=== PATIENT | female | born 1935 | race Caucasian/White ===

== ENCOUNTER 2016-11-13 10:00 | Emergency (ER) | payer MEDICARE ==
[~2016-11-13] VITALS: Ht 162.6 cm; Wt 57.7 kg
[~2016-11-13 10:00] MED LIST: ACET-2222 PO; AGM875T PO; ALPR.5T PO; ALPR1T PO; ALPR1TAB7 PO; AMOX-355 PO; ASP81CT PO; ASPI-586 PO; ATOR40TA70 PO; ATR20T PO; AUGMENTIN; BENZ200C25 PO; CEPH-507 PO; CETI10TA20 PO; CHLR10C PO; CHOL500044 PO; CLC200NA2; CLC200NA2 NS; CLOP75TA PO; CODE-54; CODE-54 PO; CYCL10TA9 PO; CYCL5TAB PO; DLT180CCR; DLT240CCR; DOCU-143 PO; DOCU-163 PO; DULO60CA58 PO; DULO60CA6 PO; ENAL5TAB PO; ENLP10T; ESCI20TA2 PO; ESCI20TA38 PO; ESCT10T; ESCT10T PO; FOLI0.8T PO; FRSM40T PO; FURO40TA4 PO; GENT15DR4 OS; GUAI-509 PO; HYDR-34 PO; HYDR-3714 PO; HYDR1TAB PO; HYDR1TAB8 OP; IBUP1TAB15 PO; IRBE75TA31 PO; KCL10CCR PO; LAMOTIL PO; LNS30CCR; LOPE1TAB13 PO; LOPE2CAP PO; LVF500T PO; MAG355OR55 PO; MAGN-47 PO; MAGN400T6 PO; METO-270 PO; METO-272 PO; METO25TA PO; METO50TA7 PO; MGX400T PO; MIRA50TA PO; MTC10T; MTP100TCR; NAPR220C PO; NF-ESOM40C; NITR-65 PO; ONDA4TAB8 PO; ONDA8TAB9 PO; OXYC-197 PO; OXYM30SP NS; PANT20TA2 PO; PANT40TA PO; PANT40TA3 PO; PNT40TEC PO; PRD20T PO; PRED5DRO OS; PREG50CA2 PO; QNPR10T; QNPR20T; QUET50TA49 PO; RIVA10TA PO; SENN1TAB76 PO; STOMACH MED; THM100T PO; TRAM50TA2 PO; TRM50T PO; WELCHOL PO; Z-Pak; albuterol mdi; immodium PO
--- OUTSIDE RECORDS SUMMARY | 2016-11-13 10:06 | XMS REPORT | Continuity of Care Document ---
Author Author [facility] Organization [facility] Address Unknown Phone Unavailable Care Team Providers Care Fishery Division Chief Name Role Phone No Pcp, Na PCP Unavailable Source Comments Some departments are not documenting in the electronic medical record. If you do not see the information that you expected, contact Release of Information in the Health Information Management department at [phone] for further assistance in locating additional records.[facility] Active Allergies and Adverse Reactions No Known Allergies Current Medications Prescription Sig. Disp. Refills Start End Date Status Date CETIRIZINE HCL (ZYRTEC Take by mouth. Active PO) ALPRAZOLAM (XANAX PO) Take by mouth. Active METOPROLOL SUCCINATE Take by mouth. Active (TOPROL XL PO) PANTOPRAZOLE SODIUM Take by mouth. Active (PROTONIX PO) BABY ASPIRIN PO Take by mouth. Active ERGOCALCIFEROL (VITAMIN Take by mouth. Active D2) (VITAMIN D PO) GUAIFENESIN (MUCINEX PO) Take by mouth. Active SERTRALINE HCL (ZOLOFT Take by mouth. Active PO) Active Problems No known active problems Resolved Problems Problem Noted Date Resolved Date Hypercalcemia 02/21/2016 09/04/2016 Most Recent Encounters Date Type Specialty Providers Description 09/04/2016 Documentation Oncology Seymour Lopez MD 09/04/2016 Telephone Oncology Seymour Lopez MD Results 09/03/2016 Office Visit Oncology Seymour Lopez MD Hypercalcemia ( Primary Dx) 09/03/2016 Hospital Oncology Seymour Lopez MD Encounter Social History Tobacco Use Types Packs/Day Years Used Date Current Every Day Smoker Smokeless Tobacco: Never Used Alcohol Use Drinks/Week oz/Week Comments Yes Last Filed Vital Signs Vital Sign Reading Time Taken Blood Pressure 140/98 09/03/2016 11:42 AM FOREST ECONOMICS PROFESSOR Pulse 100 09/03/2016 11:42 AM FOREST ECONOMICS PROFESSOR Temperature 36.3 C (97.3 F) 09/03/2016 11:42 AM FOREST ECONOMICS PROFESSOR Respiratory Rate 14 09/03/2016 11:42 AM FOREST ECONOMICS PROFESSOR Height 1.613 m (5' 3.5") 09/03/2016 11:42 AM FOREST ECONOMICS PROFESSOR Weight 54.976 kg (121 lb 3.2 oz) 09/03/2016 11:42 AM FOREST ECONOMICS PROFESSOR Body Mass Index 21.13 09/03/2016 11:42 AM FOREST ECONOMICS PROFESSOR Oxygen Saturation 100% 09/03/2016 11:42 AM FOREST ECONOMICS PROFESSOR Plan of Care Health Maintenance Due Date Last Done Comments Physical (Comprehensive) 1941 Exam Pertussis Vaccine 1945 Tetanus Vaccine 1951 Shingles Vaccine 1994 Osteoporosis Screening 1999 Prevnar/Pneumovax (#1) 1999 Influenza Vaccine 06/13/2016 Results from Last 3 Months PARATHYROID HORMONE (09/03/2016 11:17 AM) Component Value Range PTH Hormone 44.8 10-65 PG/ML Specimen Blood CALCIUM (09/03/2016 11:17 AM) Component Value Range Calcium 10.1 8.5-10.6 MG/DL Specimen Blood 25-OH VITAMIN D (D2 + D3) (09/03/2016 11:17 AM) Component Value Range Vitamin D(25-OH)Total 30.9 30-80 NG/ML Specimen Blood
--- NOTE | 2016-11-13 10:39 | ED Back Pain ---
General Chief Complaint: Back Problems Stated Complaint: FALL/BACK PAIN Nursing Triage Note: PT TO [facility] BY [facility] WITH CC OF LOWER BACK PAIN FROM A FALL 4 DAYS AGO. Nursing Sepsis Screen: No Definite Risk Source of Information: Patient Exam Limitations: No Limitations History of Present Illness Time Seen by Provider: 10:03 Initial Comments Here by EMS with significant lower back pain. She states it doesn't hurt when she does not move them but she is having difficulty with getting up. Called EMS this morning because it was more severe. She did take a pain pelvis morning that seems to be helping. She states that she fell for 5 days ago, she is not sure. She states it was in the middle the night and she was walking in the dark. She thinks she caught her foot on something of health for landing on her face. She does have abrasion to the right forehead. Denies loss of consciousness. States is been doing okay except for back pain since. Denies nausea or vomiting. Location: Lumbar Spine Timing/Duration: 4-5 Days, Changing Over Time, Getting Worse Severity: Moderate Pain/Injury Location: Back, Face Modifying Factors: Worse With Movement, Improves With Pain Medication Associated Symptoms: muscle spasmsNo weakness, No numbness in legs/feet, No tingling in legs/feet, No sensory/motor loss, lower back painNo loss of bladder control, No loss of bowel control Allergies and Home Medications Allergies Coded Allergies: procaine (Verified Allergy, Unknown, 07/21/16) Uncoded Allergies: ENVIRONMENTAL (Allergy, Mild, 12/31/10) Home Medications Alprazolam 1 Mg Tablet 1 MG PO BID PRN PRN ANXIETY (Reported) Aspirin 81 Mg Tablet. 81 MG PO DAILY (Reported) Cholecalciferol (Vitamin D3) 5,000 Unit Tablet 5,000 UNIT PO DAILY (Reported) Docusate Sodium 100 Mg Capsule 100 MG PO DAILY (Reported) Duloxetine HCl 60 Mg Capsule. #30 60 MG PO DAILY Prescribed by: LUKE SALAZAR on 07/26/16 0953 Metoprolol Succinate 25 Mg Tab.er.24h 25 MG PO DAILY (Reported) Pantoprazole Sodium 40 Mg Tablet. 40 MG PO DAILY (Reported) Constitutional: see HPINo chills, No fever Respiratory: no symptoms reported Cardiovascular: no symptoms reported Gastrointestinal: no symptoms reported Genitourinary: no symptoms reported Musculoskeletal: see HPI back pain muscle pain Skin: see HPI lesions Psychiatric/Neurological: No Symptoms ReportedDenies Anxiety, Denies Headache , Denies Numbness, Denies Weakness Past Mgjmxiu-Diujxo-Hiqnmj Hx Patient Social History Alcohol Use: Regular Use Recreational Drug Use: Yes (ALCOHOL,DRINKS) Smoking Status: Current Everyday Smoker Type Used: Cigarettes Recent Foreign Travel: No Contact w/Someone Who Travel: No Recent Infectious Disease Expo: No Recent Hopitalizations: No Immunizations Up To Date Tetanus Booster (TDap): Unknown PED Vaccines UTD: Yes Seasonal Allergies Seasonal Allergies: No Surgeries HX Surgeries: Yes Surgeries: Adenoidectomy, Cardiac, Coronary Stent, Eye Surgery, Gallbladder, Joint Replacement, Orthopedic, Tonsillectomy Respiratory Hx Respiratory Disorders: Yes (ACUTE RESPIRATORY FAILURE ON VENT 10/2012) Respiratory Disorders: Chronic Bronchitis, COPD Cardiovascular Hx Cardiac Disorders: Yes (SVT--S/P CARDIAC ABLATION, CHF/PLUMONARY EDEMA 2012; CARDIAC STENTS X 4) Cardiac Disorders: Coronary Artery Disease, Heart Attack, High Cholesterol, Hypertension, Irregular Heartbeat, Syncope Neurological Hx Neurological Disorders: Yes Reproductive System Hx Reproductive Disorders: No Sexually Transmitted Disease: No HIV/AIDS: No Female 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 Genitourinary Hx Genitourinary Disorders: No Gastrointestinal Hx Gastrointestinal Disorders: Yes Gastrointestinal Disorders: Hepatitis, Cirrhosis Musculoskeletal Hx Musculoskeletal Disorders: Yes (FREQUENT FALLS, ) Musculoskeletal Disorders: Degenerate Disk Disease, Osteoporosis, Arthritis, Back Injury, Chronic Back Pain, Fractures Endocrine Hx Endocrine Disorders: Yes (lump on thyroid ) HEENT HX ENT Disorders: Yes (CATARACTS SURGERY 01/20/15, BROKEN NOSE) HEENT Disorders: Cataract Hearing Impairment: Denies Cancer Hx Cancer: No Psychosocial Hx Psychiatric Problems: Yes (ALCOHOLISM) Behavioral Health Disorders: Anxiety, Depression Integumentary HX Skin/Integumentary Disorder: No Blood Transfusions Hx Blood Disorders: Yes (hepatitis) Adverse Reaction to a Blood Tr: No Reviewed Nursing Assessment Reviewed/Agree w Nursing PMH: Yes Family Medical History Significant Family History: No Pertinent Family Hx Family Medial History: Alcoholism G8 SISTER Arthritis 03 FATHER 03 MOTHER G8 SISTER Cataracts Colon cancer G8 BROTHER Congestive heart failure 03 FATHER Deafness or hearing loss 03 FATHER Dementia G8 BROTHER Diabetes mellitus G8 BROTHER Drug abuse 03 FATHER 03 MOTHER G8 SISTER G8 BROTHER Family history: Arthritis 03 FATHER (GOUT) Family history: Cardiovascular disease 03 FATHER Family history: Gastrointestinal disease 03 MOTHER Hearing loss 03 FATHER Heart disease 03 FATHER Myocardial infarction 03 FATHER Psychosocial problem G8 BROTHER Visual disorder Visual impairment 03 FATHER (WORE GLASSES) 03 MOTHER (WORE GLASSES) Physical Exam Vital Signs Vital Sign - Last 12Hours 11/13/16 10:08 Temp 98.0 Pulse 105 Resp 20 B/P 175/114 Pulse Ox 97 O2 Delivery Room Air Capillary Refill : Less Than 3 Seconds General Appearance: No Apparent Distress WD/WN HEENT: PERRL/EOMI TMs Normal Normal ENT Inspection Pharynx Normal Neck: Full Range of Motion Normal Inspection Non Tender Supple Cardiovascular: Regular Rate, Rhythm No Murmur Respiratory: Lungs Clear Normal Breath Sounds Gastrointestinal: Non Tender Soft Back: Normal Inspection No CVA Tenderness No Vertebral Tenderness Muscle Spasm Other (mild bilateral low back tenderness) Extremity: Non Tender No Calf Tenderness Neurologic/Psychiatric: Alert Oriented x3 Skin: Normal Color Warm/Dry ( only on a) Other (mild abrasion to the right forehead) Progress/Results/Core Measures Results/Orders My Orders Orders-ALEM HOLLY MD Ct Head/Cervical Spine Wo (11/13/16 10:10) Ct Lumbar Spine Wo (11/13/16 10:10) Metoprolol Succinate (Xl) Tab (Toprol Xl (11/13/16 11:30) Medications Given in ED Current Medications Medications Dose Ordered Sig/Jorge Route Start Time Stop Time Status Last Admin Dose Admin Metoprolol Succinate 50 mg ONCE ONCE PO 11/13/16 11:30 11/13/16 11:31 11/13/16 11:26 50 MG Vital Signs/I&O Vital Sign - Last 12Hours 11/13/16 10:08 Temp 98.0 Pulse 105 Resp 20 B/P 175/114 Pulse Ox 97 O2 Delivery Room Air Blood Pressure Mean: 134 Progress Note : Progress Note Seen and evaluated. CT head and neck ordered. CT lumbar spine ordered. Monitor patient. Tetanus is up-to-date. Metoprolol XL 50 mg by mouth given. She will skip her home metoprolol dose today. No acute findings on CT scan. Discharge home with return precautions. Patient verbalize understanding instructions and agreement with plan. She has pain medicines for home use. Diagnostic Imaging Diagonstic Imaging: CT Plain Films/CT/US/NM/MRI: c-spine, head Comments [facility] [place], [place] NAME: GHISLAINE PORTER [facility] REC#: [id number] PT STATUS: REG ER : 1935 PHYSICIAN: ALEM HOLLY MD ADMIT DATE: 11/13/16/ER Draft Date of Exam:11/13/16 CT HEAD/CERVICAL SPINE WO PROCEDURE: CT head and CT cervical spine without contrast. TECHNIQUE: Multiple contiguous axial images were obtained through the brain and cervical spine without the use of intravenous contrast. Sagittal and coronal reformations through the cervical spine were then performed. INDICATION: Fall. FINDINGS: CT head: There is no intracranial hemorrhage, edema, or mass effect. The brain parenchyma demonstrates periventricular and deep white matter hypodensities compatible with chronic microvascular ischemic changes. No hydrocephalus. No extra-axial fluid collection or hemorrhage seen. The globes demonstrate postsurgical changes anteriorly. Correlate with surgical history. CT cervical spine: There is satisfactory alignment of the posterior spinal line. The vertebral body heights are preserved. There is no widening of the predental space. There is satisfactory alignment of the lateral masses of C1 and C2 and at the atlanto-occipital joints. Degenerative changes at the facet joints are seen. Mild posterior osteophytes at the C3-C4, C5-C6 and C6-C7 levels seen. No fracture is identified. There is a sclerotic focus in the C3 vertebral body measuring 4 mm likely a bony island. There is multilevel neuroforaminal narrowing most prominent at C5-C6 bilaterally. IMPRESSION: CT head: No intracranial hemorrhage. Chronic white matter ischemic changes. CT cervical spine: No fracture seen. Prominent degenerative changes. Dictated on workstation # [id number] Dict: 11/13/16 1034 Trans: 11/13/[address] [place] [address] [id number] Interpreted by: FANNY SUNSHINE MD Electronically signed by: Diagonstic Imaging: CT Plain Films/CT/US/NM/MRI: other (lumbar spine) [facility] [place], [place] NAME: GHISLAINE PORTER [facility] REC#: [id number] PT STATUS: REG ER : 1935 PHYSICIAN: ALEM HOLLY MD ADMIT DATE: 11/13/16/ER Draft Date of Exam:11/13/16 CT LUMBAR SPINE WO PROCEDURE: CT lumbar spine without contrast. TECHNIQUE: Multiple contiguous axial images were obtained through the lumbar spine without the use of intravenous contrast. Sagittal and coronal reformations were then performed. INDICATION: Fall. FINDINGS: There are chronic compression fractures involving the L1 and T12 vertebral bodies with 50% height loss at T12 and 70% height loss at the L1 vertebral body levels. There is mild posterior bulge off the superior aspect of the posterior margin of these two vertebral bodies. Findings are similar to 01/27/2014 exam. The other vertebral bodies in the lumbar spine demonstrate no compression fractures. There is mild disc height loss at the L4-L5 level. There is mild ossification of the posterior longitudinal ligament at the L4 vertebral level. There is suggestion of disc herniations at L3-L4, L3-L5, and L5-S1. There is no spondylolisthesis. No pars defect or fracture seen. There is facet arthropathy in the lower lumbar spine. The neural foramina demonstrate severe stenosis on the right at the L5-S1 level and zulghbwg-lm-obulon stenosis on the left at the same level. There is bilateral moderate foraminal stenosis at L4-L5 worse on the left side. IMPRESSION: Old compression fractures of T12 and L1 vertebral bodies and degenerative changes seen. No acute fracture. Dictated on workstation # [id number] Dict: 11/13/16 1043 Trans: 11/13/16 1105 [id number] Interpreted by: FANNY SUNSHINE MD Electronically signed by: Departure Impression Impression: Primary Impression: Strain, lumbosacral Qualified Code: S39.012A - Strain of muscle, fascia and tendon of lower back, initial encounter Additional Impressions: Forehead contusion Qualified Code: S00.83XA - Contusion of other part of head, initial encounter Forehead abrasion Qualified Code: S00.81XA - Abrasion of other part of head, initial encounter Minor head injury Qualified Code: S00.90XA - Unspecified superficial injury of unspecified part of head, initial encounter Disposition: 01 HOME, SELF-CARE Condition: Stable Departure-Patient Inst. Decision time for Depature: 11:33 Referrals: LUKE SALZAAR DO (PCP/Family) Primary Care Physician Patient Instructions: Lumbar Muscle Strain (DC), Minor Head Injury (DC), Skin Abrasions (DC) Add. Discharge Instructions: All discharge instructions reviewed with patient and/or family. Voiced understanding. Continue home medications as directed. You may skip your blood pressure medicine today as urine given that here in the ER. Drink plenty of fluids. Follow-up with your Dr. in a few days for recheck. Return for worse pain, fever , vomiting, weakness, breathing problems or other concerns as needed. ALEM HOLLY MD Nov 13, 2016 10:39
--- NOTE | 2016-11-13 11:01 | Diagnostic Imaging Report ---
PROCEDURE: CT head and CT cervical spine without contrast. TECHNIQUE: Multiple contiguous axial images were obtained through the brain and cervical spine without the use of intravenous contrast. Sagittal and coronal reformations through the cervical spine were then performed. INDICATION: Fall. FINDINGS: CT head: There is no intracranial hemorrhage, edema, or mass effect. The brain parenchyma demonstrates periventricular and deep white matter hypodensities compatible with chronic microvascular ischemic changes. No hydrocephalus. No extra-axial fluid collection or hemorrhage seen. The globes demonstrate postsurgical changes anteriorly. Correlate with surgical history. CT cervical spine: There is satisfactory alignment of the posterior spinal line. The vertebral body heights are preserved. There is no widening of the predental space. There is satisfactory alignment of the lateral masses of C1 and C2 and at the atlanto-occipital joints. Degenerative changes at the facet joints are seen. Mild posterior osteophytes at the C3-C4, C5-C6 and C6-C7 levels seen. No fracture is identified. There is a sclerotic focus in the C3 vertebral body measuring 4 mm likely a bony island. There is multilevel neuroforaminal narrowing most prominent at C5-C6 bilaterally. IMPRESSION: CT head: No intracranial hemorrhage. Chronic white matter ischemic changes. CT cervical spine: No fracture seen. Prominent degenerative changes. Dictated by: Dictated on workstation # [id number]
--- NOTE | 2016-11-13 11:06 | Diagnostic Imaging Report ---
PROCEDURE: CT lumbar spine without contrast. TECHNIQUE: Multiple contiguous axial images were obtained through the lumbar spine without the use of intravenous contrast. Sagittal and coronal reformations were then performed. INDICATION: Fall. FINDINGS: There are chronic compression fractures involving the L1 and T12 vertebral bodies with 50% height loss at T12 and 70% height loss at the L1 vertebral body levels. There is mild posterior bulge off the superior aspect of the posterior margin of these two vertebral bodies. Findings are similar to 01/27/2014 exam. The other vertebral bodies in the lumbar spine demonstrate no compression fractures. There is mild disc height loss at the L4-L5 level. There is mild ossification of the posterior longitudinal ligament at the L4 vertebral level. There is suggestion of disc herniations at L3-L4, L3-L5, and L5-S1. There is no spondylolisthesis. No pars defect or fracture seen. There is facet arthropathy in the lower lumbar spine. The neural foramina demonstrate severe stenosis on the right at the L5-S1 level and rrzgaiyc-fy-oxzlvz stenosis on the left at the same level. There is bilateral moderate foraminal stenosis at L4-L5 worse on the left side. IMPRESSION: Old compression fractures of T12 and L1 vertebral bodies and degenerative changes seen. No acute fracture. Dictated by: Dictated on workstation # [id number]
[2016-11-13 11:57] VITALS: BP 170/120
== END 2016-11-13 11:53 | disposition home or self-care (01) ==
LOC: EDUNIT# 10:00 → ER 10:02
DX: S39.012A Strain of muscle, fascia and tendon of lower back, initial encounter (principal); S00.81XA Abrasion of other part of head, initial encounter; M47.812 Spondylosis without myelopathy or radiculopathy, cervical region; I10 Essential (primary) hypertension; I25.10 Atherosclerotic heart disease of native coronary artery without angina pectoris; J44.9 Chronic obstructive pulmonary disease, unspecified; F17.210 Nicotine dependence, cigarettes, uncomplicated; Z79.82 Long term (current) use of aspirin; Z79.899 Other long term (current) drug therapy; Z95.5 Presence of coronary angioplasty implant and graft; W01.0XXA Fall on same level from slipping, tripping and stumbling without subsequent striking against object, initial encounter; Y92.009 Unspecified place in unspecified non-institutional (private) residence as the place of occurrence of the external cause; Y99.8 Other external cause status
CPT/HCPCS: 70450; 72125; 72131; 99285

== ENCOUNTER → 2016-12-03 | Day surgery (SDC) | payer MEDICARE ==
[~2016-12-03] MED LIST changes: +GUAI177L6 PO; +LIDOCAINE 1% INJ 20 ML (XYLOCAINE) VIAL ONE
--- NOTE | 2016-12-03 10:51 | Cardiac Procedure Note-CS/ASA ---
Pre-Procedure Note Pre-Op Procedure Note H&P Reviewed The H&P was reviewed, patient examined and no changes noted. Date H&P Reviewed: Dec 03, 2016 Time H&P Reviewed: 10:51 Conscious Sedation Pre-Proced Time Reviewed: 10:51 ASA Class: 3 Airway Mallampati Classification: ([place] appropriate class) I. II. III, IV Lungs Heart ASA score ASA 1: a normal healthy patient ASA 2: a patient with a mild systemic disease (mid diabetes, controlled hypertension, obesity ASA 3: a patient with a severe systemic disease that limits activity (angina , COPD, prior Myocardial infarction) ASA 4: a patient with an incapacitating disease that is a constant threat to life (CHF, renal failure) ASA 5: a moribund patient not expected to survive 24 hrs. (ruptured aneurysm) ASA 6: a declared brain patient whose organs are being harvested. For emergent operations, add the letter E after the classification Grade 2 Sedation Plan: Analgesia, Amnesia, Plan communicated to team members, Discussed options with patient/fam, Discussed risks with patient/fam Note The patient is an appropriate candidate to undergo the planned procedure, sedation, and anesthesia. The patient immediately re-assessed prior to indication. WENDY TRAORE MD FACP FACC CCDS Dec 03, 2016 10:51
[2016-12-03 11:24] VITALS: BP 174/89
--- OUTSIDE RECORDS SUMMARY | 2016-12-03 13:18 | XMS REPORT | Continuity of Care Document ---
Author Author [facility] Organization [facility] Address Unknown Phone Unavailable Care Team Providers Care Laborer Poultry Hatchery Name Role Phone No Pcp, Na PCP Unavailable Source Comments Some departments are not documenting in the electronic medical record. If you do not see the information that you expected, contact Release of Information in the Health Information Management department at [phone] for further assistance in locating additional records.[facility] Active Allergies and Adverse Reactions No [...] Taken Blood Pressure 140/98 09/03/2016 11:42 AM COMPUTER OPERATIONS MANAGER Pulse 100 09/03/2016 11:42 AM COMPUTER OPERATIONS MANAGER Temperature 36.3 C (97.3 F) 09/03/2016 11:42 AM COMPUTER OPERATIONS MANAGER Respiratory Rate 14 09/03/2016 11:42 AM COMPUTER OPERATIONS MANAGER Height 1.613 m (5' 3.5") 09/03/2016 11:42 AM COMPUTER OPERATIONS MANAGER Weight 54.976 kg (121 lb 3.2 oz) 09/03/2016 11:42 AM COMPUTER OPERATIONS MANAGER Body Mass Index 21.13 09/03/2016 11:42 AM COMPUTER OPERATIONS MANAGER Oxygen Saturation 100% 09/03/2016 11:42 AM COMPUTER OPERATIONS MANAGER Plan of Care Health Maintenance Due Date [...]
--- OUTSIDE RECORDS SUMMARY | 2016-12-03 13:18 | XMS REPORT | Continuity of Care Document ---
Author Author [facility] Organization [facility] Address Unknown Phone Unavailable Care Team Providers Care Fruit Sprayer Name Role Phone No Pcp, Na PCP Unavailable Source Comments Some departments are not documenting in the electronic medical record. If you do not see the information that you expected, contact Release of Information in the Health Information Management department at [phone] for further assistance in locating additional records.[facility] Active Allergies and Adverse Reactions No [...] Taken Blood Pressure 140/98 09/03/2016 11:42 AM MACHINE SAND MIXER Pulse 100 09/03/2016 11:42 AM MACHINE SAND MIXER Temperature 36.3 C (97.3 F) 09/03/2016 11:42 AM MACHINE SAND MIXER Respiratory Rate 14 09/03/2016 11:42 AM MACHINE SAND MIXER Height 1.613 m (5' 3.5") 09/03/2016 11:42 AM MACHINE SAND MIXER Weight 54.976 kg (121 lb 3.2 oz) 09/03/2016 11:42 AM MACHINE SAND MIXER Body Mass Index 21.13 09/03/2016 11:42 AM MACHINE SAND MIXER Oxygen Saturation 100% 09/03/2016 11:42 AM MACHINE SAND MIXER Plan of Care Health Maintenance Due Date [...]
--- NOTE | 2016-12-03 14:59 | PROCEDURE REPORT ---
PROCEDURE PHYSICIAN: WENDY TRAORE DATE OF PROCEDURE: 12/03/2016 PREOPERATIVE DIAGNOSIS: 1. Palpitations. 2. Syncope. POSTOPERATIVE DIAGNOSIS: 1. Palpitations. 2. Syncope. PROCEDURE: Implantable loop recorder implantation. Marlena Taylor is an 82-year-old lady who has had palpitations and syncope which a diagnosis has not been found on Holter monitor and ambulatory cardiac monitoring. Implantable loop recorder implantation was carried out today after having obtained an informed consent. She was brought to the heart center. The left prepectoral area was prepared and draped in usual sterile fashion. 2% Lidocaine was used for local anesthetic. We used a Mister Spex implantable loop recorder (Bio Monitor 2-AF). A small incision was made just to the left of the sternum in the anterior chest. This was made in the 5th intercostal space and we used the tunneling tool provided with the device to make a tunnel from this incision cephalad up to and anterior to the 3rd intercostal space. In the tunnel we were then able to place the device and the incision was closed using a 3.0 Vicryl continuous suture. The patient tolerated the procedure well. Job ID: [id number] Dictated Date: 12/03/2016 11:29:19 Summer Nanny Date: 12/03/2016 14:51:48 / aleyda SALOMON
== END ==
LOC: CATH 08:48
PROVIDERS: ATTEND Internal Medicine Cardiovascular Disease
DX: R00.2 Palpitations (principal); R55 Syncope and collapse; I25.10 Atherosclerotic heart disease of native coronary artery without angina pectoris; I25.5 Ischemic cardiomyopathy; J44.9 Chronic obstructive pulmonary disease, unspecified; I10 Essential (primary) hypertension; E78.5 Hyperlipidemia, unspecified; Z95.5 Presence of coronary angioplasty implant and graft; Z72.0 Tobacco use; Z79.899 Other long term (current) drug therapy
CPT/HCPCS: 33282

== ENCOUNTER 2016-12-13 10:20 | Outpatient (CLI) | payer MEDICARE ==
[~2016-12-13] VITALS: Ht 162.6 cm; Wt 57.7 kg
[~2016-12-13 10:20] MED LIST changes: -GUAI177L6 PO; -LIDOCAINE 1% INJ 20 ML (XYLOCAINE) VIAL ONE
--- OUTSIDE RECORDS SUMMARY | 2016-12-13 10:24 | XMS REPORT | Continuity of Care Document ---
Author Author [facility] Organization [facility] Address Unknown Phone Unavailable Care Team Providers Care Microbiological Laboratory Technician Name Role Phone No Pcp, Na PCP Unavailable Source Comments Some departments are not documenting in the electronic medical record. 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 MANAGER Pulse 100 09/03/2016 11:42 AM MINE SAFETY MANAGER Temperature 36.3 C (97.3 F) 09/03/2016 11:42 AM MINE SAFETY MANAGER Respiratory Rate 14 09/03/2016 11:42 AM MINE SAFETY MANAGER Height 1.613 m (5' 3.5") 09/03/2016 11:42 AM MINE SAFETY MANAGER Weight 54.976 kg (121 lb 3.2 oz) 09/03/2016 11:42 AM MINE SAFETY MANAGER Body Mass Index 21.13 09/03/2016 11:42 AM MINE SAFETY MANAGER Oxygen Saturation 100% 09/03/2016 11:42 AM MINE SAFETY MANAGER Plan of Care Health Maintenance Due Date Last Done Comments Physical (Comprehensive) 1941 Exam Pertussis Vaccine 1945 Tetanus Vaccine 1951 Shingles Vaccine 1994 Osteoporosis Screening 1999 Prevnar/Pneumovax (#1) 1999 Influenza Vaccine 06/13/2016 Results from Last 3 Months Not on file
[2016-12-13] MEDS ORDERED: TRIAMCINOLONE ACET (KENALOG-40) 40 MG/ML 1 ML VIAL ONE (10:40)
[2016-12-13] MEDS ORDERED: BUPIVACAINE 0.25% 30 ML (SENSORCAINE) VIAL ONE (10:40)
[2016-12-13 11:09] VITALS: BP 119/80
[2016-12-13 11:36] VITALS: BP 107/79
--- NOTE | 2016-12-13 14:52 | Pain Medicine-Procedure ---
Procedure Pre-Op/Post-Op Diagnosis Diagnosis: disc disorder with radiculopathy, lumbar Indications for Operation low back pain Attending Surgeon Hernan Procedure Date of Service: Dec 13, 2016 Procedure: Lumbar Epidural Steroid Injection at the L4-L5 level under Fluoroscopic Guidance Procedure: Patient was identified in the holding area. After risks, benefits, and alternatives were discussed with the patient, informed consent was obtained. Patient was brought to the fluoroscopy suite and placed prone on the procedure room table. A time out was performed. Vital signs were monitored throughout the procedure. The patients low back was prepped and draped in the usual sterile fashion. The patients skin was anesthetized using 2% Lidocaine. A Tuohy needle was inserted and advanced to the L4-L5 epidural space under fluoroscopic guidance using the loss of resistance technique and intermittent projection of fluoroscopy. There was no paresthesia with needle placement. The needle position was confirmed in both the AP and lateral view. After negative aspiration 2ml of contrast was injected under live fluoroscopy which showed good spread of the contrast in the epidural space at the appropriate level, there was no intravascular or subarachnoid spread. Again, after negative aspiration for heme or CSF, 2 ml of 0.25% Bupivicaine, 2ml of preservative free normal saline, and 80mg of Kenalog was injected. The needle was removed and a sterile bandage was placed and the patient was transferred to the recovery area in stable condition. After a brief period of observation, patient was discharged to home with no new neurological deficits and no apparent complications. Complications none MANUELA RIVERA MD Dec 13, 2016 2:52 pm
== END 2016-12-13 11:37 | disposition home or self-care (01) ==
LOC: CARD 10:20
PROVIDERS: ATTEND Pain Medicine Pain Medicine
DX: M51.16 Intervertebral disc disorders with radiculopathy, lumbar region (principal); Z79.899 Other long term (current) drug therapy
CPT/HCPCS: 62323

== ENCOUNTER 2017-01-16 00:14 | Inpatient (IN) | payer MEDICARE ==
[~2017-01-16] VITALS: Ht 165.1 cm; Wt 57.6 kg
[2017-01-16] VITALS (27 sets, daily range): BP systolic 105–179; BP diastolic 71–134
[2017-01-16 01:18] LABS: BASOPHILS % (AUTO) 0 % (0-10); EOSINOPHILS % (AUTO) 1 % (0-10); LYMPHOCYTES % (AUTO) 19 % (12-44); MEAN CORPUSCULAR HGB CONC 35 G/DL (32-36); MEAN CORPUSCULAR VOLUME 99 FL (80-99); MEAN PLATELET VOLUME 8.9 FL (7.4-10.4); MONOCYTES # (AUTO) 0.4 X 10^3 (0.0-1.0); MONOCYTES % (AUTO) 8 % (0-12); NEUTROPHILS % (AUTO) 72 % (42-75); RED CELL DISTRIBUTION WIDTH 13.2 % (10.0-14.5)
[2017-01-16 01:19] LABS: MEAN CORPUSCULAR HEMOGLOBIN 34 PG (25-34); PLATELET COUNT 92 10^3/uL (130-400); RED BLOOD COUNT 4.11 10^6/uL (4.35-5.85)
[2017-01-16 01:20] LABS: LYMPHOCYTES # (AUTO) 1.1 X 10^3 (1.0-4.0); NEUTROPHILS # (AUTO) 4.3 X 10^3 (1.8-7.8)
[2017-01-16 01:33] LABS: ALANINE AMINOTRANSFERASE 11 U/L (0-55); ALBUMIN 3.3 G/DL (3.2-4.5); ALCOHOL 164 MG/DL (<10); ANION GAP 15 MMOL/L (5-14); ASPARTATE AMINO TRANSFERASE 21 U/L (5-34); BILIRUBIN,TOTAL 0.6 MG/DL (0.1-1.0); BLOOD UREA NITROGEN 8 MG/DL (7-18); BUN/CREATININE RATIO 13; CALCIUM 8.8 MG/DL (8.5-10.1); CARBON DIOXIDE 22 MMOL/L (21-32); CHLORIDE 105 MMOL/L (98-107); CREATININE SERUM 0.64 MG/DL (0.60-1.30); GFR ESTIMATED > 60; GLUCOSE 96 MG/DL (70-105); INR 0.9 (0.8-1.4); MAGNESIUM 1.4 MG/DL (1.8-2.4); POTASSIUM 3.3 MMOL/L (3.6-5.0); PROTHROMBIN TIME PATIENT 12.1 SEC (12.2-14.7); SODIUM 142 MMOL/L (135-145); TOTAL PROTEIN 6.3 G/DL (6.4-8.2)
[2017-01-16 01:55] LABS: TROPONIN I < 0.30 NG/ML (<0.30)
[2017-01-16 02:12] LABS: BILIRUBIN,URINE NEGATIVE (NEGATIVE); KETONES,URINE NEGATIVE (NEGATIVE); LEUKOCYTE ESTERASE ,URINE 3+ (NEGATIVE); NITRITE,URINE POSITIVE (NEGATIVE); PH,URINE 6 (5-9); PROTEIN,URINE NEGATIVE (NEGATIVE); UROBILINOGEN,URINE NORMAL (NORMAL)
[2017-01-16] MEDS ORDERED: ENALAPRILAT 2.5 MG/2 ML (VASOTEC) VIAL IV ONE (02:45)
[2017-01-16] MEDS ORDERED: meTOprolol 5 MG/5 ML (LOPRESSOR) VIAL IV ONE (02:45)
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
[2017-01-16] MEDS ORDERED: ENOXAPARIN 60 MG/0.6 ML (LOVENOX) SYR SC ONE (04:00)
[2017-01-16] MEDS ORDERED: D5 1/2 NS W/KCL 20 MEQ/L 1,000 ML IV ONE (05:20)
[2017-01-16] MEDS ORDERED: cefTRIAXone 1 GM (ROCEPHIN) VIAL ONE (05:20)
[2017-01-16] MEDS ORDERED: NS (IVPB) 50 ML ONE (05:21)
--- NOTE | 2017-01-16 06:10 | Diagnostic Imaging Report ---
Clinical indication: Patient with altered mental status and recent fall. Exam: Axial CT scan of the brain performed without IV contrast. Comparison: Head CT without IV contrast dated 11/13/2016. Findings: There is no evidence of acute cerebral infarct, intracranial hemorrhage, or gross mass effect. There is no significant change to the patchy and confluent areas of low-attenuation white matter changes in both cerebral hemispheres suspected to represent chronic small vessel ischemic disease. There is stable brain parenchymal volume loss. There is normal garcia-white matter distinction. There is no significant midline shift or herniation. There is no evidence of hydrocephalus. The basal cisterns are unremarkable. The skull, extracranial soft tissue, and orbits are unremarkable. The paranasal sinuses are unremarkable. Impression: Stable age-related brain parenchymal changes with no evidence of acute intracranial process. I agree with [facility] report. Dictated by: Dictated on workstation # [id number]
[2017-01-16] MEDS ORDERED: D5 1/2 NS W/KCL 20 MEQ/L 1,000 ML IV SCH (06:15)
[2017-01-16] MEDS ORDERED: LORazepam 1 MG (ATIVAN) TAB PO PRN ×2 (06:30)
[2017-01-16] MEDS ORDERED: ONDANSETRON 4 MG/2 ML (SDV) Z0FRAN IV PRN (06:30)
[2017-01-16] MEDS ORDERED: LORazepam INJ 2 MG/ML (ATIVAN) VIAL IV PRN ×4 (06:30)
[2017-01-16] MEDS ORDERED: SENNA W/DOCUSATE (SENOKOT S) TABLET PO PRN (06:30)
[2017-01-16] MEDS ORDERED: ANTACID SUSP 30 ML UDC (MYLANTA) PO PRN (06:30)
[2017-01-16 06:46] LABS: BASOPHILS % (AUTO) 0 % (0-10); EOSINOPHILS # (AUTO) 0.1 10^3/uL (0.0-0.3); EOSINOPHILS % (AUTO) 1 % (0-10); LYMPHOCYTES # (AUTO) 1.5 X 10^3 (1.0-4.0); LYMPHOCYTES % (AUTO) 20 % (12-44); MEAN CORPUSCULAR HEMOGLOBIN 34 PG (25-34); MEAN CORPUSCULAR HGB CONC 35 G/DL (32-36); MEAN CORPUSCULAR VOLUME 98 FL (80-99); MEAN PLATELET VOLUME 9.5 FL (7.4-10.4); MONOCYTES # (AUTO) 0.7 X 10^3 (0.0-1.0); MONOCYTES % (AUTO) 10 % (0-12); NEUTROPHILS # (AUTO) 5.1 X 10^3 (1.8-7.8); NEUTROPHILS % (AUTO) 69 % (42-75); PLATELET COUNT 194 10^3/uL (130-400); RED BLOOD COUNT 3.82 10^6/uL (4.35-5.85); RED CELL DISTRIBUTION WIDTH 13.3 % (10.0-14.5); WHITE BLOOD COUNT 7.4 10^3/uL (4.3-11.0)
[2017-01-16 07:04] LABS: ALANINE AMINOTRANSFERASE 8 U/L (0-55); ALBUMIN 2.8 G/DL (3.2-4.5); ANION GAP 13 MMOL/L (5-14); ASPARTATE AMINO TRANSFERASE 19 U/L (5-34); BILIRUBIN,TOTAL 0.5 MG/DL (0.1-1.0); BLOOD UREA NITROGEN 8 MG/DL (7-18); BUN/CREATININE RATIO 15; CALCIUM 8.3 MG/DL (8.5-10.1); CARBON DIOXIDE 19 MMOL/L (21-32); CHLORIDE 108 MMOL/L (98-107); CREATININE SERUM 0.55 MG/DL (0.60-1.30); GFR ESTIMATED > 60; GLUCOSE 92 MG/DL (70-105); POTASSIUM 3.5 MMOL/L (3.6-5.0); SODIUM 140 MMOL/L (135-145); TOTAL PROTEIN 5.5 G/DL (6.4-8.2)
--- NOTE | 2017-01-16 07:07 | Diagnostic Imaging Report ---
INDICATION: Altered mental status. Single supine view of the chest is obtained. Comparison is made study of 07/21/2016. FINDINGS: Overall heart size and pulmonary vascularity are within normal limits. There is bilateral air trapping with prominence of interstitial markings in the lungs. There is mild increased density in right perihilar and lateral basilar regions. There is also mild blunting of the left costophrenic sulcus. No pneumothorax is seen. There are coronary artery stents in place. IMPRESSION: Blunting of the costophrenic sulci which may be due to basilar atelectasis and/or pneumonitis versus mild pleural fluid. There is no focal consolidation or pneumothorax identified. Dictated by: Dictated on workstation # [id number]
--- NOTE | 2017-01-16 07:09 | Diagnostic Imaging Report ---
INDICATION: Recent fall with pelvic pain. Single AP view of the pelvis is obtained. Comparison is made to study of 11/28/2015. There is no apparent change in left total hip arthroplasty. Degenerative changes are noted at the L4-L5 level. No abnormal lytic or sclerotic focus is identified. There is moderate aortoiliac atherosclerosis. IMPRESSION: Lower lumbar degenerative change similar to previous examination without acute abnormality or adverse change detected. Dictated by: Dictated on workstation # [id number]
[2017-01-16] MEDS: ENALAPRILAT 2.5 MG/2 ML (VASOTEC) VIAL IV SCH ×3 (08:57→20:29)
--- NOTE | 2017-01-16 08:58 | Diagnostic Imaging Report ---
PROCEDURE: US Carotid Duplex Bilateral. TECHNIQUE: Multiple real-time grayscale images were obtained over the carotid arteries in various projections bilaterally. Additional duplex Doppler and color Doppler images were also obtained. INDICATION: Altered mental status. FINDINGS: Grayscale images demonstrate calcified plaque at the carotid bifurcation bilaterally. This is causing shadowing partially obscuring the proximal internal carotid artery on both sides. Color-flow demonstrates patency of the common, internal, and external carotid arteries on both sides. The vertebral artery demonstrates antegrade flow on both sides. Peak systolic velocities in the right ICA are 37, 46, and 65 cm/s, and on the left 30, 34, and 67 cm/s. ICA/CCA ratios are up to 1.1 on the right IMPRESSION: There is significant calcified plaque along the carotid bifurcation bilaterally with obtained velocities around the areas obscured by the plaque within normal range. Correlation with MRA or CTA of the neck is suggested however for better assessment. Dictated by: Dictated on workstation # [id number]
[2017-01-16] MEDS ORDERED: THIAMINE INJECTION 100 MG, FOLIC ACID INJECTION 1 MG, VITAMIN MULTI INJECTION 10 ML, MA... IV SCH ×10 (09:00→09:47)
[2017-01-16] MEDS ORDERED: DULO60CA58 PO (09:07)
[2017-01-16] MEDS ORDERED: PANT40TA3 PO (09:11)
[2017-01-16] MEDS ORDERED: GUAI177L6 PO (09:22)
[2017-01-16] MEDS ORDERED: CATHETER FLUSH 10 ML SYR IV PRN (09:45)
[2017-01-16] MEDS: LORazepam 1 MG (ATIVAN) TAB PO PRN ×2 (12:18→20:29)
[2017-01-16] MEDS: ASPIRIN E.C. 81 MG (ECOTRIN) TAB PO SCH (15:10)
[2017-01-16] MEDS ORDERED: DILTIAZEM 25 MG/5 ML INJ (CARDIZEM) VIAL IV NR (15:30)
--- NOTE | 2017-01-16 15:33 | Consultation-Cardiology ---
HPI-Cardiology Cardiology Consultation Date of Consultation 01/16/17 Date of Admission Indication: afib with RVR HPI Patient is 81 y/o female with history of ETOHism with multiple ER visits secondary to AMS d/t alcohol intoxication, presented to the ER via EMS after life alert button went off. Patient currently with AMS and HPI is obtained through reviewing chart. Patient was found on floor at home with AMS and hallucinations. Found to have AF with RVR, new onset. Patient denying any CP at this time. 81 years old lady with history of alcoholism, confused, unable to provide full history, history was obtained by interviewing the patient and reviewing her record. Apparently she was admitted for alcohol intoxication and change in mental status. She has been pulling her IV out. Noted to be tachycardic with atrial fibrillation and rapid ventricular response. Upon my evaluation patient is confused, disoriented to place and time. Unable to provide history. I will transfer her to the intensive care unit and start her on Cardizem drip and monitor her tolerance and response. Home Medications & Allergies Allergies: Coded Allergies: procaine (Verified Allergy, Unknown, 07/21/16) Uncoded Allergies: ENVIRONMENTAL (Allergy, Mild, 12/31/10) Home Medication List Reviewed: Yes FAK-Lxjiig-Fbmuia Hx Patient Social History Alcohol Use: Regular Use Recreational Drug Use: No Smoking Status: Current Everyday Smoker Type Used: Cigarettes Recent Foreign Travel: No Recent Infectious Disease Expo: No Recent Hopitalizations: No Physical Abuse Screen: No Sexual Abuse: No Immunizations Up To Date Tetanus Booster (TDap): Unknown Past Medical History ETOHism, Tobaccoism, Benzodiazepine use, syncope, CAD Family Medical History Significant Family History: No Pertinent Family Hx Family History: Alcoholism G8 SISTER Arthritis 03 FATHER 03 MOTHER G8 SISTER Cataracts Colon cancer G8 BROTHER Congestive heart failure 03 FATHER Deafness or hearing loss 03 FATHER Dementia G8 BROTHER Diabetes mellitus G8 BROTHER Drug abuse 03 FATHER 03 MOTHER G8 SISTER G8 BROTHER Family history: Arthritis 03 FATHER (GOUT) Family history: Cardiovascular disease 03 FATHER Family history: Gastrointestinal disease 03 MOTHER Hearing loss 03 FATHER Heart disease 03 FATHER Myocardial infarction 03 FATHER Psychosocial problem G8 BROTHER Visual disorder Visual impairment 03 FATHER (WORE GLASSES) 03 MOTHER (WORE GLASSES) No Family History of: AIDS Abdominal aortic aneurysm Tarun's disease Aphasia Asthma Cancer of mouth Cardiovascular disease Completed stroke Congenital disease Congenital heart disease Coronary thrombosis Cystic fibrosis Dysphasia Fibrocystic disease of breast Gastroenteritis Glaucoma Headache disorder Hypercholesterolemia Hypertension Infertility Kidney disease Myocardial infarction Neoplasm Not obtainable due to adoption Osteoporosis Parkinson's disease Prostate cancer Respiratory disorder Seizure disorder Severe allergy Thyroid disease Tuberculosis ROS-Unable to Obtain: unable to obtain ROS d/t AMS Reviewed Test Results Reviewed Test Results Lab Laboratory Tests 01/16/17 01:00: White Blood Count 6.0, Red Blood Count 4.11L, Hemoglobin 14.1, Hematocrit 40, Mean Corpuscular Volume 99, Mean Corpuscular Hemoglobin 34, Mean Corpuscular Hemoglobin Concent 35, Red Cell Distribution Width 13.2, Platelet Count 92L, Mean Platelet Volume 8.9, Neutrophils (%) (Auto) 72, Lymphocytes (%) (Auto) 19, Monocytes (%) (Auto) 8, Eosinophils (%) (Auto) 1, Basophils (%) (Auto) 0, Neutrophils # (Auto) 4.3, Lymphocytes # (Auto) 1.1, Monocytes # (Auto) 0.4, Eosinophils # (Auto) 0.0, Basophils # (Auto) 0.0, Prothrombin Time 12.1L, INR Comment 0.9, Activated Partial Thromboplast Time 20L, Sodium Level 142, Potassium Level 3.3L, Chloride Level 105, Carbon Dioxide Level 22, Anion Gap 15H , Blood Urea Nitrogen 8, Creatinine 0.64, Estimat Glomerular Filtration Rate > 60, BUN/Creatinine Ratio 13, Glucose Level 96, Calcium Level 8.8, Magnesium Level 1.4L, Total Bilirubin 0.6, Aspartate Amino Transf (AST/SGOT) 21, Alanine Aminotransferase (ALT/SGPT) 11, Alkaline Phosphatase 162H, Troponin I < 0.30, Total Protein 6.3L, Albumin 3.3, TSH [place] Testing 0.54, Serum Alcohol 164H 01/16/17 01:55: Urine Color YELLOW, Urine Clarity CLEAR, Urine pH 6, Urine Specific [place] 1.010L, Urine Protein NEGATIVE, Urine Glucose (UA) NEGATIVE, Urine Ketones NEGATIVE, Urine Nitrite POSITIVEH, Urine Bilirubin NEGATIVE, Urine Urobilinogen NORMAL, Urine Leukocyte Esterase 3+H, Urine RBC (Auto) 1+H, Urine RBC 0-2, Urine WBC 5-10H, Urine Crystals NONE, Urine Bacteria LARGEH, Urine Casts NONE, Urine Mucus NEGATIVE, Urine Culture Indicated YES, Urine Opiates Screen NEGATIVE , Urine Oxycodone Screen NEGATIVE, Urine Methadone Screen NEGATIVE, Urine Propoxyphene Screen NEGATIVE, Urine Barbiturates Screen NEGATIVE, Ur Tricyclic Antidepressants Screen NEGATIVE, Urine Phencyclidine Screen NEGATIVE, Urine Amphetamines Screen NEGATIVE, Urine Methamphetamines Screen NEGATIVE, Urine Benzodiazepines Screen POSITIVEH, Urine Cocaine Screen NEGATIVE, Urine Cannabinoids Screen NEGATIVE 01/16/17 04:28: Ammonia 17 01/16/17 06:10: White Blood Count 7.4, Red Blood Count 3.82L, Hemoglobin 13.1, Hematocrit 37, Mean Corpuscular Volume 98, Mean Corpuscular Hemoglobin 34, Mean Corpuscular Hemoglobin Concent 35, Red Cell Distribution Width 13.3, Platelet Count 194, Mean Platelet Volume 9.5, Neutrophils (%) (Auto) 69, Lymphocytes (%) (Auto) 20, Monocytes (%) (Auto) 10, Eosinophils (%) (Auto) 1, Basophils (%) (Auto) 0, Neutrophils # (Auto) 5.1, Lymphocytes # (Auto) 1.5, Monocytes # (Auto) 0.7, Eosinophils # (Auto) 0.1, Basophils # (Auto) 0.0, Sodium Level 140, Potassium Level 3.5L, Chloride Level 108H, Carbon Dioxide Level 19L, Anion Gap 13, Blood Urea Nitrogen 8, Creatinine 0.55L, Estimat Glomerular Filtration Rate > 60, BUN/ Creatinine Ratio 15, Glucose Level 92, Calcium Level 8.3L, Total Bilirubin 0.5, Aspartate Amino Transf (AST/SGOT) 19, Alanine Aminotransferase (ALT/SGPT) 8, Alkaline Phosphatase 140H, Total Protein 5.5L, Albumin 2.8L Microbiology 01/16/17 Urine Culture - Preliminary, Resulted Gram Negative Balaji ECG Impression ECG Initial ECG Rhythm: A Fib/Flutter Initial ECG Impression: Atrial Fibrillation w/RVR Physical Exam Vital Signs Vital Sign - Last 12Hours 01/16/17 00:19 Temp 97.3 Pulse 122 Resp 20 B/P (MAP) 151/115 Pulse Ox 98 O2 Delivery Room Air Capillary Refill : Less Than 3 Seconds General Appearance: WD/WN, Moderate Distress HEENT: Normal ENT Inspection Neck: Non Tender, Supple Respiratory: Chest Non Tender, Lungs Clear, Normal Breath Sounds, No Accessory Muscle Use, No Respiratory Distress Cardiovascular: No Edema, No Gallop, No JVD, Normal Peripheral Pulses, Irregularly Irregular, Tachycardia Gastrointestinal: Non Tender, Soft Rectal: Deferred Back: No CVA Tenderness Extremity: No Calf Tenderness Neurologic/Psychiatric: Alert, Disoriented x3 A/P-Cardiology Admission Diagnosis Afib with RVR AMS ETOH intoxication CAD Assessment/Plan Afib with RVR, new onset- Transfer pt to ICU and place on IV Cardizem, start lovenox. Continue to monitor. Most recent 2D Echo done 01-30-16 showed Normal LV systolic function with an ejection fraction of approx 60%. Aortic valve sclerosis without significant valvular stenosis. Mitral annular calcification without significant mitral stenosis. Mod MR and TR. Diastolic dysfunction of the LV. PASP estimated to be approx 40mmHg. [id number] score is 5, yearly risk of stroke without oral anticoagulation is 6.7 percent. Patient restarted on Lovenox. May require oral anticoagulation, I will evaluate 2-D echocardiogram. AMS- history of AMS with alcohol intoxication. CT head negative for acute abnormalities. Will continue to monitor. ETOH intoxication- alcohol detox per protocol. Syncope without any obvious rhythmic cause on 2 week ambulatory heart monitoring of 10-31-16 to 11-12-16. s/p Character Booster loop recorder November 2016. Continue to monitor. History of SVT noted on ambulatory heart monitor. Continue to monitor telemetry. CAD- Last cardiac catheterization was on 04/16/2013. She had 80% instent restenosis of the left anterior descending, known to be Mini Vision 2 x 18 mm and Mini Vision 2 x 23 mm overlapping stents. For these, she underwent balloon angioplasty. The first diagonal artery had 90% instent restenosis within a Mini Vision 2 x 12 mm stent. This was treated with balloon angioplasty and stenting with 2 overlapping Promus Element 2.25 x 8 mm stents with subsequent 0 % residual stenosis. The left circumflex artery had 70 to 80% proximal and 70 to 80% mid vessel stenosis and the right coronary artery had multiple up to 50% stenoses. The proximal left anterior descending artery had 50 to 60% stenoses. Most recent stress test done January 2016 revealed no ischemia or infarct. Continue to monitor. CHF- h/o ischemic cardiomyopathy with most recent EF 60% 01/26. Tobaccoism HTN- restart home BP medication and continue to monitor BP/HR. HLP- maintained on statin therapy Recently diagnosed neoplasm of parathyroid COPD d/t chronic tobacco use Urinary incontinence non-compliance with medications. Thank you for allowing us to participate in the management of Ms. Taylor. This is Loyda Young PA-C as a scribe for Dr. Joseph. This is Dr. Joseph, I have seen and evaluated the patient with Loyda, perform physical examination interview with the patient myself. Discussed management plan and agree with the current described. On examination patient is confused, unable to provide history, history was obtained by reviewing her record, her lungs were clear to auscultation, heart is tachycardic and irregular. She is in atrial fibrillation with rapid ventricular response with increased risk of stroke, patient will be started on Lovenox transferred to intensive care unit and starting on Cardizem drip, I will evaluate echocardiogram, has history of coronary artery disease which will be monitored. Ejection fraction has improved , planning to reevaluate 2-D echocardiogram. Monitor blood pressure. I reviewed the current scribe and agree with the note, made few minor modifications and used Italic Font Clinical Quality Measures DVT/VTE Risk/Contraindication: Risk Factor Score Per Nursin RFS Level Per Nursing on Admit: 4+=Very High LOYDA BERNARD Jan 16, 2017 15:33 KORI JOSEPH MD Jan 16, 2017 15:57
[2017-01-16] MEDS: DILTIAZEM DRIP 100 MG in SODIUM CHLORIDE (ADD-VANTAGE) 100 ML IV SCH (17:29)
[2017-01-16] MEDS: ENOXAPARIN 60 MG/0.6 ML (LOVENOX) SYR SC SCH (17:39)
[2017-01-16] MEDS: D5 1/2 NS W/KCL 20 MEQ/L 1,000 ML IV SCH (18:08)
[2017-01-16] MEDS: FOLIC ACID 1 MG TAB PO SCH (18:30)
[2017-01-16] MEDS: MULTIVIT W/MINERALS TAB (THERAGRAN M) PO SCH (18:30)
[2017-01-16] MEDS: MAGNESIUM OXIDE (MAG-OX)400 MG TAB PO SCH (18:30)
[2017-01-16] MEDS: THIAMINE 100 MG (VITAMIN B-1) TAB PO SCH (18:31)
[2017-01-16] MEDS: PANTOPRAZOLE 40 MG (PROTONIX) TAB PO SCH (20:29)
--- NOTE | 2017-01-16 22:28 | History & Physicial ---
History of Present Illness History of Present Illness Reason for visit/HPI This is an 81 year old female with a history of alcohol abuse. She summoned EMS to her home after a fall. She was very confused when EMS arrived. She was taken to the emergency room where she was found to have altered mental status with acute alcohol intoxication and a urinary tract infection. She was to be admitted to the medical floor but then was found to have new onset of atrial fibrillation so she was admitted to cardiac stepdown. She then developed atrial fibrillation with RVR and had to be transferred to the ICU and started on a cardizem drip. Date of Admission Jan 16, 2017 at 12:41 I consulted on this patient on 01/16/17 22:23 Attending Physician Brigid Short DO Admitting Physician Brigid Short DO Consult Allergies and Home Medications Allergies Coded Allergies: procaine (Verified Allergy, Unknown, 07/21/16) Uncoded Allergies: ENVIRONMENTAL (Allergy, Mild, 12/31/10) Home Medications Alprazolam 1 Mg Tablet, 1 MG PO BID PRN for ANXIETY, (Reported) Aspirin 81 Mg Tablet.dr, 81 MG PO Q48H, (Reported) Cholecalciferol (Vitamin D3) 5,000 Unit Tablet, 5,000 UNIT PO DAILY, (Reported) Duloxetine HCl 60 Mg Capsule.dr, 60 MG PO DAILY, (Reported) Guaifenesin/Dextromethorphan 180 Ml Liquid, 20 ML PO Q4H PRN for COUGH, ( Reported) Metoprolol Succinate 25 Mg Tab.er.24h, 25 MG PO DAILY, (Reported) Pantoprazole Sodium 40 Mg Tablet.dr, 40 MG PO BID, (Reported) LAST FILLED #60 10-18-16 Past Khtlari-Gvqjjq-Negadn Hx Patient Social History Employed/Student: retired Alcohol Use: Regular Use Recreational Drug Use: No Smoking Status: Current Everyday Smoker Type Used: Cigarettes Physical Abuse Screen: No Sexual Abuse: No Recent Foreign Travel: No Contact w/other who traveled: No Recent Hopitalizations: No Recent Infectious Disease Expo: No Immunizations Up To Date Tetanus Booster (TDap): Unknown Seasonal Allergies Seasonal Allergies: No Surgeries HX Surgeries: Yes (LOOP RECORDER; TUMMY TUCK; PLASTIC SURGERY ON FACE; CARDIAC CATHS-STENTS X 4; CARDIAC ABLATION ; CATARACT SURGERY 01/20/15; LEFT HIP REPLACEMENT) Surgeries: Adenoidectomy, Cardiac, Coronary Stent, Eye Surgery, Gallbladder, Joint Replacement, Orthopedic, Tonsillectomy Respiratory Hx Respiratory Disorders: Yes (ACUTE RESPIRATORY FAILURE ON VENT 10/2012) Cardiovascular Hx Cardiovascular Disorders: Yes (SVT--S/P CARDIAC ABLATION FOR TACHYCARDIA, CHF/PLUMONARY EDEMA 10/2012; CARDIAC STENTS X 4; LOOP RECORDER 12/03/16) Cardiac Disorders: Coronary Artery Disease, Heart Attack, High Cholesterol, Hypertension, Irregular Heartbeat, Palpitations, Peripheral Vascular, Syncope Neurological Hx Neurological Disorders: Yes (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) Reproductive System Hx Reproductive Disorders: No Sexually Transmitted Disease: No HIV/AIDS: No Female Reproductive Disorders: Denies Genitourinary Hx Genitourinary Disorders: Yes Genitourinary Disorders: Bladder Infection Gastrointestinal Hx Gastrointestinal Disorders: Yes Gastrointestinal Disorders: Hepatitis, Cirrhosis Musculoskeletal Hx Musculoskeletal Disorders: Yes (FREQUENT FALLS, FREQUENT CONTUSIONS/ ABRASIONS/LACERATIONS; COMPRESSION FRACTURES; RIB FRACTURES) Musculoskeletal Disorders: Degenerate Disk Disease, Osteoporosis, Arthritis, Back Injury, Chronic Back Pain, Fractures Endocrine Hx Endocrine Disorders: Yes (lump on thyroid ) HEENT HX ENT Disorders: Yes (CATARACTS SURGERY 01/20/15, BROKEN NOSE) HEENT Disorders: Cataract Hearing Impairment: Denies Cancer Hx Cancer: No Psychosocial Hx Psychiatric Problems: Yes (ALCOHOLISM) Behavioral Health Disorders: Anxiety, Depression Integumentary HX Skin/Integumentary Disorder: No Blood Transfusions Hx Blood Disorders: Yes (HEPATITIS) Adverse Reaction to a Blood Tr: No Family Medical History Significant Family History: No Pertinent Family Hx Family Hx: Alcoholism G8 SISTER Arthritis 03 FATHER 03 MOTHER G8 SISTER Cataracts Colon cancer G8 BROTHER Congestive heart failure 03 FATHER Deafness or hearing loss 03 FATHER Dementia G8 BROTHER Diabetes mellitus G8 BROTHER Drug abuse 03 FATHER 03 MOTHER G8 SISTER G8 BROTHER Family history: Arthritis 03 FATHER (GOUT) Family history: Cardiovascular disease 03 FATHER Family history: Gastrointestinal disease 03 MOTHER Hearing loss 03 FATHER Heart disease 03 FATHER Myocardial infarction 03 FATHER Psychosocial problem G8 BROTHER Visual disorder Visual impairment 03 FATHER (WORE GLASSES) 03 MOTHER (WORE GLASSES) No Family History of: AIDS Abdominal aortic aneurysm Tarun's disease Aphasia Asthma Cancer of mouth Cardiovascular disease Completed stroke Congenital disease Congenital heart disease Coronary thrombosis Cystic fibrosis Dysphasia Fibrocystic disease of breast Gastroenteritis Glaucoma Headache disorder Hypercholesterolemia Hypertension Infertility Kidney disease Myocardial infarction Neoplasm Not obtainable due to adoption Osteoporosis Parkinson's disease Prostate cancer Respiratory disorder Seizure disorder Severe allergy Thyroid disease Tuberculosis Constitutional: weakness EENTM: No blurred vision, No dental problems, No double vision, No ear discharge, No ear pain, No epistaxis, No eye pain, No hearing loss, No hoarseness, No mouth pain, No mouth swelling, No no symptoms reported, No nose congestion, No nose pain, No other, No see HPI, No tearing, No throat pain, No throat swelling, No vision loss Respiratory: No no symptoms reported, No see HPI, No cough, No dyspnea on exertion, No hemoptysis, No orthopnea, No phlegm, No short of breath, No stridor , No wheezing, No other Cardiovascular: chest pain Gastrointestinal: No RUQ, No LUQ, No RLQ, No LLQ, No no symptoms reported, No see HPI, No abdominal pain, No constipation, No diarrhea, No dysphagia, No hematemesis, No heartburn, No jaundice, No loss of appetite, No melena, No nausea, No vomiting, No other Genitourinary: No no symptoms reported, No see HPI, No decreased output, No discharge, No dysuria, No frequency, No hematuria, No hesitancy, No incontinence , No nocturia, No pain, No other Musculoskeletal: back pain, muscle weakness Skin: lesions (skin tears to arms from recent falls) Psychiatric/Neurological: Anxiety, Depressed, Weakness Physical Exam Vital Signs Vital Sign - Last 12Hours 01/16/17 00:19 Temp 97.3 Pulse 122 Resp 20 B/P (MAP) 151/115 Pulse Ox 98 O2 Delivery Room Air Capillary Refill : Less Than 3 Seconds General Appearance: Mild Distress HEENT: Pharynx Normal Neck: Supple Respiratory: Lungs Clear Cardiovascular: Systolic Murmur, Irregularly Irregular Gastrointestinal: Normal Bowel Sounds, Non Tender, Soft Rectal: Deferred Back: No CVA Tenderness Extremity: Non Tender, No Calf Tenderness, No Pedal Edema Neurologic/Psychiatric: Alert, Oriented x3 Skin: Normal Color, Other (skin tears to arms) Comments Laboratory Tests 01/16/17 01:00: White Blood Count 6.0, Red Blood Count 4.11L, Hemoglobin 14.1, Hematocrit 40, Mean Corpuscular Volume 99, Mean Corpuscular Hemoglobin 34, Mean Corpuscular Hemoglobin Concent 35, Red Cell Distribution Width 13.2, Platelet Count 92L, Mean Platelet Volume 8.9, Neutrophils (%) (Auto) 72, Lymphocytes (%) (Auto) 19, Monocytes (%) (Auto) 8, Eosinophils (%) (Auto) 1, Basophils (%) (Auto) 0, Neutrophils # (Auto) 4.3, Lymphocytes # (Auto) 1.1, Monocytes # (Auto) 0.4, Eosinophils # (Auto) 0.0, Basophils # (Auto) 0.0, Prothrombin Time 12.1L, INR Comment 0.9, Activated Partial Thromboplast Time 20L, Sodium Level 142, Potassium Level 3.3L, Chloride Level 105, Carbon Dioxide Level 22, Anion Gap 15H , Blood Urea Nitrogen 8, Creatinine 0.64, Estimat Glomerular Filtration Rate > 60, BUN/Creatinine Ratio 13, Glucose Level 96, Calcium Level 8.8, Magnesium Level 1.4L, Total Bilirubin 0.6, Aspartate Amino Transf (AST/SGOT) 21, Alanine Aminotransferase (ALT/SGPT) 11, Alkaline Phosphatase 162H, Troponin I < 0.30, Total Protein 6.3L, Albumin 3.3, TSH [place] Testing 0.54, Serum Alcohol 164H 01/16/17 01:55: Urine Color YELLOW, Urine Clarity CLEAR, Urine pH 6, Urine Specific [place] 1.010L, Urine Protein NEGATIVE, Urine Glucose (UA) NEGATIVE, Urine Ketones NEGATIVE, Urine Nitrite POSITIVEH, Urine Bilirubin NEGATIVE, Urine Urobilinogen NORMAL, Urine Leukocyte Esterase 3+H, Urine RBC (Auto) 1+H, Urine RBC 0-2, Urine WBC 5-10H, Urine Crystals NONE, Urine Bacteria LARGEH, Urine Casts NONE, Urine Mucus NEGATIVE, Urine Culture Indicated YES, Urine Opiates Screen NEGATIVE , Urine Oxycodone Screen NEGATIVE, Urine Methadone Screen NEGATIVE, Urine Propoxyphene Screen NEGATIVE, Urine Barbiturates Screen NEGATIVE, Ur Tricyclic Antidepressants Screen NEGATIVE, Urine Phencyclidine Screen NEGATIVE, Urine Amphetamines Screen NEGATIVE, Urine Methamphetamines Screen NEGATIVE, Urine Benzodiazepines Screen POSITIVEH, Urine Cocaine Screen NEGATIVE, Urine Cannabinoids Screen NEGATIVE 01/16/17 04:28: Ammonia 17 01/16/17 06:10: White Blood Count 7.4, Red Blood Count 3.82L, Hemoglobin 13.1, Hematocrit 37, Mean Corpuscular Volume 98, Mean Corpuscular Hemoglobin 34, Mean Corpuscular Hemoglobin Concent 35, Red Cell Distribution Width 13.3, Platelet Count 194, Mean Platelet Volume 9.5, Neutrophils (%) (Auto) 69, Lymphocytes (%) (Auto) 20, Monocytes (%) (Auto) 10, Eosinophils (%) (Auto) 1, Basophils (%) (Auto) 0, Neutrophils # (Auto) 5.1, Lymphocytes # (Auto) 1.5, Monocytes # (Auto) 0.7, Eosinophils # (Auto) 0.1, Basophils # (Auto) 0.0, Sodium Level 140, Potassium Level 3.5L, Chloride Level 108H, Carbon Dioxide Level 19L, Anion Gap 13, Blood Urea Nitrogen 8, Creatinine 0.55L, Estimat Glomerular Filtration Rate > 60, BUN/ Creatinine Ratio 15, Glucose Level 92, Calcium Level 8.3L, Total Bilirubin 0.5, Aspartate Amino Transf (AST/SGOT) 19, Alanine Aminotransferase (ALT/SGPT) 8, Alkaline Phosphatase 140H, Total Protein 5.5L, Albumin 2.8L Microbiology 01/16/17 Urine Culture - Preliminary, Resulted Gram Negative Balaji Assessment/Plan Assessment and Plan 1. Altered Mental Status--multifactorial including alcohol abuse, UTI and new onset atrial fibrillation 2. UTI--started on rocephin 3. Acute Alcohol Abuse--on alcohol withdrawal protocol 4. New onset Atrial Fibrillation with RVR--cardiology assessing and transferred to ICU on cardizem drip 5. COPD--stable 6. Weakness with recurrent falls--will start PT once more medically stable, patient needs care home placement in either [place] or [place] due to declining health Problems: Clinical Quality Measures DVT/VTE Risk/Contraindication: Risk Factor Score Per Nursin RFS Level Per Nursing on Admit: 4+=Very High BRIGID SHORT DO Jan 16, 2017 22:28
[2017-01-17] VITALS (45 sets, daily range): BP systolic 107–151; BP diastolic 63–136
[2017-01-17] MEDS: DILTIAZEM DRIP 100 MG in SODIUM CHLORIDE (ADD-VANTAGE) 100 ML IV SCH (02:24)
[2017-01-17] MEDS: ENALAPRILAT 2.5 MG/2 ML (VASOTEC) VIAL IV SCH ×2 (02:27→08:11)
[2017-01-17] MEDS: D5 1/2 NS W/KCL 20 MEQ/L 1,000 ML IV SCH ×4 (02:28→23:13)
[2017-01-17] MEDS: cefTRIAXone INJECTION 1,000 MG in NS (IVPB) 50 ML IV SCH (05:14)
[2017-01-17] MEDS: ENOXAPARIN 60 MG/0.6 ML (LOVENOX) SYR SC SCH ×2 (06:21→18:06)
--- NOTE | 2017-01-17 07:41 | ECHOCARDIOGRAPHY REPORT ---
PROCEDURE PHYSICIAN: KORI CONTRERAS DATE OF PROCEDURE: 01/16/2017 TWO DIMENSIONAL ECHOCARDIOGRAM REPORT PRIMARY PHYSICIAN: OTHER PHYSICIAN: REFERRING PHYSICIAN: Dr. Short ORDERING PHYSICIAN: INDICATION FOR THE PROCEDURE: Tachycardia, change in mental status. MEASUREMENTS DERIVED VALUES LV DIAMETER (LAX) NORMALS NORMALS Diastolic 3.4 (3.6-5.2) Eject. Fract. 35 to 40% (60%+/-6%) Systolic (2.3-3.9) Diastolic Vol. % Shortening (0.22-0.42) Systolic Vol. Aortic Root IVS THICKNESS Diastolic 0.9 (0.6-1.1) LVPW THICKNESS Diastolic 0.9 (0.6-1.1) LA DIAMETER Systolic 3.2 (2.1-3.7) FINDINGS: 1. Technically suboptimal study. 2. The left ventricle is normal in size, endocardium was not well visualized in all segments. Overall, the patient is tachycardic affecting the quality of the images. Estimated ejection fraction 35 to 40%. 3. The left atrium appeared to be prominent. No clot or thrombus were seen within the left atrium. 4. The right atrium and right ventricle are normal in size. No clot or thrombus were seen within the right side. 5. Mitral valve evaluation showed mitral annular calcification with myxomatous degeneration of the mitral leaflet. Mild mitral regurgitation. No mitral valve prolapse. 6. Aortic valve is heavily calcified. There is no significant aortic valve stenosis noted. 7. Tricuspid valve is normal in morphology with moderate tricuspid regurgitation noted by color Doppler flow. Doppler across tricuspid valve estimated pulmonary artery pressure of 64+ right atrial pressure. 8. Pulmonic valve is functioning normally. 9. No pericardial effusion. CONCLUSION: 1. Technically challenging study. 2. Normal left ventricular size. Mild left ventricular hypertrophy. Endocardium was not well visualized in all segments. Estimated ejection fraction 35 to 40% with diffuse left ventricular hypokinesia. 3. Mildly prominent left atrium. 4. Heavy mitral annular calcification and myxomatous degeneration of the mitral leaflet. No mitral valve prolapse. 5. Aortic valve sclerosis. No aortic stenosis. 6. Severe pulmonary hypertension with estimated pulmonary artery pressure of 70 mmHg. Job ID: [id number] Dictated Date: 01/16/2017 16:28:02 [employer] Scoreboard Operator Date: 01/17/2017 07:36:31 / [email or web address]
[2017-01-17] MEDS ORDERED: LORazepam INJ 2 MG/ML (ATIVAN) VIAL IM/IV PRN (07:45)
[2017-01-17] MEDS: THIAMINE 100 MG (VITAMIN B-1) TAB PO SCH (08:10)
[2017-01-17] MEDS: MAGNESIUM OXIDE (MAG-OX)400 MG TAB PO SCH ×2 (08:10→18:06)
[2017-01-17] MEDS: PANTOPRAZOLE 40 MG (PROTONIX) TAB PO SCH ×2 (08:10→21:28)
[2017-01-17] MEDS: DULoxetine 30 MG (CYMBALTA) CAP PO SCH (08:10)
[2017-01-17] MEDS: MULTIVIT W/MINERALS TAB (THERAGRAN M) PO SCH (08:11)
[2017-01-17] MEDS: FOLIC ACID 1 MG TAB PO SCH (08:11)
[2017-01-17] MEDS: LORazepam 1 MG (ATIVAN) TAB PO PRN ×6 (08:19→21:28)
--- NOTE | 2017-01-17 10:26 | Cardiology Progress Note ---
Subjective Subjective/Events-last exam patient is sitting in bed, still confused at this time. Denied any chest pain. Review of Systems General: No Chills, No Night Sweats, No Fatigue, No Malaise, No Appetite, No Other HEENT: No Head Aches, No Visual Changes, No Eye Pain, No Ear Pain, No Dysphasia , No Sinus Congestion, No Post Nasal Drip, No Sore Throat, No Other Pulmonary: Dyspnea, No Cough, No Pleuritic Chest Pain, No Other Cardiovascular: No: Chest Pain, Edema, Lt Headedness, Orthopnea, Other, Palpitations, Paroxysmal Noc. Dyspnea Objective-Cardiology Exam Last Set of Vital Signs Vital Signs 01/17/17 01/17/17 08:00 09:59 Temp 99.1 Pulse 79 Resp 24 B/P (MAP) 142/84 O2 Delivery Room Air Capillary Refill : Less Than 3 Seconds I&O Bad tableGeneral: Alert, Cooperative HEENT: Atraumatic, PERRLA Neck: Supple, No JVD, No Thyromegaly Lungs: Clear to Auscultation, Normal Air Movement Heart: Normal S1, Normal S2, No Murmurs, Other (atrial fibrillation with controlled rate) Abdomen: Normal Bowel Sounds, Soft, No Tenderness, No Hepatosplenomegaly, No Masses Extremities: No Clubbing, No Cyanosis, Normal Pulses, No Tenderness/Swelling, Other (mild edema) Skin: No Rashes, No Breakdown, No Significant Lesion Neuro: Normal Speech, Normal Tone Psych/Mental Status: Mood NL A/P-Cardiology Admission Diagnosis Afib with RVR AMS ETOH intoxication CAD Assessment/Plan New-onset atrial fibrillation, transferred to the intensive care unit and started on Cardizem drip, I will change her to oral Cardizem today and adjust the dose as needed and tolerated. Most recent 2D Echo done yesterday which showed severe cardiomyopathy with ejection fraction 35-40 percent, patient was started on enalapril IV, I will change it to low-dose oral, add low-dose beta blockers if tolerated. Monitor renal function and electrolyte closely. Chronic compensated left ventricular systolic dysfunction, combined ischemic and nonischemic cardiomyopathy [id number] score is 5, yearly risk of stroke without oral anticoagulation is 6.7 percent. Patient restarted on Lovenox. May require oral anticoagulation Acute mental status changes, history of AMS with alcohol intoxication. CT head negative for acute abnormalities. Will continue to monitor. ETOH intoxication- alcohol detox per protocol, managed by primary care physician Syncope without any obvious rhythmic cause on 2 week ambulatory heart monitoring of 10-31-16 to 11-12-16. s/p [employer] loop recorder November 2016. Continue to monitor. History of SVT noted on ambulatory heart monitor. Continue to monitor telemetry. CAD- Last cardiac catheterization was on 04/16/2013. She had 80% instent restenosis of the left anterior descending, known to be Mini Vision 2 x 18 mm and Mini Vision 2 x 23 mm overlapping stents. For these, she underwent balloon angioplasty. The first diagonal artery had 90% instent restenosis within a Mini Vision 2 x 12 mm stent. This was treated with balloon angioplasty and stenting with 2 overlapping Promus Element 2.25 x 8 mm stents with subsequent 0 % residual stenosis. The left circumflex artery had 70 to 80% proximal and 70 to 80% mid vessel stenosis and the right coronary artery had multiple up to 50% stenoses. The proximal left anterior descending artery had 50 to 60% stenoses. Most recent stress test done January 2016 revealed no ischemia or infarct. Continue to monitor. Tobaccoism Hypertension, starting on low-dose SPENCER inhibitor, planning to add low-dose beta blockers if tolerated. Hyperlipidemia, maintained on statin. 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 Clinical Quality Measures DVT/VTE Risk/Contraindication: Risk Factor Score Per Nursin RFS Level Per Nursing on Admit: 4+=Very High KORI CONTRERAS MD Jan 17, 2017 10:26
[2017-01-17] MEDS: DILTIAZEM 30 MG (CARDIZEM) TAB PO SCH ×2 (11:31→18:06)
--- NOTE | 2017-01-17 11:58 | Progress Note (SOAP) ---
Subjective Subjective/Events-last exam Fwup A fib with RVR, confusion, UTI, alcohol abuse, HTN. In ICU and still on cardizem drip but started oral cardizem this AM and plan is to DC cardizem drip today. Still very confused and asking for bourbon. Objective Exam Vital Signs Date Time Temp Pulse Resp B/P (MAP) Pulse Ox O2 Delivery O2 Flow Rate FiO2 01/17/17 11:00 97.8 87 28 119/96 98 Room Air 01/17/17 09:59 79 24 142/84 Room Air 01/17/17 08:59 70 33 113/77 Room Air 01/17/17 08:10 96 01/17/17 08:00 99.1 84 12 117/93 Room Air 01/17/17 07:33 86 17 128/80 Room Air 01/17/17 07:00 74 01/17/17 06:45 80 14 128/83 Room Air 01/17/17 06:30 84 25 142/116 Room Air 01/17/17 06:15 92 17 136/104 Room Air 01/17/17 06:00 86 18 141/85 Room Air 01/17/17 05:45 86 15 133/96 Room Air 01/17/17 05:30 73 34 130/93 Room Air 01/17/17 05:15 64 20 126/91 Room Air 01/17/17 05:00 79 20 137/100 Room Air 01/17/17 04:45 102 35 140/103 Room Air 01/17/17 04:30 88 17 121/101 Room Air 01/17/17 04:15 92 21 135/104 Room Air 01/17/17 04:00 98 01/17/17 04:00 96 01/17/17 04:00 88 17 124/98 Room Air 01/17/17 03:45 89 19 111/98 Room Air 01/17/17 03:30 88 31 142/101 Room Air 01/17/17 03:15 86 21 138/91 Room Air 01/17/17 03:00 85 21 116/95 Room Air 01/17/17 02:45 91 32 133/88 Room Air 01/17/17 02:30 98 20 126/63 Room Air 01/17/17 02:24 94 01/17/17 02:15 102 26 135/84 Room Air 01/17/17 02:00 115 20 151/101 Room Air 01/17/17 01:45 97 19 136/106 Room Air 01/17/17 01:30 84 42 146/136 Room Air 01/17/17 01:15 99 25 135/89 Room Air 01/17/17 01:00 97 01/17/17 01:00 97 30 137/88 Room Air 01/17/17 00:45 99 27 135/110 Room Air 01/17/17 00:30 96 26 129/99 Room Air 01/17/17 00:15 96 25 145/98 Room Air 01/17/17 00:00 110 13 148/97 Room Air 01/17/17 00:00 98 01/17/17 00:00 96 01/16/17 23:45 86 39 143/93 Room Air 01/16/17 23:30 98 26 143/102 Room Air 01/16/17 23:15 105 22 134/103 Room Air 01/16/17 23:00 94 25 146/99 Room Air 01/16/17 22:45 98 31 149/100 Room Air 01/16/17 22:30 94 14 131/97 Room Air 01/16/17 22:15 96 32 139/100 Room Air 01/16/17 22:00 94 36 130/118 Room Air 01/16/17 21:45 103 19 142/93 Room Air 01/16/17 21:30 93 20 131/91 Room Air 01/16/17 21:15 94 32 137/81 Room Air 01/16/17 21:00 96 01/16/17 21:00 92 33 115/83 98 Room Air 01/16/17 20:45 92 34 111/91 98 Room Air 01/16/17 20:30 98 18 122/98 97 Room Air 01/16/17 20:15 102 21 105/86 94 Room Air 01/16/17 20:00 98.9 105 12 122/71 97 Room Air 01/16/17 20:00 98 01/16/17 19:45 107 24 113/92 95 Room Air 01/16/17 19:30 105 24 125/77 95 Room Air 01/16/17 19:15 103 20 122/74 97 Room Air 01/16/17 19:00 109 16 111/107 97 Room Air 01/16/17 19:00 109 01/16/17 17:29 134 148/111 01/16/17 17:00 99.2 01/16/17 16:00 98 01/16/17 13:00 140 01/16/17 12:00 98 I & O 01/17/17 07:00 Intake Total 750 ml Balance 750 ml Capillary Refill : Less Than 3 Seconds General Appearance: Mild Distress Neck: Supple Respiratory: Lungs Clear, Decreased Breath Sounds Cardiovascular: Systolic Murmur, Irregularly Irregular Gastrointestinal: normal bowel sounds, non tender, soft Extremity: Non Tender, No Calf Tenderness, No Pedal Edema Neurologic/Psychiatric: Alert, Disoriented x3 Results Lab Microbiology 01/16/17 Urine Culture - Preliminary, Resulted Klebsiella Oxytoca Assessment/Plan Assessment/Plan Assess & Plan/Chief Complaint 1. A Fib with RVR--weaning cardizem drip and switching to oral cardizem 2. UTI with Klebsiella--sensitive to rocephin 3. Confusion/AMS--likely due to longstanding alcohol abuse/alcoholic dementia with exacerbation due to recent UTI and new onset a fib, patient will need placement in NH on discharge 4. Hypertension--stable 5. COPD--stable 6. Acute Alcohol Intoxication--on alcohol withdrawal protocol Clinical Quality Measures DVT/VTE Risk/Contraindication: Risk Factor Score Per Nursin RFS Level Per Nursing on Admit: 4+=Very High LUKE SALAZAR DO Jan 17, 2017 11:58
[2017-01-17] MEDS: meTOprolol 5 MG/5 ML (LOPRESSOR) VIAL IV PRN (21:38)
[2017-01-17] MEDS: LORazepam INJ 2 MG/ML (ATIVAN) VIAL IV PRN (23:13)
[2017-01-17 23:28] LABS: BASOPHILS % (AUTO) 0 % (0-10); EOSINOPHILS # (AUTO) 0.1 10^3/uL (0.0-0.3); EOSINOPHILS % (AUTO) 1 % (0-10); LYMPHOCYTES # (AUTO) 1.4 X 10^3 (1.0-4.0); LYMPHOCYTES % (AUTO) 19 % (12-44); MEAN CORPUSCULAR HEMOGLOBIN 34 PG (25-34); MEAN CORPUSCULAR HGB CONC 33 G/DL (32-36); MEAN CORPUSCULAR VOLUME 101 FL (80-99); MEAN PLATELET VOLUME 9.7 FL (7.4-10.4); MONOCYTES # (AUTO) 0.9 X 10^3 (0.0-1.0); MONOCYTES % (AUTO) 12 % (0-12); NEUTROPHILS # (AUTO) 5.2 X 10^3 (1.8-7.8); NEUTROPHILS % (AUTO) 68 % (42-75); PLATELET COUNT 200 10^3/uL (130-400); RED BLOOD COUNT 3.39 10^6/uL (4.35-5.85); RED CELL DISTRIBUTION WIDTH 13.4 % (10.0-14.5); WHITE BLOOD COUNT 7.6 10^3/uL (4.3-11.0)
[2017-01-17 23:43] LABS: ALBUMIN 2.8 G/DL (3.2-4.5); ANION GAP 7 MMOL/L (5-14); BLOOD UREA NITROGEN 8 MG/DL (7-18); BUN/CREATININE RATIO 14; CALCIUM 8.4 MG/DL (8.5-10.1); CARBON DIOXIDE 19 MMOL/L (21-32); CHLORIDE 106 MMOL/L (98-107); CREATININE SERUM 0.57 MG/DL (0.60-1.30); GFR ESTIMATED > 60; GLUCOSE 137 MG/DL (70-105); MAGNESIUM 1.5 MG/DL (1.8-2.4); POTASSIUM 4.6 MMOL/L (3.6-5.0); SODIUM 132 MMOL/L (135-145)
[2017-01-17 23:50] LABS: TROPONIN I < 0.30 NG/ML (<0.30)
[2017-01-18] VITALS (24 sets, daily range): BP systolic 85–167; BP diastolic 60–115
[2017-01-18] MEDS ORDERED: MAGNESIUM 1 GM/100 ML IVPB 200 ML IV ONE (00:31)
[2017-01-18] MEDS: MAGNESIUM 1 GM/D5W 100 ML IVPB IV SCH ×2 (00:53→02:41)
[2017-01-18 04:36] LABS: MEAN PLATELET VOLUME 9.7 FL (7.4-10.4); RED BLOOD COUNT 3.53 10^6/uL (4.35-5.85); RED CELL DISTRIBUTION WIDTH 13.3 % (10.0-14.5); WHITE BLOOD COUNT 7.3 10^3/uL (4.3-11.0)
[2017-01-18] MEDS: meTOprolol 5 MG/5 ML (LOPRESSOR) VIAL IV PRN (04:48)
[2017-01-18] MEDS: cefTRIAXone INJECTION 1,000 MG in NS (IVPB) 50 ML IV SCH (04:53)
[2017-01-18 05:00] LABS: ALANINE AMINOTRANSFERASE 12 U/L (0-55); ANION GAP 10 MMOL/L (5-14); ASPARTATE AMINO TRANSFERASE 21 U/L (5-34); BILIRUBIN,TOTAL 0.7 MG/DL (0.1-1.0); BLOOD UREA NITROGEN 6 MG/DL (7-18); BUN/CREATININE RATIO 10; CALCIUM 8.3 MG/DL (8.5-10.1); CARBON DIOXIDE 18 MMOL/L (21-32); CHLORIDE 105 MMOL/L (98-107); CREATININE SERUM 0.58 MG/DL (0.60-1.30); GFR ESTIMATED > 60; GLUCOSE 148 MG/DL (70-105); POTASSIUM 4.3 MMOL/L (3.6-5.0); SODIUM 133 MMOL/L (135-145); TOTAL PROTEIN 5.5 G/DL (6.4-8.2)
[2017-01-18] MEDS: ENOXAPARIN 60 MG/0.6 ML (LOVENOX) SYR SC SCH ×2 (05:01→18:09)
[2017-01-18] MEDS: DILTIAZEM 30 MG (CARDIZEM) TAB PO SCH ×5 (05:01→23:03)
[2017-01-18] MEDS ORDERED: FUROSEMIDE 40 MG/4 ML INJ (LASIX) ONE (05:35)
[2017-01-18] MEDS ORDERED: NS (IVPB) 50 ML ONE (05:39)
[2017-01-18] MEDS ORDERED: RT-ALBUTEROL SULF 2.5 MG/3 ML PRE-MIX VIAL ONE (05:50)
[2017-01-18] MEDS: RT-ALBUTEROL SULF 2.5 MG/3 ML PRE-MIX VIAL IH SCH ×5 (06:05→21:49)
[2017-01-18] MEDS: D5 1/2 NS W/KCL 20 MEQ/L 1,000 ML IV SCH ×4 (06:05→23:05)
[2017-01-18] MEDS ORDERED: FUROSEMIDE 40 MG/4 ML INJ (LASIX) IV ONE (06:30)
[2017-01-18] MEDS: DEXMEDETOMIDINE INJECTION 200 MCG in NS (IVPB) 50 ML IV SCH ×2 (06:43→22:44)
--- NOTE | 2017-01-18 06:44 | Diagnostic Imaging Report ---
INDICATION: Respiratory distress. COMPARISON: 01/16/2017. FINDINGS: There is increased vascular distention. There are substantial bilateral mixed interstitial and airspace opacities as a new finding greatest in a perihilar distribution with new small pleural effusions. The heart size is mildly increased. Findings suspicious for failure pattern or sequelae of hypervolemia with resultant venous congestion, pleural effusion, and bilateral pulmonary edema. Superimposition of pneumonia in the appropriate scenario could not be excluded. IMPRESSION: Increased failure type pattern as described. Dictated by: Dictated on workstation # [id number]
--- NOTE | 2017-01-18 07:54 | Progress Note (SOAP) ---
Subjective Subjective 81yo F in ICU- confusion and combativeness- received precedex which dropped her blood pressure- prior to this she was having elevated BPs. Pt this AM was asleep but easily awoken. Her language did not make sense and she has told the nurses she wants bourbon. Review of Systems ROS Unable to Obtain: unable to rely on responses due to confusion/ams HEENT: No Head Aches Pulmonary: No Dyspnea Cardiovascular: No: Chest Pain Gastrointestinal: No: Abdominal Pain Objective Exam Vital Signs Vital Signs Date Time Temp Pulse Resp B/P (MAP) Pulse Ox O2 Delivery O2 Flow Rate FiO2 01/18/17 12:08 98.4 87 28 131/91 96 Nasal Cannula 2.00 01/18/17 09:29 98 2.00 01/18/17 08:47 Nasal Cannula 2.00 01/18/17 08:02 98.9 66 30 89/61 98 Nasal Cannula 2.00 01/18/17 07:00 82 01/18/17 06:11 98 2.00 01/18/17 06:00 99 35 154/107 97 Room Air 01/18/17 05:00 93 33 151/112 Room Air 01/18/17 04:00 114 30 143/115 95 Room Air 01/18/17 04:00 92 1.00 94 01/18/17 03:00 99 40 156/104 Room Air 01/18/17 02:00 40 150/100 Room Air 01/18/17 01:00 102 33 167/90 Room Air 01/18/17 01:00 84 01/18/17 00:00 91 36 139/97 Room Air 01/18/17 00:00 96 01/18/17 00:00 97.6 01/17/17 23:00 92 40 141/100 Room Air 01/17/17 22:00 86 38 107/99 Room Air 01/17/17 21:00 86 22 128/100 Room Air 01/17/17 20:00 87 32 146/104 Room Air 01/17/17 20:00 96 01/17/17 19:00 92 24 145/87 100 Room Air 01/17/17 19:00 82 01/17/17 18:00 88 26 138/83 97 Room Air 01/17/17 17:00 85 24 134/97 98 Room Air 01/17/17 16:00 98.6 90 24 127/98 99 Room Air 01/17/17 14:56 80 27 127/76 100 Room Air 01/17/17 13:59 81 23 125/83 94 Room Air 01/17/17 13:00 71 01/17/17 13:00 77 28 120/79 99 Room Air I & O 01/18/17 07:00 Intake Total 4030 ml Balance 4030 ml General Appearance: No Apparent Distress Neck: Supple Respiratory: Lungs Clear, Decreased Breath Sounds (bases) Cardiovascular: Irregularly Irregular Gastrointestinal: Normal Bowel Sounds, Non Tender, Soft Rectal: Deferred Back: No CVA Tenderness Extremity: Non Tender, No Calf Tenderness, No Pedal Edema Neurologic/Psychiatric: Disoriented x3 (asleep) Skin: Normal Color, Other (skin tears to arms) Results Lab Laboratory Tests 01/17/17 23:10: White Blood Count 7.6, Red Blood Count 3.39L, Hemoglobin 11.4L, Hematocrit 34L, Mean Corpuscular Volume 101H, Mean Corpuscular Hemoglobin 34, Mean Corpuscular Hemoglobin Concent 33, Red Cell Distribution Width 13.4, Platelet Count 200, Mean Platelet Volume 9.7, Neutrophils (%) (Auto) 68, Lymphocytes (%) (Auto) 19, Monocytes (%) (Auto) 12, Eosinophils (%) (Auto) 1, Basophils (%) (Auto) 0, Neutrophils # (Auto) 5.2, Lymphocytes # (Auto) 1.4, Monocytes # (Auto) 0.9, Eosinophils # (Auto) 0.1, Basophils # (Auto) 0.0, Sodium Level 132L, Potassium Level 4.6, Chloride Level 106, Carbon Dioxide Level 19L, Anion Gap 7, Blood Urea Nitrogen 8, Creatinine 0.57L, Estimat Glomerular Filtration Rate > 60, BUN/ Creatinine Ratio 14, Glucose Level 137H, Lactic Acid Level 1.13, Calcium Level 8.4L, Magnesium Level 1.5L, Troponin I < 0.30, B-Type Natriuretic Peptide 238.2H , Albumin 2.8L 01/18/17 04:30: White Blood Count 7.3, Red Blood Count 3.53L, Hemoglobin 12.0, Hematocrit 36, Mean Corpuscular Volume 101H, Mean Corpuscular Hemoglobin 34, Mean Corpuscular Hemoglobin Concent 34, Red Cell Distribution Width 13.3, Platelet Count 184, Mean Platelet Volume 9.7, Sodium Level 133L, Potassium Level 4.3, Chloride Level 105, Carbon Dioxide Level 18L, Anion Gap 10, Blood Urea Nitrogen 6L, Creatinine 0.58L, Estimat Glomerular Filtration Rate > 60, BUN/Creatinine Ratio 10, Glucose Level 148H, Calcium Level 8.3L, B-Type Natriuretic Peptide 427.5H, Albumin 3.0L, Total Bilirubin 0.7, Aspartate Amino Transf (AST/SGOT) 21, Alanine Aminotransferase (ALT/SGPT) 12, Alkaline Phosphatase 129, Total Protein 5.5L Microbiology 01/16/17 Urine Culture - Preliminary, Resulted Klebsiella Oxytoca Assessment/Plan Assessment/Plan Assessment/Plan 81 yo F Encephalopathy due to eoth abuse,etoh dementia, UTI, new Afib- monitor for improvement- on etoh withdrawal protocol urinary tract infection-- klebsiella, continue rocephin Afib with RVR- on cardizem po, Dr. Joseph consulted [facility] 5 systolic CHF with severe cardiomyopathy- likely due to etohism- LVEF 35-40% - started on SPENCER I, cards may be adding beta kylee COPD- with tobaccoism, RT HTN- monitor- SPENCER I started HLD- cont statin Dispo: will need intermediate placement at discharge. Problems: Clinical Quality Measures DVT/VTE Risk/Contraindication: Risk Factor Score Per Nursin RFS Level Per Nursing on Admit: 4+=Very High ESTHELA PADILLA MD Jan 18, 2017 07:54
[2017-01-18] MEDS: lisINopril 5 MG (PRINIVIL) TABLET PO SCH (09:00)
[2017-01-18] MEDS ORDERED: FUROSEMIDE 40 MG/4 ML INJ (LASIX) IV NR (09:00)
--- NOTE | 2017-01-18 09:17 | Cardiology Progress Note ---
Subjective Subjective/Events-last exam patient is laying down in bed, still confused, received Precedex earlier which dropped her blood pressure. No new complaint. Review of Systems General: No Chills, No Night Sweats, Fatigue, Malaise, No Appetite, Other ( confused, unable to provide full review of systems) Pulmonary: No Dyspnea, No Cough, No Pleuritic Chest Pain, No Other Cardiovascular: No: Chest Pain, Edema, Lt Headedness, Orthopnea, Other, Palpitations, Paroxysmal Noc. Dyspnea Objective-Cardiology Exam Last Set of Vital Signs Vital Signs 01/18/17 01/18/17 04:00 08:02 Temp 98.9 Pulse 66 Resp 30 B/P (MAP) 89/61 Pulse Ox 98 O2 Delivery Nasal Cannula O2 Flow Rate 2.00 FiO2 94 Capillary Refill : Less Than 3 Seconds I&O Intake and Output 01/18/17 00:00 Intake Total 3930 ml Balance 3930 ml Intake Oral 850 ml IV Total 3080 ml # Voids 6 General: Alert, Cooperative, Mild Distress HEENT: Atraumatic, PERRLA Neck: Supple, No JVD, No Thyromegaly Lungs: Clear to Auscultation, Normal Air Movement Heart: Normal S1, Normal S2, No Murmurs, Other (atrial fibrillation with controlled rate) Abdomen: Normal Bowel Sounds, Soft, No Tenderness, No Hepatosplenomegaly, No Masses Extremities: No Clubbing, No Cyanosis, Normal Pulses, No Tenderness/Swelling, Other (mild edema) Skin: No Rashes, No Breakdown, No Significant Lesion Neuro: Normal Speech, Normal Tone Psych/Mental Status: Mood NL Results Lab Laboratory Tests 01/17/17 23:10 01/18/17 04:30 A/P-Cardiology Admission Diagnosis Afib with RVR AMS ETOH intoxication CAD Assessment/Plan New-onset atrial fibrillation, transferred to the intensive care unit and started on Cardizem Andrew golden. On Cardizem and Toprol by mouth, tolerating them well, blood pressure has dropped after receiving Precedex. I continued with the parameters on her medication, monitor closely. 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 I will give additional dose of Lasix. [id number] score is 5, yearly risk of stroke without oral anticoagulation is 6.7 percent. Patient restarted on Lovenox. May require oral anticoagulation, high risk of fall, might not be a suitable candidate for oral anticoagulation Acute mental status changes, history of AMS with alcohol intoxication. CT head negative for acute abnormalities. Will continue to monitor. ETOH intoxication- alcohol detox per protocol, managed by primary care physician Syncope without any obvious rhythmic cause on 2 week ambulatory heart monitoring of 10-31-16 to 11-12-16. s/p [employer] loop recorder November 2016. Continue to monitor. History of SVT noted on ambulatory heart monitor. Continue to monitor telemetry. CAD- Last cardiac catheterization was on 04/16/2013. She had 80% instent restenosis of the left anterior descending, known to be Mini Vision 2 x 18 mm and Mini Vision 2 x 23 mm overlapping stents. For these, she underwent balloon angioplasty. The first diagonal artery had 90% instent restenosis within a Mini Vision 2 x 12 mm stent. This was treated with balloon angioplasty and stenting with 2 overlapping Promus Element 2.25 x 8 mm stents with subsequent 0 % residual stenosis. The left circumflex artery had 70 to 80% proximal and 70 to 80% mid vessel stenosis and the right coronary artery had multiple up to 50% stenoses. The proximal left anterior descending artery had 50 to 60% stenoses. Most recent stress test done January 2016 revealed no ischemia or infarct. Continue to monitor. Tobaccoism Hypertension, borderline hypotensive today, received Precedex earlier, continue to use blood pressure medication cautiously. Hyperlipidemia, maintained on statin. 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 Clinical Quality Measures DVT/VTE Risk/Contraindication: Risk Factor Score Per Nursin RFS Level Per Nursing on Admit: 4+=Very High KORI CONTRERAS MD Jan 18, 2017 09:17
[2017-01-18] MEDS ORDERED: FUROSEMIDE 40 MG/4 ML INJ (LASIX) IVP NR (09:30)
[2017-01-18] MEDS: FOLIC ACID 1 MG TAB PO SCH (09:34)
[2017-01-18] MEDS: DULoxetine 30 MG (CYMBALTA) CAP PO SCH (09:34)
[2017-01-18] MEDS: THIAMINE 100 MG (VITAMIN B-1) TAB PO SCH (09:34)
[2017-01-18] MEDS: MAGNESIUM OXIDE (MAG-OX)400 MG TAB PO SCH ×2 (09:34→18:09)
[2017-01-18] MEDS: MULTIVIT W/MINERALS TAB (THERAGRAN M) PO SCH (09:34)
[2017-01-18] MEDS: PANTOPRAZOLE 40 MG (PROTONIX) TAB PO SCH ×2 (09:34→19:40)
[2017-01-18] MEDS: ASPIRIN E.C. 81 MG (ECOTRIN) TAB PO SCH (12:42)
[2017-01-18] MEDS: LORazepam 1 MG (ATIVAN) TAB PO PRN ×4 (15:24→20:39)
[2017-01-19] VITALS (18 sets, daily range): BP systolic 106–157; BP diastolic 69–108
[2017-01-19] MEDS: RT-ALBUTEROL SULF 2.5 MG/3 ML PRE-MIX VIAL IH SCH ×6 (01:55→21:40)
[2017-01-19] MEDS: LORazepam 1 MG (ATIVAN) TAB PO PRN (02:57)
[2017-01-19 03:35] LABS: BASOPHILS % (AUTO) 0 % (0-10); EOSINOPHILS # (AUTO) 0.1 10^3/uL (0.0-0.3); EOSINOPHILS % (AUTO) 1 % (0-10); LYMPHOCYTES # (AUTO) 1.4 X 10^3 (1.0-4.0); LYMPHOCYTES % (AUTO) 19 % (12-44); MEAN CORPUSCULAR HEMOGLOBIN 34 PG (25-34); MEAN CORPUSCULAR HGB CONC 34 G/DL (32-36); MEAN CORPUSCULAR VOLUME 101 FL (80-99); MEAN PLATELET VOLUME 9.5 FL (7.4-10.4); MONOCYTES # (AUTO) 0.9 X 10^3 (0.0-1.0); MONOCYTES % (AUTO) 13 % (0-12); NEUTROPHILS # (AUTO) 4.7 X 10^3 (1.8-7.8); NEUTROPHILS % (AUTO) 67 % (42-75); PLATELET COUNT 182 10^3/uL (130-400); RED CELL DISTRIBUTION WIDTH 13.2 % (10.0-14.5); WHITE BLOOD COUNT 7.1 10^3/uL (4.3-11.0)
[2017-01-19 03:56] LABS: ALANINE AMINOTRANSFERASE 13 U/L (0-55); ALBUMIN 2.8 G/DL (3.2-4.5); ANION GAP 8 MMOL/L (5-14); ASPARTATE AMINO TRANSFERASE 20 U/L (5-34); BILIRUBIN,TOTAL 0.6 MG/DL (0.1-1.0); BLOOD UREA NITROGEN 5 MG/DL (7-18); BUN/CREATININE RATIO 9; CALCIUM 8.3 MG/DL (8.5-10.1); CARBON DIOXIDE 20 MMOL/L (21-32); CHLORIDE 104 MMOL/L (98-107); CREATININE SERUM 0.58 MG/DL (0.60-1.30); GFR ESTIMATED > 60; GLUCOSE 123 MG/DL (70-105); MAGNESIUM 1.7 MG/DL (1.8-2.4); POTASSIUM 4.4 MMOL/L (3.6-5.0); SODIUM 132 MMOL/L (135-145); TOTAL PROTEIN 5.4 G/DL (6.4-8.2)
[2017-01-19] MEDS: cefTRIAXone INJECTION 1,000 MG in NS (IVPB) 50 ML IV SCH (04:09)
[2017-01-19] MEDS: MAGNESIUM 1 GM/100 ML IVPB 100 ML IV SCH ×2 (04:51→05:49)
[2017-01-19] MEDS: DILTIAZEM 30 MG (CARDIZEM) TAB PO SCH ×4 (05:49→23:21)
[2017-01-19] MEDS: ENOXAPARIN 60 MG/0.6 ML (LOVENOX) SYR SC SCH ×2 (05:49→17:58)
[2017-01-19] MEDS ORDERED: POTASSIUM CL 10MEQ/50ML IVPB 50 ML IV SCH (06:00)
[2017-01-19] MEDS ORDERED: MAGNESIUM 1 GM/100 ML IVPB 100 ML IV SCH (06:00)
[2017-01-19] MEDS ORDERED: KCL 20 MEQ TAB (K-DUR) PO SCH (06:00)
[2017-01-19] MEDS: meTOprolol 5 MG/5 ML (LOPRESSOR) VIAL IV PRN (06:11)
[2017-01-19] MEDS: PANTOPRAZOLE 40 MG (PROTONIX) TAB PO SCH ×2 (08:29→20:25)
[2017-01-19] MEDS: MAGNESIUM OXIDE (MAG-OX)400 MG TAB PO SCH ×2 (08:29→17:58)
[2017-01-19] MEDS: FOLIC ACID 1 MG TAB PO SCH (08:29)
[2017-01-19] MEDS: lisINopril 5 MG (PRINIVIL) TABLET PO SCH (08:29)
[2017-01-19] MEDS: DULoxetine 30 MG (CYMBALTA) CAP PO SCH (08:29)
[2017-01-19] MEDS: MULTIVIT W/MINERALS TAB (THERAGRAN M) PO SCH (08:29)
--- NOTE | 2017-01-19 08:55 | Cardiology Progress Note ---
Subjective Subjective/Events-last exam patient is in bed, still confused, having mild pain, shortness of breath. No palpitation. Heart rate is better controlled. Review of Systems General: No Chills, No Night Sweats, Fatigue, Malaise, No Appetite, No Other HEENT: No Head Aches, No Visual Changes, No Eye Pain, No Ear Pain, No Dysphasia , No Sinus Congestion, No Post Nasal Drip, No Sore Throat, No Other Pulmonary: Dyspnea, No Cough, No Pleuritic Chest Pain, No Other Cardiovascular: Chest Pain, No: Edema, Lt Headedness, Orthopnea, Other, Palpitations, Paroxysmal Noc. Dyspnea Objective-Cardiology Exam Last Set of Vital Signs Vital Signs 01/18/17 01/18/17 01/19/17 04:00 18:00 08:10 Temp 99.5 Pulse 93 Resp 26 B/P (MAP) 151/95 Pulse Ox 95 O2 Delivery Room Air O2 Flow Rate 2.00 FiO2 94 Capillary Refill : Less Than 3 Seconds I&O Intake and Output 01/19/17 00:00 Intake Total 2647 ml Output Total 1700 ml Balance 947 ml Intake Oral 540 ml IV Total 2107 ml Output Urine Total 1700 ml # Voids 4 General: Alert, Cooperative, Mild Distress HEENT: Atraumatic, PERRLA Neck: Supple, No JVD, No Thyromegaly Lungs: Clear to Auscultation, Normal Air Movement Heart: Normal S1, Normal S2, No Murmurs, Other (atrial fibrillation with controlled rate) Abdomen: Normal Bowel Sounds, Soft, No Tenderness, No Hepatosplenomegaly, No Masses Extremities: No Clubbing, No Cyanosis, Normal Pulses, No Tenderness/Swelling, Other (mild edema) Skin: No Rashes, No Breakdown, No Significant Lesion Neuro: Normal Speech, Normal Tone Psych/Mental Status: Mood NL Results Lab Laboratory Tests 01/19/17 03:30 A/P-Cardiology Admission Diagnosis Afib with RVR AMS ETOH intoxication CAD Assessment/Plan New-onset atrial fibrillation. On Cardizem and Toprol by mouth, tolerating them well, okay for transfer to telemetry today. 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 responded to a single dose of Lasix, I will give additional dose today and evaluate her tolerance and response. [id number] score is 5, yearly risk of stroke without oral anticoagulation is 6.7 percent. Patient restarted on Lovenox. May require oral anticoagulation, high risk of fall, might not be a suitable candidate for oral anticoagulation Acute mental status changes, history of AMS with alcohol intoxication. CT head negative for acute abnormalities. Will continue to monitor. ETOH intoxication- alcohol detox per protocol, managed by primary care physician Syncope without any obvious rhythmic cause on 2 week ambulatory heart monitoring of 10-31-16 to 11-12-16. s/p [employer] loop recorder November 2016. Continue to monitor. History of SVT noted on ambulatory heart monitor. Continue to monitor telemetry. CAD- Last cardiac catheterization was on 04/16/2013. She had 80% instent restenosis of the left anterior descending, known to be Mini Vision 2 x 18 mm and Mini Vision 2 x 23 mm overlapping stents. For these, she underwent balloon angioplasty. The first diagonal artery had 90% instent restenosis within a Mini Vision 2 x 12 mm stent. This was treated with balloon angioplasty and stenting with 2 overlapping Promus Element 2.25 x 8 mm stents with subsequent 0 % residual stenosis. The left circumflex artery had 70 to 80% proximal and 70 to 80% mid vessel stenosis and the right coronary artery had multiple up to 50% stenoses. The proximal left anterior descending artery had 50 to 60% stenoses. Most recent stress test done January 2016 revealed no ischemia or infarct. Continue to monitor. Tobaccoism Hypertension, tolerating current medications well. Continue to monitor Hyperlipidemia, maintained on statin. 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 Clinical Quality Measures DVT/VTE Risk/Contraindication: Risk Factor Score Per Nursin RFS Level Per Nursing on Admit: 4+=Very High KORI CONTRERAS MD Jan 19, 2017 08:55
--- NOTE | 2017-01-19 09:12 | Progress Note (SOAP) ---
Subjective Subjective 81yo F in ICU- no overnight events- cardizem brings her blood pressure down some- did receive a dose of beta kylee for high BP. Pt this AM more alert and conversant- report she did not sleep- she says the only thing that helps is her red wine and she would like some so she could get some "good rest". ROS- Yes to everything. Review of Systems ROS Unable to Obtain: unable to rely on responses as pt reported yes to near every question General: Fatigue, Malaise HEENT: Head Aches Pulmonary: Dyspnea, Cough Cardiovascular: Chest Pain, Edema (she has no edema on exam.) Gastrointestinal: Abdominal Pain, Nausea, Vomiting Genitourinary: Dysuria Musculoskeletal: arm pain, back pain, foot pain, hand pain, leg pain, neck pain , shoulder pain Neurological: Weakness Objective Exam Vital Signs Vital Signs Date Time Temp Pulse Resp B/P (MAP) Pulse Ox O2 Delivery O2 Flow Rate FiO2 01/19/17 08:10 99.5 93 26 151/95 95 Room Air 01/19/17 08:00 97 Room Air 01/19/17 07:00 96 01/19/17 06:23 123/103 01/19/17 06:00 111 36 142/108 95 Room Air 01/19/17 05:00 112 35 157/102 93 Room Air 01/19/17 04:03 98.0 98 28 136/96 96 Room Air 01/19/17 04:00 96 Room Air 01/19/17 04:00 97 27 136/96 96 Room Air 01/19/17 03:00 96 25 137/93 96 Room Air 01/19/17 02:00 106 25 129/85 97 Room Air 01/19/17 01:00 85 01/19/17 01:00 85 31 126/82 94 Room Air 01/19/17 00:00 98.6 103 26 127/100 95 Room Air 01/19/17 00:00 96 Room Air 01/18/17 23:00 98 36 118/89 94 Room Air 01/18/17 22:00 89 28 124/93 95 Room Air 01/18/17 21:00 101 17 125/79 93 Room Air 01/18/17 20:00 96 Room Air 01/18/17 20:00 99.3 101 28 120/98 96 Room Air 01/18/17 19:00 101 01/18/17 19:00 101 30 113/83 97 Room Air 01/18/17 18:30 97 01/18/17 18:15 98.6 Room Air 01/18/17 18:00 93 22 117/76 92 Nasal Cannula 2.00 01/18/17 17:00 98 25 127/82 96 Nasal Cannula 2.00 01/18/17 16:29 Nasal Cannula 2.00 01/18/17 16:00 94 23 126/85 96 Nasal Cannula 2.00 01/18/17 16:00 Room Air 01/18/17 15:00 105 36 131/97 96 Nasal Cannula 2.00 01/18/17 14:13 97 01/18/17 14:00 98 29 131/90 96 Nasal Cannula 2.00 01/18/17 13:00 110 01/18/17 13:00 100 25 122/85 98 Nasal Cannula 2.00 01/18/17 12:08 98.4 87 28 131/91 96 Nasal Cannula 2.00 01/18/17 12:05 Nasal Cannula 2.00 01/18/17 11:00 96 17 122/79 97 Nasal Cannula 2.00 01/18/17 10:00 90 18 111/86 97 Nasal Cannula 2.00 01/18/17 09:29 98 2.00 I & O 01/19/17 07:00 Intake Total 3247 ml Output Total 2875 ml Balance 372 ml General Appearance: No Apparent Distress HEENT: PERRL/EOMI Neck: Supple Respiratory: Lungs Clear, Decreased Breath Sounds (bases) Cardiovascular: Other (irregular rhythm, regular rate- Afib) Gastrointestinal: Normal Bowel Sounds, Non Tender, Soft Rectal: Deferred Back: No CVA Tenderness Extremity: Non Tender, No Calf Tenderness, No Pedal Edema Neurologic/Psychiatric: Alert Skin: Normal Color, Other (skin tears to arms) Results Lab Laboratory Tests 01/19/17 03:30: White Blood Count 7.1, Red Blood Count 3.30L, Hemoglobin 11.3L, Hematocrit 33L, Mean Corpuscular Volume 101H, Mean Corpuscular Hemoglobin 34, Mean Corpuscular Hemoglobin Concent 34, Red Cell Distribution Width 13.2, Platelet Count 182, Mean Platelet Volume 9.5, Neutrophils (%) (Auto) 67, Lymphocytes (%) (Auto) 19, Monocytes (%) (Auto) 13H, Eosinophils (%) (Auto) 1, Basophils (%) (Auto) 0, Neutrophils # (Auto) 4.7, Lymphocytes # (Auto) 1.4, Monocytes # (Auto) 0.9, Eosinophils # (Auto) 0.1, Basophils # (Auto) 0.0, Sodium Level 132L, Potassium Level 4.4, Chloride Level 104, Carbon Dioxide Level 20L, Anion Gap 8, Blood Urea Nitrogen 5L, Creatinine 0.58L, Estimat Glomerular Filtration Rate > 60, BUN /Creatinine Ratio 9, Glucose Level 123H, Calcium Level 8.3L, Phosphorus Level 3.0, Magnesium Level 1.7L, Total Bilirubin 0.6, Aspartate Amino Transf (AST/SGOT ) 20, Alanine Aminotransferase (ALT/SGPT) 13, Alkaline Phosphatase 112, Total Protein 5.4L, Albumin 2.8L Microbiology 01/16/17 Urine Culture - Final, Complete Klebsiella Oxytoca Assessment/Plan Assessment/Plan Assessment/Plan 81 yo F Encephalopathy due to eoth abuse,etoh dementia, UTI, new Afib- monitor for improvement- on etoh withdrawal protocol urinary tract infection-- klebsiella, continue rocephin Afib with RVR- on cardizem po, Dr. Joseph consulted [facility] - probably not a good candidate for anticoagulant as she is high risk for fall => etoh => brain bleed systolic CHF with severe cardiomyopathy- likely due to etohism- LVEF 35-40% - started on SPENCER I, cards may be adding beta kylee COPD- with tobaccoism, RT - stable on room air. HTN- monitor- on cardizem po q6hr, lisinopril 5mg held HLD- cont statin Dispo: will need fpc placement at discharge. Nursing spoke with pt's son Néstor yesterday and likely will go to [facility]. - Transfer to floor with tele. Problems: Clinical Quality Measures DVT/VTE Risk/Contraindication: Risk Factor Score Per Nursin RFS Level Per Nursing on Admit: 4+=Very High ESTHELA PADILLA MD Jan 19, 2017 09:12
[2017-01-19] MEDS ORDERED: FUROSEMIDE 40 MG/4 ML INJ (LASIX) IVP NR (09:15)
--- NOTE | 2017-01-19 10:18 | Diagnostic Imaging Report ---
INDICATION: Dyspnea. COMPARISON: Comparison made with prior examination 01/18/2017. FINDINGS: There is cardiomegaly. There is moderate central pulmonary venous congestion. Some bibasilar atelectasis and/or pneumonitis. There is no pneumothorax. Mediastinum is unremarkable. IMPRESSION: 1. Bibasilar atelectasis and/or pneumonitis. 2. Cardiomegaly and mild central pulmonary venous congestion. Dictated by: Dictated on workstation # [id number]
[2017-01-19] MEDS: D5 1/2 NS W/KCL 20 MEQ/L 1,000 ML IV SCH ×2 (11:40→21:52)
[2017-01-19] MEDS: LORazepam INJ 2 MG/ML (ATIVAN) VIAL IV PRN ×2 (11:45→18:51)
[2017-01-20] VITALS (7 sets, daily range): BP systolic 121–164; BP diastolic 68–106
[2017-01-20] MEDS: RT-ALBUTEROL SULF 2.5 MG/3 ML PRE-MIX VIAL IH SCH ×6 (02:11→22:25)
[2017-01-20] MEDS: cefTRIAXone INJECTION 1,000 MG in NS (IVPB) 50 ML IV SCH (04:17)
[2017-01-20] MEDS: DILTIAZEM 30 MG (CARDIZEM) TAB PO SCH (05:09)
[2017-01-20] MEDS: ENOXAPARIN 60 MG/0.6 ML (LOVENOX) SYR SC SCH ×2 (05:10→17:39)
[2017-01-20 05:27] LABS: BASOPHILS % (AUTO) 0 % (0-10); EOSINOPHILS # (AUTO) 0.1 10^3/uL (0.0-0.3); EOSINOPHILS % (AUTO) 1 % (0-10); LYMPHOCYTES # (AUTO) 1.2 X 10^3 (1.0-4.0); LYMPHOCYTES % (AUTO) 16 % (12-44); MEAN CORPUSCULAR HEMOGLOBIN 34 PG (25-34); MEAN CORPUSCULAR HGB CONC 34 G/DL (32-36); MEAN CORPUSCULAR VOLUME 101 FL (80-99); MEAN PLATELET VOLUME 10.2 FL (7.4-10.4); MONOCYTES % (AUTO) 14 % (0-12); NEUTROPHILS % (AUTO) 69 % (42-75); PLATELET COUNT 180 10^3/uL (130-400); RED BLOOD COUNT 3.56 10^6/uL (4.35-5.85); RED CELL DISTRIBUTION WIDTH 13.4 % (10.0-14.5); WHITE BLOOD COUNT 7.3 10^3/uL (4.3-11.0)
[2017-01-20 05:49] LABS: ALANINE AMINOTRANSFERASE 15 U/L (0-55); ANION GAP 11 MMOL/L (5-14); ASPARTATE AMINO TRANSFERASE 23 U/L (5-34); BILIRUBIN,TOTAL 0.5 MG/DL (0.1-1.0); BLOOD UREA NITROGEN 4 MG/DL (7-18); BUN/CREATININE RATIO 7; CALCIUM 8.5 MG/DL (8.5-10.1); CARBON DIOXIDE 18 MMOL/L (21-32); CHLORIDE 103 MMOL/L (98-107); CHOLESTEROL 160 MG/DL (< 200); CREATININE SERUM 0.61 MG/DL (0.60-1.30); DIRECT LDL 99 MG/DL (1-129); GFR ESTIMATED > 60; GLUCOSE 121 MG/DL (70-105); MAGNESIUM 1.9 MG/DL (1.8-2.4); POTASSIUM 4.1 MMOL/L (3.6-5.0); SODIUM 132 MMOL/L (135-145); TOTAL PROTEIN 5.7 G/DL (6.4-8.2); TRIGLYCERIDES 80 MG/DL (<150); VLDL CHOLESTEROL 16 MG/DL (5-40)
[2017-01-20] MEDS: D5 1/2 NS W/KCL 20 MEQ/L 1,000 ML IV SCH ×2 (07:58→10:40)
[2017-01-20] MEDS: lisINopril 5 MG (PRINIVIL) TABLET PO SCH (07:59)
[2017-01-20] MEDS: MAGNESIUM OXIDE (MAG-OX)400 MG TAB PO SCH ×2 (07:59→17:39)
[2017-01-20] MEDS: DULoxetine 30 MG (CYMBALTA) CAP PO SCH (07:59)
[2017-01-20] MEDS: PANTOPRAZOLE 40 MG (PROTONIX) TAB PO SCH ×2 (07:59→20:14)
[2017-01-20] MEDS: MULTIVIT W/MINERALS TAB (THERAGRAN M) PO SCH (07:59)
[2017-01-20] MEDS: FOLIC ACID 1 MG TAB PO SCH (07:59)
--- NOTE | 2017-01-20 08:38 | Progress Note (SOAP) ---
Subjective Subjective/Events-last exam Fwup A fib with RVR, confusion, UTI, alcohol abuse, HTN. Still confused. Objective Exam Vital Signs Date Time Temp Pulse Resp B/P (MAP) Pulse Ox O2 Delivery O2 Flow Rate FiO2 01/20/17 08:07 Room Air 01/20/17 07:53 98.0 94 20 148/86 98 Room Air 01/20/17 06:41 95 01/20/17 05:10 97.0 01/20/17 04:00 97.2 97 16 139/68 97 Room Air 01/20/17 02:11 95 01/20/17 01:00 104 01/20/17 00:00 97.2 101 129/71 Room Air 96.00 01/19/17 21:40 96 01/19/17 21:00 Room Air 01/19/17 20:42 97.4 97 16 121/71 96 Room Air 01/19/17 19:00 103 01/19/17 18:47 95 01/19/17 15:30 96.4 99 24 121/79 97 Room Air 01/19/17 15:15 Room Air 01/19/17 14:00 95 38 117/91 Room Air 01/19/17 13:00 92 01/19/17 13:00 98 19 106/69 Room Air 01/19/17 12:00 97 Room Air 01/19/17 11:51 99.1 108 27 145/93 93 Room Air 01/19/17 11:00 100 28 145/93 Room Air 01/19/17 10:00 93 23 144/106 Room Air 01/19/17 09:00 92 30 147/99 Room Air I & O 01/20/17 07:00 Intake Total 3100 ml Output Total 3050 ml Balance 50 ml Capillary Refill : Less Than 3 SecondsLess Than 3 Seconds General Appearance: No Apparent Distress Respiratory: Lungs Clear Cardiovascular: Systolic Murmur, Irregularly Irregular Gastrointestinal: normal bowel sounds, non tender, soft Extremity: Non Tender, No Calf Tenderness, No Pedal Edema Neurologic/Psychiatric: Alert, Disoriented x3 Results Lab Laboratory Tests 01/20/17 04:36: White Blood Count 7.3, Red Blood Count 3.56L, Hemoglobin 12.0, Hematocrit 36, Mean Corpuscular Volume 101H, Mean Corpuscular Hemoglobin 34, Mean Corpuscular Hemoglobin Concent 34, Red Cell Distribution Width 13.4, Platelet Count 180, Mean Platelet Volume 10.2, Neutrophils (%) (Auto) 69, Lymphocytes (%) (Auto) 16 , Monocytes (%) (Auto) 14H, Eosinophils (%) (Auto) 1, Basophils (%) (Auto) 0, Neutrophils # (Auto) 5.0, Lymphocytes # (Auto) 1.2, Monocytes # (Auto) 1.0, Eosinophils # (Auto) 0.1, Basophils # (Auto) 0.0, Sodium Level 132L, Potassium Level 4.1, Chloride Level 103, Carbon Dioxide Level 18L, Anion Gap 11, Blood Urea Nitrogen 4L, Creatinine 0.61, Estimat Glomerular Filtration Rate > 60, BUN/ Creatinine Ratio 7, Glucose Level 121H, Calcium Level 8.5, Magnesium Level 1.9, Total Bilirubin 0.5, Aspartate Amino Transf (AST/SGOT) 23, Alanine Aminotransferase (ALT/SGPT) 15, Alkaline Phosphatase 114, Total Protein 5.7L, Albumin 3.0L, Triglycerides Level 80, Cholesterol Level 160, LDL Cholesterol Direct 99, VLDL Cholesterol 16, HDL Cholesterol 50 Microbiology 01/16/17 Urine Culture - Final, Complete Klebsiella Oxytoca Assessment/Plan Assessment/Plan Assess & Plan/Chief Complaint 1. A Fib with RVR--on oral cardizem 2. UTI with Klebsiella--sensitive to rocephin 3. Confusion/AMS--likely due to longstanding alcohol abuse/alcoholic dementia with exacerbation due to recent UTI and new onset a fib, patient will need placement in NH on discharge--will try to contact one of children today 4. Hypertension--stable 5. COPD--stable 6. Acute Alcohol Intoxication--on alcohol withdrawal protocol 7. Weakness--start PT Clinical Quality Measures DVT/VTE Risk/Contraindication: Risk Factor Score Per Nursin RFS Level Per Nursing on Admit: 4+=Very High LUKE SALAZAR DO Jan 20, 2017 8:38 am
--- NOTE | 2017-01-20 08:48 | Cardiology Progress Note ---
Subjective Subjective/Events-last exam Patient in bed, confused this morning. Complaining of back pain, asking to sit up in chair. Review of Systems General: No Night Sweats, No Fatigue, No Malaise HEENT: No Visual Changes, No Dysphasia, No Sore Throat Pulmonary: Dyspnea, No Cough Cardiovascular: Palpitations, No: Chest Pain, Edema, Paroxysmal Noc. Dyspnea Gastrointestinal: No: Abdominal Pain, Nausea, Vomiting Genitourinary: No Dysuria, No Frequency Musculoskeletal: No: back pain, neck pain Neurological: Confusion, Weakness, No: Change in speech, Numbness Objective-Cardiology Exam Last Set of Vital Signs Vital Signs 01/18/17 01/20/17 01/20/17 01/20/17 04:00 00:00 07:53 08:07 Temp 98.0 Pulse 94 Resp 20 B/P (MAP) 148/86 Pulse Ox 98 O2 Delivery Room Air O2 Flow Rate 96.00 FiO2 94 Capillary Refill : Less Than 3 SecondsLess Than 3 Seconds I&O Bad tableGeneral: Alert, Cooperative, Mild Distress HEENT: Atraumatic, PERRLA Neck: Supple, No JVD, No Thyromegaly Lungs: Clear to Auscultation, Normal Air Movement Heart: Normal S1, Normal S2, No Murmurs, Other (atrial fibrillation with controlled rate) Abdomen: Normal Bowel Sounds, Soft, No Tenderness, No Hepatosplenomegaly, No Masses Extremities: No Clubbing, No Cyanosis, Normal Pulses, No Tenderness/Swelling, Other (mild edema) Skin: No Rashes, No Breakdown, No Significant Lesion Neuro: Normal Speech, Normal Tone Psych/Mental Status: Mood NL Results Lab Laboratory Tests 01/20/17 04:36 A/P-Cardiology Admission Diagnosis Afib with RVR AMS ETOH intoxication CAD Assessment/Plan New-onset atrial fibrillation. On Cardizem and Toprol by mouth, tolerating them well, telemetry reveals afib, rate is slightly tachycardic. Continue to monitor. 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 Continue to monitor. [id number] score is 5, yearly risk of stroke without oral anticoagulation is 6.7 percent. Patient restarted on Lovenox. May require oral anticoagulation, high risk of fall, might not be a suitable candidate for oral anticoagulation Acute mental status changes, history of AMS with alcohol intoxication. CT head negative for acute abnormalities. Will continue to monitor. ETOH intoxication- alcohol detox per protocol, managed by primary care physician UTI- continue antibiotics. Management per PCP. Syncope without any obvious rhythmic cause on 2 week ambulatory heart monitoring of 10-31-16 to 11-12-16. s/p Biotronik loop recorder November 2016. Continue to monitor. History of SVT noted on ambulatory heart monitor. Continue to monitor telemetry. CAD- Last cardiac catheterization was on 04/16/2013. She had 80% instent restenosis of the left anterior descending, known to be Mini Vision 2 x 18 mm and Mini Vision 2 x 23 mm overlapping stents. For these, she underwent balloon angioplasty. The first diagonal artery had 90% instent restenosis within a Mini Vision 2 x 12 mm stent. This was treated with balloon angioplasty and stenting with 2 overlapping Promus Element 2.25 x 8 mm stents with subsequent 0 % residual stenosis. The left circumflex artery had 70 to 80% proximal and 70 to 80% mid vessel stenosis and the right coronary artery had multiple up to 50% stenoses. The proximal left anterior descending artery had 50 to 60% stenoses. Most recent stress test done January 2016 revealed no ischemia or infarct. Continue to monitor. Tobaccoism Hypertension, tolerating current medications well. Continue to monitor Hyperlipidemia, maintained on statin. 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 Clinical Quality Measures DVT/VTE Risk/Contraindication: Risk Factor Score Per Nursin RFS Level Per Nursing on Admit: 4+=Very High SYLVESTER BERNARD Jan 20, 2017 08:48
--- NOTE | 2017-01-20 10:16 | Physical Therapy Evaluation ---
PT Evaluation-General Medical Diagnosis Admission Date Jan 16, 2017 at 12:41 Medical Diagnosis: AMS; alcohol intox Onset Date: Jan 16, 2017 Therapy Diagnosis Therapy Diagnosis: generalized weakness and debility Height/Weight Height (Feet): 5 Height (Inches): 5.00 Weight (Pounds): 125 Weight (Ounces): 7.0 Precautions Precautions/Isolations: Fall Prevention, Standard Precautions Referral Physician: Deja Reason for Referral: Evaluation/Treatment Medical History Pertinent Medical History: Atrial Fib, Alcoholism, Arthritis, CAD, COPD, PVD, Smoking Additional Medical History hepatitis Current History EMS secondary to fall at home; found to have UTI; new onset A-fib Reviewed History: Yes Social History Home: Single Level Current Living Status: Alone (family not present to confirm) Prior/Core FIM Prior Level of Function Functional [place] Measure 0=Not Assessed/NA 4=Minimal Assistance 1=Total Assistance 5=Supervision or Setup 2=Maximal Assistance 6=Modified [place] 3=Moderate Assistance 7=Complete [place] Bed Mobility: 6 Transfers (B,C,W/C) (FIM): 6 Gait: 6 uses FWW at home? PT Evaluation-Current Subjective Patient is in recliner with sitter present. Noted confusion. Pain Numeric Pain Scale: 0-No Pain Location: No Pain Reported Objective Patient Orientation: Confused Problem Solving: Poor Attachments: IV ROM/Strength ROM Lower Extremities bilateral LE WFL Strenght Lower Extremities bilateral LE WFL Integumentary/Posture Integumentary refer to nursing notes Posture trunk flexed posture;kyphosis Neuromuscular (Tone, Coordination, Reflexes) diminished coordination due to alcoholism Sensory Vision: Functional Hearing: Impaired Sensation Right Lower Extremit: Intact Sensation Left Lower Extremity: Intact Transfers Functional [place] Measure 0=Not Assessed/NA 4=Minimal Assistance 1=Total Assistance 5=Supervision or Setup 2=Maximal Assistance 6=Modified [place] 3=Moderate Assistance 7=Complete [place] Transfers (B, C, W/C) (FIM): 4 Scootin Sit to/from Stand: [address] for safety Gait Mode of Locomotion: Walk Anticipated Mode of Locomotion: Walk Gait (FIM): 4 Distance (FIM): 3=150 ft Distance: 225' Gait Level of Assist: 4 Gait Persons Needed: 1 Gait Assistive Device: FWW Comments/Gait Description extended UE's requiring skilled verbal instruction for body placement with FWW to improve safety Balance Sitting Static: Normal Sitting Dynamic: Normal Standing Static: Fair Standing Dynamic: Fair Assessment/Needs 81 y.o. female, very confused, will benefit from skilled PT to address functional strength and mobility to improve current LOF. Patient is unable to follow simple direction and requires cues to remain on task. Rehab Potential: Fair Post Rehab Potential-Barriers: alcoholism PT Allergist/Pediatric Pulmonologist Goals Senior Care Goals PT Senior Care Goals Time Frame: Feb 03, 2017 Transfers (B,C,W/C) (FIM): 6 Gait (FIM): 6 Gait distance (FIM): 3=150 ft Gait Level of Assist: 6 Gait Assistive Device: FWW PT Plan Problem List Problem List: Activity Tolerance, Functional Strength, Safety, Balance, Gait, Transfer Treatment/Plan Treatment Plan: Continue Plan of Care Treatment Plan: Bed Mobility, Education, Functional Activity Erin, Functional Strength, Gait, Safety, Therapeutic Exercise, Transfers Treatment Duration: Feb 03, 2017 # of days/week 6 Visits Per Week: 6 Safety Risks/Education Patient Education: Safety Issues Teaching Recipient: Patient Teaching Methods: Discussion Response to Teaching: Reinforcement Needed Discharge Recommendations Therapy D/C Recommendations: Intermediate Placement (per report) Time/GCodes Time In: 941 Time Out: 1001 Total Billed Treatment Time: 20 Total Billed Treatment 1 visit EVModC 20 min PAZ FARFAN PT Jan 20, 2017 10:16
--- NOTE | 2017-01-20 11:17 | Cardiology Progress Note ---
Subjective Subjective/Events-last exam patient is laying down in bed, still confused, no new complaint. Review of Systems General: No Chills, No Night Sweats, No Fatigue, No Malaise, No Appetite, No Other HEENT: No Head Aches, No Visual Changes, No Eye Pain, No Ear Pain, No Dysphasia , No Sinus Congestion, No Post Nasal Drip, No Sore Throat, No Other Pulmonary: Dyspnea, No Cough, No Pleuritic Chest Pain, No Other Cardiovascular: No: Chest Pain, Edema, Lt Headedness, Orthopnea, Other, Palpitations, Paroxysmal Noc. Dyspnea Objective-Cardiology Exam Last Set of Vital Signs Vital Signs 01/18/17 01/20/17 01/20/17 01/20/17 01/20/17 04:00 00:00 07:53 08:07 10:47 Temp 98.0 Pulse 94 Resp 20 B/P (MAP) 148/86 Pulse Ox 96 O2 Delivery Room Air O2 Flow Rate 96.00 FiO2 94 Capillary Refill : Less Than 3 SecondsLess Than 3 Seconds I&O Bad tableGeneral: Alert, Cooperative, No Acute Distress HEENT: Atraumatic, PERRLA Neck: Supple, No JVD, No Thyromegaly Lungs: Clear to Auscultation, Normal Air Movement Heart: Normal S1, Normal S2, No Murmurs, Other (atrial fibrillation with controlled rate) Abdomen: Normal Bowel Sounds, Soft, No Tenderness, No Hepatosplenomegaly, No Masses Extremities: No Clubbing, No Cyanosis, Normal Pulses, No Tenderness/Swelling, Other (mild edema) Skin: No Rashes, No Breakdown, No Significant Lesion Neuro: Normal Speech, Normal Tone Psych/Mental Status: Mood NL Results Lab Laboratory Tests 01/20/17 04:36 A/P-Cardiology Admission Diagnosis Afib with RVR AMS ETOH intoxication CAD Assessment/Plan New-onset atrial fibrillation. On Cardizem and Toprol by mouth, tolerating them well, telemetry reveals afib, I will change her to long-acting Cardizem and monitor her tolerance and response. 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 Continue to monitor. [id number] score is 5, yearly risk of stroke without oral anticoagulation is 6.7 percent. Patient restarted on Lovenox. May require oral anticoagulation, high risk of fall, might not be a suitable candidate for oral anticoagulation Acute mental status changes, history of AMS with alcohol intoxication. CT head negative for acute abnormalities. Will continue to monitor. ETOH intoxication- alcohol detox per protocol, managed by primary care physician UTI- continue antibiotics. Management per PCP. Syncope without any obvious rhythmic cause on 2 week ambulatory heart monitoring of 10-31-16 to 11-12-16. s/p Biotronik loop recorder November 2016. Continue to monitor. History of SVT noted on ambulatory heart monitor. Continue to monitor telemetry. CAD- Last cardiac catheterization was on 04/16/2013. She had 80% instent restenosis of the left anterior descending, known to be Mini Vision 2 x 18 mm and Mini Vision 2 x 23 mm overlapping stents. For these, she underwent balloon angioplasty. The first diagonal artery had 90% instent restenosis within a Mini Vision 2 x 12 mm stent. This was treated with balloon angioplasty and stenting with 2 overlapping Promus Element 2.25 x 8 mm stents with subsequent 0 % residual stenosis. The left circumflex artery had 70 to 80% proximal and 70 to 80% mid vessel stenosis and the right coronary artery had multiple up to 50% stenoses. The proximal left anterior descending artery had 50 to 60% stenoses. Most recent stress test done January 2016 revealed no ischemia or infarct. Continue to monitor. Tobaccoism Hypertension, tolerating current medications well. Continue to monitor Hyperlipidemia, maintained on statin. 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 Clinical Quality Measures DVT/VTE Risk/Contraindication: Risk Factor Score Per Nursin RFS Level Per Nursing on Admit: 4+=Very High KORI CONTRERAS MD Jan 20, 2017 11:17
[2017-01-20] MEDS ORDERED: DILTIAZEM 180 MG (CARDIZEM CD) CAP PO NR (11:30)
[2017-01-20] MEDS: ASPIRIN E.C. 81 MG (ECOTRIN) TAB PO SCH (11:55)
[2017-01-20] MEDS: LORazepam INJ 2 MG/ML (ATIVAN) VIAL IV PRN ×3 (12:44→23:39)
[2017-01-21] MEDS: D5 1/2 NS W/KCL 20 MEQ/L 1,000 ML IV SCH (01:14)
[2017-01-21] MEDS: meTOprolol 5 MG/5 ML (LOPRESSOR) VIAL IV PRN ×2 (01:37→08:05)
[2017-01-21] MEDS: RT-ALBUTEROL SULF 2.5 MG/3 ML PRE-MIX VIAL IH SCH ×3 (02:28→10:40)
[2017-01-21] MEDS: cefTRIAXone INJECTION 1,000 MG in NS (IVPB) 50 ML IV SCH (05:29)
[2017-01-21] MEDS: ENOXAPARIN 60 MG/0.6 ML (LOVENOX) SYR SC SCH (05:29)
[2017-01-21 05:54] LABS: BASOPHILS % (AUTO) 0 % (0-10); EOSINOPHILS # (AUTO) 0.1 10^3/uL (0.0-0.3); EOSINOPHILS % (AUTO) 1 % (0-10); LYMPHOCYTES # (AUTO) 1.2 X 10^3 (1.0-4.0); LYMPHOCYTES % (AUTO) 13 % (12-44); MEAN CORPUSCULAR HEMOGLOBIN 34 PG (25-34); MEAN CORPUSCULAR HGB CONC 34 G/DL (32-36); MEAN CORPUSCULAR VOLUME 100 FL (80-99); MEAN PLATELET VOLUME 9.5 FL (7.4-10.4); MONOCYTES # (AUTO) 1.1 X 10^3 (0.0-1.0); MONOCYTES % (AUTO) 13 % (0-12); NEUTROPHILS # (AUTO) 6.5 X 10^3 (1.8-7.8); NEUTROPHILS % (AUTO) 73 % (42-75); PLATELET COUNT 232 10^3/uL (130-400); RED BLOOD COUNT 3.47 10^6/uL (4.35-5.85); RED CELL DISTRIBUTION WIDTH 13.4 % (10.0-14.5); WHITE BLOOD COUNT 8.9 10^3/uL (4.3-11.0)
[2017-01-21 08:00] VITALS: BP 171/106
[2017-01-21] MEDS: MULTIVIT W/MINERALS TAB (THERAGRAN M) PO SCH (08:04)
[2017-01-21] MEDS: FOLIC ACID 1 MG TAB PO SCH (08:05)
[2017-01-21] MEDS: DULoxetine 30 MG (CYMBALTA) CAP PO SCH (08:05)
[2017-01-21] MEDS: PANTOPRAZOLE 40 MG (PROTONIX) TAB PO SCH (08:05)
[2017-01-21] MEDS: lisINopril 5 MG (PRINIVIL) TABLET PO SCH (08:05)
[2017-01-21] MEDS: MAGNESIUM OXIDE (MAG-OX)400 MG TAB PO SCH (08:05)
--- NOTE | 2017-01-21 08:22 | Cardiology Progress Note ---
Subjective Subjective/Events-last exam Patient is in bed eating breakfast. Appears less confused today. Denies any CP. Review of Systems General: No Night Sweats, No Fatigue, No Malaise HEENT: No Visual Changes, No Dysphasia, No Sore Throat Pulmonary: No Dyspnea, No Cough Cardiovascular: No: Chest Pain, Orthopnea, Palpitations Gastrointestinal: No: Constipation, Diarrhea, Nausea, Vomiting Genitourinary: No Dysuria, No Frequency Musculoskeletal: No: back pain, neck pain Neurological: Confusion, No: Change in speech, Numbness, Weakness Objective-Cardiology Exam Last Set of Vital Signs Vital Signs 01/18/17 01/20/17 01/20/17 01/21/17 01/21/17 04:00 00:00 23:55 01:00 07:23 Temp 97.6 Pulse 150 Resp 22 B/P (MAP) 164/106 Pulse Ox 93 O2 Delivery Room Air O2 Flow Rate 96.00 FiO2 94 Capillary Refill : Less Than 3 SecondsLess Than 3 Seconds I&O Intake and Output 01/21/17 00:00 Intake Total 2280 ml Output Total 1000 ml Balance 1280 ml Intake Oral 1180 ml IV Total 1100 ml Output Urine Total 1000 ml # Voids 4 # Urine Diapers 2 General: Alert, Cooperative, No Acute Distress HEENT: Atraumatic, PERRLA Neck: Supple, No JVD, No Thyromegaly Lungs: Clear to Auscultation, Normal Air Movement Heart: Normal S1, Normal S2, No Murmurs, Other (irregularly irregular) Abdomen: Normal Bowel Sounds, Soft, No Tenderness, No Hepatosplenomegaly, No Masses Extremities: No Clubbing, No Cyanosis, Normal Pulses, No Tenderness/Swelling, Other (mild edema) Skin: No Rashes, No Breakdown, No Significant Lesion Neuro: Normal Speech, Normal Tone Psych/Mental Status: Mood NL Results Lab Laboratory Tests 01/21/17 05:50 A/P-Cardiology Admission Diagnosis Afib with RVR AMS ETOH intoxication CAD Assessment/Plan New-onset atrial fibrillation. On Cardizem and Toprol by mouth, tolerating them well, telemetry reveals afib, changed to long-acting Cardizem and monitor her tolerance and response. Still tachycardic I will increase Toprol XL and continue to monitor. 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 Continue to monitor. [id number] score is 5, yearly risk of stroke without oral anticoagulation is 6.7 percent. Patient restarted on Lovenox. May require oral anticoagulation, high risk of fall, might not be a suitable candidate for oral anticoagulation Acute mental status changes, history of AMS with alcohol intoxication. CT head negative for acute abnormalities. Will continue to monitor. ETOH intoxication- alcohol detox per protocol, managed by primary care physician UTI- continue antibiotics. Management per PCP. Syncope without any obvious rhythmic cause on 2 week ambulatory heart monitoring of 10-31-16 to 11-12-16. s/p DipJar loop recorder November 2016. Continue to monitor. History of SVT noted on ambulatory heart monitor. Continue to monitor telemetry. CAD- Last cardiac catheterization was on 04/16/2013. She had 80% instent restenosis of the left anterior descending, known to be Mini Vision 2 x 18 mm and Mini Vision 2 x 23 mm overlapping stents. For these, she underwent balloon angioplasty. The first diagonal artery had 90% instent restenosis within a Mini Vision 2 x 12 mm stent. This was treated with balloon angioplasty and stenting with 2 overlapping Promus Element 2.25 x 8 mm stents with subsequent 0 % residual stenosis. The left circumflex artery had 70 to 80% proximal and 70 to 80% mid vessel stenosis and the right coronary artery had multiple up to 50% stenoses. The proximal left anterior descending artery had 50 to 60% stenoses. Most recent stress test done January 2016 revealed no ischemia or infarct. Continue to monitor. Tobaccoism Hypertension, blood pressure elevated this morning. I will increase lisinopril and Toprol XL. Continue to monitor BP/HR. Hyperlipidemia, maintained on statin. 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 OK for discharge from cardiology standpoint. Follow up with Dr. Castaneda in 1-2 weeks Clinical Quality Measures DVT/VTE Risk/Contraindication: Risk Factor Score Per Nursin RFS Level Per Nursing on Admit: 4+=Very High SYLVESTER BERNARD Jan 21, 2017 08:22
--- NOTE | 2017-01-21 08:35 | Discharge Inst-Skilled Nursing ---
Discharge Inst-Skilled NF Patient Instructions Patient Problems: Alcoholic Dementia Atrial Fibrillation Hypertension Consult/Follow Up/Orders Follow Up Appt.: 2 weeks Skilled NF Admit to: [facility] Certification (SNF) I certify that SNF services are required to be given on an inpatient basis because of the above named patient's need for longterm care on a continuing basis for the conditions(s) for which he/she was receiving inpatient hospital services prior to his/her transfer to the SNF. [facility] Facility Order: Nursing Services, Natural Science Manager-Evaluate & Treat, Physical Therapy-Evaluate & Treat, Speech Language-Evaluate & Treat Discharge Diet: No Restrictions Daily Activity as Tolerated: Yes New & Resume Previous Orders Brigid Short Jan 21, 2017 08:33 Pneu Vac Indicated: Yes BRIGID SHORT DO Jan 21, 2017 8:35 am
--- NOTE | 2017-01-21 08:51 | Cardiology Progress Note ---
Subjective Subjective/Events-last exam Patient is feeling better today, some improvement Review of Systems General: No Chills, No Night Sweats, No Fatigue, No Malaise, No Appetite, No Other HEENT: No Head Aches, No Visual Changes, No Eye Pain, No Ear Pain, No Dysphasia , No Sinus Congestion, No Post Nasal Drip, No Sore Throat, No Other Pulmonary: Dyspnea, No Cough, No Pleuritic Chest Pain, No Other Cardiovascular: No: Chest Pain, Edema, Lt Headedness, Orthopnea, Other, Palpitations, Paroxysmal Noc. Dyspnea Objective-Cardiology Exam Last Set of Vital Signs Vital Signs 01/18/17 01/20/17 01/21/17 04:00 00:00 08:00 Temp 97.2 Pulse 109 Resp 24 B/P (MAP) 171/106 Pulse Ox 93 O2 Delivery Room Air O2 Flow Rate 96.00 FiO2 94 Capillary Refill : Less Than 3 SecondsLess Than 3 Seconds I&O Intake and Output 01/21/17 00:00 Intake Total 2280 ml Output Total 1000 ml Balance 1280 ml Intake Oral 1180 ml IV Total 1100 ml Output Urine Total 1000 ml # Voids 4 # Urine Diapers 2 General: Alert, Cooperative, No Acute Distress HEENT: Atraumatic, PERRLA Neck: Supple, No JVD, No Thyromegaly Lungs: Clear to Auscultation, Normal Air Movement Heart: Normal S1, Normal S2, No Murmurs, Other (irregularly irregular) Abdomen: Normal Bowel Sounds, Soft, No Tenderness, No Hepatosplenomegaly, No Masses Extremities: No Clubbing, No Cyanosis, Normal Pulses, No Tenderness/Swelling, Other (mild edema) Skin: No Rashes, No Breakdown, No Significant Lesion Neuro: Normal Speech, Normal Tone Psych/Mental Status: Mood NL Results Lab Laboratory Tests 01/21/17 05:50 A/P-Cardiology Admission Diagnosis Afib with RVR AMS ETOH intoxication CAD Assessment/Plan New-onset atrial fibrillation. 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 Continue to monitor. [id number] score is 5, yearly risk of stroke without oral anticoagulation is 6.7 percent. Patient restarted on Lovenox. May require oral anticoagulation, high risk of fall, not a suitable candidate for oral anticoagulation Acute mental status changes, history of AMS with alcohol intoxication. CT head negative for acute abnormalities. Will continue to monitor. ETOH intoxication- alcohol detox per protocol, managed by primary care physician UTI- continue antibiotics. Management per PCP. Syncope without any obvious rhythmic cause on 2 week ambulatory heart monitoring of 10-31-16 to 11-12-16. s/p Evi loop recorder November 2016. Continue to monitor. History of SVT noted on ambulatory heart monitor. Continue to monitor telemetry. CAD- Last cardiac catheterization was on 04/16/2013. She had 80% instent restenosis of the left anterior descending, known to be Mini Vision 2 x 18 mm and Mini Vision 2 x 23 mm overlapping stents. For these, she underwent balloon angioplasty. The first diagonal artery had 90% instent restenosis within a Mini Vision 2 x 12 mm stent. This was treated with balloon angioplasty and stenting with 2 overlapping Promus Element 2.25 x 8 mm stents with subsequent 0 % residual stenosis. The left circumflex artery had 70 to 80% proximal and 70 to 80% mid vessel stenosis and the right coronary artery had multiple up to 50% stenoses. The proximal left anterior descending artery had 50 to 60% stenoses. Most recent stress test done January 2016 revealed no ischemia or infarct. Continue to monitor. Tobaccoism Hypertension, blood pressure elevated this morning. I will increase lisinopril and Toprol XL. Continue to monitor BP/HR. Hyperlipidemia, maintained on statin. 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 OK for discharge from cardiology standpoint. Follow up with Dr. Castaneda in 1-2 weeks Clinical Quality Measures DVT/VTE Risk/Contraindication: Risk Factor Score Per Nursin RFS Level Per Nursing on Admit: 4+=Very High KORI CONTRERAS MD Jan 21, 2017 8:51 am
[2017-01-21] MEDS ORDERED: DILTIAZEM 180 MG (CARDIZEM CD) CAP PO SCH (09:00)
[2017-01-21] MEDS: LORazepam INJ 2 MG/ML (ATIVAN) VIAL IV PRN (11:25)
[2017-01-21 13:01] VITALS: BP 171/106
--- NOTE | 2017-01-31 13:39 | Physician Query ---
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 Please document a response below. PHYSICIAN RESPONSE Diagnosis clinically valid: Other, explanation/clinical finding Explanation of clincal finding Yes, alcoholic encephalopathy Please remember a lack of response to the above will prompt a phone page by [facility]/ coding staff. In responding to this query, please exercise your independent professional judgment. The purpose of this communication is to more accurately reflect the complexity of your patients condition. The fact that a question is asked does not imply that any particular answer is desired or expected. Thank you for your timely response to this clarification. Requestors name: [ ] Phone # [ ] THIS PHYSICIAN QUERY FORM IS A PERMANENT PART OF THE MEDICAL RECORD DARWIN DOLAN Jan 31, 2017 13:39 LUKE SALAZAR DO Feb 02, 2017 11:23
--- NOTE | 2017-02-14 13:57 | Discharge Summary ---
Diagnosis/Chief Complaint Date of Admission Jan 16, 2017 at 12:41 Date of Discharge Jan 21, 2017 at 12:30 Discharge Date: Jan 21, 2017 Admission Diagnosis Admission Diagnosis 1. Altered Mental Status--multifactorial including alcohol abuse, UTI and new onset atrial fibrillation 2. UTI--started on rocephin 3. Acute Alcohol Abuse--on alcohol withdrawal protocol 4. New onset Atrial Fibrillation with RVR--cardiology assessing and transferred to ICU on cardizem drip 5. COPD--stable 6. Weakness with recurrent falls--will start PT once more medically stable, patient needs detention placement in either [place] or [place] due to declining health Discharge Diagnosis 1. Altered Mental Status--multifactorial including alcoholic encephalopathy, UTI 2. UTI--culture growing out Klebsiella oxytoca 3. Chronic Alcohol Abuse 4. New onset Atrial Fibrillation with RVR--rate currently controlled 5. COPD--stable 6. Weakness with recurrent falls 7. Hypertension Reason Hospital Visit This is an 81 year old female with a history of alcohol abuse. She summoned EMS to her home after a fall. She was very confused when EMS arrived. She was taken to the emergency room where she was found to have altered mental status with acute alcohol intoxication and a urinary tract infection. She was to be admitted to the medical floor but then was found to have new onset of atrial fibrillation so she was admitted to cardiac stepdown. She then developed atrial fibrillation with RVR and had to be transferred to the ICU and started on a cardizem drip. Discharge Summary Hospital Course Hospital Course This is an 81 year old female with a history of alcohol abuse. She summoned EMS to her home after a fall. She was very confused when EMS arrived. She was taken to the emergency room where she was found to have altered mental status with acute alcohol intoxication and a urinary tract infection. She was to be admitted to the medical floor but then was found to have new onset of atrial fibrillation so she was admitted to cardiac stepdown. She then developed atrial fibrillation with RVR and had to be transferred to the ICU and started on a cardizem drip. After 24hours on the cardizem drip she was switched to oral cardizem and started on eliquis. Her echocardiogram showed an EF of 35-40 % with systolic dysfunction. She was managed medically from a cardiac standpoint. She was transferred to the medical floor on telemetry for further adjustment of her cardiac medications as well as treatment of her UTI. She was continued on the alcohol withdrawal protocol. She continued to have confusion requiring a sitter in her room. It was felt that she would need NH placement as the patient was unable to care for herself at home. She did agree to NH placement for half-way. Procedures None. Consultations Dr. Joseph Discharge Physical Examination Allergies: Coded Allergies: procaine (Verified Allergy, Unknown, 07/21/16) Uncoded Allergies: ENVIRONMENTAL (Allergy, Mild, 12/31/10) General Appearance: Alert Respiratory: Clear to Auscultation Cardiovascular: Other (irregular) Abdominal: Normal Bowel Sounds, Soft, No Tenderness Extremities: No Clubbing, No Cyanosis, No Edema Neuro: Other (generalized weakness) Psych/Mental Status: Other (confused) Discharge Home Medications Reviewed and agree with Discharge Medication list on patient's Discharge Instruction sheet Instructions to Patient/Family Please see electonic discharge instructions given to patient. Clinical Quality Measures DVT/VTE Risk/Contraindication: Risk Factor Score Per Nursin RFS Level Per Nursing on Admit: 4+=Very High LUKE SALAZAR DO February 14, 2017 13:57
--- OUTSIDE RECORDS SUMMARY | 2017-02-16 18:28 | XMS REPORT | Continuity of Care Document ---
Author Author [facility] Organization [facility] Address Unknown Phone Unavailable Care Team Providers Care Shook Machine Operator Name Role Phone No Pcp, Na PCP Unavailable Source Comments Some departments are not documenting in the electronic medical record. If you do not see the information that you expected, contact Release of Information in the Health Information Management department at [phone] for further assistance in locating additional records.[facility] Active Allergies and Adverse Reactions No Known [...] Taken Blood Pressure 140/98 09/03/2016 11:42 AM INTERNATIONAL RECRUITER Pulse 100 09/03/2016 11:42 AM INTERNATIONAL RECRUITER Temperature 36.3 C (97.3 F) 09/03/2016 11:42 AM INTERNATIONAL RECRUITER Respiratory Rate 14 09/03/2016 11:42 AM INTERNATIONAL RECRUITER Height 1.613 m (5' 3.5") 09/03/2016 11:42 AM INTERNATIONAL RECRUITER Weight 54.976 kg (121 lb 3.2 oz) 09/03/2016 11:42 AM INTERNATIONAL RECRUITER Body Mass Index 21.13 09/03/2016 11:42 AM INTERNATIONAL RECRUITER Oxygen Saturation 100% 09/03/2016 11:42 AM INTERNATIONAL RECRUITER Plan of Care Health Maintenance Due Date Last Done Comments Physical (Comprehensive) 1941 Exam Pertussis Vaccine 1945 Tetanus Vaccine 1951 Shingles Vaccine 1994 Osteoporosis Screening 1999 Prevnar/Pneumovax (#1) 1999 Influenza Vaccine 06/13/2017 Results from Last 3 Months Not on file
--- OUTSIDE RECORDS SUMMARY | 2017-02-16 18:37 | XMS REPORT | Continuity of Care Document ---
Author Author [facility] Organization [facility] Address Unknown Phone Unavailable Allergies Active Description Code Type Severity Reaction Onset Reported/Identified Relationship to Patient Clinical Status Yes ENVIRONMENTAL ENVIRONMENTAL Mild N/A 12/31/2010 Yes procaine [id number] Drug Allergy Unknown N/A 07/21/2016 Medications Problems Date Dx Coded Attending Type Code Diagnosis Diagnosed By 12/31/2010 Ot 305.00 ALCOHOL ABUSE-UNSPEC 12/31/2010 Ot 401.9 HYPERTENSION NOS 12/31/2010 Ot 791.9 ABN URINE FINDINGS NEC 12/31/2010 Ot 802.0 NASAL BONE FX-CLOSED 12/31/2010 Ot 920 CONTUSION FACE/SCALP/NCK 12/31/2010 Ot 959.01 HEAD INJURY, NOS 12/31/2010 Ot E000.8 OTHER EXTERNAL CAUSE STATUS 12/31/2010 Ot E849.0 ACCIDENT IN HOME 12/31/2010 Ot E888.1 FALL STRIKING OBJECT NEC 12/31/2010 Ot V58.69 OTH MED,LT,CURRENT USE 03/26/2011 Ot 881.00 OPEN WOUND OF FOREARM 03/26/2011 Ot E000.8 OTHER EXTERNAL CAUSE STATUS 03/26/2011 Ot E019.9 OTHER ACTIVITY INVOLVING ANIMAL CARE 03/26/2011 Ot E849.0 ACCIDENT IN HOME 03/26/2011 Ot E906.3 ANIMAL BITE NEC 02/18/2012 Ot 291.3 ALCOHOL-INDUCED PSYCHOTIC DISORDER WITH 02/18/2012 Ot 303.01 AC ALCOHOL INTOX-CONTIN 02/18/2012 Ot 311 DEPRESSIVE DISORDER NEC 02/18/2012 Ot 401.9 HYPERTENSION NOS 02/18/2012 Ot 722.4 CERVICAL DISC DEGEN 02/18/2012 Ot 847.0 SPRAIN OF NECK 02/18/2012 Ot 850.9 CONCUSSION NOS 02/18/2012 Ot 873.42 OPEN WOUND OF FOREHEAD 02/18/2012 Ot E000.8 OTHER EXTERNAL CAUSE STATUS 02/18/2012 Ot E849.6 ACCIDENT IN PUBLIC BLDG 02/18/2012 Ot E888.9 FALL NOS 06/22/2012 Ot 807.02 FRACTURE TWO RIBS-CLOSED 06/22/2012 Ot 922.1 CONTUSION OF CHEST WALL 06/22/2012 Ot 959.11 OTH INJURY OF CHEST WALL 06/22/2012 Ot E000.8 OTHER EXTERNAL CAUSE STATUS 06/22/2012 Ot E849.0 ACCIDENT IN HOME 06/22/2012 Ot E917.9 STRUCK BY OBJ/PERSON NEC 09/26/2012 Ot 300.00 ANXIETY STATE NOS 09/26/2012 Ot 305.00 ALCOHOL ABUSE-UNSPEC 09/26/2012 Ot 305.1 TOBACCO USE DISORDER 09/26/2012 Ot 807.01 FRACTURE ONE RIB-CLOSED 09/26/2012 Ot 959.11 OTH INJURY OF CHEST WALL 09/26/2012 Ot E000.8 OTHER EXTERNAL CAUSE STATUS 09/26/2012 Ot E849.0 ACCIDENT IN HOME 09/26/2012 Ot E917.8 STAT OBJ W SUB FALL NEC 09/27/2012 Ot 599.0 URIN TRACT INFECTION NOS 09/27/2012 Ot 922.31 BACK CONTUSION 09/27/2012 Ot 959.19 OTH INJURY OF OTHER SITES OF TRUNK 09/27/2012 Ot E000.8 OTHER EXTERNAL CAUSE STATUS 09/27/2012 Ot E849.0 ACCIDENT IN HOME 09/27/2012 Ot E917.8 STAT OBJ W SUB FALL NEC 10/07/2012 Ot 291.0 DELIRIUM TREMENS 10/07/2012 Ot 305.00 ALCOHOL ABUSE-UNSPEC 10/07/2012 Ot 338.11 ACUTE PAIN DUE TO TRAUMA 10/07/2012 Ot 401.9 HYPERTENSION NOS 10/07/2012 Ot 564.00 UNSPEC CONSTIPATION 10/07/2012 Ot 805.4 FX LUMBAR VERTEBRA-CLOSE 10/07/2012 Ot 922.31 BACK CONTUSION 10/07/2012 Ot E000.8 OTHER EXTERNAL CAUSE STATUS 10/07/2012 Ot E849.0 ACCIDENT IN HOME 10/07/2012 Ot E888.9 FALL NOS 10/21/2012 Ot 244.9 HYPOTHYROIDISM NOS 10/21/2012 Ot 272.4 HYPERLIPIDEMIA NEC/NOS 10/21/2012 Ot 276.8 HYPOPOTASSEMIA 10/21/2012 Ot 300.01 PANIC DISORDER WITHOUT AGORAPHOBIA 10/21/2012 Ot 303.90 ALCOH DEP NEC/NOS-UNSPEC 10/21/2012 Ot 305.1 TOBACCO USE DISORDER 10/21/2012 Ot 311 DEPRESSIVE DISORDER NEC 10/21/2012 Ot 401.9 HYPERTENSION NOS 10/21/2012 Ot 410.71 AC MYOCARDIAL INFARCT,SUBENDO INFARCT,IN 10/21/2012 Ot 414.01 CORONARY ATHEROSCLEROSIS OF [place]BE CORON 10/21/2012 Ot 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 NEC 10/21/2012 Ot 428.0 CONGESTIVE HEART FAILURE NOS 10/21/2012 Ot 428.21 ACUTE SYSTOLIC HEART FAILURE 10/21/2012 Ot 496 CHR AIRWAY OBSTRUCT NEC 10/21/2012 Ot 518.81 ACUTE RESPIRATORY FAILURE 10/21/2012 Ot 530.81 ESOPHAGEAL REFLUX 10/21/2012 Ot 780.52 INSOMNIA, UNSPECIFIED 02/10/2013 RENITA MEADE, TOSHIA Burks Ot 721.3 LUMBOSACRAL SPONDYLOSIS 02/10/2013 TOSHIA MARAVILLA MD A Ot 724.2 LUMBAGO 02/10/2013 RENITA MEADE, TOSHIA A Ot 733.90 BONE CARTILAGE DIS NOS 02/10/2013 TOSHIA MARAVILLA MD Ot 847.2 SPRAIN LUMBAR REGION 02/10/2013 RENITA MEADE, TOSHIA A Ot 923.00 CONTUSION SHOULDER REG 02/10/2013 RENITA MEADE, TOSHIA A Ot E000.8 OTHER EXTERNAL CAUSE STATUS 02/10/2013 TOSHIA MARAVILLA MD Ot E849.0 ACCIDENT IN HOME 02/10/2013 TOSHIA MARAVILLA MD A Ot E884.4 FALL FROM BED 04/17/2013 EUGENIE MEADE FACC, WENDY FACP CCDS Ot 272.4 HYPERLIPIDEMIA NEC/NOS 04/17/2013 EUGENIE MEADE FACC, WENDY FACP CCDS Ot 305.1 TOBACCO USE DISORDER 04/17/2013 EUGENIE MEADE FACC, ALI FACP CCDS Ot 401.9 HYPERTENSION NOS 04/17/2013 EUGENIE MEADE FACC, WENDY FACP CCDS Ot 412 OLD MYOCARDIAL INFARCT 04/17/2013 EUGENIE MEADE FACC, WENDY FACP CCDS Ot 414.01 CORONARY ATHEROSCLEROSIS OF [place] TRI[place] CORON 04/17/2013 EUGENIE MEADE FACC, WENDY FACP CCDS Ot 414.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 04/17/2013 EUGENIE MEADE FACC, WENDY FACP CCDS Ot 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 NEC 04/17/2013 EUGENIE MEADE FACC, ALI FACP CCDS Ot 786.05 SHORTNESS OF BREATH 04/17/2013 EUGENIE MEADE [facility], ALI [place] CCDS Ot 787.91 DIARRHEA 04/17/2013 EUGENIE MEADE [facility], ALI [facility] CCDS Ot V45.82 PERCUTANEOUS TRANSLUM CORON ANGIOPLASTY 04/17/2013 EUGENIE MEADE [facility], WENDY [place] CCDS Ot V58.63 LONG-TERM(CURRENT)USE OF ANTIPLATELET/AN 04/17/2013 EUGENIE MEADE [facility], [facility] CCDS Ot V58.69 OTH MED,LT,CURRENT USE 05/14/2013 ALEM HOLLY MD Ot 305.00 ALCOHOL ABUSE-UNSPEC 05/14/2013 ALEM HOLLY MD Ot 873.0 OPEN WOUND OF SCALP 05/14/2013 ALEM HOLLY MD Ot 959.01 HEAD INJURY, NOS 05/14/2013 ALEM HOLLY MD Ot E000.8 OTHER EXTERNAL CAUSE STATUS 05/14/2013 ALEM HOLLY MD Ot E849.0 ACCIDENT IN HOME 05/14/2013 ALEM HOLLY MD Ot E888.1 FALL STRIKING OBJECT NEC 05/14/2013 ALEM HOLLY MD Ot V58.63 LONG-TERM(CURRENT)USE OF ANTIPLATELET/ AN 05/14/2013 ALEM HOLLY MD Ot V58.69 OTH MED,LT,CURRENT USE 05/22/2013 STEPHENIE CORRAL DO Ot V58.32 ENCOUNTER FOR REMOVAL OF SUTURES 07/02/2013 MILTON HERNDON MD Ot 490 BRONCHITIS NOS 07/02/2013 MILTON HERNDON MD Ot 786.2 COUGH 07/06/2013 LOS MEADE CORRESPONDENCE RENEW CLERK Ot 490 BRONCHITIS NOS 07/06/2013 LOS MEADE CORRESPONDENCE RENEW CLERK Ot 786.2 COUGH 09/06/2013 DELANO RIVERS MD Ot 272.4 HYPERLIPIDEMIA NEC/NOS 09/06/2013 DELANO RIVERS MD Ot 291.0 DELIRIUM TREMENS 09/06/2013 DELANO RIVERS MD Ot 300.4 DYSTHYMIC DISORDER 09/06/2013 DELANO RIVERS MD Ot 303.91 ALCOH DEP NEC/NOS-CONTIN 09/06/2013 DELANO RIVERS MD Ot 305.1 TOBACCO USE DISORDER 09/06/2013 SEGLIE MD, DELANO R Ot 401.9 HYPERTENSION NOS 09/06/2013 TITA MEADE, DELANO R Ot 414.01 CORONARY ATHEROSCLEROSIS OF [place] TRI[place] CORON 09/06/2013 DELANO RIVERS MD R Ot 425.5 ALCOHOLIC CARDIOMYOPATHY 09/06/2013 DELANO RIVERS MD R Ot 428.0 CONGESTIVE HEART FAILURE NOS 09/06/2013 DELANO RIVERS MD R Ot 530.81 ESOPHAGEAL REFLUX 09/06/2013 DELANO RIVERS MD R Ot 733.00 OSTEOPOROSIS NOS 09/06/2013 DELANO RIVERS MD R Ot 805.4 FX LUMBAR VERTEBRA-CLOSE 09/06/2013 DELANO RIVERS MD R Ot E000.8 OTHER EXTERNAL CAUSE STATUS 09/06/2013 DELANO RIVERS MD Ot E849.0 ACCIDENT IN HOME 09/06/2013 DELANO RIVERS MD Ot E888.9 FALL NOS 09/06/2013 DELANO RIVERS MD Ot V45.82 PERCUTANEOUS TRANSLUM CORON ANGIOPLASTY 10/08/2013 MILTON HERNDON MD Ot 834.02 DISL INTERPHALN HAND-CL 10/08/2013 MILTON HERNDON MD Ot 882.0 OPEN WOUND OF HAND 10/08/2013 MILTON HERNDON MD Ot 959.4 HAND INJURY NOS 10/08/2013 MILTON HERNDON MD Ot E000.8 OTHER EXTERNAL CAUSE STATUS 10/08/2013 MILTON HERNDON MD Ot E849.0 ACCIDENT IN HOME 10/08/2013 MILTON HERNDON MD Ot E885.9 FALL FROM SLIPPING, TRIPPING, OR STUMBLI 10/15/2013 MITLON HERNDON MD Ot V58.32 ENCOUNTER FOR REMOVAL OF SUTURES 12/20/2013 STEPHENIE CORRAL DO Ot 305.00 ALCOHOL ABUSE-UNSPEC 12/20/2013 STEPHENIE CORRAL DO Ot 924.01 CONTUSION OF HIP 12/20/2013 STEPHENIE CORRAL DO Ot 959.6 HIP THIGH INJURY NOS 12/20/2013 STEPHENIE CORRAL DO Ot E000.8 OTHER EXTERNAL CAUSE STATUS 12/20/2013 STEPHENIE CORRAL DO Ot E849.0 ACCIDENT IN HOME 12/20/2013 STEPHENIE CORRAL DO Ot E888.9 FALL NOS 12/20/2013 STEPHENIE CORRAL DO Ot V15.88 HISTORY OF FALL 02/21/2014 DELANO RIVERS MD R Ot 250.00 DIAB CAMILA WO COMPL, TYPE II OR UNSPEC TY 02/21/2014 DELANO RIVERS MD R Ot 272.0 PURE HYPERCHOLESTEROLEM 02/21/2014 DELANO RIVERS MD R Ot 275.2 DIS MAGNESIUM METABOLISM 02/21/2014 DELANO RIVERS MD R Ot 291.81 ALCOHOL WITHDRAWAL 02/21/2014 DELANO RIVERS MD R Ot 300.00 ANXIETY STATE NOS 02/21/2014 DELANO RIVERS MD R Ot 303.90 ALCOH DEP NEC/NOS-UNSPEC 02/21/2014 DELANO RIVERS MD R Ot 305.1 TOBACCO USE DISORDER 02/21/2014 DELANO RIVERS MD R Ot 311 DEPRESSIVE DISORDER NEC 02/21/2014 DELANO RIVERS MD R Ot 401.9 HYPERTENSION NOS 02/21/2014 DELANO RIVERS MD R Ot 412 OLD MYOCARDIAL INFARCT 02/21/2014 DELANO RIVERS MD R Ot 414.00 CORON ATHEROSCLER NOS TYPE VESSEL, NATIV 02/21/2014 DELANO RIVERS MD R Ot 428.0 CONGESTIVE HEART FAILURE NOS 02/21/2014 DELANO RIVERS MD R Ot 496 CHR AIRWAY OBSTRUCT NEC 02/21/2014 DELANO RIVERS MD R Ot 530.81 ESOPHAGEAL REFLUX 02/21/2014 DELANO RIVERS MD R Ot 716.90 ARTHROPATHY NOS-UNSPEC 02/21/2014 DELANO RIVERS MD R Ot 724.5 BACKACHE NOS 02/21/2014 DELANO RIVERS MD R Ot 733.00 OSTEOPOROSIS NOS 02/21/2014 DELANO RIVERS MD R Ot 995.0 OTHER ANAPHYLACTIC REACTION 02/21/2014 DELANO RIVERS MD R Ot E849.6 ACCIDENT IN PUBLIC BLDG 02/21/2014 DELANO RIVERS MD R Ot E938.9 ADV EFF LOC ANES NEC/NOS 02/21/2014 DELANO RIVERS MD R Ot V12.09 PERSONAL HISTORY OTH SPEC INFECT ZULEYKA 02/21/2014 DELANO RIVERS MD Ot V15.88 HISTORY OF FALL 02/22/2014 DELANO RIVERS MD R Ot 250.00 DIAB CAMILA WO COMPL, TYPE II OR UNSPEC TY 02/22/2014 DELANO RIVERS MD R Ot 272.0 PURE HYPERCHOLESTEROLEM 02/22/2014 DELANO RIVERS MD R Ot 275.2 DIS MAGNESIUM METABOLISM 02/22/2014 DELANO RIVERS MD R Ot 291.81 ALCOHOL WITHDRAWAL 02/22/2014 DELANO RIVERS MD R Ot 300.00 ANXIETY STATE NOS 02/22/2014 DELANO RIVERS MD R Ot 303.90 ALCOH DEP NEC/NOS-UNSPEC 02/22/2014 DELANO RIVERS MD R Ot 305.1 TOBACCO USE DISORDER 02/22/2014 DELANO RIVERS MD R Ot 311 DEPRESSIVE DISORDER NEC 02/22/2014 DELANO RIVERS MD R Ot 401.9 HYPERTENSION NOS 02/22/2014 DELANO RIVERS MD R Ot 412 OLD MYOCARDIAL INFARCT 02/22/2014 DELANO RIVERS MD R Ot 414.00 CORON ATHEROSCLER NOS TYPE VESSEL, NATIV 02/22/2014 DELANO RIVERS MD R Ot 428.0 CONGESTIVE HEART FAILURE NOS 02/22/2014 DELANO RIVERS MD R Ot 496 CHR AIRWAY OBSTRUCT NEC 02/22/2014 DELANO RIVERS MD R Ot 530.81 ESOPHAGEAL REFLUX 02/22/2014 DELANO RIVERS MD R Ot 716.90 ARTHROPATHY NOS-UNSPEC 02/22/2014 DELANO RIVERS MD R Ot 724.5 BACKACHE NOS 02/22/2014 DELANO RIVERS MD R Ot 733.00 OSTEOPOROSIS NOS 02/22/2014 DELANO RIVERS MD R Ot 995.0 OTHER ANAPHYLACTIC REACTION 02/22/2014 DELANO RIVERS MD R Ot E849.6 ACCIDENT IN PUBLIC BLDG 02/22/2014 DELANO RIVERS MD R Ot E938.9 ADV EFF LOC ANES NEC/NOS 02/22/2014 DELANO RIVERS MD R Ot V12.09 PERSONAL HISTORY OTH SPEC INFECT ZULEYKA 02/22/2014 DELANO RIVERS MD R Ot V15.88 HISTORY OF FALL 05/06/2014 SATHYA MEADE, DOMINICK E Ot 273.8 DIS PLAS PROTEIN MET NEC 05/06/2014 SATHYA MEADE, DOMINICK E Ot 285.9 ANEMIA NOS 05/06/2014 SATHYA MEADE, DOMINICK E Ot 300.00 ANXIETY STATE NOS 05/06/2014 SATHYA MEADE, DOMINICK E Ot 305.00 ALCOHOL ABUSE-UNSPEC 05/06/2014 SATHYA MEADE, DOMINICK E Ot 311 DEPRESSIVE DISORDER NEC 05/06/2014 SATHYA MEADE, DOMINICK E Ot 401.9 HYPERTENSION NOS 05/06/2014 SATHYA MEADE, DOMINICK E Ot 414.01 CORONARY ATHEROSCLEROSIS OF [place] TRI[place] CORON 05/06/2014 SATHYA MEADE, DOMINICK E Ot 427.31 ATRIAL FIBRILLATION 05/06/2014 SATHYA MEADE, DOMINICK E Ot 496 CHR AIRWAY OBSTRUCT NEC 05/06/2014 SATHYA MEADE, DOMINICK E Ot 530.81 ESOPHAGEAL REFLUX 05/06/2014 SATHYA MEADE, DOMINICK E Ot 553.3 DIAPHRAGMATIC HERNIA 05/06/2014 SATHYA MEADE DOMINICK E Ot 571.5 CIRRHOSIS OF LIVER NOS 05/06/2014 SATHYA MEADE, DOMINICK E Ot 698.9 PRURITIC DISORDER NOS 05/06/2014 SATHYA MEADE, DOMINICK E Ot 998.89 OTHER SPEC COMPLICATIONS OF PROCEDURES N 05/06/2014 SATHYA MEADE, DOMINICK E Ot V43.64 HIP JOINT REPLACEMENT STATUS 05/06/2014 SATHYA MEADE, DOMINICK E Ot V54.81 AFTERCARE FOLLOWING JOINT REPLACEMENT 05/06/2014 SATHYA MEADE, DOMINICK E Ot V57.89 REHABILITATION PROC NEC 08/25/2014 TITA MEADE, DELANO R Ot 111.9 DERMATOMYCOSIS NOS 08/25/2014 DELANO IRVERS MD R Ot 112.0 THRUSH 08/25/2014 DELANO RIVERS MD R Ot 291.81 ALCOHOL WITHDRAWAL 08/25/2014 DELANO RIVERS MD R Ot 300.00 ANXIETY STATE NOS 08/25/2014 TITA MEADE DELANO R Ot 303.90 ALCOH DEP NEC/NOS-UNSPEC 08/25/2014 TITA MEADE DELANO R Ot 305.1 TOBACCO USE DISORDER 08/25/2014 DELANO RIVERS MD R Ot 311 DEPRESSIVE DISORDER NEC 08/25/2014 DELANO RIVERS MD R Ot 462 ACUTE PHARYNGITIS 08/25/2014 DELANO RIVERS MD R Ot 530.81 ESOPHAGEAL REFLUX 08/25/2014 DELANO RIVERS MD R Ot 553.3 DIAPHRAGMATIC HERNIA 08/25/2014 DELANO RIVERS MD R Ot 571.2 ALCOHOL CIRRHOSIS LIVER 08/25/2014 DELANO RIVERS MD R Ot 573.3 HEPATITIS NOS 08/25/2014 DELANO RIVERS MD R Ot 787.03 08/25/2014 DELANO RIVERS MD R Ot 787.91 DIARRHEA 08/31/2014 DELANO RIVERS MD R Ot 110.5 DERMATOPHYTOSIS OF BODY 08/31/2014 DELANO RIVERS MD R Ot 111.9 08/31/2014 DELANO RIVERS MD R Ot 112.0 THRUSH 08/31/2014 DELANO RIVERS MD R Ot 112.89 CANDIDIASIS SITE NEC 08/31/2014 DELANO RIVERS MD R Ot 291.81 ALCOHOL WITHDRAWAL 08/31/2014 DELANO RIVERS MD R Ot 294.20 DEMENTIA, UNSPECIFIED, 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 08/31/2014 DELANO RIVERS MD R Ot 300.00 ANXIETY STATE NOS 08/31/2014 DELANO RIVERS MD R Ot 303.90 ALCOH DEP NEC/NOS-UNSPEC 08/31/2014 DELANO RIVERS MD R Ot 305.1 TOBACCO USE DISORDER 08/31/2014 DELANO RIVERS MD R Ot 311 DEPRESSIVE DISORDER NEC 08/31/2014 DELANO RIVERS MD R Ot 462 ACUTE PHARYNGITIS 08/31/2014 DELANO RIVERS MD R Ot 530.81 ESOPHAGEAL REFLUX 08/31/2014 DELANO RIVERS MD R Ot 553.3 DIAPHRAGMATIC HERNIA 08/31/2014 DELANO RIVERS MD R Ot 571.2 ALCOHOL CIRRHOSIS LIVER 10/07/2014 MILTON HERNDON MD Ot 719.45 JOINT PAIN-PELVIS 10/07/2014 MILTON HERNDON MD Ot 807.02 FRACTURE TWO RIBS-CLOSED 10/07/2014 MILTON HERNDON MD Ot 924.01 CONTUSION OF HIP 10/07/2014 MILTON HERNDON MD Ot E000.8 OTHER EXTERNAL CAUSE STATUS 10/07/2014 MILTON HERNDON MD Ot E001.0 ACTIVITIES INVOLVING WALKING, MARCHING A 10/07/2014 MILTON HERNDON MD Ot E885.9 FALL FROM SLIPPING, TRIPPING, OR STUMBLI 11/15/2014 SEGLIE MD, DELANO R Ot 251.2 HYPOGLYCEMIA NOS 11/15/2014 TITA MEADE, DELANO R Ot 298.9 PSYCHOSIS NOS 11/15/2014 TITA MEADE, DELANO R Ot 300.00 ANXIETY STATE NOS 11/15/2014 TITA MEADE, DELANO R Ot 303.00 AC ALCOHOL INTOX-UNSPEC 11/15/2014 TITA MEADE, DELANO R Ot 305.1 TOBACCO USE DISORDER 11/15/2014 TITA MEADE, DELANO R Ot 401.9 HYPERTENSION NOS 11/15/2014 TITA MEADE, DELANO R Ot 578.0 HEMATEMESIS 01/24/2015 STEPHENIE CORRAL DO Ot 303.90 ALCOH DEP NEC/NOS-UNSPEC 01/24/2015 STEPHENIE CORRAL DO Ot 922.1 CONTUSION OF CHEST WALL 01/24/2015 STEPHENIE CORRAL DO Ot 959.11 OTH INJURY OF CHEST WALL 01/24/2015 STEPHENIE CORRAL DO Ot E000.8 OTHER EXTERNAL CAUSE STATUS 01/24/2015 STEPHENIE CORRAL DO Ot E849.0 ACCIDENT IN HOME 01/24/2015 STEPHENIE CORRAL DO Ot E888.1 FALL STRIKING OBJECT NEC 01/26/2015 Ot 530.81 01/26/2015 Ot 535.40 01/26/2015 Ot 553.3 01/26/2015 Ot 562.10 01/26/2015 Ot 787.91 01/26/2015 Ot 496 01/26/2015 Ot 518.89 01/26/2015 Ot 414.01 01/26/2015 Ot 496 01/26/2015 Ot 518.89 01/26/2015 Ot 272.4 01/26/2015 Ot 414.00 01/26/2015 Ot V58.69 01/26/2015 Ot 272.4 01/26/2015 Ot 414.01 01/26/2015 Ot V58.69 01/26/2015 Ot 785.0 01/26/2015 Ot 275.2 01/26/2015 EUGENIE MEADE FACC, ALI FACP CCDS Ot 276.9 01/26/2015 EUGENIE MEADE FACC, ALI FACP CCDS Ot 401.9 01/26/2015 EUGENIE MEADE FACC, ALI FACP CCDS Ot 414.01 01/26/2015 EUGENIE MEADE FACC, ALI FACP CCDS Ot 786.09 01/26/2015 TITA MEADE, DELANO R Ot 571.5 01/26/2015 EUGENIE MEADE FAC, ALI FACP CCDS Ot 272.4 01/26/2015 EUGENIE MEADE FAC, ALI FACP CCDS Ot 401.9 01/26/2015 EUGENIE MEADE FAC, ALI FACP CCDS Ot 414.00 01/26/2015 EU[facility] MEADE [facility], [facility] 414.8 01/26/2015 TITA MEADE, DELANO R Ot 719.45 01/26/2015 TITA MEADE, DELANO R Ot E000.8 01/26/2015 TITA MEADE, DELANO R Ot E849.0 01/26/2015 TITA MEADE, DELANO R Ot E888.9 01/26/2015 TITA MEADE, DELANO R Ot V43.64 01/26/2015 KATRINA MEADE, MILTON K Ot 813.42 01/26/2015 KATRINA MEADE, MILTON K Ot E000.8 01/26/2015 KATRINA MEADE, MILTON K Ot E849.0 01/26/2015 KATRINA MEADE, MILTON K Ot E888.9 01/26/2015 TITA MEADE, DELANO R Ot 356.9 01/26/2015 TITA MEADE, DELANO R Ot 437.1 01/26/2015 TITA MEADE, DELANO R Ot 511.9 01/26/2015 TITA MEADE, DELANO R Ot 553.3 01/26/2015 TITA MEADE, DELANO R Ot 625.8 01/26/2015 TITA MEADE, DELANO R Ot 733.13 01/26/2015 TITA MEADE, DELANO R Ot V15.88 01/26/2015 ATA MEADE, JACOB L Ot 721.3 02/03/2015 TITA MEADE, DELANO R Ot 303.01 AC ALCOHOL INTOX-CONTIN 02/03/2015 TITA MEADE, DELANO R Ot 305.1 TOBACCO USE DISORDER 02/03/2015 TITA MEADE, DELANO R Ot 599.0 URIN TRACT INFECTION NOS 02/03/2015 TITA MEADE, DELANO R Ot 780.2 SYNCOPE AND COLLAPSE 02/03/2015 TITA MEADE, DELANO R Ot V15.88 HISTORY OF FALL 03/11/2015 TITA MEADE, DELANO R Ot 721.2 03/11/2015 TITA MEADE, DELANO R Ot 721.2 04/24/2015 LOS MEADE APRN Ot 303.90 ALCOH DEP NEC/NOS-UNSPEC 04/24/2015 LOS MEADE APRN Ot 719.43 JOINT PAIN-FOREARM 04/24/2015 LOS MEADE APRN Ot 873.43 OPEN WOUND OF LIP 04/24/2015 LOS MEADE APRN Ot 873.44 OPEN WOUND OF JAW 04/24/2015 LOS MEADE APRN Ot E000.8 OTHER EXTERNAL CAUSE STATUS 04/24/2015 LOS MEADE APRN Ot E849.0 ACCIDENT IN HOME 04/24/2015 LOS MEADE APRN Ot E888.9 FALL NOS 04/24/2015 LOS MEADE APRN Ot V15.88 HISTORY OF FALL 04/29/2015 LISA MEADE, TIGRE Paul Ot V58.32 ENCOUNTER FOR REMOVAL OF SUTURES 05/16/2015 MILTON HERNDON MD Ot 810.00 FX CLAVICLE NOS-CLOSED 05/16/2015 MILTON HERNDON MD Ot 923.9 CONTUSION UPPER LIMB NOS 05/16/2015 MILTON HERNDON MD Ot 924.5 CONTUSION LEG NOS 05/16/2015 MILTON HERNDON MD Ot 959.2 SHLDR/UPPER ARM INJ NOS 05/16/2015 MILTON HERNDON MD Ot E000.8 OTHER EXTERNAL CAUSE STATUS 05/16/2015 MILTON HERNDON MD Ot E849.0 ACCIDENT IN HOME 05/16/2015 MILTON HERNDON MD Ot E888.9 FALL NOS 09/14/2015 LOS MEADE APRN Ot F10.10 ALCOHOL ABUSE, UNCOMPLICATED 09/14/2015 LSO EMADE APRN Ot F41.9 ANXIETY DISORDER, UNSPECIFIED 09/14/2015 LOS MEADE APRN Ot J44.9 CHRONIC OBSTRUCTIVE PULMONARY DISEASE, U 09/14/2015 LOS MEADE APRN Ot J98.4 OTHER DISORDERS OF LUNG 09/14/2015 LOS MEADE APRN Ot N39.0 URINARY TRACT INFECTION, SITE NOT SPECIF 09/14/2015 MEADE, PETER J CORRESPONDENCE RENEW CLERK Ot R11.2 NAUSEA WITH VOMITING, UNSPECIFIED 11/28/2015 ALEM HOLLY MD Ot F17.210 NICOTINE DEPENDENCE, CIGARETTES, UNCOMPL 11/28/2015 ALEM HOLLY MD Ot S70.02XA CONTUSION OF LEFT HIP, INITIAL ENCOUNTER 11/28/2015 ALEM HOLLY MD Ot W01.0XXA FALL SAME LEV FROM SLIP/TRIP W/O STRIKE 11/28/2015 ALEM HOLLY MD Ot Y92.[address] [facility] 11/28/2015 ALEM HOLLY MD Ot Y99.8 OTHER EXTERNAL CAUSE STATUS 11/28/2015 ALEM HOLLY MD Ot Z96.642 PRESENCE OF LEFT ARTIFICIAL HIP JOINT 12/14/2015 MILTON HERNDON MD Ot F10.10 ALCOHOL ABUSE, UNCOMPLICATED 12/14/2015 MILTON HERNDON MD Ot F17.210 NICOTINE DEPENDENCE, CIGARETTES, UNCOMPL 12/14/2015 MILTON HERNDON MD Ot F32.9 MAJOR DEPRESSIVE DISORDER, SINGLE EPISOD 12/14/2015 MILTON HERNDON MD Ot K29.70 GASTRITIS, UNSPECIFIED, WITHOUT BLEEDING 12/21/2015 MILTON HERNDON MD Ot F10.10 ALCOHOL ABUSE, UNCOMPLICATED 12/21/2015 MILTON HERNDON MD Ot F17.210 NICOTINE DEPENDENCE, CIGARETTES, UNCOMPL 12/21/2015 MILTON HERNDON MD Ot R20.0 ANESTHESIA OF SKIN 12/21/2015 MILTON HERNDON MD Ot Z53.29 PROC/TRTMT NOT CRD OUT BEC PT DECISION F 12/21/2015 MILTON HERNDON MD Ot F10.10 12/21/2015 MILTON HERNDON MD Ot F17.210 12/21/2015 MILTON HERNDON MD Ot R20.0 12/21/2015 MILTON HERNDON MD Ot Z53.29 12/23/2015 RADHA AYON MD Ot F10.10 ALCOHOL ABUSE, UNCOMPLICATED 12/23/2015 RADHA AYON MD Ot F17.210 NICOTINE DEPENDENCE, CIGARETTES, UNCOMPL 12/23/2015 RADHA AYON MD Ot S01.81XA LACERATION W/O FOREIGN BODY OF OTH PART 12/23/2015 GABO MEADE, RADHA Metzger Ot S20.211A CONTUSION OF RIGHT FRONT WALL OF THORAX , 12/23/2015 GABO MEADE, RADHA Metzger Ot W01.0XXA FALL SAME LEV FROM SLIP/TRIP W/O STRIKE 12/23/2015 GABO MEADE, RADHA Metzger Ot Y90.4 BLOOD ALCOHOL LEVEL OF 80-99 MG/100 ML 12/23/2015 GABO MEADE, RADHA Metzger Ot Y92.009 [facility] [address] IN [facility] NON-INSTITUT (PRIVATE 12/23/2015 GABO MEADE, RADHA Metzger Ot Y99.8 OTHER EXTERNAL CAUSE STATUS 12/25/2015 Ot M81.0 12/25/2015 GABO MEADE, RADHA Metzger Ot F10.10 12/25/2015 GABO MEADE, RADHA Metzger Ot F17.210 12/25/2015 GABO MEADE, RADHA Metzger Ot S01.81XA 12/25/2015 GABO MEADE, RADHA Metzger Ot S20.211A 12/25/2015 GABO MEADE, RADHA Metzger Ot W01.0XXA 12/25/2015 GABO MEADE, RADHA Metzger Ot Y90.4 12/25/2015 GABO MEADE, RADHA Metzger Ot Y92.009 12/25/2015 GABO MEADE, RADHA Metzger Ot Y99.8 12/25/2015 GABO MEADE, RADHA Metzger Ot F10.10 12/25/2015 GABO MEADE, RADHA Metzger Ot F17.210 12/25/2015 GABO MEADE, RADHA Metzger Ot S01.81XA 12/25/2015 GABO MEADE, RADHA Metzger Ot S20.211A 12/25/2015 GABO MEADE, RADHA Metzger Ot W01.0XXA 12/25/2015 GABO MAEDE, RADHA Metzger Ot Y90.4 12/25/2015 GABO MEADE, RADHA Metzger Ot Y92.009 12/25/2015 GABO MEADE, RADHA Metzger Ot Y99.8 12/27/2015 LISA MEADE, TIGRE Paul Ot F10.10 ALCOHOL ABUSE, UNCOMPLICATED 12/27/2015 LISA MEADE, TIGRE Paul Ot F17.210 NICOTINE DEPENDENCE, CIGARETTES, UNCOMPL 12/27/2015 LISA MEADE, TIGRE Paul Ot J90 PLEURAL EFFUSION, 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 12/27/2015 LISA MEADE, TIGRE Paul Ot K76.0 FATTY (CHANGE OF) LIVER, NOT ELSEWHERE C 12/27/2015 LISA MEADE, TIGRE Paul Ot S22.41XA MULTIPLE FRACTURES OF RIBS, RIGHT SIDE, 12/27/2015 LISA MEADE, TIGRE Paul Ot W01.0XXA FALL SAME LEV FROM SLIP/TRIP W/O STRIKE 12/27/2015 LISA MEADE, TIGRE Paul Ot Y92.[address] IN [facility] NON-INSTITUT ( PRIVATE 12/27/2015 LISA MEADE, TIGRE Paul Ot Y99.8 OTHER EXTERNAL CAUSE STATUS 12/27/2015 LISA MEADE, TIGRE Paul Ot F10.10 12/27/2015 LISA MEADE, TIGRE Paul Ot F17.210 12/27/2015 LISA MEADE, TIGRE Paul Ot J90 12/27/2015 LISA MEADE, TIGRE Paul Ot K76.0 12/27/2015 LISA MEADE, TIGRE Paul Ot S22.41XA 12/27/2015 LISA MEADE, TIGRE Paul Ot W01.0XXA 12/27/2015 LISA MEADE, TIGRE Paul Ot Y92.009 12/27/2015 LISA MEADE, TIGRE Paul Ot Y99.8 12/29/2015 GABO MEADE, RADHA S Ot F10.10 12/29/2015 GABO MEADE, RADHA S Ot F17.210 12/29/2015 GABO MEADE, RADHA S Ot S01.81XA 12/29/2015 GABO MEADE, RADHA S Ot S20.211A 12/29/2015 GABO MEADE, RADHA S Ot W01.0XXA 12/29/2015 GABO MEADE, RADHA S Ot Y90.4 12/29/2015 GABO MEADE, RADHA S Ot Y92.009 12/29/2015 GABO MEADE, RADHA S Ot Y99.8 01/05/2016 LUKE SALAZAR DO S Ot E21.3 01/16/2016 Ot M81.0 01/23/2016 EUGENIE MEADE FAC, WENDY FACP CCDS Ot E78.4 01/23/2016 EUGENIE GREENWOODC, ALI FACP CCDS Ot I10 01/23/2016 EUGENIE MEADE FACC, ALI FACP CCDS Ot I25.10 01/23/2016 EUGENIE MEADE FACC, ALI FACP CCDS Ot R06.02 01/23/2016 EUGENIE GREENWOODC, ALI FACP CCDS Ot Z72.0 01/24/2016 INDIRA SALAZAR DOLINE S Ot E21.3 01/31/2016 EUGENIE GREENWOODC, ALI FACP CCDS Ot E78.4 OTHER HYPERLIPIDEMIA 01/31/2016 EUGENIE MEADE FACC, ALI FACP CCDS Ot I10 ESSENTIAL (PRIMARY) HYPERTENSION 01/31/2016 EUGENIE GREENWOODC, ALI FACP CCDS Ot 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 DISEASE OF [place] CORONARY 01/31/2016 EUGENIE GREENWOODC, ALI FACP CCDS Ot R06.02 SHORTNESS OF BREATH 01/31/2016 EUGENIE MEADE FACC, ALI FACP CCDS Ot Z72.0 TOBACCO USE 01/31/2016 INDIRA SALAZAR DOLINE S Ot E21.3 HYPERPARATHYROIDISM, UNSPECIFIED 02/07/2016 EUGENIE MEADE FACC, ALI FACP CCDS Ot E78.4 OTHER HYPERLIPIDEMIA 02/07/2016 EUGENIE MEADE FACC, ALI FACP CCDS Ot I10 ESSENTIAL (PRIMARY) HYPERTENSION 02/07/2016 EUGENIE MEADE FACC, ALI FACP CCDS Ot 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 DISEASE OF [place] CORONARY 02/07/2016 EUGENIE MEADE FACC, WENDY FACP CCDS Ot R06.02 SHORTNESS OF BREATH 02/07/2016 EUGENIE MEADE FACC, ALI FACP CCDS Ot Z72.0 TOBACCO USE 02/07/2016 EUGENIE MEADE FACC, ALI FACP CCDS Ot E78.4 OTHER HYPERLIPIDEMIA 02/07/2016 EUGENIE MEADE FACC, ALI FACP CCDS Ot I10 ESSENTIAL (PRIMARY) HYPERTENSION 02/07/2016 EUGENIE MEADE FACC, ALI FACP CCDS Ot 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 DISEASE OF [place] CORONARY 02/07/2016 EUGENIE GREENWOODC, ALI FACP CCDS Ot R06.02 SHORTNESS OF BREATH 02/07/2016 EUGENIE GREENWOODC, ALI FACP CCDS Ot Z72.0 TOBACCO USE 02/14/2016 EUGENIE MEADE FACC, WENDY FACP CCDS Ot E78.4 OTHER HYPERLIPIDEMIA 02/14/2016 EUGENIE MEADE FACC, WENDY FACP CCDS Ot I10 ESSENTIAL (PRIMARY) HYPERTENSION 02/14/2016 EUGENIE MEADE FACC, WENDY FACP CCDS Ot 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 DISEASE OF [place] CORONARY 02/14/2016 EUGENIE MEADE FACC, ALI FACP CCDS Ot R06.02 SHORTNESS OF BREATH 02/14/2016 EUGENIE MEADE FACC, WENDY FACP CCDS Ot Z72.0 TOBACCO USE 02/16/2016 SHAYNA DO STEPHENIE Fernando Ot F17.210 NICOTINE DEPENDENCE, CIGARETTES, UNCOMPL 02/16/2016 SHAYNA SPAULDING STEPHENIE Fernando Ot F41.9 ANXIETY DISORDER, UNSPECIFIED 02/16/2016 SHAYNA SPAULDING STEPEHNIE Fernando Ot R06.00 DYSPNEA, UNSPECIFIED 02/17/2016 Ot 530.81 ESOPHAGEAL REFLUX 02/17/2016 Ot 535.40 OTH SPECIFIED GASTRITIS,W/O MENTION OF H 02/17/2016 Ot 553.3 DIAPHRAGMATIC HERNIA 02/17/2016 Ot 562.10 DIVERTICULOSIS COLON (W/O MENT OF HEMORR 02/17/2016 Ot 787.91 DIARRHEA 02/17/2016 Ot 496 CHR AIRWAY OBSTRUCT NEC 02/17/2016 Ot 518.89 OTHER DISEASES OF LUNG, NEC 02/17/2016 Ot 414.01 CORONARY ATHEROSCLEROSIS OF [place] CORON 02/17/2016 Ot 496 CHR AIRWAY OBSTRUCT NEC 02/17/2016 Ot 518.89 OTHER DISEASES OF LUNG, NEC 02/17/2016 Ot 272.4 HYPERLIPIDEMIA NEC/NOS 02/17/2016 Ot 414.00 CORON ATHEROSCLER NOS TYPE VESSEL, NATIV 02/17/2016 Ot V58.69 OTH MED,LT,CURRENT USE 02/17/2016 Ot 272.4 HYPERLIPIDEMIA NEC/NOS 02/17/2016 Ot 414.01 CORONARY ATHEROSCLEROSIS OF [place] CORON 02/17/2016 Ot V58.69 OTH MED,LT,CURRENT USE 02/17/2016 Ot 785.0 TACHYCARDIA NOS 02/17/2016 Ot 275.2 DIS MAGNESIUM METABOLISM 02/17/2016 EUGENIE MEADE FACC, WENDY FACP CCDS Ot 276.9 ELECTROLYT/FLUID DIS NEC 02/17/2016 EUGENIE MEADE FACC, WENDY FACP CCDS Ot 401.9 HYPERTENSION NOS 02/17/2016 EUGENIE MEADE FAC, ALI FACP CCDS Ot 414.01 CORONARY ATHEROSCLEROSIS OF [place] CORON 02/17/2016 EUGENIE MEADE FAC, ALI FACP CCDS Ot 786.09 RESPIRATORY ABNORM NEC 02/17/2016 DELANO RIVERS MD R Ot 571.5 CIRRHOSIS OF LIVER NOS 02/17/2016 EUGENIE MEADE FACC, ALI FACP CCDS Ot 272.4 HYPERLIPIDEMIA NEC/NOS 02/17/2016 EUGENIE MEADE FACC, ALI FACP CCDS Ot 401.9 HYPERTENSION NOS 02/17/2016 EUGENIE MEADE FAC, ALI FACP CCDS Ot 414.00 CORON ATHEROSCLER NOS TYPE VESSEL, NATIV 02/17/2016 EUGENIE MEADE FACC, ALI FACP CCDS Ot 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 NEC 02/17/2016 DELANO RIVERS MD R Ot 719.45 JOINT PAIN-PELVIS 02/17/2016 DELANO RIVERS MD R Ot E000.8 OTHER EXTERNAL CAUSE STATUS 02/17/2016 DELANO RIVERS MD R Ot E849.0 ACCIDENT IN HOME 02/17/2016 DELANO RIVERS MD Ot E888.9 FALL NOS 02/17/2016 DELANO RIVERS MD R Ot V43.64 HIP JOINT REPLACEMENT STATUS 02/17/2016 MILTON HERNDON MD Ot 813.42 FX DISTAL RADIUS NEC-CL 02/17/2016 MILTON HERNDON MD Ot E000.8 OTHER EXTERNAL CAUSE STATUS 02/17/2016 MILTON HERNDON MD Ot E849.0 ACCIDENT IN HOME 02/17/2016 MILTON HERNDON MD Ot E888.9 FALL NOS 02/17/2016 DELANO RIVERS MD R Ot 356.9 IDIO PERIPH NEURPTHY NOS 02/17/2016 DELANO RIVERS MD R Ot 437.1 AC CEREBROVASC INSUF NOS 02/17/2016 DELANO RIVERS MD R Ot 511.9 PLEURAL EFFUSION NOS 02/17/2016 DELANO RIVERS MD R Ot 553.3 DIAPHRAGMATIC HERNIA 02/17/2016 DELANO RIVERS MD R Ot 625.8 FEM GENITAL SYMPTOMS NEC 02/17/2016 DELANO RIVERS MD R Ot 733.13 PATHOLOGIC FRACTURE, VERTEBRAE 02/17/2016 DELANO RIVERS MD Ot V15.88 HISTORY OF FALL 02/17/2016 ATA MEADE, JAOCB Pelletier Ot 721.3 LUMBOSACRAL SPONDYLOSIS 02/17/2016 DELANO RIVERS MD Ot 721.2 THORACIC SPONDYLOSIS 02/17/2016 Ot M81.0 AGE-RELATED OSTEOPOROSIS W/O CURRENT PAT 02/17/2016 LUKE SALAZAR DO Ot E21.3 HYPERPARATHYROIDISM, UNSPECIFIED 02/17/2016 EUGENIE MEADE FACC, ALI FACP CCDS Ot E78.4 OTHER HYPERLIPIDEMIA 02/17/2016 EUGENIE MEADE FACC, ALI FACP CCDS Ot I10 ESSENTIAL (PRIMARY) HYPERTENSION 02/17/2016 EUGENIE MEADE FACC, ALI FACP CCDS Ot 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 DISEASE OF [place] CORONARY 02/17/2016 EUGENIE MEADE FACC, ALI FACP CCDS Ot R06.02 SHORTNESS OF BREATH 02/17/2016 EUGENIE MEADE FACC, ALI FACP CCDS Ot Z72.0 TOBACCO USE 02/17/2016 EUGENIE MEADE FACC, WENDY FACP CCDS Ot E78.4 OTHER HYPERLIPIDEMIA 02/17/2016 EUGENIE MEADE FACC, ALI FACP CCDS Ot I10 ESSENTIAL (PRIMARY) HYPERTENSION 02/17/2016 EUGENIE MEADE FACC, ALI FACP CCDS Ot 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 DISEASE OF [place] CORONARY 02/17/2016 EUGENIE MEADE FACC, ALI FACP CCDS Ot R06.02 SHORTNESS OF BREATH 02/17/2016 EUGENIE MEADE FACC, ALI FACP CCDS Ot Z72.0 TOBACCO USE 02/17/2016 EUGENIE MEADE FACC, ALI FACP CCDS Ot E78.4 OTHER HYPERLIPIDEMIA 02/17/2016 EUGENIE MEADE FACC, ALI FACP CCDS Ot I10 ESSENTIAL (PRIMARY) HYPERTENSION 02/17/2016 EUGENIE MEADE FACC, ALI FACP CCDS Ot 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 DISEASE OF [place] CORONARY 02/17/2016 EUGENIE MEADE FACC, ALI FACP CCDS Ot R06.02 SHORTNESS OF BREATH 02/17/2016 EUGENIE MEADE FACC, ALI FACP CCDS Ot Z72.0 TOBACCO USE 02/18/2016 STEPHENIE CORRAL DO Ot F17.210 NICOTINE DEPENDENCE, CIGARETTES, UNCOMPL 02/18/2016 STEPHENIE CORRAL DO Ot F41.9 ANXIETY DISORDER, UNSPECIFIED 02/18/2016 STEPHENIE CORRAL DO Ot R06.00 DYSPNEA, UNSPECIFIED 02/20/2016 EUGENIE MEADE FACC, ALI FACP CCDS Ot E78.4 OTHER HYPERLIPIDEMIA 02/20/2016 EUGENIE MEADE FACC, ALI FACP CCDS Ot I10 ESSENTIAL (PRIMARY) HYPERTENSION 02/20/2016 EUGENIE MEADE FACC, ALI FACP CCDS Ot 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 DISEASE OF [place] CORONARY 02/20/2016 EUGENIE GREENWOODC, ALI FACP CCDS Ot R06.02 SHORTNESS OF BREATH 02/20/2016 EUGENIE GREENWOODC, ALI FACP CCDS Ot Z72.0 TOBACCO USE 02/21/2016 EUEGNIE MEADE FACC, ALI FACP CCDS Ot E78.4 OTHER HYPERLIPIDEMIA 02/21/2016 EUGENIE GREENWOODC, ALI FACP CCDS Ot I10 ESSENTIAL (PRIMARY) HYPERTENSION 02/21/2016 EUGENIE GREENWOODC, ALI FACP CCDS Ot 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 DISEASE OF [place] CORONARY 02/21/2016 EUGENIE MEADE [facility], ALI FACP CCDS Ot R06.02 SHORTNESS OF BREATH 02/21/2016 EUGENIE MEADE FACC, ALI FACP CCDS Ot Z72.0 TOBACCO USE 02/28/2016 EUGENIE MEADE FACC, ALI FACP CCDS Ot E78.4 OTHER HYPERLIPIDEMIA 02/28/2016 EUGENIE MEADE FACC, ALI FACP CCDS Ot I10 ESSENTIAL (PRIMARY) HYPERTENSION 02/28/2016 EUGENIE MEADE FACC, ALI FACP CCDS Ot 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 DISEASE OF [place] CORONARY 02/28/2016 EUGENIE GREENWOOD, ALI FACP CCDS Ot R06.02 SHORTNESS OF BREATH 02/28/2016 EUGENIE GREENWOOD, ALI FACP CCDS Ot Z72.0 TOBACCO USE 03/07/2016 EUGENIE MEADE FACC, ALI FACP CCDS Ot E78.4 OTHER HYPERLIPIDEMIA 03/07/2016 EUGENIE GREENWOODC, ALI FACP CCDS Ot I10 ESSENTIAL (PRIMARY) HYPERTENSION 03/07/2016 EUGENIE MEADE FACC, ALI FACP CCDS Ot 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 DISEASE OF [place] CORONARY 03/07/2016 EUGENIE MEADE FACC, ALI FACP CCDS Ot R06.02 SHORTNESS OF BREATH 03/07/2016 EUGENIE MEADE FACC, WENDY FACP CCDS Ot Z72.0 TOBACCO USE 03/08/2016 EUGENIE MEADE FACC, WENDY FACP CCDS Ot E78.4 OTHER HYPERLIPIDEMIA 03/08/2016 EUGENIE MEADE FACC, ALI FACP CCDS Ot I10 ESSENTIAL (PRIMARY) HYPERTENSION 03/08/2016 EUGENIE MEADE FACC, WENDY FACP CCDS Ot 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 DISEASE OF [place] CORONARY 03/08/2016 EUGENIE MEADE FACC, WENDY FACP CCDS Ot R06.02 SHORTNESS OF BREATH 03/08/2016 EUGENIE MEADE FACC, WENDY FACP CCDS Ot Z72.0 TOBACCO USE 04/05/2016 Ot 530.81 ESOPHAGEAL REFLUX 04/05/2016 Ot 535.40 OTH SPECIFIED GASTRITIS,W/O MENTION OF H 04/05/2016 Ot 553.3 DIAPHRAGMATIC HERNIA 04/05/2016 Ot 562.10 DIVERTICULOSIS COLON (W/O MENT OF HEMORR 04/05/2016 Ot 787.91 DIARRHEA 04/05/2016 Ot 496 CHR AIRWAY OBSTRUCT NEC 04/05/2016 Ot 518.89 OTHER DISEASES OF LUNG, NEC 04/05/2016 Ot 414.01 CORONARY ATHEROSCLEROSIS OF [place] CORON 04/05/2016 Ot 496 CHR AIRWAY OBSTRUCT NEC 04/05/2016 Ot 518.89 OTHER DISEASES OF LUNG, NEC 04/05/2016 Ot 272.4 HYPERLIPIDEMIA NEC/NOS 04/05/2016 Ot 414.00 CORON ATHEROSCLER NOS TYPE VESSEL, NATIV 04/05/2016 Ot V58.69 OTH MED,LT,CURRENT USE 04/05/2016 Ot 272.4 HYPERLIPIDEMIA NEC/NOS 04/05/2016 Ot 414.01 CORONARY ATHEROSCLEROSIS OF [place] CORON 04/05/2016 Ot V58.69 OTH MED,LT,CURRENT USE 04/05/2016 Ot 785.0 TACHYCARDIA NOS 04/05/2016 Ot 275.2 DIS MAGNESIUM METABOLISM 04/05/2016 EUGENIE MEADE FACC, WENDY FACP CCDS Ot 276.9 ELECTROLYT/FLUID DIS NEC 04/05/2016 EUGENIE MEADE FACC, WENDY FACP CCDS Ot 401.9 HYPERTENSION NOS 04/05/2016 EUGENIE MEADE FACC, WENDY FACP CCDS Ot 414.01 CORONARY ATHEROSCLEROSIS OF [place] CORON 04/05/2016 EUGENIE MEADE FACC, ALI FACP CCDS Ot 786.09 RESPIRATORY ABNORM NEC 04/05/2016 DELANO RIVERS MD R Ot 571.5 CIRRHOSIS OF LIVER NOS 04/05/2016 EUGENIE MEADE FAC, ALI FACP CCDS Ot 272.4 HYPERLIPIDEMIA NEC/NOS 04/05/2016 EUGENIE MEADE FACC, ALI FACP CCDS Ot 401.9 HYPERTENSION NOS 04/05/2016 EUGENIE MEADE FAC, ALI FACP CCDS Ot 414.00 CORON ATHEROSCLER NOS TYPE VESSEL, NATIV 04/05/2016 EUGENIE MEADE FAC, ALI FACP CCDS Ot 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 NEC 04/05/2016 DELANO RIVERS MD Ot 719.45 JOINT PAIN-PELVIS 04/05/2016 DELANO RIVERS MD Ot E000.8 OTHER EXTERNAL CAUSE STATUS 04/05/2016 DELANO RIVERS MD Ot E849.0 ACCIDENT IN HOME 04/05/2016 DELANO RIVERS MD Ot E888.9 FALL NOS 04/05/2016 DELANO RIVERS MD Ot V43.64 HIP JOINT REPLACEMENT STATUS 04/05/2016 MILTON HERNDON MD Ot 813.42 FX DISTAL RADIUS NEC-CL 04/05/2016 MILTON HERNDON MD Ot E000.8 OTHER EXTERNAL CAUSE STATUS 04/05/2016 MILTON HERNDON MD Ot E849.0 ACCIDENT IN HOME 04/05/2016 MILTON HERNDON MD Ot E888.9 FALL NOS 04/05/2016 DELANO RIVERS MD Ot 356.9 IDIO PERIPH NEURPTHY NOS 04/05/2016 DELANO RIVERS MD R Ot 437.1 AC CEREBROVASC INSUF NOS 04/05/2016 DELANO RIVERS MD Ot 511.9 PLEURAL EFFUSION NOS 04/05/2016 DELANO RIVERS MD Ot 553.3 DIAPHRAGMATIC HERNIA 04/05/2016 DELANO RIVERS MD Ot 625.8 FEM GENITAL SYMPTOMS NEC 04/05/2016 DELANO RIVERS MD Ot 733.13 PATHOLOGIC FRACTURE, VERTEBRAE 04/05/2016 DELANO RIVERS MD Ot V15.88 HISTORY OF FALL 04/05/2016 ATA MEADE, JACOB Pelletier Ot 721.3 LUMBOSACRAL SPONDYLOSIS 04/05/2016 TITA MEADE, DELANO R Ot 721.2 THORACIC SPONDYLOSIS 04/05/2016 Ot M81.0 AGE-RELATED OSTEOPOROSIS W/O CURRENT PAT 04/05/2016 MARIE SPAULDING LUKE S Ot E21.3 HYPERPARATHYROIDISM, UNSPECIFIED 04/05/2016 EUGENIE MEADE FACC, ALI FACP CCDS Ot E78.4 OTHER HYPERLIPIDEMIA 04/05/2016 EUGENIE EMADE FACC, ALI FACP CCDS Ot I10 ESSENTIAL (PRIMARY) HYPERTENSION 04/05/2016 EUGENIE MEADE FACC, ALI FACP CCDS Ot 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 DISEASE OF [place] CORONARY 04/05/2016 EUGENIE MEADE FACC, ALI FACP CCDS Ot R06.02 SHORTNESS OF BREATH 04/05/2016 EUGENIE MEADE FACC, ALI FACP CCDS Ot Z72.0 TOBACCO USE 04/05/2016 EUGENIE MEADE FACC, ALI FACP CCDS Ot E78.4 OTHER HYPERLIPIDEMIA 04/05/2016 EUGENIE MEADE FACC, ALI FACP CCDS Ot I10 ESSENTIAL (PRIMARY) HYPERTENSION 04/05/2016 EUGENIE MEADE FACC, ALI FACP CCDS Ot 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 DISEASE OF [place] CORONARY 04/05/2016 EUGENIE MEADE FACC, ALI FACP CCDS Ot R06.02 SHORTNESS OF BREATH 04/05/2016 EUGENIE MEADE FACC, ALI FACP CCDS Ot Z72.0 TOBACCO USE 04/05/2016 EUGENIE MEADE FACC, ALI FACP CCDS Ot E78.4 OTHER HYPERLIPIDEMIA 04/05/2016 EUGENIE MEADE FACC, ALI FACP CCDS Ot I10 ESSENTIAL (PRIMARY) HYPERTENSION 04/05/2016 EUGENIE MEADE FACC, ALI FACP CCDS Ot 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 DISEASE OF [place] CORONARY 04/05/2016 EUGENIE MEADE FACC, ALI FACP CCDS Ot R06.02 SHORTNESS OF BREATH 04/05/2016 EUGENIE MEADE FACC, ALI FACP CCDS Ot Z72.0 TOBACCO USE 04/05/2016 Ot 530.81 ESOPHAGEAL REFLUX 04/05/2016 Ot 535.40 OTH SPECIFIED GASTRITIS,W/O MENTION OF H 04/05/2016 Ot 553.3 DIAPHRAGMATIC HERNIA 04/05/2016 Ot 562.10 DIVERTICULOSIS COLON (W/O MENT OF HEMORR 04/05/2016 Ot 787.91 DIARRHEA 04/05/2016 Ot 496 CHR AIRWAY OBSTRUCT NEC 04/05/2016 Ot 518.89 OTHER DISEASES OF LUNG, NEC 04/05/2016 Ot 414.01 CORONARY ATHEROSCLEROSIS OF [place] CORON 04/05/2016 Ot 496 CHR AIRWAY OBSTRUCT NEC 04/05/2016 Ot 518.89 OTHER DISEASES OF LUNG, NEC 04/05/2016 Ot 272.4 HYPERLIPIDEMIA NEC/NOS 04/05/2016 Ot 414.00 CORON ATHEROSCLER NOS TYPE VESSEL, NATIV 04/05/2016 Ot V58.69 OTH MED,LT,CURRENT USE 04/05/2016 Ot 272.4 HYPERLIPIDEMIA NEC/NOS 04/05/2016 Ot 414.01 CORONARY ATHEROSCLEROSIS OF [place] CORON 04/05/2016 Ot V58.69 OTH MED,LT,CURRENT USE 04/05/2016 Ot 785.0 TACHYCARDIA NOS 04/05/2016 Ot 275.2 DIS MAGNESIUM METABOLISM 04/05/2016 EUGENIE MEADE FACC, ALI FACP CCDS Ot 276.9 ELECTROLYT/FLUID DIS NEC 04/05/2016 EUGENIE MEADE FACC, ALI FACP CCDS Ot 401.9 HYPERTENSION NOS 04/05/2016 EUGENIE MEADE FACC, ALI FACP CCDS Ot 414.01 CORONARY ATHEROSCLEROSIS OF [place] CORON 04/05/2016 EUGENIE MEADE FACC, ALI FACP CCDS Ot 786.09 RESPIRATORY ABNORM NEC 04/05/2016 TITA MEADE, DELANO R Ot 571.5 CIRRHOSIS OF LIVER NOS 04/05/2016 EUGENIE MEADE FACC, ALI FACP CCDS Ot 272.4 HYPERLIPIDEMIA NEC/NOS 04/05/2016 EUGENIE MEADE FACC, ALI FACP CCDS Ot 401.9 HYPERTENSION NOS 04/05/2016 EUGENIE MEADE FACC, ALI FACP CCDS Ot 414.00 CORON ATHEROSCLER NOS TYPE VESSEL, NATIV 04/05/2016 EUGENIE GREENWOODC, ALI FACP CCDS Ot 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 NEC 04/05/2016 DELANO RIVERS MD R Ot 719.45 JOINT PAIN-PELVIS 04/05/2016 DELANO RIVERS MD R Ot E000.8 OTHER EXTERNAL CAUSE STATUS 04/05/2016 DELANO RIVERS MD R Ot E849.0 ACCIDENT IN HOME 04/05/2016 SEGLIE MD, DELANO R Ot E888.9 FALL NOS 04/05/2016 DELANO RIVERS MD R Ot V43.64 HIP JOINT REPLACEMENT STATUS 04/05/2016 MILTON HERNDON MD Ot 813.42 FX DISTAL RADIUS NEC-CL 04/05/2016 MILTON HERNDON MD Ot E000.8 OTHER EXTERNAL CAUSE STATUS 04/05/2016 MILTON HERNDON MD Ot E849.0 ACCIDENT IN HOME 04/05/2016 MILTON HERNDON MD Ot E888.9 FALL NOS 04/05/2016 DELANO RIVERS MD R Ot 356.9 IDIO PERIPH NEURPTHY NOS 04/05/2016 DELANO RIVERS MD R Ot 437.1 AC CEREBROVASC INSUF NOS 04/05/2016 DELANO RIVERS MD R Ot 511.9 PLEURAL EFFUSION NOS 04/05/2016 DELANO RIVERS MD R Ot 553.3 DIAPHRAGMATIC HERNIA 04/05/2016 DELANO RIVERS MD R Ot 625.8 FEM GENITAL SYMPTOMS NEC 04/05/2016 DELANO RIVERS MD R Ot 733.13 PATHOLOGIC FRACTURE, VERTEBRAE 04/05/2016 DELANO RIVERS MD R Ot V15.88 HISTORY OF FALL 04/05/2016 ATA MEADE, JACOB Pelletier Ot 721.3 LUMBOSACRAL SPONDYLOSIS 04/05/2016 DELANO RIVERS MD Ot 721.2 THORACIC SPONDYLOSIS 04/05/2016 Ot M81.0 AGE-RELATED OSTEOPOROSIS W/O CURRENT PAT 04/05/2016 ORENDER DOLUKE S Ot E21.3 HYPERPARATHYROIDISM, UNSPECIFIED 04/05/2016 EUGENIE MEADE FACC, WENDY FACP CCDS Ot E78.4 OTHER HYPERLIPIDEMIA 04/05/2016 EUGENIE MEADE FACC, WENDY FACP CCDS Ot I10 ESSENTIAL (PRIMARY) HYPERTENSION 04/05/2016 EUGENIE MEADE FACC, WENDY FACP CCDS Ot 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 DISEASE OF [place] CORONARY 04/05/2016 EUGENIE MEADE FACC, WENDY FACP CCDS Ot R06.02 SHORTNESS OF BREATH 04/05/2016 EUGENIE MEADE FACC, WENDY FACP CCDS Ot Z72.0 TOBACCO USE 04/05/2016 EUGENIE MEADE FACC, WENDY FACP CCDS Ot E78.4 OTHER HYPERLIPIDEMIA 04/05/2016 EUGENIE MEADE FACC, ALI FACP CCDS Ot I10 ESSENTIAL (PRIMARY) HYPERTENSION 04/05/2016 EUGENIE MEADE FAC, ALI FACP CCDS Ot 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 DISEASE OF [place] CORONARY 04/05/2016 EUGENIE MEADE FAC, ALI FACP CCDS Ot R06.02 SHORTNESS OF BREATH 04/05/2016 EUGENIE MEADE FAC, ALI FACP CCDS Ot Z72.0 TOBACCO USE 04/05/2016 EUGENIE MEADE FAC, ALI FACP CCDS Ot E78.4 OTHER HYPERLIPIDEMIA 04/05/2016 EUGENIE MEADE FAC, ALI FACP CCDS Ot I10 ESSENTIAL (PRIMARY) HYPERTENSION 04/05/2016 EUGENIE MEADE [facility], ALI FACP CCDS Ot 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 DISEASE OF [place] CORONARY 04/05/2016 EUGENIE MEADE [facility], ALI FACP CCDS Ot R06.02 SHORTNESS OF BREATH 04/05/2016 EUGENIE MEADE [facility], ALI FACP CCDS Ot Z72.0 TOBACCO USE 04/05/2016 TASHA ANG APRN Ot M54.9 DORSALGIA, UNSPECIFIED 04/08/2016 TASHA ANG CORRESPONDENCE RENEW CLERK Ot M54.9 DORSALGIA, UNSPECIFIED 04/08/2016 TASHA ANG APRN Ot M54.6 PAIN IN THORACIC SPINE 04/18/2016 FANNY SUNSHINE MD Z Ot S22.050A WEDGE COMPRESSION FRACTURE OF T5-T6 VERT 04/18/2016 JONG MEADE FANNY Z Ot X58.XXXA EXPOSURE TO OTHER SPECIFIED FACTORS, INI 04/18/2016 JONG MEADE FANNY Z Ot Y99.8 OTHER EXTERNAL CAUSE STATUS 04/18/2016 JONG MEADE FANNY Z Ot Z01.818 ENCOUNTER FOR OTHER PREPROCEDURAL EXAMIN 04/19/2016 FANNY SUNSHINE MD Z Ot S22.050A WEDGE COMPRESSION FRACTURE OF T5-T6 VERT 04/19/2016 BRIDGET SUNSHINE MDIQ Z Ot X58.XXXA EXPOSURE TO OTHER SPECIFIED FACTORS, INI 04/19/2016 BRIDGET SUNSHINE MDIQ Z Ot Y99.8 OTHER EXTERNAL CAUSE STATUS 04/19/2016 JONG MEADE FANNY Z Ot Z01.818 ENCOUNTER FOR OTHER PREPROCEDURAL EXAMIN 04/19/2016 BRIDGET SUNSHINE MDIQ Z Ot S22.050A WEDGE COMPRESSION FRACTURE OF T5-T6 VERT 04/19/2016 BRIDGET SUNSHINE MDIQ Z Ot X58.XXXA EXPOSURE TO OTHER SPECIFIED FACTORS, INI 04/19/2016 JONG MEADE FANNY Z Ot Y99.8 OTHER EXTERNAL CAUSE STATUS 04/19/2016 JONG MEADE FANNY Z Ot Z01.818 ENCOUNTER FOR OTHER PREPROCEDURAL EXAMIN 04/22/2016 BRIDGET SUNSHINE MDIQ Z Ot I10 ESSENTIAL (PRIMARY) HYPERTENSION 04/22/2016 JONG MEADE FANNY Z Ot I47.1 SUPRAVENTRICULAR TACHYCARDIA 04/22/2016 JONG MEADE FANNY Z Ot S22.050A WEDGE COMPRESSION FRACTURE OF T5-T6 VERT 04/22/2016 JONG MEADE FANNY Z Ot X58.XXXA EXPOSURE TO OTHER SPECIFIED FACTORS, INI 04/22/2016 JONG MEADE FANNY Z Ot Y99.8 OTHER EXTERNAL CAUSE STATUS 04/22/2016 JONG MEADE FANNY Z Ot Z11.2 ENCOUNTER FOR SCREENING FOR OTHER BACTER 04/23/2016 JONG MEADE FANNY Z Ot I10 ESSENTIAL (PRIMARY) HYPERTENSION 04/23/2016 JONG MEADE FANNY Z Ot I47.1 SUPRAVENTRICULAR TACHYCARDIA 04/23/2016 JONG MEADE FANNY Z Ot S22.050A WEDGE COMPRESSION FRACTURE OF T5-T6 VERT 04/23/2016 JONG MEADE FANNY Z Ot X58.XXXA EXPOSURE TO OTHER SPECIFIED FACTORS, INI 04/23/2016 JONG MEADE FANNY Z Ot Y99.8 OTHER EXTERNAL CAUSE STATUS 04/23/2016 JONG MEADE FANNY Z Ot Z11.2 ENCOUNTER FOR SCREENING FOR OTHER BACTER 04/25/2016 TASHA ANG APRN Ot M54.6 PAIN IN THORACIC SPINE 04/28/2016 JONG MEADE FANNY Z Ot I10 ESSENTIAL (PRIMARY) HYPERTENSION 04/28/2016 JONG MEADE FANNY Z Ot I47.1 SUPRAVENTRICULAR TACHYCARDIA 04/28/2016 JONG MEADE FANNY Z Ot S22.050A WEDGE COMPRESSION FRACTURE OF T5-T6 VERT 04/28/2016 JONG MEADE FANNY Z Ot X58.XXXA EXPOSURE TO OTHER SPECIFIED FACTORS, INI 04/28/2016 JONG MEADE, FANNY Z Ot Y99.8 OTHER EXTERNAL CAUSE STATUS 04/28/2016 JONG MEADE, FANNY Z Ot Z11.2 ENCOUNTER FOR SCREENING FOR OTHER BACTER 05/01/2016 JONG MEADE, FANNY Z Ot I10 ESSENTIAL (PRIMARY) HYPERTENSION 05/01/2016 JONG MEADE, FANNY Z Ot I47.1 SUPRAVENTRICULAR TACHYCARDIA 05/01/2016 JONG MEADE, FANNY Z Ot S22.050A WEDGE COMPRESSION FRACTURE OF T5-T6 VERT 05/01/2016 JONG MEADE, FANNY Z Ot X58.XXXA EXPOSURE TO OTHER SPECIFIED FACTORS, INI 05/01/2016 JONG MEADE FANNY Z Ot Y99.8 OTHER EXTERNAL CAUSE STATUS 05/01/2016 JONG MEADE, FANNY Z Ot Z11.2 ENCOUNTER FOR SCREENING FOR OTHER BACTER 05/07/2016 LOS MEADE CORRESPONDENCE RENEW CLERK Ot F10.20 ALCOHOL DEPENDENCE, UNCOMPLICATED 05/07/2016 MEADELOS MERINO CORRESPONDENCE RENEW CLERK Ot R11.2 NAUSEA WITH VOMITING, UNSPECIFIED 05/08/2016 LOS MEADE CORRESPONDENCE RENEW CLERK Ot F10.20 ALCOHOL DEPENDENCE, UNCOMPLICATED 05/08/2016 MEADELOS MERINO CORRESPONDENCE RENEW CLERK Ot R11.2 NAUSEA WITH VOMITING, UNSPECIFIED 05/14/2016 TASHA ANG CORRESPONDENCE RENEW CLERK Ot M54.6 PAIN IN THORACIC SPINE 05/16/2016 AFSANEH PETERSON SONAR TECHNICIAN Ot I73.9 PERIPHERAL VASCULAR DISEASE, UNSPECIFIED 05/17/2016 AFSANEH PETERSON SONAR TECHNICIAN Ot I73.9 PERIPHERAL VASCULAR DISEASE, UNSPECIFIED 05/17/2016 AFSANEH PETERSON SONAR TECHNICIAN Ot I73.9 PERIPHERAL VASCULAR DISEASE, UNSPECIFIED 05/21/2016 Ot 496 CHR AIRWAY OBSTRUCT NEC 05/21/2016 Ot 518.89 OTHER DISEASES OF LUNG, NEC 05/21/2016 Ot 414.01 CORONARY ATHEROSCLEROSIS OF [place] CORON 05/21/2016 Ot 496 CHR AIRWAY OBSTRUCT NEC 05/21/2016 Ot 518.89 OTHER DISEASES OF LUNG, NEC 05/21/2016 Ot 272.4 HYPERLIPIDEMIA NEC/NOS 05/21/2016 Ot 414.00 CORON ATHEROSCLER NOS TYPE VESSEL, NATIV 05/21/2016 Ot V58.69 OTH MED,LT,CURRENT USE 05/21/2016 Ot 272.4 HYPERLIPIDEMIA NEC/NOS 05/21/2016 Ot 414.01 CORONARY ATHEROSCLEROSIS OF [place] CORON 05/21/2016 Ot V58.69 OTH MED,LT,CURRENT USE 05/21/2016 Ot 785.0 TACHYCARDIA NOS 05/21/2016 Ot 275.2 DIS MAGNESIUM METABOLISM 05/21/2016 EUGENIE MEAED FACC, ALI FACP CCDS Ot 276.9 ELECTROLYT/FLUID DIS NEC 05/21/2016 EUGENIE MEADE FACC, ALI FACP CCDS Ot 401.9 HYPERTENSION NOS 05/21/2016 EUGENIE MEADE FACC, ALI FACP CCDS Ot 414.01 CORONARY ATHEROSCLEROSIS OF [place] CORON 05/21/2016 EUGENIE MEAED FACC, ALI FACP CCDS Ot 786.09 RESPIRATORY ABNORM NEC 05/21/2016 DELANO RIVERS MD R Ot 571.5 CIRRHOSIS OF LIVER NOS 05/21/2016 EUGENIE MEADE FACC, ALI FACP CCDS Ot 272.4 HYPERLIPIDEMIA NEC/NOS 05/21/2016 EUGENIE MEADE FACC, ALI FACP CCDS Ot 401.9 HYPERTENSION NOS 05/21/2016 EUGENIE MEADE FACC, ALI FACP CCDS Ot 414.00 CORON ATHEROSCLER NOS TYPE VESSEL, NATIV 05/21/2016 EUGENIE MEADE FACC, ALI FACP CCDS Ot 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 NEC 05/21/2016 DELANO RIVERS MD R Ot 719.45 JOINT PAIN-PELVIS 05/21/2016 DELANO RIVERS MD R Ot E000.8 OTHER EXTERNAL CAUSE STATUS 05/21/2016 DELANO RIVERS MD Ot E849.0 ACCIDENT IN HOME 05/21/2016 DELANO RIVERS MD Ot E888.9 FALL NOS 05/21/2016 DELANO RIVERS MD Ot V43.64 HIP JOINT REPLACEMENT STATUS 05/21/2016 MILTON HERNDON MD Ot 813.42 FX DISTAL RADIUS NEC-CL 05/21/2016 MILTON HERNDON MD Ot E000.8 OTHER EXTERNAL CAUSE STATUS 05/21/2016 MILTON HERNDON MD Ot E849.0 ACCIDENT IN HOME 05/21/2016 MILTON HERNDON MD Ot E888.9 FALL NOS 05/21/2016 DELANO RIVERS MD R Ot 356.9 IDIO PERIPH NEURPTHY NOS 05/21/2016 TITA MEADE, DLEANO R Ot 437.1 AC CEREBROVASC INSUF NOS 05/21/2016 TITA MEADE, DELANO R Ot 511.9 PLEURAL EFFUSION NOS 05/21/2016 TITA MEADE, DELANO R Ot 553.3 DIAPHRAGMATIC HERNIA 05/21/2016 DELANO RIVERS MD R Ot 625.8 FEM GENITAL SYMPTOMS NEC 05/21/2016 DELANO RIVERS MD R Ot 733.13 PATHOLOGIC FRACTURE, [place] 05/21/2016 TITA MEADE, DELANO R Ot V15.88 HISTORY OF FALL 05/21/2016 ATA MEADE, JACOB L Ot 721.3 LUMBOSACRAL SPONDYLOSIS 05/21/2016 DELANO RIVERS MD Ot 721.2 THORACIC SPONDYLOSIS 05/21/2016 Ot M81.0 AGE-RELATED OSTEOPOROSIS W/O CURRENT PAT 05/21/2016 LUKE SALAZAR DO S Ot E21.3 HYPERPARATHYROIDISM, UNSPECIFIED 05/21/2016 EUGENIE MEADE FACC, WENDY FACP CCDS Ot E78.4 OTHER HYPERLIPIDEMIA 05/21/2016 EUGENIE MEADE FACC, ALI FACP CCDS Ot I10 ESSENTIAL (PRIMARY) HYPERTENSION 05/21/2016 EUGENIE MEADE FACC, ALI FACP CCDS Ot 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 DISEASE OF [place] CORONARY 05/21/2016 EUGENIE MEADE FACC, WENDY FACP CCDS Ot R06.02 SHORTNESS OF BREATH 05/21/2016 EUGENIE MEADE FACC, ALI FACP CCDS Ot Z72.0 TOBACCO USE 05/21/2016 EUGENIE MEADE FACC, ALI FACP CCDS Ot E78.4 OTHER HYPERLIPIDEMIA 05/21/2016 EUGENIE MEADE FACC, ALI FACP CCDS Ot I10 ESSENTIAL (PRIMARY) HYPERTENSION 05/21/2016 EUGENIE MEADE FACC, ALI FACP CCDS Ot 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 DISEASE OF [place] CORONARY 05/21/2016 EUGENIE MEADE FACC, ALI FACP CCDS Ot R06.02 SHORTNESS OF BREATH 05/21/2016 EUGENIE MEADE FACC, ALI FACP CCDS Ot Z72.0 TOBACCO USE 05/21/2016 EUGENIE MEADE FACC, ALI FACP CCDS Ot E78.4 OTHER HYPERLIPIDEMIA 05/21/2016 EUGENIE MEADE FACC, ALI FACP CCDS Ot I10 ESSENTIAL (PRIMARY) HYPERTENSION 05/21/2016 EUGENIE MEADE [facility], [facility] CCDS Ot 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 DISEASE OF [place] CORONARY 05/21/2016 EUGENIE GREENWOOD, WENDY [facility] CCDS Ot R06.02 SHORTNESS OF BREATH 05/21/2016 EUGENIE MEADE FACC, WENDY [facility] CCDS Ot Z72.0 TOBACCO USE 05/21/2016 TASHA ANG CORRESPONDENCE RENEW CLERK Ot M54.6 PAIN IN THORACIC SPINE 05/21/2016 AFSANEH PTEERSON SONAR TECHNICIAN Ot I73.9 PERIPHERAL VASCULAR DISEASE, UNSPECIFIED 05/21/2016 SHAYNA DO, STEPHENIE K Ot E83.42 HYPOMAGNESEMIA 05/21/2016 SHAYNA DO, STEPHENIE K Ot F17.210 NICOTINE DEPENDENCE, CIGARETTES, UNCOMPL 05/21/2016 SHAYNA DO, STEPHENIE K Ot F41.9 ANXIETY DISORDER, UNSPECIFIED 05/21/2016 SHAYNA DO, STEPHENIE K Ot G47.00 INSOMNIA, UNSPECIFIED 05/21/2016 SHAYNA DO, STEPHENIE K Ot I10 ESSENTIAL (PRIMARY) HYPERTENSION 05/21/2016 SHAYNA DO, STEPHENIE K Ot R00.2 PALPITATIONS 05/21/2016 SHAYNA DO, STEPHENIE K Ot Z91.19 PATIENT'S NONCOMPLIANCE W OT MEDICAL TR 05/23/2016 SHAYNA DO, STEPHENIE K Ot E83.42 HYPOMAGNESEMIA 05/23/2016 SHAYNA DO, STEPHENIE K Ot F17.210 NICOTINE DEPENDENCE, CIGARETTES, UNCOMPL 05/23/2016 SHAYNA DO, STEPHENIE K Ot F41.9 ANXIETY DISORDER, UNSPECIFIED 05/23/2016 SHAYNA DO, STEPHENIE K Ot G47.00 INSOMNIA, UNSPECIFIED 05/23/2016 SHAYNA DO, STEPHENIE K Ot I10 ESSENTIAL (PRIMARY) HYPERTENSION 05/23/2016 SHAYNA DO, STEPHENIE K Ot R00.2 PALPITATIONS 05/23/2016 SHAYNA DO, STEPHENIE K Ot Z91.19 PATIENT'S NONCOMPLIANCE W [facility] MEDICAL TR 05/28/2016 Ot 496 CHR AIRWAY OBSTRUCT NEC 05/28/2016 Ot 518.89 OTHER DISEASES OF LUNG, NEC 05/28/2016 Ot 414.01 CORONARY ATHEROSCLEROSIS OF [place] CORON 05/28/2016 Ot 496 CHR AIRWAY OBSTRUCT NEC 05/28/2016 Ot 518.89 OTHER DISEASES OF LUNG, NEC 05/28/2016 Ot 272.4 HYPERLIPIDEMIA NEC/NOS 05/28/2016 Ot 414.00 CORON ATHEROSCLER NOS TYPE VESSEL, NATIV 05/28/2016 Ot V58.69 OTH MED,LT,CURRENT USE 05/28/2016 Ot 272.4 HYPERLIPIDEMIA NEC/NOS 05/28/2016 Ot 414.01 CORONARY ATHEROSCLEROSIS OF [place] CORON 05/28/2016 Ot V58.69 OTH MED,LT,CURRENT USE 05/28/2016 Ot 785.0 TACHYCARDIA NOS 05/28/2016 Ot 275.2 DIS MAGNESIUM METABOLISM 05/28/2016 EUGENIE MEADE FACC, ALI FACP CCDS Ot 276.9 ELECTROLYT/FLUID DIS NEC 05/28/2016 EUGENIE MEADE FACC, ALI FACP CCDS Ot 401.9 HYPERTENSION NOS 05/28/2016 EUGENIE MEADE FACC, ALI FACP CCDS Ot 414.01 CORONARY ATHEROSCLEROSIS OF [place] CORON 05/28/2016 EUGENIE MEADE FACC, ALI FACP CCDS Ot 786.09 RESPIRATORY ABNORM NEC 05/28/2016 TITA MEADE, DELANO R Ot 571.5 CIRRHOSIS OF LIVER NOS 05/28/2016 EUGENIE MEADE FACC, ALI FACP CCDS Ot 272.4 HYPERLIPIDEMIA NEC/NOS 05/28/2016 EUGENIE MEADE FACC, ALI FACP CCDS Ot 401.9 HYPERTENSION NOS 05/28/2016 EUGENIE MEADE FACC, ALI FACP CCDS Ot 414.00 CORON ATHEROSCLER NOS TYPE VESSEL, NATIV 05/28/2016 EUGENIE MEADE FACC, ALI FACP CCDS Ot 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 NEC 05/28/2016 DELANO RIVERS MD R Ot 719.45 JOINT PAIN-PELVIS 05/28/2016 DELANO RIVERS MD R Ot E000.8 OTHER EXTERNAL CAUSE STATUS 05/28/2016 DELANO RIVERS MD R Ot E849.0 ACCIDENT IN HOME 05/28/2016 DELANO RIVERS MD R Ot E888.9 FALL NOS 05/28/2016 DELANO RIVERS MD R Ot V43.64 HIP JOINT REPLACEMENT STATUS 05/28/2016 MILTON HERNDON MD Ot 813.42 FX DISTAL RADIUS NEC-CL 05/28/2016 MILTON HERNDON MD Ot E000.8 OTHER EXTERNAL CAUSE STATUS 05/28/2016 MILTON HERNDON MD Ot E849.0 ACCIDENT IN HOME 05/28/2016 MILTON HERNDON MD Ot E888.9 FALL NOS 05/28/2016 TITA MEADE, DELANO R Ot 356.9 IDIO PERIPH NEURPTHY NOS 05/28/2016 TITA MEADE, DELANO R Ot 437.1 AC CEREBROVASC INSUF NOS 05/28/2016 TITA MEADE, DELANO R Ot 511.9 PLEURAL EFFUSION NOS 05/28/2016 TITA MEADE, DELANO R Ot 553.3 DIAPHRAGMATIC HERNIA 05/28/2016 TITA MEADE, DELANO R Ot 625.8 FEM GENITAL SYMPTOMS NEC 05/28/2016 TITA MEADE, DELANO R Ot 733.13 PATHOLOGIC FRACTURE, VERTEBRAE 05/28/2016 TITA MEADE, DELANO R Ot V15.88 HISTORY OF FALL 05/28/2016 ATA MEADE, JACOB L Ot 721.3 LUMBOSACRAL SPONDYLOSIS 05/28/2016 DELANO RIVERS MD R Ot 721.2 THORACIC SPONDYLOSIS 05/28/2016 Ot M81.0 AGE-RELATED OSTEOPOROSIS W/O CURRENT PAT 05/28/2016 MARIE DO, LUKE S Ot E21.3 HYPERPARATHYROIDISM, UNSPECIFIED 05/28/2016 EUGENIE MEADE FACC, ALI FACP CCDS Ot E78.4 OTHER HYPERLIPIDEMIA 05/28/2016 EUGENIE MEADE FACC, ALI FACP CCDS Ot I10 ESSENTIAL (PRIMARY) HYPERTENSION 05/28/2016 EUGENIE MEADE FACC, ALI FACP CCDS Ot 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 DISEASE OF [place] CORONARY 05/28/2016 EUGENIE MEADE FACC, ALI FACP CCDS Ot R06.02 SHORTNESS OF BREATH 05/28/2016 EUGENIE MEADE FACC, ALI FACP CCDS Ot Z72.0 TOBACCO USE 05/28/2016 EUGENIE MEADE FACC, ALI FACP CCDS Ot E78.4 OTHER HYPERLIPIDEMIA 05/28/2016 EUGENIE MEADE FACC, ALI FACP CCDS Ot I10 ESSENTIAL (PRIMARY) HYPERTENSION 05/28/2016 EUGENIE MEADE FACC, ALI FACP CCDS Ot 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 DISEASE OF [place] CORONARY 05/28/2016 EUGENIE MEADE FACC, ALI FACP CCDS Ot R06.02 SHORTNESS OF BREATH 05/28/2016 EUGENIE MEADE FACC, WENDY FACP CCDS Ot Z72.0 TOBACCO USE 05/28/2016 EUGENIE MEADE FACC, WENDY FACP CCDS Ot E78.4 OTHER HYPERLIPIDEMIA 05/28/2016 EUGENIE MEADE FACC, WENDY FACP CCDS Ot I10 ESSENTIAL (PRIMARY) HYPERTENSION 05/28/2016 EUGENIE MEADE FACC, ALI FACP CCDS Ot 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 DISEASE OF [place] CORONARY 05/28/2016 EUGENIE MEADE FACC, WENDY FACP CCDS Ot R06.02 SHORTNESS OF BREATH 05/28/2016 EUGENIE MEADE FACC, WENDY FACP CCDS Ot Z72.0 TOBACCO USE 05/28/2016 ASHIATSAHA Fabio LECHUGA Ot M54.6 PAIN IN THORACIC SPINE 05/28/2016 AFSANEH PETERSON SONAR TECHNICIAN Ot I73.9 PERIPHERAL VASCULAR DISEASE, UNSPECIFIED 05/29/2016 AFSANEH PETERSON SONAR TECHNICIAN Ot I73.9 PERIPHERAL VASCULAR DISEASE, UNSPECIFIED 05/29/2016 AFSANEH PETERSON SONAR TECHNICIAN Ot I73.9 PERIPHERAL VASCULAR DISEASE, UNSPECIFIED 05/31/2016 Ot 496 CHR AIRWAY OBSTRUCT NEC 05/31/2016 Ot 518.89 OTHER DISEASES OF LUNG, NEC 05/31/2016 Ot 414.01 CORONARY ATHEROSCLEROSIS OF [place] CORON 05/31/2016 Ot 496 CHR AIRWAY OBSTRUCT NEC 05/31/2016 Ot 518.89 OTHER DISEASES OF LUNG, NEC 05/31/2016 Ot 272.4 HYPERLIPIDEMIA NEC/NOS 05/31/2016 Ot 414.00 CORON ATHEROSCLER NOS TYPE VESSEL, NATIV 05/31/2016 Ot V58.69 OTH MED,LT,CURRENT USE 05/31/2016 Ot 272.4 HYPERLIPIDEMIA NEC/NOS 05/31/2016 Ot 414.01 CORONARY ATHEROSCLEROSIS OF [place] CORON 05/31/2016 Ot V58.69 OTH MED,LT,CURRENT USE 05/31/2016 Ot 785.0 TACHYCARDIA NOS 05/31/2016 Ot 275.2 DIS MAGNESIUM METABOLISM 05/31/2016 EUGENIE MEADE FACC, WENDY FACP CCDS Ot 276.9 ELECTROLYT/FLUID DIS NEC 05/31/2016 EUGENIE MEADE FACC, ALI FACP CCDS Ot 401.9 HYPERTENSION NOS 05/31/2016 EUGENIE MEADE FACC, WENDY FACP CCDS Ot 414.01 CORONARY ATHEROSCLEROSIS OF [place] CORON 05/31/2016 EUGENIE MEADE FAC, ALI FACP CCDS Ot 786.09 RESPIRATORY ABNORM NEC 05/31/2016 TITA MEADE, DELANO Kirk Ot 571.5 CIRRHOSIS OF LIVER NOS 05/31/2016 EUGENIE MEADE FAC, ALI FACP CCDS Ot 272.4 HYPERLIPIDEMIA NEC/NOS 05/31/2016 EUGENIE MEADE FAC, ALI FACP CCDS Ot 401.9 HYPERTENSION NOS 05/31/2016 EUGENIE MEADE FAC, ALI FACP CCDS Ot 414.00 CORON ATHEROSCLER NOS TYPE VESSEL, NATIV 05/31/2016 EUGENIE MEADE FAC, ALI FACP CCDS Ot 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 NEC 05/31/2016 TITA MEADE, DELANO Kirk Ot 719.45 JOINT PAIN-PELVIS 05/31/2016 DELANO RIVERS MD Ot E000.8 OTHER EXTERNAL CAUSE STATUS 05/31/2016 DELANO RIVERS MD Ot E849.0 ACCIDENT IN HOME 05/31/2016 DELANO RIVERS MD Ot E888.9 FALL NOS 05/31/2016 DELANO RIVERS MD Ot V43.64 HIP JOINT REPLACEMENT STATUS 05/31/2016 MILTON HERNDON MD Ot 813.42 FX DISTAL RADIUS NEC-CL 05/31/2016 MILTON HERNDON MD Ot E000.8 OTHER EXTERNAL CAUSE STATUS 05/31/2016 MILTON HERNDON MD Ot E849.0 ACCIDENT IN HOME 05/31/2016 MILTON HERNDON MD Ot E888.9 FALL NOS 05/31/2016 DELANO RIVERS MD Ot 356.9 IDIO PERIPH NEURPTHY NOS 05/31/2016 DELANO RIVERS MD Ot 437.1 AC CEREBROVASC INSUF NOS 05/31/2016 DELANO RIVERS MD Ot 511.9 PLEURAL EFFUSION NOS 05/31/2016 DELANO RIVERS MD Ot 553.3 DIAPHRAGMATIC HERNIA 05/31/2016 DELANO RIVERS MD Ot 625.8 FEM GENITAL SYMPTOMS NEC 05/31/2016 DELANO RIVERS MD Ot 733.13 PATHOLOGIC FRACTURE, VERTEBRAE 05/31/2016 DELANO RIVERS MD Ot V15.88 HISTORY OF FALL 05/31/2016 ATA MEADE, JACOB L Ot 721.3 LUMBOSACRAL SPONDYLOSIS 05/31/2016 TITA MEADE, DELANO R Ot 721.2 THORACIC SPONDYLOSIS 05/31/2016 Ot M81.0 AGE-RELATED OSTEOPOROSIS W/O CURRENT PAT 05/31/2016 LUKE SALAZAR DO Ot E21.3 HYPERPARATHYROIDISM, UNSPECIFIED 05/31/2016 EUGENIE GREENWOOD, ALI FACP CCDS Ot E78.4 OTHER HYPERLIPIDEMIA 05/31/2016 EUGENIE MEADE FACC, ALI FACP CCDS Ot I10 ESSENTIAL (PRIMARY) HYPERTENSION 05/31/2016 EUGENIE MEADE [facility], ALI FACP CCDS Ot 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 DISEASE OF [place] CORONARY 05/31/2016 EUGENIE MEADE FACC, ALI FACP CCDS Ot R06.02 SHORTNESS OF BREATH 05/31/2016 EUGENIE GREENWOOD, ALI FACP CCDS Ot Z72.0 TOBACCO USE 05/31/2016 EUGENIE MEADE FACC, ALI FACP CCDS Ot E78.4 OTHER HYPERLIPIDEMIA 05/31/2016 EUGENIE MEADE FACC, ALI FACP CCDS Ot I10 ESSENTIAL (PRIMARY) HYPERTENSION 05/31/2016 EUGENIE MEADE [facility], ALI FACP CCDS Ot 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 DISEASE OF [place] CORONARY 05/31/2016 EUGENIE MEADE FACC, ALI FACP CCDS Ot R06.02 SHORTNESS OF BREATH 05/31/2016 EUGENIE GREENWOOD, ALI FACP CCDS Ot Z72.0 TOBACCO USE 05/31/2016 EUGENIE MEADE FACC, ALI FACP CCDS Ot E78.4 OTHER HYPERLIPIDEMIA 05/31/2016 EUGENIE MEADE FACC, ALI FACP CCDS Ot I10 ESSENTIAL (PRIMARY) HYPERTENSION 05/31/2016 EUGENIE MEADE FACC, ALI FACP CCDS Ot 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 DISEASE OF [place] CORONARY 05/31/2016 EUGENIE MEADE FACC, ALI FACP CCDS Ot R06.02 SHORTNESS OF BREATH 05/31/2016 EUGENIE MEADE FACC, ALI FACP CCDS Ot Z72.0 TOBACCO USE 05/31/2016 TASHA ANG APRN Ot M54.6 PAIN IN THORACIC SPINE 05/31/2016 AFSANEH PETERSON SONAR TECHNICIAN Ot I73.9 PERIPHERAL VASCULAR DISEASE, UNSPECIFIED 05/31/2016 AFSANEH PETERSON SONAR TECHNICIAN Ot I73.9 PERIPHERAL VASCULAR DISEASE, UNSPECIFIED 06/07/2016 AFSANEH PETERSON SONAR TECHNICIAN Ot I73.9 PERIPHERAL VASCULAR DISEASE, UNSPECIFIED 06/13/2016 AFSANEH PETERSON SONAR TECHNICIAN Ot I73.9 PERIPHERAL VASCULAR DISEASE, UNSPECIFIED 06/21/2016 AFSANEH PETERSON SONAR TECHNICIAN Ot I73.9 PERIPHERAL VASCULAR DISEASE, UNSPECIFIED 06/26/2016 ORENDER DO, LUKE S Ot E83.42 HYPOMAGNESEMIA 06/26/2016 ORENDER DO, LUKE S Ot E87.6 HYPOKALEMIA 06/27/2016 ORENDER DO, LUKE S Ot E83.42 HYPOMAGNESEMIA 06/27/2016 ORENDER DO, LUKE S Ot E87.6 HYPOKALEMIA 07/02/2016 AFSANEH PETERSON SONAR TECHNICIAN Ot I73.9 PERIPHERAL VASCULAR DISEASE, UNSPECIFIED 07/10/2016 ORENDER DO, LUKE S Ot E83.42 HYPOMAGNESEMIA 07/10/2016 ORENDER DO, LUKE S Ot E87.6 HYPOKALEMIA 07/17/2016 ORENDER DO, LUKE S Ot E83.42 HYPOMAGNESEMIA 07/17/2016 ORENDER DO, LUKE S Ot E87.6 HYPOKALEMIA 07/17/2016 TASHA ANG APRN Ot R00.0 TACHYCARDIA, UNSPECIFIED 07/25/2016 ORENDER DO, LUKE S Ot E07.9 DISORDER OF THYROID, UNSPECIFIED 07/25/2016 ORENDER DO, LUKE S Ot E86.1 HYPOVOLEMIA 07/25/2016 ORENDER DO, LUKE S Ot E87.2 ACIDOSIS 07/25/2016 ORENDER DO, LUKE S Ot F10.231 ALCOHOL DEPENDENCE WITH WITHDRAWAL DELIR 07/25/2016 ORENDER DO, LUKE S Ot F10.232 ALCOHOL DEPENDENCE W WITHDRAWAL WITH PER 07/25/2016 ORENDER DO, LUKE S Ot F17.210 NICOTINE DEPENDENCE, CIGARETTES, UNCOMPL 07/25/2016 ORENDER DO, LUKE S Ot F41.9 ANXIETY DISORDER, UNSPECIFIED 07/25/2016 ORENDER DO, LUKE S Ot I10 ESSENTIAL (PRIMARY) HYPERTENSION 07/25/2016 LUKE SALAZAR DO Ot 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 DISEASE OF [place] CORONARY 07/25/2016 LUKE SALAZAR DO Ot I25.2 OLD MYOCARDIAL INFARCTION 07/25/2016 LUKE SALAZAR DO Ot J44.9 CHRONIC OBSTRUCTIVE PULMONARY DISEASE , U 07/25/2016 LUKE SALAZAR DO Ot K21.9 GASTRO-ESOPHAGEAL REFLUX DISEASE WITHOUT 07/25/2016 LUKE SALAZAR DO Ot K22.6 GASTRO-ESOPHAGEAL LACERATION- HEMORRHAGE 07/25/2016 LUKE SALAZAR DO Ot K74.60 UNSPECIFIED CIRRHOSIS OF LIVER 07/25/2016 LUKE SALAZAR DO Ot S51.812A LACERATION WITHOUT FOREIGN BODY OF LEFT 07/25/2016 LUKE SALAZAR DO Ot W19.XXXA UNSPECIFIED FALL, INITIAL ENCOUNTER 07/25/2016 LUKE SALAZAR DO Ot Z86.19 PERSONAL HISTORY OF OTHER INFECTIOUS AND 07/25/2016 LUKE SALAZAR DO Ot Z95.5 PRESENCE OF CORONARY ANGIOPLASTY IMPLANT 07/26/2016 LUKE SALAZAR DO S Ot E07.9 DISORDER OF THYROID, UNSPECIFIED 07/26/2016 LUKE SALAZAR DO Ot E78.5 HYPERLIPIDEMIA, UNSPECIFIED 07/26/2016 LUKE SALAZAR DO Ot E86.1 HYPOVOLEMIA 07/26/2016 LUKE SALAZAR DO Ot E87.2 ACIDOSIS 07/26/2016 LUKE SALAZAR DO Ot F10.231 ALCOHOL DEPENDENCE WITH WITHDRAWAL DELIR 07/26/2016 INDIRA SALAZAR DOLINE S Ot F10.232 ALCOHOL DEPENDENCE W WITHDRAWAL WITH PER 07/26/2016 LUKE SALAZAR DO S Ot F17.210 NICOTINE DEPENDENCE, CIGARETTES, UNCOMPL 07/26/2016 LUKE SALAZAR DO Ot F41.0 PANIC DISORDER WITHOUT AGORAPHOBIA 07/26/2016 LUKE SALAZAR DO Ot F41.9 ANXIETY DISORDER, UNSPECIFIED 07/26/2016 LUKE SALAZAR DO Ot I10 ESSENTIAL (PRIMARY) HYPERTENSION 07/26/2016 ORENDER DO, LUKE S Ot 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 DISEASE OF [place] CORONARY 07/26/2016 MARIE SPAULDING LUKE S Ot I25.2 OLD MYOCARDIAL INFARCTION 07/26/2016 MARIE SPAULDING LUKE Yassine Ot J44.9 CHRONIC OBSTRUCTIVE PULMONARY DISEASE , U 07/26/2016 MARIE SPAULDING LUKE S Ot K21.9 GASTRO-ESOPHAGEAL REFLUX DISEASE WITHOUT 07/26/2016 MARIE SPAULDING LUKE S Ot K22.6 GASTRO-ESOPHAGEAL LACERATION- HEMORRHAGE 07/26/2016 MARIE SPAULDING LUKE S Ot K70.10 ALCOHOLIC HEPATITIS WITHOUT ASCITES 07/26/2016 MARIE SPAULDING LUKE S Ot K74.60 UNSPECIFIED CIRRHOSIS OF LIVER 07/26/2016 MARIE SPAULDING LUKE S Ot M19.90 UNSPECIFIED OSTEOARTHRITIS, UNSPECIFIED 07/26/2016 MARIE SPAULDING LUKE S Ot R53.1 WEAKNESS 07/26/2016 MARIE SPAULDING LUKE Metzger Ot S51.812A LACERATION WITHOUT FOREIGN BODY OF LEFT 07/26/2016 MARIE SPAULDING LUKE Metzger Ot W19.XXXA UNSPECIFIED FALL, INITIAL ENCOUNTER 07/26/2016 MARIE SPAULDING LUKE Metzger Ot Z86.19 PERSONAL HISTORY OF OTHER INFECTIOUS AND 07/26/2016 MARIE SPAULDING LUKE Metzger Ot Z95.5 PRESENCE OF CORONARY ANGIOPLASTY IMPLANT 08/07/2016 TASHA ANG CORRESPONDENCE RENEW CLERK Ot R00.0 TACHYCARDIA, UNSPECIFIED 08/14/2016 TASHA ANG CORRESPONDENCE RENEW CLERK Ot R00.0 TACHYCARDIA, UNSPECIFIED 11/13/2016 ALEM HOLLY MD Ot F17.210 NICOTINE DEPENDENCE, CIGARETTES, UNCOMPL 11/13/2016 ALEM HOLLY MD Ot I10 ESSENTIAL (PRIMARY) HYPERTENSION 11/13/2016 ALEM HOLLY MD Ot 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 DISEASE OF [place] CORONARY 11/13/2016 ALEM HOLLY MD Ot J44.9 CHRONIC OBSTRUCTIVE PULMONARY DISEASE, U 11/13/2016 ALEM HOLLY MD Ot M47.812 SPONDYLOSIS W/O MYELOPATHY OR RADICULOPA 11/13/2016 ALEM HOLLY MD Ot S00.81XA ABRASION OF OTHER PART OF HEAD, INITIAL 11/13/2016 ALEM HOLLY MD, Ot S39.012A STRAIN OF MUSCLE, FASCIA AND TENDON OF L 11/13/2016 ALEM HOLLY MD, Ot S39.92XA UNSPECIFIED INJURY OF LOWER BACK, INITIA 11/13/2016 ALEM HOLLY MD Ot W01.0XXA FALL SAME LEV FROM SLIP/TRIP W/O STRIKE 11/13/2016 ALEM HOLLY MD, Ot Y92.009 [facility] [address] IN [facility] 11/13/2016 ALEM HOLLY MD, Ot Y99.8 OTHER EXTERNAL CAUSE STATUS 11/13/2016 ALEM HOLLY MD, Ot Z79.82 PRISON (CURRENT) USE OF ASPIRIN 11/13/2016 ALEM HOLLY MD, Ot Z79.899 OTHER INSPECTOR REPAIRER (CURRENT) DRUG THERAPY 11/13/2016 ALEM HOLLY MD, Ot Z95.5 PRESENCE OF CORONARY ANGIOPLASTY IMPLANT 11/14/2016 ALEM HOLLY MD Ot F17.210 NICOTINE DEPENDENCE, CIGARETTES, UNCOMPL 11/14/2016 ALEM HOLLY MD Ot I10 ESSENTIAL (PRIMARY) HYPERTENSION 11/14/2016 ALEM HOLLY MD, Ot 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 DISEASE OF [place] CORONARY 11/14/2016 ALEM HOLLY MD Ot J44.9 CHRONIC OBSTRUCTIVE PULMONARY DISEASE, U 11/14/2016 ALEM HOLLY MD Ot M47.812 SPONDYLOSIS W/O MYELOPATHY OR RADICULOPA 11/14/2016 ALEM HOLLY MD Ot S00.81XA ABRASION OF OTHER PART OF HEAD, INITIAL 11/14/2016 ALEM HOLLY MD, Ot S39.012A STRAIN OF MUSCLE, FASCIA AND TENDON OF L 11/14/2016 ALEM HOLLY MD, Ot S39.92XA UNSPECIFIED INJURY OF LOWER BACK, INITIA 11/14/2016 ALEM HOLLY MD, Ot W01.0XXA FALL SAME LEV FROM SLIP/TRIP W/O STRIKE 11/14/2016 ALEM HOLLY MD Ot Y92.009 [facility] IN [facility] NON-INSTIT[facility] ( PRIVATE 11/14/2016 ALEM HOLLY MD Ot Y99.8 OTHER EXTERNAL CAUSE STATUS 11/14/2016 ALEM HOLLY MD Ot Z79.82 PRISON (CURRENT) USE OF ASPIRIN 11/14/2016 ALEM HOLLY MD Ot Z79.899 OTHER INSPECTOR REPAIRER (CURRENT) DRUG THERAPY 11/14/2016 ALEM HOLLY MD Ot Z95.5 PRESENCE OF CORONARY ANGIOPLASTY IMPLANT 12/13/2016 MANUELA RIVERA MD, Ot M51.16 INTERVERTEBRAL DISC DISORDERS W RADICULO 12/13/2016 MANUELA RIVERA MD, Ot Z79.899 OTHER PRISON (CURRENT) DRUG THERAPY 12/23/2016 EUGENIE MEADE FACC, WENDY FACP CCDS Ot E78.5 HYPERLIPIDEMIA, UNSPECIFIED 12/23/2016 EUGENIE MEADE FACC, ALI FACP CCDS Ot I10 ESSENTIAL (PRIMARY) HYPERTENSION 12/23/2016 EUGENIE GREENWOODC, ALI FACP CCDS Ot 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 DISEASE OF [place] CORONARY 12/23/2016 EUGENIE GREENWOODC, ALI FACP CCDS Ot I25.5 ISCHEMIC CARDIOMYOPATHY 12/23/2016 EUGENIE MEADE FACC, ALI FACP CCDS Ot J44.9 CHRONIC OBSTRUCTIVE PULMONARY DISEASE, U 12/23/2016 EUGENIE GREENWOODC, ALI FACP CCDS Ot R00.2 PALPITATIONS 12/23/2016 EUGENIE MEADE FACC, ALI FACP CCDS Ot R55 SYNCOPE AND COLLAPSE 12/23/2016 EUGENIE GREENWOODC, ALI FACP CCDS Ot Z72.0 TOBACCO USE 12/23/2016 EUGENIE MEADE FACC, ALI FACP CCDS Ot Z79.899 OTHER PRISON (CURRENT) DRUG THERAPY 12/23/2016 EUGENIE MEADE FACC, ALI FACP CCDS Ot Z95.5 PRESENCE OF CORONARY ANGIOPLASTY IMPLANT 12/31/2016 MANUELA RIVERA MD Ot M51.16 INTERVERTEBRAL DISC DISORDERS W RADICULO 12/31/2016 MANUELA RIVERA MD Ot Z79.899 OTHER INSPECTOR REPAIRER (CURRENT) DRUG THERAPY 01/09/2017 EUGENIE MEADE FACC, ALI FACP CCDS Ot E78.5 HYPERLIPIDEMIA, UNSPECIFIED 01/09/2017 EUGENIE MEADE FACC, ALI FACP CCDS Ot I10 ESSENTIAL (PRIMARY) HYPERTENSION 01/09/2017 EUGENIE MD FACC, ALI FACP CCDS Ot 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 DISEASE OF [place] CORONARY 01/09/2017 EUGENIE MEADE FACC, ALI FACP CCDS Ot I25.5 ISCHEMIC CARDIOMYOPATHY 01/09/2017 EUGENIE MEADE FACC, ALI FACP CCDS Ot J44.9 CHRONIC OBSTRUCTIVE PULMONARY DISEASE, U 01/09/2017 EUGENIE MEADE FACC, ALI FACP CCDS Ot R00.2 PALPITATIONS 01/09/2017 EUGENIE MEADE FACC, ALI FACP CCDS Ot R55 SYNCOPE AND COLLAPSE 01/09/2017 EUGENIE GREENWOODC, ALI FACP CCDS Ot Z72.0 TOBACCO USE 01/09/2017 EUGENIE MEADE FACC, ALI FACP CCDS Ot Z79.899 OTHER INSPECTOR REPAIRER (CURRENT) DRUG THERAPY 01/09/2017 EUGENIE MEADE FACC, ALI FACP CCDS Ot Z95.5 PRESENCE OF CORONARY ANGIOPLASTY IMPLANT 01/14/2017 EUGENIE MEADE FACC, ALI FACP CCDS Ot E78.5 HYPERLIPIDEMIA, UNSPECIFIED 01/14/2017 EUGENIE MEADE FACC, ALI FACP CCDS Ot I10 ESSENTIAL (PRIMARY) HYPERTENSION 01/14/2017 EUGENIE MEADE FACC, ALI FACP CCDS Ot 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 DISEASE OF [place] CORONARY 01/14/2017 EUGENIE MEADE FACC, ALI FACP CCDS Ot I25.5 ISCHEMIC CARDIOMYOPATHY 01/14/2017 EUGENIE MEADE FACC, ALI FACP CCDS Ot J44.9 CHRONIC OBSTRUCTIVE PULMONARY DISEASE, U 01/14/2017 EUGENIE MEADE FACC, ALI FACP CCDS Ot R00.2 PALPITATIONS 01/14/2017 EUGENIE MEADE FACC, ALI FACP CCDS Ot R55 SYNCOPE AND COLLAPSE 01/14/2017 EUGENIE MEADE FACC, ALI FACP CCDS Ot Z72.0 TOBACCO USE 01/14/2017 EUGENIE MEADE FACC, ALI FACP CCDS Ot Z79.899 OTHER INSPECTOR REPAIRER (CURRENT) DRUG THERAPY 01/14/2017 EUGENIE MEADE FACC, ALI FACP CCDS Ot Z95.5 PRESENCE OF CORONARY ANGIOPLASTY IMPLANT 01/18/2017 LUKE SALAZAR DO S Ot B96.89 OTH BACTERIAL AGENTS THE CAUSE OF DIS 01/18/2017 LUKE SALAZAR DO S Ot 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 01/18/2017 LUKE SALAZAR DO Ot E78.00 PURE HYPERCHOLESTEROLEMIA, UNSPECIFIED 01/18/2017 LUKE SALAZAR DO Ot F10.229 ALCOHOL DEPENDENCE WITH INTOXICATION, UN 01/18/2017 LUKE SALAZAR DO Ot F10.27 ALCOHOL DEPENDENCE WITH ALCOHOL- INDUCED 01/18/2017 LUKE SALAZAR DO Ot F17.210 NICOTINE DEPENDENCE, CIGARETTES, UNCOMPL 01/18/2017 LUKE SALAZAR DO Ot F32.9 MAJOR DEPRESSIVE DISORDER, SINGLE EPISOD 01/18/2017 LUKE SALAZAR DO Ot F41.9 ANXIETY DISORDER, UNSPECIFIED 01/18/2017 LUKE SALAZAR DO Ot I11.0 HYPERTENSIVE HEART DISEASE WITH HEART FA 01/18/2017 LUKE SALAZAR DO Ot 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 DISEASE OF [place] CORONARY 01/18/2017 LUKE SALAZAR DO Ot I25.5 ISCHEMIC CARDIOMYOPATHY 01/18/2017 LUKE SALAZAR DO Ot I42.9 CARDIOMYOPATHY, UNSPECIFIED 01/18/2017 LUKE SALAZAR DO Ot I48.91 UNSPECIFIED ATRIAL FIBRILLATION 01/18/2017 LUKE SALAZAR DO S Ot I50.22 CHRONIC SYSTOLIC (CONGESTIVE) HEART FAIL 01/18/2017 LUKE SALAZAR DO Ot I73.9 PERIPHERAL VASCULAR DISEASE, UNSPECIFIED 01/18/2017 LUKE SALAZAR DO Ot J44.9 CHRONIC OBSTRUCTIVE PULMONARY DISEASE , U 01/18/2017 LUKE SALAZAR DO Ot K74.60 UNSPECIFIED CIRRHOSIS OF LIVER 01/18/2017 LUKE SALAZAR DO Ot M19.91 PRIMARY OSTEOARTHRITIS, UNSPECIFIED SITE 01/18/2017 LUKE SALAZAR DO Ot M81.0 AGE-RELATED OSTEOPOROSIS W/O CURRENT PAT 01/18/2017 LUKE SALAZAR DO Ot N39.0 URINARY TRACT INFECTION, SITE NOT SPECIF 01/18/2017 LUKE SALAZAR DO Ot R29.6 REPEATED FALLS 01/18/2017 LUKE SALAZAR DO Ot S51.011A LACERATION WITHOUT FOREIGN BODY OF RIGHT 01/18/2017 AMADOU SALAZAR DOQUELINE S Ot S61.431A PUNCTURE WOUND W/O FOREIGN BODY OF RIGHT 01/18/2017 CHRISTASADIE SPAULDING LUKE S Ot S80.11XA CONTUSION OF RIGHT LOWER LEG, INITIAL EN 01/18/2017 INDIRA SALAZAR DOLINE Yassine Ot S80.12XA CONTUSION OF LEFT LOWER LEG, INITIAL ENC 01/18/2017 MARIE SPAULDING LUKE Yassine Ot W19.XXXA UNSPECIFIED FALL, INITIAL ENCOUNTER 01/18/2017 POLLYNEWTON SPAULDING LUKE S Ot Z86.19 PERSONAL HISTORY OF OTHER INFECTIOUS AND 01/18/2017 POLLYNEWTON SPAULDING LUKE S Ot Z91.19 PATIENT'S NONCOMPLIANCE W [facility] 01/18/2017 POLLYNEWTON SPAULDING LUKE Yassine Ot Z95.5 PRESENCE OF CORONARY ANGIOPLASTY IMPLANT 01/19/2017 MARIE SPAULDING LUKE S Ot B96.89 OT BACTERIAL AGENTS THE CAUSE OF DIS 01/19/2017 POLLYNEWTON SPAULDING LUKE S Ot 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 01/19/2017 CHRISTASADIE SPAULDING LUKE S Ot E78.00 PURE HYPERCHOLESTEROLEMIA, UNSPECIFIED 01/19/2017 POLLYNEWTON SPAULDING LUKE S Ot F10.229 ALCOHOL DEPENDENCE WITH INTOXICATION, UN 01/19/2017 MARIE LUKE S Ot F10.27 ALCOHOL DEPENDENCE WITH ALCOHOL- INDUCED 01/19/2017 MARIE SPAULDING LUKE S Ot F17.210 NICOTINE DEPENDENCE, CIGARETTES, UNCOMPL 01/19/2017 MARIE SPAULDING LUKE S Ot F32.9 MAJOR DEPRESSIVE DISORDER, SINGLE EPISOD 01/19/2017 MARIE SPAULDING LUKE S Ot F41.9 ANXIETY DISORDER, UNSPECIFIED 01/19/2017 MARIE SPAULDING LUKE S Ot I11.0 HYPERTENSIVE HEART DISEASE WITH HEART FA 01/19/2017 LUKE SALAZAR DO S Ot 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 DISEASE OF [place] CORONARY 01/19/2017 INDIRA SALAZAR DOLINE S Ot I25.5 ISCHEMIC CARDIOMYOPATHY 01/19/2017 LUKE SALAZAR DO S Ot I42.9 CARDIOMYOPATHY, UNSPECIFIED 01/19/2017 LUKE SALAZAR DO S Ot I48.91 UNSPECIFIED ATRIAL FIBRILLATION 01/19/2017 LUKE SALAZAR DO Ot I50.22 CHRONIC SYSTOLIC (CONGESTIVE) HEART FAIL 01/19/2017 LUKE SALAZAR DO Ot I73.9 PERIPHERAL VASCULAR DISEASE, UNSPECIFIED 01/19/2017 LUKE SALAZAR DO Ot J44.9 CHRONIC OBSTRUCTIVE PULMONARY DISEASE , U 01/19/2017 LUKE SALAZAR DO Ot K74.60 UNSPECIFIED CIRRHOSIS OF LIVER 01/19/2017 LUKE SALAZAR DO Ot M19.91 PRIMARY OSTEOARTHRITIS, UNSPECIFIED SITE 01/19/2017 LUKE SALAZAR DO Ot M81.0 AGE-RELATED OSTEOPOROSIS W/O CURRENT PAT 01/19/2017 LUKE SALAZAR DO Ot N39.0 URINARY TRACT INFECTION, SITE NOT SPECIF 01/19/2017 LUKE SALAZAR DO Ot R29.6 REPEATED FALLS 01/19/2017 LUKE SALAZAR DO Ot S51.011A LACERATION WITHOUT FOREIGN BODY OF RIGHT 01/19/2017 MARIE LUKE Ot S61.431A PUNCTURE WOUND W/O FOREIGN BODY OF RIGHT 01/19/2017 MARIE LUKE Ot S80.11XA CONTUSION OF RIGHT LOWER LEG, INITIAL EN 01/19/2017 LUKE SALAZAR DO Ot S80.12XA CONTUSION OF LEFT LOWER LEG, INITIAL ENC 01/19/2017 LUKE SALAZAR DO Ot W19.XXXA UNSPECIFIED FALL, INITIAL ENCOUNTER 01/19/2017 LUKE SALAZAR DO Ot Z86.19 PERSONAL HISTORY OF OTHER INFECTIOUS AND 01/19/2017 LUKE SALAZAR DO Ot Z91.19 PATIENT'S NONCOMPLIANCE W OT MEDICAL TR 01/19/2017 LUKE SALAZAR DO Ot Z95.5 PRESENCE OF CORONARY ANGIOPLASTY IMPLANT 01/19/2017 LUKE SALAZAR DO Ot B96.89 OT BACTERIAL AGENTS THE CAUSE OF DIS 01/19/2017 LUKE SALAZAR DO Ot 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 01/19/2017 LUKE SALAZAR DO Ot E78.00 PURE HYPERCHOLESTEROLEMIA, UNSPECIFIED 01/19/2017 MARIE SPAULDING LUKE S Ot F10.229 ALCOHOL DEPENDENCE WITH INTOXICATION, UN 01/19/2017 MARIE SPAULDING LUKE S Ot F10.27 ALCOHOL DEPENDENCE WITH ALCOHOL- INDUCED 01/19/2017 LUKE SALAZAR DO S Ot F17.210 NICOTINE DEPENDENCE, CIGARETTES, UNCOMPL 01/19/2017 LUKE SALAZAR DO S Ot F32.9 MAJOR DEPRESSIVE DISORDER, SINGLE EPISOD 01/19/2017 LUKE SALAZAR DO S Ot F41.9 ANXIETY DISORDER, UNSPECIFIED 01/19/2017 LUKE SALAZAR DO S Ot I11.0 HYPERTENSIVE HEART DISEASE WITH HEART FA 01/19/2017 LUKE SALAZAR DO S Ot 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 DISEASE OF [place] CORONARY 01/19/2017 LUKE SALAZAR DO S Ot I25.5 ISCHEMIC CARDIOMYOPATHY 01/19/2017 LUKE SALAZAR DO S Ot I42.9 CARDIOMYOPATHY, UNSPECIFIED 01/19/2017 LUKE SALAZAR DO S Ot I48.91 UNSPECIFIED ATRIAL FIBRILLATION 01/19/2017 LUKE SALAZAR DO S Ot I50.22 CHRONIC SYSTOLIC (CONGESTIVE) HEART FAIL 01/19/2017 LUKE SALAZAR DO S Ot I73.9 PERIPHERAL VASCULAR DISEASE, UNSPECIFIED 01/19/2017 LUKE SALAZAR DO S Ot J44.9 CHRONIC OBSTRUCTIVE PULMONARY DISEASE , U 01/19/2017 LUKE SALAZAR DO S Ot K74.60 UNSPECIFIED CIRRHOSIS OF LIVER 01/19/2017 LUKE SALAZAR DO S Ot M19.91 PRIMARY OSTEOARTHRITIS, UNSPECIFIED SITE 01/19/2017 LUKE SALAZAR DO S Ot M81.0 AGE-RELATED OSTEOPOROSIS W/O CURRENT PAT 01/19/2017 LUKE SALAZAR DO S Ot N39.0 URINARY TRACT INFECTION, SITE NOT SPECIF 01/19/2017 LUKE SALAZAR DO S Ot R29.6 REPEATED FALLS 01/19/2017 LUKE SALAZAR DO S Ot S51.011A LACERATION WITHOUT FOREIGN BODY OF RIGHT 01/19/2017 LUKE SALAZAR DO S Ot S61.431A PUNCTURE WOUND W/O FOREIGN BODY OF RIGHT 01/19/2017 POLLYNEWTON SPAULDING LUKE S Ot S80.11XA CONTUSION OF RIGHT LOWER LEG, INITIAL EN 01/19/2017 LUKE SALAZAR DO Ot S80.12XA CONTUSION OF LEFT LOWER LEG, INITIAL ENC 01/19/2017 POLLYNEWTON LUKE SPAULDING Ot W19.XXXA UNSPECIFIED FALL, INITIAL ENCOUNTER 01/19/2017 LUKE SALAZAR DO Ot Z86.19 PERSONAL HISTORY OF OTHER INFECTIOUS AND 01/19/2017 LUKE SALAZAR DO S Ot Z91.19 PATIENT'S NONCOMPLIANCE W OTH MEDICAL TR 01/19/2017 LUKE SALAZAR DO Ot Z95.5 PRESENCE OF CORONARY ANGIOPLASTY IMPLANT 01/20/2017 LUKE SALAZAR DO Ot B96.89 OT BACTERIAL AGENTS THE CAUSE OF DIS 01/20/2017 LUKE SALAZAR DO Ot 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 01/20/2017 LUKE SALAZAR DO Ot E78.00 PURE HYPERCHOLESTEROLEMIA, UNSPECIFIED 01/20/2017 LUKE SALAZAR DO S Ot F10.229 ALCOHOL DEPENDENCE WITH INTOXICATION, UN 01/20/2017 LUKE SALAZAR DO S Ot F10.27 ALCOHOL DEPENDENCE WITH ALCOHOL- INDUCED 01/20/2017 INDIRA SALAZAR DOLINE S Ot F17.210 NICOTINE DEPENDENCE, CIGARETTES, UNCOMPL 01/20/2017 LUKE SALAZAR DO S Ot F32.9 MAJOR DEPRESSIVE DISORDER, SINGLE EPISOD 01/20/2017 LUKE SALAZAR DO S Ot F41.9 ANXIETY DISORDER, UNSPECIFIED 01/20/2017 LUKE SALAZAR DO S Ot I11.0 HYPERTENSIVE HEART DISEASE WITH HEART FA 01/20/2017 LUKE SALAZAR DO S Ot 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 DISEASE OF [place] CORONARY 01/20/2017 LUKE SALAZAR DO S Ot I25.5 ISCHEMIC CARDIOMYOPATHY 01/20/2017 LUKE SALAZAR DO S Ot I42.9 CARDIOMYOPATHY, UNSPECIFIED 01/20/2017 LUKE SALAZAR DO S Ot I48.91 UNSPECIFIED ATRIAL FIBRILLATION 01/20/2017 LUKE SALAZAR DO S Ot I50.22 CHRONIC SYSTOLIC (CONGESTIVE) HEART FAIL 01/20/2017 PO[place] LUKE SPAULDING Ot I73.9 PERIPHERAL VASCULAR DISEASE, UNSPECIFIED 01/20/2017 LUKE SALAZAR DO Ot J44.9 CHRONIC OBSTRUCTIVE PULMONARY DISEASE , U 01/20/2017 POLLYNE[place] AMADOU SPAULDINGLUKE S Ot K74.60 UNSPECIFIED CIRRHOSIS OF LIVER 01/20/2017 LUKE SALAZAR DO Ot M19.91 PRIMARY OSTEOARTHRITIS, UNSPECIFIED SITE 01/20/2017 POLLYNEWTON DO LUKE S Ot M81.0 AGE-RELATED OSTEOPOROSIS W/O CURRENT PAT 01/20/2017 POLLYNEWTON SPAULDINGLUKE Ot N39.0 URINARY TRACT INFECTION, SITE NOT SPECIF 01/20/2017 AMADOU SALAZAR DOQUESAHARA Metzger Ot R29.6 REPEATED FALLS 01/20/2017 LUKE SALAZAR DO Ot S51.011A LACERATION WITHOUT FOREIGN BODY OF RIGHT 01/20/2017 MARIE LUKE Ot S61.431A PUNCTURE WOUND W/O FOREIGN BODY OF RIGHT 01/20/2017 POLLYNEWTON SPAULDINGAMADOULUKE S Ot S80.11XA CONTUSION OF RIGHT LOWER LEG, INITIAL EN 01/20/2017 LUKE SALAZAR DO Ot S80.12XA CONTUSION OF LEFT LOWER LEG, INITIAL ENC 01/20/2017 POLLYNE[place] LUKE SPAULDNIG Ot W19.XXXA UNSPECIFIED FALL, INITIAL ENCOUNTER 01/20/2017 LUKE SALAZAR DO Ot Z86.19 PERSONAL HISTORY OF OTHER INFECTIOUS AND 01/20/2017 AMADOU SALAZAR DOQUESAHARA Metzger Ot Z91.19 PATIENT'S NONCOMPLIANCE W [facility] MEDICAL TR 01/20/2017 POLLYNEWTON AMADOU SPAULDINGLUKE S Ot Z95.5 PRESENCE OF CORONARY ANGIOPLASTY IMPLANT 01/21/2017 LKUE SALAZAR DO Ot B96.89 [facility] BACTERIAL AGENTS THE CAUSE OF DIS 01/21/2017 LUKE SALAZAR DO Ot 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 01/21/2017 LUKE SALAZAR DO Ot E78.00 PURE HYPERCHOLESTEROLEMIA, UNSPECIFIED 01/21/2017 ORENDER DO, LUKE S Ot F10.229 ALCOHOL DEPENDENCE WITH INTOXICATION, UN 01/21/2017 LUKE SALAZAR DO Ot F10.27 ALCOHOL DEPENDENCE WITH ALCOHOL- INDUCED 01/21/2017 LUKE SALAZAR DO Ot F17.210 NICOTINE DEPENDENCE, CIGARETTES, UNCOMPL 01/21/2017 LUKE SALAZAR DO Ot F32.9 MAJOR DEPRESSIVE DISORDER, SINGLE EPISOD 01/21/2017 LUKE SALAZAR DO Ot F41.9 ANXIETY DISORDER, UNSPECIFIED 01/21/2017 LUKE SALAZAR DO S Ot I11.0 HYPERTENSIVE HEART DISEASE WITH HEART FA 01/21/2017 LUKE SALAZAR DO S Ot 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 DISEASE OF [place] CORONARY 01/21/2017 LUKE SALAZAR DO Ot I25.5 ISCHEMIC CARDIOMYOPATHY 01/21/2017 LUKE SALAZAR DO Ot I42.9 CARDIOMYOPATHY, UNSPECIFIED 01/21/2017 LUKE SALAZAR DO Ot I48.91 UNSPECIFIED ATRIAL FIBRILLATION 01/21/2017 LUKE SALAZAR DO S Ot I50.22 CHRONIC SYSTOLIC (CONGESTIVE) HEART FAIL 01/21/2017 LUKE SALAZAR DO S Ot I73.9 PERIPHERAL VASCULAR DISEASE, UNSPECIFIED 01/21/2017 LUKE SALAZAR DO Ot J44.9 CHRONIC OBSTRUCTIVE PULMONARY DISEASE , U 01/21/2017 LUKE SALAZAR DO S Ot K74.60 UNSPECIFIED CIRRHOSIS OF LIVER 01/21/2017 LUKE SALAZAR DO Ot M19.91 PRIMARY OSTEOARTHRITIS, UNSPECIFIED SITE 01/21/2017 LUKE SALAZAR DO S Ot M81.0 AGE-RELATED OSTEOPOROSIS W/O CURRENT PAT 01/21/2017 LUKE SALAZAR DO S Ot N39.0 URINARY TRACT INFECTION, SITE NOT SPECIF 01/21/2017 LUKE SALAZAR DO Ot R29.6 REPEATED FALLS 01/21/2017 LUKE SALAZAR DO S Ot S51.011A LACERATION WITHOUT FOREIGN BODY OF RIGHT 01/21/2017 LUKE SALAZAR DO Ot S61.431A PUNCTURE WOUND W/O FOREIGN BODY OF RIGHT 01/21/2017 LUKE SALAZAR DO Ot S80.11XA CONTUSION OF RIGHT LOWER LEG, INITIAL EN 01/21/2017 INDIRA SALAZAR DOLINE Yassine Ot S80.12XA CONTUSION OF LEFT LOWER LEG, INITIAL ENC 01/21/2017 INDIRA SALAZAR DOLINE Yassine Ot W19.XXXA UNSPECIFIED FALL, INITIAL ENCOUNTER 01/21/2017 MARIE SPAULDING LUKE Yassine Ot Z86.19 PERSONAL HISTORY OF OTHER INFECTIOUS AND 01/21/2017 POLLYNEWTON SPAULDING LUKE S Ot Z91.19 PATIENT'S NONCOMPLIANCE W [facility] MEDICAL TR 01/21/2017 MARIE SPAULDING LUKE Yassine Ot Z95.5 PRESENCE OF CORONARY ANGIOPLASTY IMPLANT 01/21/2017 MARIE LUKE Ot B96.89 [facility] BACTERIAL AGENTS THE CAUSE OF DIS 01/21/2017 POLLYNEWTON SPAULDING LUKE S Ot 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 01/21/2017 LUKE SALAZAR DO Ot E78.00 PURE HYPERCHOLESTEROLEMIA, UNSPECIFIED 01/21/2017 MARIE LUKE Ot F10.229 ALCOHOL DEPENDENCE WITH INTOXICATION, UN 01/21/2017 POLLYNEWTON SPAULDING LUKE S Ot F10.27 ALCOHOL DEPENDENCE WITH ALCOHOL- INDUCED 01/21/2017 MARIE LUKE S Ot F17.210 NICOTINE DEPENDENCE, CIGARETTES, UNCOMPL 01/21/2017 MARIE LUKE Ot F32.9 MAJOR DEPRESSIVE DISORDER, SINGLE EPISOD 01/21/2017 LUKE SALAZAR DO Ot F41.9 ANXIETY DISORDER, UNSPECIFIED 01/21/2017 LUKE SALAZAR DO Ot I11.0 HYPERTENSIVE HEART DISEASE WITH HEART FA 01/21/2017 LUKE SALAZAR DO Ot 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 DISEASE OF [place] CORONARY 01/21/2017 LUKE SALAZAR DO Ot I25.5 ISCHEMIC CARDIOMYOPATHY 01/21/2017 LUKE SALAZAR DO Ot I42.9 CARDIOMYOPATHY, UNSPECIFIED 01/21/2017 LUKE SALAZAR DO Ot I48.91 UNSPECIFIED ATRIAL FIBRILLATION 01/21/2017 LUKE SALAZAR DO Ot I50.22 CHRONIC SYSTOLIC (CONGESTIVE) HEART FAIL 01/21/2017 AMRIE SPAULDING LUKE Metzger Ot I73.9 PERIPHERAL VASCULAR DISEASE, UNSPECIFIED 01/21/2017 MARIE SPAULDING LUKE Metzger Ot J44.9 CHRONIC OBSTRUCTIVE PULMONARY DISEASE , U 01/21/2017 MARIE SPAULDING LUKE Metzger Ot K74.60 UNSPECIFIED CIRRHOSIS OF LIVER 01/21/2017 MARIE SPAULDING LUKE Metzger Ot M19.91 PRIMARY OSTEOARTHRITIS, UNSPECIFIED SITE 01/21/2017 MARIE SPAULDING LUKE Metzger Ot M81.0 AGE-RELATED OSTEOPOROSIS W/O CURRENT PAT 01/21/2017 MARIE SPAULDING LUKE Metzger Ot N39.0 URINARY TRACT INFECTION, SITE NOT SPECIF 01/21/2017 MARIE SPAULDING LUKE Metzger Ot R29.6 REPEATED FALLS 01/21/2017 MARIE SPAULDING LUKE Metzger Ot S51.011A LACERATION WITHOUT FOREIGN BODY OF RIGHT 01/21/2017 MARIE SPAULDING LUKE Metzger Ot S61.431A PUNCTURE WOUND W/O FOREIGN BODY OF RIGHT 01/21/2017 MARIE SPAULDING LUKE Metzger Ot S80.11XA CONTUSION OF RIGHT LOWER LEG, INITIAL EN 01/21/2017 MARIE SPAULDING LUKE Metzger Ot S80.12XA CONTUSION OF LEFT LOWER LEG, INITIAL ENC 01/21/2017 MARIE SPAULDING LUKE Metzger Ot W19.XXXA UNSPECIFIED FALL, INITIAL ENCOUNTER 01/21/2017 MARIE SPAULDING LUKE Metzger Ot Z86.19 PERSONAL HISTORY OF OTHER INFECTIOUS AND 01/21/2017 CHRISTASADIE SPAULDING LUKE Metzger Ot Z91.19 PATIENT'S NONCOMPLIANCE W [facility] TR 01/21/2017 MARIE SPAULDING LUKE Metzger Ot Z95.5 PRESENCE OF CORONARY ANGIOPLASTY IMPLANT Procedures Code Description Performed By Performed On 94.62 09/30/2012 96.04 10/12/2012 96.71 10/12/2012 00.40 10/13/2012 00.46 10/13/2012 00.66 10/13/2012 36.06 10/13/2012 37.22 10/13/2012 88.53 10/13/2012 88.56 10/13/2012 00.40 10/20/2012 00.45 10/20/2012 00.66 10/20/2012 36.06 10/20/2012 88.55 10/20/2012 99.20 10/20/2012 94.62 09/01/2013 Results Test Result Range Complete blood count (CBC) with automated white blood cell (WBC) differential - 05/21/16 02:00 Blood leukocytes automated count (number/volume) 5.6 10*3/ uL 4.3-11.0 Blood erythrocytes automated count (number/volume) 4.11 10*6 /uL 4.35-5.85 Venous blood hemoglobin measurement (mass/volume) 13.9 g/dL 11.5-16.0 Blood hematocrit (volume fraction) 39 % 35-52 Automated erythrocyte mean corpuscular volume 95 [foz_us] 80-99 Automated erythrocyte mean corpuscular hemoglobin (mass per erythrocyte) 34 pg 25-34 Automated erythrocyte mean corpuscular hemoglobin concentration measurement ( mass/volume) 36 g/dL 32-36 Automated erythrocyte distribution width ratio 13.0 % 10.0-14.5 Automated blood platelet count (count/volume) 158 10*3/uL 130-400 Automated blood platelet mean volume measurement 9.9 [foz_us ] 7.4-10.4 Automated blood neutrophils/100 leukocytes 51 % 42-75 Automated blood lymphocytes/100 leukocytes 34 % 12-44 Blood monocytes/100 leukocytes 10 % 0-12 Automated blood eosinophils/100 leukocytes 5 % 0-10 Automated blood basophils/100 leukocytes 1 % 0-10 Blood neutrophils automated count (number/volume) 2.8 10*3 1.8-7.8 Blood lymphocytes automated count (number/volume) 1.9 10*3 1.0-4.0 Blood monocytes automated count (number/volume) 0.5 10*3 0.0-1.0 Automated eosinophil count 0.3 10*3/uL 0.0-0.3 Automated blood basophil count (count/volume) 0.0 10*3/uL 0.0-0.1 PT panel in platelet poor plasma by coagulation assay - 05/21/16 02:00 Prothrombin time (PT) in platelet poor plasma by coagulation assay 12.8 s 12.2-14.7 INR in platelet poor plasma or blood by coagulation assay 1.0 0.8-1.4 Activated partial thromboplastin time (aPTT) in platelet poor plasma bycoagulation assay - 05/21/16 02:00 Activated partial thromboplastin time (aPTT) in platelet poor plasma bycoagulation assay 25 s 24-35 Comprehensive metabolic panel - 05/21/16 02:00 Serum or plasma sodium measurement (moles/volume) 140 mmol/ L 135-145 Serum or plasma potassium measurement (moles/volume) 3.4 mmol/L 3.6-5.0 Serum or plasma chloride measurement (moles/volume) 109 mmol /L 98-107 Carbon dioxide 15 mmol/L 21-32 Serum or plasma anion gap determination (moles/volume) 16 mmol/L 5-14 Serum or plasma urea nitrogen measurement (mass/volume) 7 mg /dL 7-18 Serum or plasma creatinine measurement (mass/volume) 0.65 mg /dL 0.60-1.30 Serum or plasma urea nitrogen/creatinine mass ratio 11 NRG Serum or plasma creatinine measurement with calculation of estimated glomerular filtration rate > NRG Serum or plasma glucose measurement (mass/volume) 80 mg/dL 70-105 Serum or plasma calcium measurement (mass/volume) 9.2 mg/dL 8.5-10.1 Serum or plasma total bilirubin measurement (mass/volume) 0.7 mg/dL 0.1-1.0 Serum or plasma alkaline phosphatase measurement (enzymatic activity/volume) 114 U/L 40-136 Serum or plasma aspartate aminotransferase measurement (enzymatic activity/ volume) 35 U/L 5-34 Serum or plasma alanine aminotransferase measurement (enzymatic activity/volume ) 17 U/L 0-55 Serum or plasma protein measurement (mass/volume) 6.1 g/dL 6.4-8.2 Serum or plasma albumin measurement (mass/volume) 3.6 g/dL 3.2-4.5 Magnesium - 05/21/16 02:00 Magnesium 1.4 mg/dL 1.8-2.4 Serum or plasma creatine kinase measurement (enzymatic activity/volume) - 05/21 02:00 Serum or plasma creatine kinase measurement (enzymatic activity/volume) 46 U/L 29-168 Serum or plasma lithium measurement (moles/volume) - 05/21/16 02:00 BNP level 146.2 pg/mL <100.0 Serum or plasma creatine kinase MB measurement (enzymatic activity/volume) - 02:00 Serum or plasma creatine kinase MB measurement (enzymatic activity/volume) 1.7 ng/mL <6.6 Serum or plasma troponin i.cardiac measurement (mass/volume) - 05/21/16 02:00 Serum or plasma troponin i.cardiac measurement (mass/volume) < ng/mL <0.30 Serum or plasma thyrotropin measurement by detection limit <=0.05 miu/l (units/ volume) - 05/21/16 02:00 Serum or plasma thyrotropin measurement by detection limit <=0.05 miu/l (units/ volume) 2.51 u[iU]/mL 0.35-4.94 Whole blood basic metabolic panel - 06/25/16 14:56 Serum or plasma sodium measurement (moles/volume) 133 mmol/ L 135-145 Serum or plasma potassium measurement (moles/volume) 3.7 mmol/L 3.6-5.0 Serum or plasma chloride measurement (moles/volume) 100 mmol /L 98-107 Carbon dioxide 19 mmol/L 21-32 Serum or plasma anion gap determination (moles/volume) 14 mmol/L 5-14 Serum or plasma urea nitrogen measurement (mass/volume) 8 mg /dL 7-18 Serum or plasma creatinine measurement (mass/volume) 0.78 mg /dL 0.60-1.30 Serum or plasma urea nitrogen/creatinine mass ratio 10 NRG Serum or plasma creatinine measurement with calculation of estimated glomerular filtration rate > NRG Serum or plasma glucose measurement (mass/volume) 108 mg/dL 70-105 Serum or plasma calcium measurement (mass/volume) 9.7 mg/dL 8.5-10.1 Magnesium - 06/25/16 14:56 Magnesium 1.5 mg/dL 1.8-2.4 Occult blood panel - gastric fluid - 07/21/16 10:55 Gastric fluid gastrointestinal hemoglobin detection POSITIVE NEGATIVE Complete blood count (CBC) with automated white blood cell (WBC) differential - 07/21/16 11:21 Blood leukocytes automated count (number/volume) 13.8 10*3/ uL 4.3-11.0 Blood erythrocytes automated count (number/volume) 4.29 10*6 /uL 4.35-5.85 Venous blood hemoglobin measurement (mass/volume) 14.6 g/dL 11.5-16.0 Blood hematocrit (volume fraction) 42 % 35-52 Automated erythrocyte mean corpuscular volume 99 [foz_us] 80-99 Automated erythrocyte mean corpuscular hemoglobin (mass per erythrocyte) 34 pg 25-34 Automated erythrocyte mean corpuscular hemoglobin concentration measurement ( mass/volume) 35 g/dL 32-36 Automated erythrocyte distribution width ratio 12.5 % 10.0-14.5 Automated blood platelet count (count/volume) 169 10*3/uL 130-400 Automated blood platelet mean volume measurement 10.5 [foz_ us] 7.4-10.4 Automated blood neutrophils/100 leukocytes 86 % 42-75 Automated blood lymphocytes/100 leukocytes 8 % 12-44 Blood monocytes/100 leukocytes 6 % 0-12 Automated blood eosinophils/100 leukocytes 0 % 0-10 Automated blood basophils/100 leukocytes 0 % 0-10 Blood neutrophils automated count (number/volume) 12.0 10*3 1.8-7.8 Blood lymphocytes automated count (number/volume) 1.0 10*3 1.0-4.0 Blood monocytes automated count (number/volume) 0.8 10*3 0.0-1.0 Automated eosinophil count 0.0 10*3/uL 0.0-0.3 Automated blood basophil count (count/volume) 0.0 10*3/uL 0.0-0.1 Comprehensive metabolic panel - 07/21/16 11:21 Serum or plasma sodium measurement (moles/volume) 143 mmol/ L 135-145 Serum or plasma potassium measurement (moles/volume) 4.1 mmol/L 3.6-5.0 Serum or plasma chloride measurement (moles/volume) 109 mmol /L 98-107 Carbon dioxide 7 mmol/L 21-32 Serum or plasma anion gap determination (moles/volume) 27 mmol/L 5-14 Serum or plasma urea nitrogen measurement (mass/volume) 14 mg/dL 7-18 Serum or plasma creatinine measurement (mass/volume) 0.72 mg /dL 0.60-1.30 Serum or plasma urea nitrogen/creatinine mass ratio 19 NRG Serum or plasma creatinine measurement with calculation of estimated glomerular filtration rate > NRG Serum or plasma glucose measurement (mass/volume) 102 mg/dL 70-105 Serum or plasma calcium measurement (mass/volume) 9.4 mg/dL 8.5-10.1 Serum or plasma total bilirubin measurement (mass/volume) 0.6 mg/dL 0.1-1.0 Serum or plasma alkaline phosphatase measurement (enzymatic activity/volume) 118 U/L 40-136 Serum or plasma aspartate aminotransferase measurement (enzymatic activity/ volume) 69 U/L 5-34 Serum or plasma alanine aminotransferase measurement (enzymatic activity/volume ) 39 U/L 0-55 Serum or plasma protein measurement (mass/volume) 6.8 g/dL 6.4-8.2 Serum or plasma albumin measurement (mass/volume) 4.1 g/dL 3.2-4.5 Lipase - 07/21/16 11:21 Lipase 11 U/L 8-78 Serum or plasma ethanol measurement (mass/volume) - 07/21/16 11:21 Serum or plasma ethanol measurement (mass/volume) 17 mg/dL <10 Complete urinalysis with reflex to culture - 07/21/16 11:57 Urine color determination YELLOW NRG Urine clarity determination CLEAR NRG Urine pH measurement by test strip 5 5- 9 Specific gravity of urine by test strip 1.030 1.016-1.022 Urine protein assay by test strip, semi-quantitative 1+ NEGATIVE Urine glucose detection by automated test strip NEGATIVE NEGATIVE Erythrocytes detection in urine sediment by light microscopy NEGATIVE NEGATIVE Urine ketones detection by automated test strip 4+ NEGATIVE Urine nitrite detection by test strip NEGATIVE NEGATIVE Urine total bilirubin detection by test strip NEGATIVE NEGATIVE Urine urobilinogen measurement by automated test strip (mass/volume) NORMAL NORMAL Urine leukocyte esterase detection by dipstick NEGATIVE NEGATIVE Automated urine sediment erythrocyte count by microscopy (number/high power field) NONE NRG Automated urine sediment leukocyte count by microscopy (number/high power field ) NONE NRG Bacteria detection in urine sediment by light microscopy NEGATIVE NRG Squamous epithelial cells detection in urine sediment by light microscopy RARE NRG Crystals detection in urine sediment by light microscopy NONE NRG Casts detection in urine sediment by light microscopy NONE NRG Mucus detection in urine sediment by light microscopy NEGATIVE NRG Complete urinalysis with reflex to culture NO NRG Urine drug screening test - 07/21/16 11:57 Urine phencyclidine detection by screening method NEGATIVE NEGATIVE Urine benzodiazepines detection by screening method POSITIVE NEGATIVE Urine cocaine detection NEGATIVE NEGATIVE Urine amphetamines detection by screening method NEGATIVE NEGATIVE Urine methamphetamine detection by screening method NEGATIVE NEGATIVE Urine cannabinoids detection by screening method NEGATIVE NEGATIVE Urine opiates detection by screening method NEGATIVE NEGATIVE Urine barbiturates detection NEGATIVE NEGATIVE Screening urine tricyclic antidepressants detection NEGATIVE NEGATIVE Urine methadone detection by screening method NEGATIVE NEGATIVE Urine oxycodone detection NEGATIVE NEGATIVE Urine propoxyphene detection NEGATIVE NEGATIVE Urine buprenophrine screen NEGATIVE NEGATIVE [id number] - 07/21/16 12:20 [id number] SPECIMEN AVAILABLE NRG PT panel in platelet poor plasma by coagulation assay - 07/21/16 12:29 Prothrombin time (PT) in platelet poor plasma by coagulation assay 12.4 s 12.2-14.7 INR in platelet poor plasma or blood by coagulation assay 1.0 0.8-1.4 Activated partial thromboplastin time (aPTT) in platelet poor plasma bycoagulation assay - 07/21/16 12:29 Activated partial thromboplastin time (aPTT) in platelet poor plasma bycoagulation assay 24 s 24-35 Arterial blood gas measurement - 07/21/16 15:00 Blood pCO2 24 mm[Hg] 35-45 Blood pO2 82 mm[Hg] 79-93 Arterial blood bicarbonate measurement (moles/volume) 12 mmol/L 23-27 Arterial blood base excess by calculation -13.4 mmol/L -2.5-2.5 Arterial blood oxygen saturation measurement 96 % 94-100 * Inhaled oxygen flow rate 21 % NRG Arterial blood pH measurement with patient temperature correction 7.29 7.37-7.43 Arterial blood carbon dioxide, total measurement (moles/volume) 12.4 mmol/L 21.0-31.0 Body site L RAD NRG Assessment of wrist artery patency prior to arterial puncture YES-POS NRG Setting of ventilation mode NO NRG Measurement of body temperature 96.8 NRG Serum or plasma renal function panel (Na, K, Cl, CO2, BUN, Cr, glucose,Ca, phos , alb) - 07/21/16 15:05 Serum or plasma sodium measurement (moles/volume) 140 mmol/ L 135-145 Serum or plasma potassium measurement (moles/volume) 4.4 mmol/L 3.6-5.0 Serum or plasma chloride measurement (moles/volume) 110 mmol /L 98-107 Carbon dioxide 8 mmol/L 21-32 Serum or plasma anion gap determination (moles/volume) 22 mmol/L 5-14 Serum or plasma urea nitrogen measurement (mass/volume) 13 mg/dL 7-18 Serum or plasma creatinine measurement (mass/volume) 0.70 mg /dL 0.60-1.30 Serum or plasma urea nitrogen/creatinine mass ratio 19 NRG Serum or plasma creatinine measurement with calculation of estimated glomerular filtration rate > NRG Serum or plasma glucose measurement (mass/volume) 151 mg/dL 70-105 Serum or plasma calcium measurement (mass/volume) 8.6 mg/dL 8.5-10.1 Serum or plasma albumin measurement (mass/volume) 4.0 g/dL 3.2-4.5 Serum or plasma phosphate measurement (mass/volume) 3.6 mg/ dL 2.3-4.7 Magnesium - 07/21/16 15:05 Magnesium 1.8 mg/dL 1.8-2.4 Capillary blood glucose measurement by glucometer (mass/volume) - 07/21/16 16: 52 Capillary blood glucose measurement by glucometer (mass/volume) 214 mg/dL 70-110 Serum or plasma renal function panel (Na, K, Cl, CO2, BUN, Cr, glucose,Ca, phos , alb) - 07/21/16 20:30 Serum or plasma sodium measurement (moles/volume) 135 mmol/ L 135-145 Serum or plasma potassium measurement (moles/volume) 4.0 mmol/L 3.6-5.0 Serum or plasma chloride measurement (moles/volume) 110 mmol /L 98-107 Carbon dioxide 14 mmol/L 21-32 Serum or plasma anion gap determination (moles/volume) 11 mmol/L 5-14 Serum or plasma urea nitrogen measurement (mass/volume) 15 mg/dL 7-18 Serum or plasma creatinine measurement (mass/volume) 0.71 mg /dL 0.60-1.30 Serum or plasma urea nitrogen/creatinine mass ratio 21 NRG Serum or plasma creatinine measurement with calculation of estimated glomerular filtration rate > NRG Serum or plasma glucose measurement (mass/volume) 230 mg/dL 70-105 Serum or plasma calcium measurement (mass/volume) 8.0 mg/dL 8.5-10.1 Serum or plasma albumin measurement (mass/volume) 3.2 g/dL 3.2-4.5 Serum or plasma phosphate measurement (mass/volume) 2.0 mg/ dL 2.3-4.7 Complete blood count (CBC) with automated white blood cell (WBC) differential - 07/22/16 04:30 Blood leukocytes automated count (number/volume) 9.6 10*3/ uL 4.3-11.0 Blood erythrocytes automated count (number/volume) 3.41 10*6 /uL 4.35-5.85 Venous blood hemoglobin measurement (mass/volume) 11.6 g/dL 11.5-16.0 Blood hematocrit (volume fraction) 33 % 35-52 Automated erythrocyte mean corpuscular volume 98 [foz_us] 80-99 Automated erythrocyte mean corpuscular hemoglobin (mass per erythrocyte) 34 pg 25-34 Automated erythrocyte mean corpuscular hemoglobin concentration measurement ( mass/volume) 35 g/dL 32-36 Automated erythrocyte distribution width ratio 12.4 % 10.0-14.5 Automated blood platelet count (count/volume) 179 10*3/uL 130-400 Automated blood platelet mean volume measurement 10.6 [foz_ us] 7.4-10.4 Automated blood neutrophils/100 leukocytes 74 % 42-75 Automated blood lymphocytes/100 leukocytes 13 % 12-44 Blood monocytes/100 leukocytes 13 % 0-12 Automated blood eosinophils/100 leukocytes 0 % 0-10 Automated blood basophils/100 leukocytes 0 % 0-10 Blood neutrophils automated count (number/volume) 7.1 10*3 1.8-7.8 Blood lymphocytes automated count (number/volume) 1.3 10*3 1.0-4.0 Blood monocytes automated count (number/volume) 1.2 10*3 0.0-1.0 Automated eosinophil count 0.0 10*3/uL 0.0-0.3 Automated blood basophil count (count/volume) 0.0 10*3/uL 0.0-0.1 Comprehensive metabolic panel - 07/22/16 04:30 Serum or plasma sodium measurement (moles/volume) 137 mmol/ L 135-145 Serum or plasma potassium measurement (moles/volume) 4.5 mmol/L 3.6-5.0 Serum or plasma chloride measurement (moles/volume) 112 mmol /L 98-107 Carbon dioxide 16 mmol/L 21-32 Serum or plasma anion gap determination (moles/volume) 9 mmol/L 5-14 Serum or plasma urea nitrogen measurement (mass/volume) 14 mg/dL 7-18 Serum or plasma creatinine measurement (mass/volume) 0.65 mg /dL 0.60-1.30 Serum or plasma urea nitrogen/creatinine mass ratio 22 NRG Serum or plasma creatinine measurement with calculation of estimated glomerular filtration rate > NRG Serum or plasma glucose measurement (mass/volume) 126 mg/dL 70-105 Serum or plasma calcium measurement (mass/volume) 8.1 mg/dL 8.5-10.1 Serum or plasma total bilirubin measurement (mass/volume) 0.8 mg/dL 0.1-1.0 Serum or plasma alkaline phosphatase measurement (enzymatic activity/volume) 85 U/L 40-136 Serum or plasma aspartate aminotransferase measurement (enzymatic activity/ volume) 35 U/L 5-34 Serum or plasma alanine aminotransferase measurement (enzymatic activity/volume ) 28 U/L 0-55 Serum or plasma protein measurement (mass/volume) 5.2 g/dL 6.4-8.2 Serum or plasma albumin measurement (mass/volume) 3.3 g/dL 3.2-4.5 Capillary blood glucose measurement by glucometer (mass/volume) - 07/22/16 11: 19 Capillary blood glucose measurement by glucometer (mass/volume) 161 mg/dL 70-110 Capillary blood glucose measurement by glucometer (mass/volume) - 07/22/16 16: 00 Capillary blood glucose measurement by glucometer (mass/volume) 157 mg/dL 70-110 Capillary blood glucose measurement by glucometer (mass/volume) - 07/22/16 20: 31 Capillary blood glucose measurement by glucometer (mass/volume) 128 mg/dL 70-110 Complete blood count (CBC) with automated white blood cell (WBC) differential - 07/23/16 06:13 Blood leukocytes automated count (number/volume) 7.1 10*3/ uL 4.3-11.0 Blood erythrocytes automated count (number/volume) 3.38 10*6 /uL 4.35-5.85 Venous blood hemoglobin measurement (mass/volume) 11.4 g/dL 11.5-16.0 Blood hematocrit (volume fraction) 33 % 35-52 Automated erythrocyte mean corpuscular volume 99 [foz_us] 80-99 Automated erythrocyte mean corpuscular hemoglobin (mass per erythrocyte) 34 pg 25-34 Automated erythrocyte mean corpuscular hemoglobin concentration measurement ( mass/volume) 34 g/dL 32-36 Automated erythrocyte distribution width ratio 12.4 % 10.0-14.5 Automated blood platelet count (count/volume) 169 10*3/uL 130-400 Automated blood platelet mean volume measurement 10.4 [foz_ us] 7.4-10.4 Automated blood neutrophils/100 leukocytes 73 % 42-75 Automated blood lymphocytes/100 leukocytes 16 % 12-44 Blood monocytes/100 leukocytes 11 % 0-12 Automated blood eosinophils/100 leukocytes 1 % 0-10 Automated blood basophils/100 leukocytes 0 % 0-10 Blood neutrophils automated count (number/volume) 5.2 10*3 1.8-7.8 Blood lymphocytes automated count (number/volume) 1.1 10*3 1.0-4.0 Blood monocytes automated count (number/volume) 0.8 10*3 0.0-1.0 Automated eosinophil count 0.0 10*3/uL 0.0-0.3 Automated blood basophil count (count/volume) 0.0 10*3/uL 0.0-0.1 Comprehensive metabolic panel - 07/23/16 06:13 Serum or plasma sodium measurement (moles/volume) 137 mmol/ L 135-145 Serum or plasma potassium measurement (moles/volume) 3.8 mmol/L 3.6-5.0 Serum or plasma chloride measurement (moles/volume) 110 mmol /L 98-107 Carbon dioxide 17 mmol/L 21-32 Serum or plasma anion gap determination (moles/volume) 10 mmol/L 5-14 Serum or plasma urea nitrogen measurement (mass/volume) 5 mg /dL 7-18 Serum or plasma creatinine measurement (mass/volume) 0.52 mg /dL 0.60-1.30 Serum or plasma urea nitrogen/creatinine mass ratio 10 NRG Serum or plasma creatinine measurement with calculation of estimated glomerular filtration rate > NRG Serum or plasma glucose measurement (mass/volume) 109 mg/dL 70-105 Serum or plasma calcium measurement (mass/volume) 8.2 mg/dL 8.5-10.1 Serum or plasma total bilirubin measurement (mass/volume) 1.0 mg/dL 0.1-1.0 Serum or plasma alkaline phosphatase measurement (enzymatic activity/volume) 83 U/L 40-136 Serum or plasma aspartate aminotransferase measurement (enzymatic activity/ volume) 28 U/L 5-34 Serum or plasma alanine aminotransferase measurement (enzymatic activity/volume ) 23 U/L 0-55 Serum or plasma protein measurement (mass/volume) 5.2 g/dL 6.4-8.2 Serum or plasma albumin measurement (mass/volume) 3.2 g/dL 3.2-4.5 Capillary blood glucose measurement by glucometer (mass/volume) - 07/23/16 06: 15 Capillary blood glucose measurement by glucometer (mass/volume) 114 mg/dL 70-110 Capillary blood glucose measurement by glucometer (mass/volume) - 07/23/16 11: 03 Capillary blood glucose measurement by glucometer (mass/volume) 171 mg/dL 70-110 Capillary blood glucose measurement by glucometer (mass/volume) - 07/23/16 15: 59 Capillary blood glucose measurement by glucometer (mass/volume) 135 mg/dL 70-110 Capillary blood glucose measurement by glucometer (mass/volume) - 07/23/16 20: 40 Capillary blood glucose measurement by glucometer (mass/volume) 114 mg/dL 70-110 Capillary blood glucose measurement by glucometer (mass/volume) - 07/24/16 05: 25 Capillary blood glucose measurement by glucometer (mass/volume) 118 mg/dL 70-110 Capillary blood glucose measurement by glucometer (mass/volume) - 07/24/16 11: 11 Capillary blood glucose measurement by glucometer (mass/volume) 131 mg/dL 70-110 Capillary blood glucose measurement by glucometer (mass/volume) - 07/24/16 15: 48 Capillary blood glucose measurement by glucometer (mass/volume) 118 mg/dL 70-110 Capillary blood glucose measurement by glucometer (mass/volume) - 07/24/16 20: 33 Capillary blood glucose measurement by glucometer (mass/volume) 115 mg/dL 70-110 Capillary blood glucose measurement by glucometer (mass/volume) - 07/25/16 05: 44 Capillary blood glucose measurement by glucometer (mass/volume) 115 mg/dL 70-110 Capillary blood glucose measurement by glucometer (mass/volume) - 07/25/16 10: 59 Capillary blood glucose measurement by glucometer (mass/volume) 121 mg/dL 70-110 Capillary blood glucose measurement by glucometer (mass/volume) - 07/25/16 15: 32 Capillary blood glucose measurement by glucometer (mass/volume) 118 mg/dL 70-110 Capillary blood glucose measurement by glucometer (mass/volume) - 07/25/16 20: 11 Capillary blood glucose measurement by glucometer (mass/volume) 131 mg/dL 70-110 Capillary blood glucose measurement by glucometer (mass/volume) - 07/26/16 06: 27 Capillary blood glucose measurement by glucometer (mass/volume) 115 mg/dL 70-110 Capillary blood glucose measurement by glucometer (mass/volume) - 07/26/16 11: 00 Capillary blood glucose measurement by glucometer (mass/volume) 160 mg/dL 70-110 Complete blood count (CBC) with automated white blood cell (WBC) differential - 01/16/17 01:00 Blood leukocytes automated count (number/volume) 6.0 10*3/ uL 4.3-11.0 Blood erythrocytes automated count (number/volume) 4.11 10*6 /uL 4.35-5.85 Venous blood hemoglobin measurement (mass/volume) 14.1 g/dL 11.5-16.0 Blood hematocrit (volume fraction) 40 % 35-52 Automated erythrocyte mean corpuscular volume 99 [foz_us] 80-99 Automated erythrocyte mean corpuscular hemoglobin (mass per erythrocyte) 34 pg 25-34 Automated erythrocyte mean corpuscular hemoglobin concentration measurement ( mass/volume) 35 g/dL 32-36 Automated erythrocyte distribution width ratio 13.2 % 10.0-14.5 Automated blood platelet count (count/volume) 92 10*3/uL 130-400 Automated blood platelet mean volume measurement 8.9 [foz_us ] 7.4-10.4 Automated blood neutrophils/100 leukocytes 72 % 42-75 Automated blood lymphocytes/100 leukocytes 19 % 12-44 Blood monocytes/100 leukocytes 8 % 0-12 Automated blood eosinophils/100 leukocytes 1 % 0-10 Automated blood basophils/100 leukocytes 0 % 0-10 Blood neutrophils automated count (number/volume) 4.3 10*3 1.8-7.8 Blood lymphocytes automated count (number/volume) 1.1 10*3 1.0-4.0 Blood monocytes automated count (number/volume) 0.4 10*3 0.0-1.0 Automated eosinophil count 0.0 10*3/uL 0.0-0.3 Automated blood basophil count (count/volume) 0.0 10*3/uL 0.0-0.1 PT panel in platelet poor plasma by coagulation assay - 01/16/17 01:00 Prothrombin time (PT) in platelet poor plasma by coagulation assay 12.1 s 12.2-14.7 INR in platelet poor plasma or blood by coagulation assay 0.9 0.8-1.4 Activated partial thromboplastin time (aPTT) in platelet poor plasma bycoagulation assay - 01/16/17 01:00 Activated partial thromboplastin time (aPTT) in platelet poor plasma bycoagulation assay 20 s 24-35 Comprehensive metabolic panel - 01/16/17 01:00 Serum or plasma sodium measurement (moles/volume) 142 mmol/ L 135-145 Serum or plasma potassium measurement (moles/volume) 3.3 mmol/L 3.6-5.0 Serum or plasma chloride measurement (moles/volume) 105 mmol /L 98-107 Carbon dioxide 22 mmol/L 21-32 Serum or plasma anion gap determination (moles/volume) 15 mmol/L 5-14 Serum or plasma urea nitrogen measurement (mass/volume) 8 mg /dL 7-18 Serum or plasma creatinine measurement (mass/volume) 0.64 mg /dL 0.60-1.30 Serum or plasma urea nitrogen/creatinine mass ratio 13 NRG Serum or plasma creatinine measurement with calculation of estimated glomerular filtration rate > NRG Serum or plasma glucose measurement (mass/volume) 96 mg/dL 70-105 Serum or plasma calcium measurement (mass/volume) 8.8 mg/dL 8.5-10.1 Serum or plasma total bilirubin measurement (mass/volume) 0.6 mg/dL 0.1-1.0 Serum or plasma alkaline phosphatase measurement (enzymatic activity/volume) 162 U/L 40-136 Serum or plasma aspartate aminotransferase measurement (enzymatic activity/ volume) 21 U/L 5-34 Serum or plasma alanine aminotransferase measurement (enzymatic activity/volume ) 11 U/L 0-55 Serum or plasma protein measurement (mass/volume) 6.3 g/dL 6.4-8.2 Serum or plasma albumin measurement (mass/volume) 3.3 g/dL 3.2-4.5 Magnesium - 01/16/17 01:00 Magnesium 1.4 mg/dL 1.8-2.4 Serum or plasma troponin i.cardiac measurement (mass/volume) - 01/16/17 01:00 Serum or plasma troponin i.cardiac measurement (mass/volume) < ng/mL <0.30 Serum or plasma thyrotropin measurement by detection limit <=0.05 miu/l (units/ volume) - 01/16/17 01:00 Serum or plasma thyrotropin measurement by detection limit <=0.05 miu/l (units/ volume) 0.54 u[iU]/mL 0.35-4.94 Serum or plasma ethanol measurement (mass/volume) - 01/16/17 01:00 Serum or plasma ethanol measurement (mass/volume) 164 mg/dL <10 Complete urinalysis with reflex to culture - 01/16/17 01:55 Urine color determination YELLOW NRG Urine clarity determination CLEAR NRG Urine pH measurement by test strip 6 5- 9 Specific gravity of urine by test strip 1.010 1.016-1.022 Urine protein assay by test strip, semi-quantitative NEGATIVE NEGATIVE Urine glucose detection by automated test strip NEGATIVE NEGATIVE Erythrocytes detection in urine sediment by light microscopy 1+ NEGATIVE Urine ketones detection by automated test strip NEGATIVE NEGATIVE Urine nitrite detection by test strip POSITIVE NEGATIVE Urine total bilirubin detection by test strip NEGATIVE NEGATIVE Urine urobilinogen measurement by automated test strip (mass/volume) NORMAL NORMAL Urine leukocyte esterase detection by dipstick 3+ NEGATIVE Automated urine sediment erythrocyte count by microscopy (number/high power field) [HPF] NRG Automated urine sediment leukocyte count by microscopy (number/high power field ) [HPF] NRG Bacteria detection in urine sediment by light microscopy LARGE NRG Crystals detection in urine sediment by light microscopy NONE NRG Casts detection in urine sediment by light microscopy NONE NRG Mucus detection in urine sediment by light microscopy NEGATIVE NRG Complete urinalysis with reflex to culture YES NRG Urine drug screening test - 01/16/17 01:55 Urine phencyclidine detection by screening method NEGATIVE NEGATIVE Urine benzodiazepines detection by screening method POSITIVE NEGATIVE Urine cocaine detection NEGATIVE NEGATIVE Urine amphetamines detection by screening method NEGATIVE NEGATIVE Urine methamphetamine detection by screening method NEGATIVE NEGATIVE Urine cannabinoids detection by screening method NEGATIVE NEGATIVE Urine opiates detection by screening method NEGATIVE NEGATIVE Urine barbiturates detection NEGATIVE NEGATIVE Screening urine tricyclic antidepressants detection NEGATIVE NEGATIVE Urine methadone detection by screening method NEGATIVE NEGATIVE Urine oxycodone detection NEGATIVE NEGATIVE Urine propoxyphene detection NEGATIVE NEGATIVE Bacterial urine culture - 01/16/17 01:55 Bacterial urine culture [id number] NRG COLONY COUNT >100,000/ML NRG FTX;REPORTABLE SENSITIVITY REPORTED AT 0915, 01-17-17 NR Bacterial susceptibility panel - 01/16/17 01:55 Gentamicin susceptibility test by minimum inhibitory concentration <= NRG Trimethoprim/sulfamethoxazole susceptibility test by minimum inhibitoryconcentration <= NRG Ampicillin susceptibility test by minimum inhibitory concentration >= NRG Tobramycin susceptibility test by minimum inhibitory concentration <= NRG Cefazolin susceptibility test by minimum inhibitory concentration 8 NRG Ceftriaxone susceptibility test by minimum inhibitory concentration <= NRG Ampicillin/sulbactam susceptibility test by minimum inhibitory concentration 16 NRG Piperacillin/tazobactam susceptibility test by minimum inhibitory concentration <= NRG Ciprofloxacin susceptibility test by minimum inhibitory concentration <= NRG Meropenem susceptibility test by minimum inhibitory concentration <= NRG Nitrofurantoin susceptibility test by minimum inhibitory concentration <= NRG Aztreonam susceptibility test by minimum inhibitory concentration <= NRG Extended spectrum beta lactamase (ESBL) producing bacteria susceptibility test by minimum inhibitory concentration - NRG Ammonia - 01/16/17 04:28 Ammonia 17 umol/L 11-32 Complete blood count (CBC) with automated white blood cell (WBC) differential - 01/16/17 06:10 Blood leukocytes automated count (number/volume) 7.4 10*3/ uL 4.3-11.0 Blood erythrocytes automated count (number/volume) 3.82 10*6 /uL 4.35-5.85 Venous blood hemoglobin measurement (mass/volume) 13.1 g/dL 11.5-16.0 Blood hematocrit (volume fraction) 37 % 35-52 Automated erythrocyte mean corpuscular volume 98 [foz_us] 80-99 Automated erythrocyte mean corpuscular hemoglobin (mass per erythrocyte) 34 pg 25-34 Automated erythrocyte mean corpuscular hemoglobin concentration measurement ( mass/volume) 35 g/dL 32-36 Automated erythrocyte distribution width ratio 13.3 % 10.0-14.5 Automated blood platelet count (count/volume) 194 10*3/uL 130-400 Automated blood platelet mean volume measurement 9.5 [foz_us ] 7.4-10.4 Automated blood neutrophils/100 leukocytes 69 % 42-75 Automated blood lymphocytes/100 leukocytes 20 % 12-44 Blood monocytes/100 leukocytes 10 % 0-12 Automated blood eosinophils/100 leukocytes 1 % 0-10 Automated blood basophils/100 leukocytes 0 % 0-10 Blood neutrophils automated count (number/volume) 5.1 10*3 1.8-7.8 Blood lymphocytes automated count (number/volume) 1.5 10*3 1.0-4.0 Blood monocytes automated count (number/volume) 0.7 10*3 0.0-1.0 Automated eosinophil count 0.1 10*3/uL 0.0-0.3 Automated blood basophil count (count/volume) 0.0 10*3/uL 0.0-0.1 Comprehensive metabolic panel - 01/16/17 06:10 Serum or plasma sodium measurement (moles/volume) 140 mmol/ L 135-145 Serum or plasma potassium measurement (moles/volume) 3.5 mmol/L 3.6-5.0 Serum or plasma chloride measurement (moles/volume) 108 mmol /L 98-107 Carbon dioxide 19 mmol/L 21-32 Serum or plasma anion gap determination (moles/volume) 13 mmol/L 5-14 Serum or plasma urea nitrogen measurement (mass/volume) 8 mg /dL 7-18 Serum or plasma creatinine measurement (mass/volume) 0.55 mg /dL 0.60-1.30 Serum or plasma urea nitrogen/creatinine mass ratio 15 NRG Serum or plasma creatinine measurement with calculation of estimated glomerular filtration rate > NRG Serum or plasma glucose measurement (mass/volume) 92 mg/dL 70-105 Serum or plasma calcium measurement (mass/volume) 8.3 mg/dL 8.5-10.1 Serum or plasma total bilirubin measurement (mass/volume) 0.5 mg/dL 0.1-1.0 Serum or plasma alkaline phosphatase measurement (enzymatic activity/volume) 140 U/L 40-136 Serum or plasma aspartate aminotransferase measurement (enzymatic activity/ volume) 19 U/L 5-34 Serum or plasma alanine aminotransferase measurement (enzymatic activity/volume ) 8 U/L 0-55 Serum or plasma protein measurement (mass/volume) 5.5 g/dL 6.4-8.2 Serum or plasma albumin measurement (mass/volume) 2.8 g/dL 3.2-4.5 Complete blood count (CBC) with automated white blood cell (WBC) differential - 01/17/17 23:10 Blood leukocytes automated count (number/volume) 7.6 10*3/ uL 4.3-11.0 Blood erythrocytes automated count (number/volume) 3.39 10*6 /uL 4.35-5.85 Venous blood hemoglobin measurement (mass/volume) 11.4 g/dL 11.5-16.0 Blood hematocrit (volume fraction) 34 % 35-52 Automated erythrocyte mean corpuscular volume 101 [foz_us] 80-99 Automated erythrocyte mean corpuscular hemoglobin (mass per erythrocyte) 34 pg 25-34 Automated erythrocyte mean corpuscular hemoglobin concentration measurement ( mass/volume) 33 g/dL 32-36 Automated erythrocyte distribution width ratio 13.4 % 10.0-14.5 Automated blood platelet count (count/volume) 200 10*3/uL 130-400 Automated blood platelet mean volume measurement 9.7 [foz_us ] 7.4-10.4 Automated blood neutrophils/100 leukocytes 68 % 42-75 Automated blood lymphocytes/100 leukocytes 19 % 12-44 Blood monocytes/100 leukocytes 12 % 0-12 Automated blood eosinophils/100 leukocytes 1 % 0-10 Automated blood basophils/100 leukocytes 0 % 0-10 Blood neutrophils automated count (number/volume) 5.2 10*3 1.8-7.8 Blood lymphocytes automated count (number/volume) 1.4 10*3 1.0-4.0 Blood monocytes automated count (number/volume) 0.9 10*3 0.0-1.0 Automated eosinophil count 0.1 10*3/uL 0.0-0.3 Automated blood basophil count (count/volume) 0.0 10*3/uL 0.0-0.1 Blood lactic acid measurement (moles/volume) - 01/17/17 23:10 Blood lactic acid measurement (moles/volume) 1.13 mmol/L 0.50-2.00 Whole blood basic metabolic panel - 01/17/17 23:10 Serum or plasma sodium measurement (moles/volume) 132 mmol/ L 135-145 Serum or plasma potassium measurement (moles/volume) 4.6 mmol/L 3.6-5.0 Serum or plasma chloride measurement (moles/volume) 106 mmol /L 98-107 Carbon dioxide 19 mmol/L 21-32 Serum or plasma anion gap determination (moles/volume) 7 mmol/L 5-14 Serum or plasma urea nitrogen measurement (mass/volume) 8 mg /dL 7-18 Serum or plasma creatinine measurement (mass/volume) 0.57 mg /dL 0.60-1.30 Serum or plasma urea nitrogen/creatinine mass ratio 14 NRG Serum or plasma creatinine measurement with calculation of estimated glomerular filtration rate > NRG Serum or plasma glucose measurement (mass/volume) 137 mg/dL 70-105 Serum or plasma calcium measurement (mass/volume) 8.4 mg/dL 8.5-10.1 Magnesium - 01/17/17 23:10 Magnesium 1.5 mg/dL 1.8-2.4 Serum or plasma troponin i.cardiac measurement (mass/volume) - 01/17/17 23:10 Serum or plasma troponin i.cardiac measurement (mass/volume) < ng/mL <0.30 Serum or plasma albumin measurement (mass/volume) - 01/17/17 23:10 Serum or plasma albumin measurement (mass/volume) 2.8 g/dL 3.2-4.5 Serum or plasma lithium measurement (moles/volume) - 01/17/17 23:10 BNP level 238.2 pg/mL <100.0 Automated blood complete blood count (hemogram) panel - 01/18/17 04:30 Blood leukocytes automated count (number/volume) 7.3 10*3/ uL 4.3-11.0 Blood erythrocytes automated count (number/volume) 3.53 10*6 /uL 4.35-5.85 Venous blood hemoglobin measurement (mass/volume) 12.0 g/dL 11.5-16.0 Blood hematocrit (volume fraction) 36 % 35-52 Automated erythrocyte mean corpuscular volume 101 [foz_us] 80-99 Automated erythrocyte mean corpuscular hemoglobin (mass per erythrocyte) 34 pg 25-34 Automated erythrocyte mean corpuscular hemoglobin concentration measurement ( mass/volume) 34 g/dL 32-36 Automated erythrocyte distribution width ratio 13.3 % 10.0-14.5 Automated blood platelet count (count/volume) 184 10*3/uL 130-400 Automated blood platelet mean volume measurement 9.7 [foz_us ] 7.4-10.4 Comprehensive metabolic panel - 01/18/17 04:30 Serum or plasma sodium measurement (moles/volume) 133 mmol/ L 135-145 Serum or plasma potassium measurement (moles/volume) 4.3 mmol/L 3.6-5.0 Serum or plasma chloride measurement (moles/volume) 105 mmol /L 98-107 Carbon dioxide 18 mmol/L 21-32 Serum or plasma anion gap determination (moles/volume) 10 mmol/L 5-14 Serum or plasma urea nitrogen measurement (mass/volume) 6 mg /dL 7-18 Serum or plasma creatinine measurement (mass/volume) 0.58 mg /dL 0.60-1.30 Serum or plasma urea nitrogen/creatinine mass ratio 10 NRG Serum or plasma creatinine measurement with calculation of estimated glomerular filtration rate > NRG Serum or plasma glucose measurement (mass/volume) 148 mg/dL 70-105 Serum or plasma calcium measurement (mass/volume) 8.3 mg/dL 8.5-10.1 Serum or plasma total bilirubin measurement (mass/volume) 0.7 mg/dL 0.1-1.0 Serum or plasma alkaline phosphatase measurement (enzymatic activity/volume) 129 U/L 40-136 Serum or plasma aspartate aminotransferase measurement (enzymatic activity/ volume) 21 U/L 5-34 Serum or plasma alanine aminotransferase measurement (enzymatic activity/volume ) 12 U/L 0-55 Serum or plasma protein measurement (mass/volume) 5.5 g/dL 6.4-8.2 Serum or plasma albumin measurement (mass/volume) 3.0 g/dL 3.2-4.5 Serum or plasma lithium measurement (moles/volume) - 01/18/17 04:30 BNP level 427.5 pg/mL <100.0 Magnesium - 01/18/17 04:30 Magnesium 2.2 mg/dL 1.8-2.4 Complete blood count (CBC) with automated white blood cell (WBC) differential - 01/19/17 03:30 Blood leukocytes automated count (number/volume) 7.1 10*3/ uL 4.3-11.0 Blood erythrocytes automated count (number/volume) 3.30 10*6 /uL 4.35-5.85 Venous blood hemoglobin measurement (mass/volume) 11.3 g/dL 11.5-16.0 Blood hematocrit (volume fraction) 33 % 35-52 Automated erythrocyte mean corpuscular volume 101 [foz_us] 80-99 Automated erythrocyte mean corpuscular hemoglobin (mass per erythrocyte) 34 pg 25-34 Automated erythrocyte mean corpuscular hemoglobin concentration measurement ( mass/volume) 34 g/dL 32-36 Automated erythrocyte distribution width ratio 13.2 % 10.0-14.5 Automated blood platelet count (count/volume) 182 10*3/uL 130-400 Automated blood platelet mean volume measurement 9.5 [foz_us ] 7.4-10.4 Automated blood neutrophils/100 leukocytes 67 % 42-75 Automated blood lymphocytes/100 leukocytes 19 % 12-44 Blood monocytes/100 leukocytes 13 % 0-12 Automated blood eosinophils/100 leukocytes 1 % 0-10 Automated blood basophils/100 leukocytes 0 % 0-10 Blood neutrophils automated count (number/volume) 4.7 10*3 1.8-7.8 Blood lymphocytes automated count (number/volume) 1.4 10*3 1.0-4.0 Blood monocytes automated count (number/volume) 0.9 10*3 0.0-1.0 Automated eosinophil count 0.1 10*3/uL 0.0-0.3 Automated blood basophil count (count/volume) 0.0 10*3/uL 0.0-0.1 Comprehensive metabolic panel - 01/19/17 03:30 Serum or plasma sodium measurement (moles/volume) 132 mmol/ L 135-145 Serum or plasma potassium measurement (moles/volume) 4.4 mmol/L 3.6-5.0 Serum or plasma chloride measurement (moles/volume) 104 mmol /L 98-107 Carbon dioxide 20 mmol/L 21-32 Serum or plasma anion gap determination (moles/volume) 8 mmol/L 5-14 Serum or plasma urea nitrogen measurement (mass/volume) 5 mg /dL 7-18 Serum or plasma creatinine measurement (mass/volume) 0.58 mg /dL 0.60-1.30 Serum or plasma urea nitrogen/creatinine mass ratio 9 NRG Serum or plasma creatinine measurement with calculation of estimated glomerular filtration rate > NRG Serum or plasma glucose measurement (mass/volume) 123 mg/dL 70-105 Serum or plasma calcium measurement (mass/volume) 8.3 mg/dL 8.5-10.1 Serum or plasma total bilirubin measurement (mass/volume) 0.6 mg/dL 0.1-1.0 Serum or plasma alkaline phosphatase measurement (enzymatic activity/volume) 112 U/L 40-136 Serum or plasma aspartate aminotransferase measurement (enzymatic activity/ volume) 20 U/L 5-34 Serum or plasma alanine aminotransferase measurement (enzymatic activity/volume ) 13 U/L 0-55 Serum or plasma protein measurement (mass/volume) 5.4 g/dL 6.4-8.2 Serum or plasma albumin measurement (mass/volume) 2.8 g/dL 3.2-4.5 Serum or plasma phosphate measurement (mass/volume) - 01/19/17 03:30 Serum or plasma phosphate measurement (mass/volume) 3.0 mg/ dL 2.3-4.7 Magnesium - 01/19/17 03:30 Magnesium 1.7 mg/dL 1.8-2.4 Complete blood count (CBC) with automated white blood cell (WBC) differential - 01/20/17 04:36 Blood leukocytes automated count (number/volume) 7.3 10*3/ uL 4.3-11.0 Blood erythrocytes automated count (number/volume) 3.56 10*6 /uL 4.35-5.85 Venous blood hemoglobin measurement (mass/volume) 12.0 g/dL 11.5-16.0 Blood hematocrit (volume fraction) 36 % 35-52 Automated erythrocyte mean corpuscular volume 101 [foz_us] 80-99 Automated erythrocyte mean corpuscular hemoglobin (mass per erythrocyte) 34 pg 25-34 Automated erythrocyte mean corpuscular hemoglobin concentration measurement ( mass/volume) 34 g/dL 32-36 Automated erythrocyte distribution width ratio 13.4 % 10.0-14.5 Automated blood platelet count (count/volume) 180 10*3/uL 130-400 Automated blood platelet mean volume measurement 10.2 [foz_ us] 7.4-10.4 Automated blood neutrophils/100 leukocytes 69 % 42-75 Automated blood lymphocytes/100 leukocytes 16 % 12-44 Blood monocytes/100 leukocytes 14 % 0-12 Automated blood eosinophils/100 leukocytes 1 % 0-10 Automated blood basophils/100 leukocytes 0 % 0-10 Blood neutrophils automated count (number/volume) 5.0 10*3 1.8-7.8 Blood lymphocytes automated count (number/volume) 1.2 10*3 1.0-4.0 Blood monocytes automated count (number/volume) 1.0 10*3 0.0-1.0 Automated eosinophil count 0.1 10*3/uL 0.0-0.3 Automated blood basophil count (count/volume) 0.0 10*3/uL 0.0-0.1 Comprehensive metabolic panel - 01/20/17 04:36 Serum or plasma sodium measurement (moles/volume) 132 mmol/ L 135-145 Serum or plasma potassium measurement (moles/volume) 4.1 mmol/L 3.6-5.0 Serum or plasma chloride measurement (moles/volume) 103 mmol /L 98-107 Carbon dioxide 18 mmol/L 21-32 Serum or plasma anion gap determination (moles/volume) 11 mmol/L 5-14 Serum or plasma urea nitrogen measurement (mass/volume) 4 mg /dL 7-18 Serum or plasma creatinine measurement (mass/volume) 0.61 mg /dL 0.60-1.30 Serum or plasma urea nitrogen/creatinine mass ratio 7 NRG Serum or plasma creatinine measurement with calculation of estimated glomerular filtration rate > NRG Serum or plasma glucose measurement (mass/volume) 121 mg/dL 70-105 Serum or plasma calcium measurement (mass/volume) 8.5 mg/dL 8.5-10.1 Serum or plasma total bilirubin measurement (mass/volume) 0.5 mg/dL 0.1-1.0 Serum or plasma alkaline phosphatase measurement (enzymatic activity/volume) 114 U/L 40-136 Serum or plasma aspartate aminotransferase measurement (enzymatic activity/ volume) 23 U/L 5-34 Serum or plasma alanine aminotransferase measurement (enzymatic activity/volume ) 15 U/L 0-55 Serum or plasma protein measurement (mass/volume) 5.7 g/dL 6.4-8.2 Serum or plasma albumin measurement (mass/volume) 3.0 g/dL 3.2-4.5 Magnesium - 01/20/17 04:36 Magnesium 1.9 mg/dL 1.8-2.4 Lipid 1996 panel - 01/20/17 04:36 Serum or plasma triglyceride measurement (mass/volume) 80 mg /dL <150 Serum or plasma cholesterol measurement (mass/volume) 160 mg /dL < 200 Serum or plasma cholesterol in HDL measurement (mass/volume) 50 mg/dL 40-60 Cholesterol in LDL [mass/volume] in serum or plasma by direct assay 99 mg/dL 1-129 Serum or plasma cholesterol in VLDL measurement (mass/volume) 16 mg/dL 5-40 Complete blood count (CBC) with automated white blood cell (WBC) differential - 01/21/17 05:50 Blood leukocytes automated count (number/volume) 8.9 10*3/ uL 4.3-11.0 Blood erythrocytes automated count (number/volume) 3.47 10*6 /uL 4.35-5.85 Venous blood hemoglobin measurement (mass/volume) 11.9 g/dL 11.5-16.0 Blood hematocrit (volume fraction) 35 % 35-52 Automated erythrocyte mean corpuscular volume 100 [foz_us] 80-99 Automated erythrocyte mean corpuscular hemoglobin (mass per erythrocyte) 34 pg 25-34 Automated erythrocyte mean corpuscular hemoglobin concentration measurement ( mass/volume) 34 g/dL 32-36 Automated erythrocyte distribution width ratio 13.4 % 10.0-14.5 Automated blood platelet count (count/volume) 232 10*3/uL 130-400 Automated blood platelet mean volume measurement 9.5 [foz_us ] 7.4-10.4 Automated blood neutrophils/100 leukocytes 73 % 42-75 Automated blood lymphocytes/100 leukocytes 13 % 12-44 Blood monocytes/100 leukocytes 13 % 0-12 Automated blood eosinophils/100 leukocytes 1 % 0-10 Automated blood basophils/100 leukocytes 0 % 0-10 Blood neutrophils automated count (number/volume) 6.5 10*3 1.8-7.8 Blood lymphocytes automated count (number/volume) 1.2 10*3 1.0-4.0 Blood monocytes automated count (number/volume) 1.1 10*3 0.0-1.0 Automated eosinophil count 0.1 10*3/uL 0.0-0.3 Automated blood basophil count (count/volume) 0.0 10*3/uL 0.0-0.1 Encounters ACCT No. Visit Date/Time Discharge Status Pt. Type Provider Facility Loc./Unit Complaint [id number] 01/16/2017 12:41:00 2016 12:30:00 DIS Inpatient LUKE SALAZAR DO S [facility] 4TH AMS;ALCOHOL INTOXICATION/ ALCOHOLISM;ATRIAL FIB; [id number] 12/13/2016 10:20:00 2016 11:37:00 DIS Outpatient MANUELA RIVERA MD [facility] CARD DISC DISORDER [id number] 11/13/2016 10:02:00 2016 11:53:00 DIS Emergency ALEM HOLLY MD [facility] ER FALL/BACK PAIN [id number] 07/21/2016 12:18:00 2015 12:15:00 DIS Inpatient LUKE SALAZAR DO S [facility] 4TH HEMATEMESIS,N/V,ALCOHOL WITHDRAWL,METABOLIC ACIDOS [id number] 05/21/2016 01:35:00 2015 03:14:00 DIS Emergency SHAYNA DO, STEPHENIE K [facility] ER PALPITATIONS,ANXIOUS [id number] 05/07/2016 15:37:00 2015 18:26:00 DIS Emergency LOS MEADE APRN [facility] ER FEVER [id number] 04/22/2016 11:29:00 2015 18:27:00 DIS Outpatient JONG MEADE, FANNY Cortes [facility] SDC T6 COMPRESSION FRACTURE [id number] 04/18/2016 15:04:00 2015 15:40:00 DIS Outpatient JONG MEADE, FANNY Cortes [facility] PREOP T6 COMPRESSION FRACTURE [id number] 02/16/2016 18:27:00 2015 23:18:00 DIS Emergency SHAYNA DO, STEPHENIE K [facility] ER SOA [id number] 12/27/2015 08:04:00 2015 10:05:00 DIS Emergency LISA MEADE, TIGRE Paul [facility] ER FALL/RIB PAIN [id number] 12/23/2015 15:00:00 2015 17:48:00 DIS Emergency GABO MEADE, RADHA Metzger [facility] ER FALL [id number] 12/14/2015 09:17:00 2015 12:56:00 DIS Emergency MILTON HERNDON MD [facility] ER VOMITING [id number] 11/28/2015 16:34:00 2015 17:41:00 DIS Emergency ALEM HOLLY MD [facility] ER FALL [id number] 09/14/2015 10:34:00 2014 12:34:00 DIS Emergency LOS MEADE APRN [facility] ER WEAKNESS/PALPITATIONS [id number] 05/16/2015 08:39:00 2014 11:10:00 DIS Emergency MILTON HERNDON MD [facility] ER FALL [id number] 04/29/2015 10:31:00 2014 10:49:00 DIS Emergency LISA MEADE, TIGRE Paul [facility] ER SUTURE REMOVAL [id number] 04/24/2015 14:12:00 2014 16:02:00 DIS Emergency LOS MEADE CORRESPONDENCE RENEW CLERK [facility] ER FALL [id number] 02/01/2015 22:35:00 2014 08:16:00 DIS Inpatient DELANO RIVERS MD [facility] SURGICAL ETOH INTOXICATION, UTI, WEAKNESS, SYNCOPE [id number] 01/26/2015 09:32:00 2014 23:59:59 CLS Outpatient DELANO RIVERS MD [facility] RAD BACK PAIN [id number] 01/24/2015 17:41:00 2014 20:07:00 DIS Emergency STEPHENIE CORRAL DO K [facility] ER CHEST WALL PAIN [id number] 11/12/2014 19:45:00 2014 10:00:00 DIS Inpatient DELANO RIVERS MD [facility] SURGICAL HEMATEMESIS;HYPOGLYCEMIA;ETOH ABUSE [id number] 10/07/2014 10:43:00 2013 14:32:00 DIS Emergency MILTON HERNDON MD [facility] ER HIP PAIN [id number] 08/25/2014 12:37:00 2013 10:12:00 DIS Inpatient DELANO RIVERS MD [facility] 4TH SWB-CONFUSION N/V ETOH INTOXICATION [id number] 08/18/2014 11:19:00 2013 11:34:00 DIS Inpatient DELANO RIVERS MD [facility] 4TH CONFUSION N/V ETOH INTOXICATION [id number] 04/26/2014 12:17:00 2013 11:57:00 DIS Inpatient DOMINICK MCDONNELL MD [facility] IRF WEAKNESS [id number] 02/21/2014 13:48:00 2013 10:30:00 DIS Inpatient DELANO RIVERS MD [facility] 4TH SWB-ANAPHYLAXIS [id number] 02/15/2014 11:30:00 2013 23:59:59 CLS Inpatient DELANO RIVERS MD [facility] 4TH ANAPHYLAXIS [id number] 01/27/2014 14:35:00 2013 23:59:59 CLS Outpatient JACOB BERUMEN MD [facility] RAD SCIATICA [id number] 12/19/2013 22:19:00 2013 02:14:00 DIS Emergency SHAYNA SPAULDING STEPHENIE K [facility] ER FALL [id number] 10/29/2013 10:09:00 2013 23:59:59 CLS Outpatient DELANO RIVERS MD [facility] RAD STEVEN,FALLS,PEREP NEUROPATHY [id number] 10/15/2013 10:42:00 2013 23:59:59 CLS Outpatient MILTON HERNDON MD [facility] RAD FALL POSS R WRIST FX THEN STILL PAIN [id number] 10/15/2013 10:07:00 2013 10:38:00 DIS Emergency MILTON HERNDON MD [facility] ER SUTURE REMOVAL [id number] 10/08/2013 09:03:00 2012 11:53:00 DIS Emergency MILTON HERNDON MD [facility] ER FALL/RIGHT HAND INJURY [id number] 09/01/2013 21:20:00 2012 14:25:00 DIS Inpatient DELANO RIVERS MD [facility] 4TH S/P FALL, COMPRESSION FRACTURES;ETOH INTOXICATION [id number] 08/28/2013 11:04:00 2012 23:59:59 CLS Outpatient DELANO RIVERS MD [facility] RAD PAIN LAT LEFT HIP [id number] 08/18/2013 10:40:00 2012 23:59:59 CLS Outpatient EUGENIE MEADE FACC, WENDY GARCIA CCDS [facility] LAB CAD,HYPERLIPADEMA [id number] 07/19/2013 10:09:00 2012 23:59:59 CLS Outpatient TITA MEADE, DELANO R [facility] LAB CIRROSIS [id number] 07/06/2013 13:41:00 2012 15:46:00 DIS Emergency LOS MEADE APRN [facility] ER COUGH/CONGESTION [id number] 07/02/2013 09:34:00 2012 12:22:00 DIS Emergency MILTON HERNDON MD [facility] ER COUGH [id number] 05/22/2013 11:31:00 2012 11:37:00 DIS Emergency STEPHENIE CORRAL DO [facility] ER STAPLE REMOVAL [id number] 05/13/2013 22:07:00 2012 00:03:00 DIS Emergency AVNI MEADE, ALEM Davila [facility] ER FALL [id number] 05/07/2013 11:13:00 2012 23:59:59 CLS Outpatient EUGENIE MEADE FACC, WENDY GARCIA CCDS [facility] LAB HTN,CAD,DYSPNEA, [id number] 04/16/2013 06:54:00 2012 14:15:00 DIS Outpatient EUGENIE MEADE FACC, WENDY GARCIA CCDS [facility] CATH CAD,HLP,HTN,SOB ISCHEMIC CARDI [id number] 02/10/2013 11:51:00 2012 13:09:00 DIS Emergency TOSHIA MARAVILLA MD [facility] ER RT ARM PAIN FROM FALL [id number] 12/03/2016 08:48:00 ACT Outpatient WENDY TRAORE MD, FACC, FACP CCDS [facility] CATH SYNCOPE,PAROXYSMAL,SVT,CAD [id number] 07/16/2016 12:15:00 ACT Outpatient TASHA ANG APRN [facility] CARD TACHYCARDIA [id number] 06/25/2016 14:54:00 ACT Outpatient LUKE SALAZAR DO [facility] LAB E87.6, E83.42 [id number] 05/28/2016 16:19:00 ACT Outpatient AFSANEH PETERSONP [facility] RAD CLAUDICATION [id number] 05/16/2016 13:31:00 ACT Outpatient CABRERAAFSANEH GARCIAP [facility] RAD CLAUDICATION [id number] 04/05/2016 11:20:00 ACT Outpatient TASHA ANG APRN [facility] RAD THORACIC SPINE PAIN [id number] 02/06/2016 10:54:00 ACT Outpatient EUGENIE MEADE FACC, ALI FACP CCDS [facility] CARD CAD,SOB,HTN,HLP [id number] 01/30/2016 14:40:00 ACT Outpatient EUGENIE MEADE FACJoshua, ALI FACP CCDS [facility] CARD CAD,SOB,HTN,HLP [id number] 01/22/2016 09:22:00 ACT Outpatient EUGENIE MEADE FACJoshua, ALI FACP CCDS [facility] CARD SOB,CAD,HTN,HLP [id number] 01/04/2016 10:02:00 ACT Outpatient LUKE SALAZAR DO [facility] CARD HYPER PARATHYROIDISM [id number] 12/21/2015 10:27:00 Document Registration [id number] 12/21/2015 09:12:00 ACT Emergency MILTON HERNDON MD [facility] ER LEGS/ARMS NUMBNESS/TINGLING [id number] 01/26/2015 09:33:00 Document Registration [id number] 01/26/2015 09:33:00 Document Registration [id number] 01/26/2015 09:33:00 Document Registration [id number] 01/21/2013 14:44:00 Document Registration [id number] 01/01/2013 11:18:00 Document Registration [id number] 12/22/2012 09:35:00 Document Registration [id number] 11/16/2012 09:09:00 Document Registration [id number] 10/13/2012 00:45:00 Document Registration [id number] 10/01/2012 14:30:00 Document Registration [id number] 09/27/2012 16:20:00 Document Registration [id number] 09/26/2012 11:31:00 Document Registration [id number] 06/22/2012 10:57:00 Document Registration [id number] 02/17/2012 15:50:00 Document Registration [id number] 10/18/2011 11:42:00 Document Registration [id number] 10/15/2011 11:35:00 Document Registration [id number] 03/26/2011 17:03:00 Document Registration [id number] 12/31/2010 08:51:00 Document Registration [id number] 11/28/2010 08:44:00 Document Registration
--- OUTSIDE RECORDS SUMMARY | 2017-02-16 20:02 | XMS REPORT | Continuity of Care Document ---
Author Author [facility] Organization [facility] Address Unknown Phone Unavailable Care Team Providers Care Al[employer]um Shingle Roofer Name Role Phone No Pcp, Na PCP Unavailable Source Comments Some departments are not documenting in the electronic medical record. If you do not see the information that you expected, contact Release of Information in the Health Information Management department at [phone] for further assistance in locating additional records.[facility] Active Allergies and Adverse Reactions No Known [...] Blood Pressure 140/98 09/03/2016 11:42 AM MACHINE PACKAGING TECHNICIAN Pulse 100 09/03/2016 11:42 AM MACHINE PACKAGING TECHNICIAN Temperature 36.3 C (97.3 F) 09/03/2016 11:42 AM MACHINE PACKAGING TECHNICIAN Respiratory Rate 14 09/03/2016 11:42 AM MACHINE PACKAGING TECHNICIAN Height 1.613 m (5' 3.5") 09/03/2016 11:42 AM MACHINE PACKAGING TECHNICIAN Weight 54.976 kg (121 lb 3.2 oz) 09/03/2016 11:42 AM MACHINE PACKAGING TECHNICIAN Body Mass Index 21.13 09/03/2016 11:42 AM MACHINE PACKAGING TECHNICIAN Oxygen Saturation 100% 09/03/2016 11:42 AM MACHINE PACKAGING TECHNICIAN Plan of Care Health Maintenance Due Date Last Done Comments Physical (Comprehensive) 1941 Exam Pertussis Vaccine 1945 Tetanus Vaccine 1951 Shingles Vaccine 1994 Osteoporosis Screening 1999 Prevnar/Pneumovax (#1) 1999 Influenza Vaccine 06/13/2017 Results from Last 3 Months Not on file
--- OUTSIDE RECORDS SUMMARY | 2017-02-16 20:10 | XMS REPORT | Continuity of Care Document ---
Author Author [facility] Organization [facility] Address Unknown Phone Unavailable Allergies Active Description Code Type Severity Reaction Onset Reported/Identified Relationship to Patient Clinical Status Yes ENVIRONMENTAL ENVIRONMENTAL Mild N/A 12/31/2010 Yes procaine [id number] Drug Allergy Unknown N/A 07/21/2016 Medications Problems [...] INFARCT,IN 10/21/2012 Ot 414.01 CORONARY 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 10/21/2012 Ot 414.8 CHR ISCHEMIC HRT [...] FACP CCDS Ot 414.01 CORONARY 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 04/17/2013 EUGENIE MEADE FACC, WENDY FACP CCDS Ot 414.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 04/17/2013 EUGENIE MEADE FACC, WENDY FACP CCDS Ot 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 NEC 04/17/2013 EUGENIE MEADE FACC, ALI FACP CCDS Ot 786.05 SHORTNESS OF BREATH 04/17/2013 EUGENIE MEADE [facility], ALI [place] CCDS Ot 787.91 DIARRHEA 04/17/2013 EUGENIE MEADE [facility], ALI [facility] CCDS Ot V45.82 PERCUTANEOUS TRANSLUM CORON ANGIOPLASTY 04/17/2013 EUGENIE MEADE [facility], WENDY [place] CCDS Ot V58.63 LONG-TERM(CURRENT)USE OF ANTIPLATELET/AN 04/17/2013 EUGENIE MEADE [facility], [facility] CCDS Ot V58.69 OTH MED,LT,CURRENT USE 05/14/2013 [...] MD Ot 786.2 COUGH 07/06/2013 LOS MEADE [employer] Ot 490 BRONCHITIS NOS 07/06/2013 LOS MEADE [employer] Ot 786.2 COUGH 09/06/2013 DELANO RIVERS MD [...] DELANO R Ot 414.01 CORONARY 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 09/06/2013 DELANO RIVERS MD R Ot [...] FALL FROM SLIPPING, TRIPPING, OR STUMBLI 10/15/2013 MILTON HERNDON MD Ot V58.32 ENCOUNTER FOR REMOVAL [...] DOMINICK E Ot 414.01 CORONARY 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 05/06/2014 SATHYA MEADE, DOMINICK E Ot [...] R Ot 111.9 DERMATOMYCOSIS NOS 08/25/2014 DELANO RIVERS MD R Ot 112.0 THRUSH 08/25/2014 DELANO [...] Ot 414.00 01/26/2015 EUGENIE MEADE FAC, [facility] 414.8 01/26/2015 TITA MEADE, DELANO [...] APRN Ot E849.0 ACCIDENT IN HOME 04/24/2015 OLS MEADE APRN Ot E888.9 FALL NOS 04/24/2015 [...] APRN Ot F10.10 ALCOHOL ABUSE, UNCOMPLICATED 09/14/2015 LOS MEADE APRN Ot F41.9 ANXIETY DISORDER, UNSPECIFIED 09/14/2015 LOS MEADE APRN Ot J44.9 CHRONIC OBSTRUCTIVE PULMONARY DISEASE, U 09/14/2015 LOS MEADE APRN Ot J98.4 OTHER DISORDERS OF LUNG 09/14/2015 LOS MEADE APRN Ot N39.0 URINARY TRACT INFECTION, SITE NOT SPECIF 09/14/2015 MEADE, PETER J [employer] Ot R11.2 NAUSEA WITH VOMITING, UNSPECIFIED 11/28/2015 ALEM HOLLY MD Ot F17.210 NICOTINE DEPENDENCE, CIGARETTES, UNCOMPL 11/28/2015 ALEM HOLLY MD Ot S70.02XA CONTUSION OF LEFT HIP, INITIAL ENCOUNTER 11/28/2015 ALEM HOLLY MD Ot W01.0XXA FALL SAME LEV FROM SLIP/TRIP W/O STRIKE 11/28/2015 ALEM HOLLY MD Ot Y92.[address] [facility]IVATE 11/28/2015 ALEM HOLLY MD [...] FRONT WALL OF THORAX , 12/23/2015 GABO MAEDE, RADHA Metzger Ot W01.0XXA FALL SAME LEV FROM SLIP/TRIP W/O STRIKE 12/23/2015 GABO MEADE, RADHA Metzger Ot Y90.4 BLOOD ALCOHOL LEVEL OF 80-99 MG/100 ML 12/23/2015 GABO MEADE, RADHA Metzger Ot Y92.009 [facility] IN [facility] NON-INSTITUT (PRIVATE 12/23/2015 GABO MEADE, RADHA [...] TIGRE Paul Ot Y92.[address] IN [facility] NON-INSTITUT ( PRIVATE 12/27/2015 LISA MEADE, [...] [place], ALI FACP CCDS Ot Z72.0 01/24/2016 NIDIRA SALAZAR DOLINE S Ot E21.3 01/31/2016 EUGENIE GREENWOODC, ALI FACP CCDS Ot E78.4 OTHER HYPERLIPIDEMIA 01/31/2016 EUGENIE MEADE FACC, ALI FACP CCDS Ot I10 ESSENTIAL (PRIMARY) HYPERTENSION 01/31/2016 EUGENIE GREENWOODC, ALI FACP CCDS Ot 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 DISEASE OF [place] CORONARY 01/31/2016 EUGENIE GREENWOODC, ALI FACP CCDS [...] CCDS Ot 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 DISEASE OF [place] CORONARY 02/07/2016 EUGENIE MEADE FACC, WENDY FACP CCDS Ot R06.02 SHORTNESS OF BREATH 02/07/2016 EUGENIE MEADE FACC, ALI FACP CCDS Ot Z72.0 TOBACCO USE 02/07/2016 EUGENIE MEADE FACC, ALI FACP CCDS Ot E78.4 OTHER HYPERLIPIDEMIA 02/07/2016 EUGENIE MEADE FACC, ALI FACP CCDS Ot I10 ESSENTIAL (PRIMARY) HYPERTENSION 02/07/2016 EUGENIE MEADE FACC, ALI FACP CCDS Ot 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 DISEASE OF [place] CORONARY 02/07/2016 EUGENIE GREENWOODC, ALI FACP CCDS Ot R06.02 SHORTNESS OF BREATH 02/07/2016 EUGENIE GREEN[place]ODC, ALI FACP CCDS Ot Z72.0 TOBACCO USE 02/14/2016 EUGENIE MEADE FACC, WENDY FACP CCDS Ot E78.4 OTHER HYPERLIPIDEMIA 02/14/2016 EUGENIE MEADE FACC, WENDY FACP CCDS Ot I10 ESSENTIAL (PRIMARY) HYPERTENSION 02/14/2016 EUGENIE MEADE FACC, WENDY FACP CCDS Ot 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 DISEASE OF [place] CORONARY 02/14/2016 EUGENIE MEADE FACC, ALI FACP CCDS Ot R06.02 SHORTNESS OF BREATH 02/14/2016 EUGENIE MEADE FACC, WENDY FACP CCDS Ot Z72.0 TOBACCO USE 02/16/2016 SHAYNA DO STEPHENIE Fernando Ot F17.210 NICOTINE DEPENDENCE, CIGARETTES, UNCOMPL 02/16/2016 SHAYNA SPAULDING STEPHENIE Fernando Ot F41.9 ANXIETY DISORDER, UNSPECIFIED 02/16/2016 SHAYNA SPAULDING STEPHENIE Fernando Ot R06.00 DYSPNEA, UNSPECIFIED 02/17/2016 Ot 530.81 ESOPHAGEAL REFLUX 02/17/2016 Ot 535.40 OTH SPECIFIED GASTRITIS,W/O MENTION OF H 02/17/2016 Ot 553.3 DIAPHRAGMATIC HERNIA 02/17/2016 Ot 562.10 DIVERTICULOSIS COLON (W/O MENT OF HEMORR 02/17/2016 Ot 787.91 DIARRHEA 02/17/2016 Ot 496 CHR AIRWAY OBSTRUCT NEC 02/17/2016 Ot 518.89 OTHER DISEASES OF LUNG, NEC 02/17/2016 Ot 414.01 CORONARY 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 02/17/2016 Ot 496 CHR AIRWAY OBSTRUCT NEC 02/17/2016 Ot 518.89 OTHER DISEASES OF LUNG, NEC 02/17/2016 Ot 272.4 HYPERLIPIDEMIA NEC/NOS 02/17/2016 Ot 414.00 CORON ATHEROSCLER NOS TYPE VESSEL, NATIV 02/17/2016 Ot V58.69 OTH MED,LT,CURRENT USE 02/17/2016 Ot 272.4 HYPERLIPIDEMIA NEC/NOS 02/17/2016 Ot 414.01 CORONARY 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 02/17/2016 Ot V58.69 OTH MED,LT,CURRENT USE 02/17/2016 Ot 785.0 TACHYCARDIA NOS 02/17/2016 Ot 275.2 DIS MAGNESIUM METABOLISM 02/17/2016 EUGENIE MEADE FACC, WENDY FACP CCDS Ot 276.9 ELECTROLYT/FLUID DIS NEC 02/17/2016 EUGENIE MEADE FACC, WENDY FACP CCDS Ot 401.9 HYPERTENSION NOS 02/17/2016 EUGENIE MEADE FAC, ALI FACP CCDS Ot 414.01 CORONARY 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 02/17/2016 EUGENIE MEADE FAC, ALI FACP [...] V15.88 HISTORY OF FALL 02/17/2016 ATA MEADE, JACOB Pelletier Ot 721.3 LUMBOSACRAL SPONDYLOSIS 02/17/2016 DELANO [...] CCDS Ot 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 DISEASE OF [place] CORONARY 02/17/2016 EUGENIE MEADE FACC, ALI FACP CCDS Ot R06.02 SHORTNESS OF BREATH 02/17/2016 EUGENIE MEADE FACC, ALI FACP CCDS Ot Z72.0 TOBACCO USE 02/17/2016 EUGENIE MEADE FACC, WENDY FACP CCDS Ot E78.4 OTHER HYPERLIPIDEMIA 02/17/2016 EUGENIE MEADE FACC, ALI FACP CCDS Ot I10 ESSENTIAL (PRIMARY) HYPERTENSION 02/17/2016 EUGENIE MEADE FACC, ALI FACP CCDS Ot 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 DISEASE OF [place] CORONARY 02/17/2016 EUGENIE MEADE FACC, ALI FACP CCDS Ot R06.02 SHORTNESS OF BREATH 02/17/2016 EUGENIE MEADE FACC, ALI FACP CCDS Ot Z72.0 TOBACCO USE 02/17/2016 EUGENIE MEADE FACC, ALI FACP CCDS Ot E78.4 OTHER HYPERLIPIDEMIA 02/17/2016 EUGENIE MEADE FACC, ALI FACP CCDS Ot I10 ESSENTIAL (PRIMARY) HYPERTENSION 02/17/2016 EUGENIE MEADE FACC, ALI FACP CCDS Ot 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 DISEASE OF [place] CORONARY 02/17/2016 EUGENIE MEADE FACC, ALI FACP [...] CCDS Ot 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 DISEASE OF [place] CORONARY 02/20/2016 EUGENIE GREENWOODC, ALI FACP CCDS Ot R06.02 SHORTNESS OF BREATH 02/20/2016 EUGENIE GREENWOODC, ALI FACP CCDS Ot Z72.0 TOBACCO USE 02/21/2016 EUGENIE MEADE FACC, ALI FACP CCDS Ot E78.4 OTHER HYPERLIPIDEMIA 02/21/2016 EUGENIE GREENWOODC, ALI FACP CCDS Ot I10 ESSENTIAL (PRIMARY) HYPERTENSION 02/21/2016 EUGENIE GREENWOODC, ALI FACP CCDS Ot 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 DISEASE OF [place] CORONARY 02/21/[address] [facility], [facility]I FACP CCDS Ot R06.02 SHORTNESS OF BREATH 02/21/2016 EUGENIE MEADE FACC, ALI FACP CCDS Ot Z72.0 TOBACCO USE 02/28/2016 EUGENIE MEADE FACC, ALI FACP CCDS Ot E78.4 OTHER HYPERLIPIDEMIA 02/28/2016 EUGENIE MEADE FACC, ALI FACP CCDS Ot I10 ESSENTIAL (PRIMARY) HYPERTENSION 02/28/2016 EUGENIE MEADE FACC, ALI FACP CCDS Ot 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 DISEASE OF [place] CORONARY 02/28/2016 EUGENIE GREENWOOD, ALI FACP CCDS Ot R06.02 SHORTNESS OF BREATH 02/28/2016 EUGENIE GREENWOOD, ALI FACP CCDS Ot Z72.0 TOBACCO USE 03/07/2016 EUGENIE MEADE FACC, ALI FACP CCDS Ot E78.4 OTHER HYPERLIPIDEMIA 03/07/2016 EUGENIE GREENWOODC, ALI FACP CCDS Ot I10 ESSENTIAL (PRIMARY) HYPERTENSION 03/07/2016 EUGENIE MEADE FACC, ALI FACP CCDS Ot 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 DISEASE OF [place] CORONARY 03/07/2016 EUGENIE MEADE FACC, ALI FACP CCDS Ot R06.02 SHORTNESS OF BREATH 03/07/2016 EUGENIE MEADE FACC, WENDY FACP CCDS Ot Z72.0 TOBACCO USE 03/08/2016 EUGENIE MEADE FACC, WENDY FACP CCDS Ot E78.4 OTHER HYPERLIPIDEMIA 03/08/2016 EUGENIE MEADE FACC, ALI FACP CCDS Ot I10 ESSENTIAL (PRIMARY) HYPERTENSION 03/08/2016 EUGENIE MEADE FACC, WENDY FACP CCDS Ot 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 DISEASE OF [place] CORONARY 03/08/2016 EUGENIE MEADE FACC, WENDY FACP [...] NEC 04/05/2016 Ot 414.01 CORONARY 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 04/05/2016 Ot 496 CHR AIRWAY OBSTRUCT NEC 04/05/2016 Ot 518.89 OTHER DISEASES OF LUNG, NEC 04/05/2016 Ot 272.4 HYPERLIPIDEMIA NEC/NOS 04/05/2016 Ot 414.00 CORON ATHEROSCLER NOS TYPE VESSEL, NATIV 04/05/2016 Ot V58.69 OTH MED,LT,CURRENT USE 04/05/2016 Ot 272.4 HYPERLIPIDEMIA NEC/NOS 04/05/2016 Ot 414.01 CORONARY 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 04/05/2016 Ot V58.69 OTH MED,LT,CURRENT USE 04/05/2016 Ot 785.0 TACHYCARDIA NOS 04/05/2016 Ot 275.2 DIS MAGNESIUM METABOLISM 04/05/2016 EUGENIE MEADE FACC, WENDY FACP CCDS Ot 276.9 ELECTROLYT/FLUID DIS NEC 04/05/2016 EUGENIE MEADE FACC, WENDY FACP CCDS Ot 401.9 HYPERTENSION NOS 04/05/2016 EUGENIE MEADE FACC, WENDY FACP CCDS Ot 414.01 CORONARY 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 04/05/2016 EUGENIE MEADE FACC, ALI FACP [...] CCDS Ot 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 DISEASE OF [place] CORONARY 04/05/2016 EUGENIE MEADE FACC, ALI FACP CCDS Ot R06.02 SHORTNESS OF BREATH 04/05/2016 EUGENIE MEADE FACC, ALI FACP CCDS Ot Z72.0 TOBACCO USE 04/05/2016 EUGENIE MEADE FACC, ALI FACP CCDS Ot E78.4 OTHER HYPERLIPIDEMIA 04/05/2016 EUGENIE MEADE FACC, ALI FACP CCDS Ot I10 ESSENTIAL (PRIMARY) HYPERTENSION 04/05/2016 EUGENIE MEADE FACC, ALI FACP CCDS Ot 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 DISEASE OF [place] CORONARY 04/05/2016 EUGENIE MEADE FACC, ALI FACP CCDS Ot R06.02 SHORTNESS OF BREATH 04/05/2016 EUGENIE MEADE FACC, ALI FACP CCDS Ot Z72.0 TOBACCO USE 04/05/2016 EUGENIE MEADE FACC, ALI FACP CCDS Ot E78.4 OTHER HYPERLIPIDEMIA 04/05/2016 EUGENIE MEADE FACC, ALI FACP CCDS Ot I10 ESSENTIAL (PRIMARY) HYPERTENSION 04/05/2016 EUGENIE MEADE FACC, ALI FACP CCDS Ot 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 DISEASE OF [place] CORONARY 04/05/2016 EUGENIE MEADE FACC, ALI FACP [...] NEC 04/05/2016 Ot 414.01 CORONARY 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 04/05/2016 Ot 496 CHR AIRWAY OBSTRUCT NEC 04/05/2016 Ot 518.89 OTHER DISEASES OF LUNG, NEC 04/05/2016 Ot 272.4 HYPERLIPIDEMIA NEC/NOS 04/05/2016 Ot 414.00 CORON ATHEROSCLER NOS TYPE VESSEL, NATIV 04/05/2016 Ot V58.69 OTH MED,LT,CURRENT USE 04/05/2016 Ot 272.4 HYPERLIPIDEMIA NEC/NOS 04/05/2016 Ot 414.01 CORONARY 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 04/05/2016 Ot V58.69 OTH MED,LT,CURRENT USE 04/05/2016 Ot 785.0 TACHYCARDIA NOS 04/05/2016 Ot 275.2 DIS MAGNESIUM METABOLISM 04/05/2016 EUGENIE MEADE FACC, ALI FACP CCDS Ot 276.9 ELECTROLYT/FLUID DIS NEC 04/05/2016 EUGENIE MEADE FACC, ALI FACP CCDS Ot 401.9 HYPERTENSION NOS 04/05/2016 EUGENIE MEADE FACC, ALI FACP CCDS Ot 414.01 CORONARY 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 04/05/2016 EUGENIE MEADE FACC, ALI FACP [...] CCDS Ot 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 DISEASE OF [place] CORONARY 04/05/2016 EUGENIE MEADE FACC, WENDY FACP CCDS Ot R06.02 SHORTNESS OF BREATH 04/05/2016 EUGENIE MEADE FACC, WENDY FACP CCDS Ot Z72.0 TOBACCO USE 04/05/2016 EUGENIE MEADE FACC, WENDY FACP CCDS Ot E78.4 OTHER HYPERLIPIDEMIA 04/05/2016 EUGENIE MEADE FACC, ALI FACP CCDS Ot I10 ESSENTIAL (PRIMARY) HYPERTENSION 04/05/2016 EUGENIE MEADE FAC, ALI FACP CCDS Ot 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 DISEASE OF [place] CORONARY 04/05/2016 EUGENIE MEADE FAC, ALI FACP CCDS Ot R06.02 SHORTNESS OF BREATH 04/05/2016 EUGENIE MEADE FAC, ALI FACP CCDS Ot Z72.0 TOBACCO USE 04/05/2016 EUGENIE MEADE FAC, ALI FACP CCDS Ot E78.4 OTHER HYPERLIPIDEMIA 04/05/2016 EUGENIE MEADE FAC, ALI FACP CCDS Ot I10 ESSENTIAL (PRIMARY) HYPERTENSION 04/05/2016 EUGENIE MEADE [facility], ALI FACP CCDS Ot 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 DISEASE OF [place] CORONARY 04/05/2016 EUGENIE MEADE [facility], ALI FACP CCDS Ot R06.02 SHORTNESS OF BREATH 04/05/2016 EUGENIE MEADE [facility], ALI FACP CCDS Ot Z72.0 TOBACCO USE 04/05/2016 TASHA ANG APRN Ot M54.9 DORSALGIA, UNSPECIFIED 04/08/2016 TASHA ANG [employer] Ot M54.9 DORSALGIA, UNSPECIFIED 04/08/2016 TASHA ANG [...] OTHER SPECIFIED FACTORS, INI 04/19/2016 JONG MEADE AFNNY Z Ot Y99.8 OTHER EXTERNAL CAUSE STATUS [...] SCREENING FOR OTHER BACTER 05/07/2016 LOS MEADE [employer] Ot F10.20 ALCOHOL DEPENDENCE, UNCOMPLICATED 05/07/2016 MEADELOS MERINO [employer] Ot R11.2 NAUSEA WITH VOMITING, UNSPECIFIED 05/08/2016 LOS MEADE [employer] Ot F10.20 ALCOHOL DEPENDENCE, UNCOMPLICATED 05/08/2016 MEADELOS MERINO [employer] Ot R11.2 NAUSEA WITH VOMITING, UNSPECIFIED 05/14/2016 TASHA ANG [employer] Ot M54.6 PAIN IN THORACIC SPINE 05/16/2016 AFSANEH PETERSON BENDING ROLL HAND Ot I73.9 PERIPHERAL VASCULAR DISEASE, UNSPECIFIED 05/17/2016 AFSANEH PETESRON BENDING ROLL HAND Ot I73.9 PERIPHERAL VASCULAR DISEASE, UNSPECIFIED 05/17/2016 AFSANEH PETERSON B[employer]ING ROLL HAND Ot I73.9 PERIPHERAL VASCULAR DISEASE, UNSPECIFIED 05/21/2016 Ot 496 CHR AIRWAY OBSTRUCT NEC 05/21/2016 Ot 518.89 OTHER DISEASES OF LUNG, NEC 05/21/2016 Ot 414.01 CORONARY 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 05/21/2016 Ot 496 CHR AIRWAY OBSTRUCT NEC 05/21/2016 Ot 518.89 OTHER DISEASES OF LUNG, NEC 05/21/2016 Ot 272.4 HYPERLIPIDEMIA NEC/NOS 05/21/2016 Ot 414.00 CORON ATHEROSCLER NOS TYPE VESSEL, NATIV 05/21/2016 Ot V58.69 OTH MED,LT,CURRENT USE 05/21/2016 Ot 272.4 HYPERLIPIDEMIA NEC/NOS 05/21/2016 Ot 414.01 CORONARY 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 05/21/2016 Ot V58.69 OTH MED,LT,CURRENT USE 05/21/2016 Ot 785.0 TACHYCARDIA NOS 05/21/2016 Ot 275.2 DIS MAGNESIUM METABOLISM 05/21/2016 EUGENIE MEADE FACC, ALI FACP CCDS Ot 276.9 ELECTROLYT/FLUID DIS NEC 05/21/2016 EUGENIE MEADE FACC, ALI FACP CCDS Ot 401.9 HYPERTENSION NOS 05/21/2016 EUGENIE MEADE FACC, ALI FACP CCDS Ot 414.01 CORONARY 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 05/21/2016 EUGENIE MEADE FACC, ALI FACP CCDS [...] Ot 356.9 IDIO PERIPH NEURPTHY NOS 05/21/2016 ITTA MEADE, DELANO R Ot 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.1 AC CEREBROVASC [...] JACOB L Ot 721.3 LUMBOSACRAL SPONDYLOSIS 05/21/2016 DLEANO RIVERS MD Ot 721.2 THORACIC SPONDYLOSIS 05/21/2016 Ot M81.0 AGE-RELATED OSTEOPOROSIS W/O CURRENT PAT 05/21/2016 LUKE SALAZAR DO S Ot E21.3 HYPERPARATHYROIDISM, UNSPECIFIED 05/21/2016 EUGENIE MEADE FACC, WENDY FACP CCDS Ot E78.4 OTHER HYPERLIPIDEMIA 05/21/2016 EUGENIE MEADE FACC, ALI FACP CCDS Ot I10 ESSENTIAL (PRIMARY) HYPERTENSION 05/21/2016 EUGENIE MEADE FACC, ALI FACP CCDS Ot 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 DISEASE OF [place] CORONARY 05/21/2016 EUGENIE MEADE FACC, WENDY FACP CCDS Ot R06.02 SHORTNESS OF BREATH 05/21/2016 EUGENIE MEADE FACC, ALI FACP CCDS Ot Z72.0 TOBACCO USE 05/21/2016 EUGENIE MEADE FACC, ALI FACP CCDS Ot E78.4 OTHER HYPERLIPIDEMIA 05/21/2016 EUGENIE MEADE FACC, ALI FACP CCDS Ot I10 ESSENTIAL (PRIMARY) HYPERTENSION 05/21/2016 EUGENIE MEADE FACC, ALI FACP CCDS Ot 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 DISEASE OF [place] CORONARY 05/21/2016 EUGENIE MEADE FACC, ALI FACP CCDS Ot R06.02 SHORTNESS OF BREATH 05/21/2016 EUGENIE MEADE FACC, ALI FACP CCDS Ot Z72.0 TOBACCO USE 05/21/2016 EUGENIE MEADE FACC, ALI FACP CCDS Ot E78.4 OTHER HYPERLIPIDEMIA 05/21/2016 EUGENIE MEADE FACC, ALI FACP CCDS Ot I10 ESSENTIAL (PRIMARY) HYPERTENSION 05/21/2016 EUGENIE MEADE [facility], WENDY [facility] CCDS Ot 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 DISEASE OF [place] CORONARY 05/21/2016 EUGENIE GREENWOOD, WENDY [facility] CCDS Ot R06.02 SHORTNESS OF BREATH 05/21/2016 EUGENIE MEADE FACC, WENDY [facility] CCDS Ot Z72.0 TOBACCO USE 05/21/2016 TASHA ANG [employer] Ot M54.6 PAIN IN THORACIC SPINE 05/21/2016 AFSANEH PETERSON BENDING ROLL HAND Ot I73.9 PERIPHERAL VASCULAR DISEASE, UNSPECIFIED 05/21/2016 [...] STEPHENIE K Ot Z91.19 PATIENT'S NONCOMPLIANCE W [facility] 05/28/2016 Ot 496 CHR AIRWAY OBSTRUCT NEC 05/28/2016 Ot 518.89 OTHER DISEASES OF LUNG, NEC 05/28/2016 Ot 414.01 CORONARY 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 05/28/2016 Ot 496 CHR AIRWAY OBSTRUCT NEC 05/28/2016 Ot 518.89 OTHER DISEASES OF LUNG, NEC 05/28/2016 Ot 272.4 HYPERLIPIDEMIA NEC/NOS 05/28/2016 Ot 414.00 CORON ATHEROSCLER NOS TYPE VESSEL, NATIV 05/28/2016 Ot V58.69 OTH MED,LT,CURRENT USE 05/28/2016 Ot 272.4 HYPERLIPIDEMIA NEC/NOS 05/28/2016 Ot 414.01 CORONARY 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 05/28/2016 Ot V58.69 OTH MED,LT,CURRENT USE 05/28/2016 Ot 785.0 TACHYCARDIA NOS 05/28/2016 Ot 275.2 DIS MAGNESIUM METABOLISM 05/28/2016 EUGENIE MEADE FACC, ALI FACP CCDS Ot 276.9 ELECTROLYT/FLUID DIS NEC 05/28/2016 EUGENIE MEADE FACC, ALI FACP CCDS Ot 401.9 HYPERTENSION NOS 05/28/2016 EUGENIE MEADE FACC, ALI FACP CCDS Ot 414.01 CORONARY 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 05/28/2016 EUGENIE MEADE FACC, ALI FACP [...] CCDS Ot 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 DISEASE OF [place] CORONARY 05/28/2016 EUGENIE MEADE FACC, ALI FACP CCDS Ot R06.02 SHORTNESS OF BREATH 05/28/2016 EUGENIE MEADE FACC, ALI FACP CCDS Ot Z72.0 TOBACCO USE 05/28/2016 EUGENIE MEADE FACC, ALI FACP CCDS Ot E78.4 OTHER HYPERLIPIDEMIA 05/28/2016 EUGENIE MEADE FACC, ALI FACP CCDS Ot I10 ESSENTIAL (PRIMARY) HYPERTENSION 05/28/2016 EUGENIE MEADE FACC, ALI FACP CCDS Ot 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 DISEASE OF [place] CORONARY 05/28/2016 EUGENIE MEADE FACC, ALI FACP CCDS Ot R06.02 SHORTNESS OF BREATH 05/28/2016 EUGENIE MEADE FACC, WENDY FACP CCDS Ot Z72.0 TOBACCO USE 05/28/2016 EUGENIE MEADE FACC, WENDY FACP CCDS Ot E78.4 OTHER HYPERLIPIDEMIA 05/28/2016 EUGENIE MEADE FACC, WENDY FACP CCDS Ot I10 ESSENTIAL (PRIMARY) HYPERTENSION 05/28/2016 EUGENIE MEADE FACC, ALI FACP CCDS Ot 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 DISEASE OF [place] CORONARY 05/28/2016 EUGENIE MEADE FACC, WENDY FACP CCDS Ot R06.02 SHORTNESS OF BREATH 05/28/2016 EUGENIE MEADE FACC, WENDY FACP CCDS Ot Z72.0 TOBACCO USE 05/28/2016 ASHIATASHA Fabio LECHUGA Ot M54.6 PAIN IN THORACIC SPINE 05/28/2016 AFSANEH PETERSON BENDING ROLL HAND Ot I73.9 PERIPHERAL VASCULAR DISEASE, UNSPECIFIED 05/29/2016 AFSANEH PETERSON BENDING ROLL HAND Ot I73.9 PERIPHERAL VASCULAR DISEASE, UNSPECIFIED 05/29/2016 AFSANEH PETERSON BENDING ROLL HAND Ot I73.9 PERIPHERAL VASCULAR DISEASE, UNSPECIFIED 05/31/2016 Ot 496 CHR AIRWAY OBSTRUCT NEC 05/31/2016 Ot 518.89 OTHER DISEASES OF LUNG, NEC 05/31/2016 Ot 414.01 CORONARY 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 05/31/2016 Ot 496 CHR AIRWAY OBSTRUCT NEC 05/31/2016 Ot 518.89 OTHER DISEASES OF LUNG, NEC 05/31/2016 Ot 272.4 HYPERLIPIDEMIA NEC/NOS 05/31/2016 Ot 414.00 CORON ATHEROSCLER NOS TYPE VESSEL, NATIV 05/31/2016 Ot V58.69 OTH MED,LT,CURRENT USE 05/31/2016 Ot 272.4 HYPERLIPIDEMIA NEC/NOS 05/31/2016 Ot 414.01 CORONARY 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 05/31/2016 Ot V58.69 OTH MED,LT,CURRENT USE 05/31/2016 Ot 785.0 TACHYCARDIA NOS 05/31/2016 Ot 275.2 DIS MAGNESIUM METABOLISM 05/31/2016 EUGENIE MEADE FACC, WENDY FACP CCDS Ot 276.9 ELECTROLYT/FLUID DIS NEC 05/31/2016 EUGENIE MEADE FACC, ALI FACP CCDS Ot 401.9 HYPERTENSION NOS 05/31/2016 EUGENIE MEADE FACC, WENDY FACP CCDS Ot 414.01 CORONARY 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 05/31/2016 EUGENIE MEADE FAC, ALI FACP [...] I10 ESSENTIAL (PRIMARY) HYPERTENSION 05/31/2016 EUGENIE MEADE [facility], ALI FACP CCDS Ot 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 DISEASE OF [place] CORONARY 05/31/2016 EUGENIE MEADE FACC, ALI FACP CCDS Ot R06.02 SHORTNESS OF BREATH 05/31/2016 EUGENIE GREENWOOD, ALI FACP CCDS Ot Z72.0 TOBACCO USE 05/31/2016 EUGENIE MEADE FACC, ALI FACP CCDS Ot E78.4 OTHER HYPERLIPIDEMIA 05/31/2016 EUGENIE MEADE FACC, ALI FACP CCDS Ot I10 ESSENTIAL (PRIMARY) HYPERTENSION 05/31/2016 EUGENIE MEADE [facility], ALI FACP CCDS Ot 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 DISEASE OF [place] CORONARY 05/31/2016 EUGENIE MEADE FACC, ALI FACP CCDS Ot R06.02 SHORTNESS OF BREATH 05/31/2016 EUGENIE GREENWOOD, ALI FACP CCDS Ot Z72.0 TOBACCO USE 05/31/2016 EUGENIE MEADE FACC, ALI FACP CCDS Ot E78.4 OTHER HYPERLIPIDEMIA 05/31/2016 EUGENIE MEADE FACC, ALI FACP CCDS Ot I10 ESSENTIAL (PRIMARY) HYPERTENSION 05/31/2016 EUGENIE MEADE FACC, ALI FACP CCDS Ot 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 DISEASE OF [place] CORONARY 05/31/2016 EUGENIE MEADE FACC, ALI FACP CCDS Ot R06.02 SHORTNESS OF BREATH 05/31/2016 EUGENIE MEADE FACC, ALI FACP CCDS Ot Z72.0 TOBACCO USE 05/31/2016 TASHA ANG APRN Ot M54.6 PAIN IN THORACIC SPINE 05/31/2016 AFSANEH PETERSON BENDING ROLL HAND Ot I73.9 PERIPHERAL VASCULAR DISEASE, UNSPECIFIED 05/31/2016 AFSANEH PETERSON BENDING ROLL HAND Ot I73.9 PERIPHERAL VASCULAR DISEASE, UNSPECIFIED 06/07/2016 AFSANEH PETERSON BENDING ROLL HAND Ot I73.9 PERIPHERAL VASCULAR DISEASE, UNSPECIFIED 06/13/2016 AFSANEH PETERSON BENDING ROLL HAND Ot I73.9 PERIPHERAL VASCULAR DISEASE, UNSPECIFIED 06/21/2016 AFSANEH PETERSON BENDING ROLL HAND Ot I73.9 PERIPHERAL VASCULAR DISEASE, UNSPECIFIED 06/26/2016 ORENDER DO, LUKE S Ot E83.42 HYPOMAGNESEMIA 06/26/2016 ORENDER DO, LUKE S Ot E87.6 HYPOKALEMIA 06/27/2016 ORENDER DO, LUKE S Ot E83.42 HYPOMAGNESEMIA 06/27/2016 ORENDER DO, LUKE S Ot E87.6 HYPOKALEMIA 07/02/2016 AFSANEH PETERSON BENDING ROLL HAND Ot I73.9 PERIPHERAL VASCULAR DISEASE, UNSPECIFIED 07/10/2016 [...] DO Ot 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 DISEASE OF [place] CORONARY 07/25/2016 LUKE SALAZAR DO Ot I25.2 [...] S Ot 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 DISEASE OF [place] CORONARY 07/26/2016 MARIE SPAULDING LUKE S Ot [...] OF CORONARY ANGIOPLASTY IMPLANT 08/07/2016 TASHA ANG ENGINEER INTERNSHIP Ot R00.0 TACHYCARDIA, UNSPECIFIED 08/14/2016 TASHA ANG ENGINEER INTERNSHIP Ot R00.0 TACHYCARDIA, UNSPECIFIED 11/13/2016 ALEM HOLLY MD Ot F17.210 NICOTINE DEPENDENCE, CIGARETTES, UNCOMPL 11/13/2016 ALEM HOLLY MD Ot I10 ESSENTIAL (PRIMARY) HYPERTENSION 11/13/2016 ALEM HOLLY MD Ot 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 DISEASE OF [place] CORONARY 11/13/2016 ALEM HOLLY MD Ot J44.9 CHRONIC OBSTRUCTIVE PULMONARY DISEASE, U 11/13/2016 ALEM HOLLY MD Ot M47.812 SPONDYLOSIS W/O MYELOPATHY OR RADICULOPA 11/13/2016 ALEM HOLLY MD Ot S00.81XA ABRASION OF OTHER PART OF HEAD, INITIAL 11/13/2016 ALEM HOLLY MD, Ot S39.012A STRAIN OF MUSCLE, FASCIA AND TENDON OF L 11/13/2016 ALEM HOLLY MD, Ot S39.92XA UNSPECIFIED INJURY OF LOWER BACK, INITIA 11/13/2016 ALME HOLLY MD Ot W01.0XXA FALL SAME LEV FROM SLIP/TRIP W/O STRIKE 11/13/2016 ALEM HOLLY MD, Ot Y92.009 [facility] 11/13/2016 ALEM HOLLY MD, Ot Y99.8 OTHER EXTERNAL CAUSE STATUS 11/13/2016 ALEM HOLLY MD, Ot Z79.82 RETIREMENT (CURRENT) USE OF ASPIRIN 11/13/2016 ALEM HOLLY MD, Ot Z79.899 OTHER SCIENTIFIC AIDE (CURRENT) DRUG THERAPY 11/13/2016 ALEM HOLLY MD, Ot Z95.5 PRESENCE OF CORONARY ANGIOPLASTY IMPLANT 11/14/2016 ALEM HOLLY MD Ot F17.210 NICOTINE DEPENDENCE, CIGARETTES, UNCOMPL 11/14/2016 ALEM HOLLY MD Ot I10 ESSENTIAL (PRIMARY) HYPERTENSION 11/14/2016 ALEM HOLLY MD, Ot 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 DISEASE OF [place] CORONARY 11/14/2016 ALEM HOLLY MD Ot J44.9 [...] STRIKE 11/14/2016 ALEM HOLLY MD Ot Y92.009 [facility] IN [facility] NON-INSTITUT ( PRIVATE 11/14/2016 ALEM HOLLY MD Ot Y99.8 OTHER EXTERNAL CAUSE STATUS 11/14/2016 ALEM HOLLY MD Ot Z79.82 RETIREMENT (CURRENT) USE OF ASPIRIN 11/14/2016 ALEM HOLLY MD Ot Z79.899 OTHER SCIENTIFIC AIDE (CURRENT) DRUG THERAPY 11/14/2016 ALEM HOLLY MD Ot Z95.5 PRESENCE OF CORONARY ANGIOPLASTY IMPLANT 12/13/2016 MANUELA RIVERA MD, Ot M51.16 INTERVERTEBRAL DISC DISORDERS W RADICULO 12/13/2016 MANUELA RIVERA MD, Ot Z79.899 OTHER RETIREMENT (CURRENT) DRUG THERAPY 12/23/2016 EUGENIE MEADE FACC, WENDY FACP CCDS Ot E78.5 HYPERLIPIDEMIA, UNSPECIFIED 12/23/2016 EUGENIE MEADE FACC, ALI FACP CCDS Ot I10 ESSENTIAL (PRIMARY) HYPERTENSION 12/23/2016 EUGENIE GREENWOODC, ALI FACP CCDS Ot 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 DISEASE OF [place] CORONARY 12/23/2016 EUGENIE GREENWOODC, ALI FACP CCDS [...] FACC, ALI FACP CCDS Ot Z79.899 OTHER RETIREMENT (CURRENT) DRUG THERAPY 12/23/2016 EUGENIE MEADE FACC, ALI FACP CCDS Ot Z95.5 PRESENCE OF CORONARY ANGIOPLASTY IMPLANT 12/31/2016 MANUELA RIVERA MD Ot M51.16 INTERVERTEBRAL DISC DISORDERS W RADICULO 12/31/2016 MANUELA RIVERA MD Ot Z79.899 OTHER SCIENTIFIC AIDE (CURRENT) DRUG THERAPY 01/09/2017 EUGENIE MEADE FACC, ALI FACP CCDS Ot E78.5 HYPERLIPIDEMIA, UNSPECIFIED 01/09/2017 EUGENIE MEADE FACC, ALI FACP CCDS Ot I10 ESSENTIAL (PRIMARY) HYPERTENSION 01/09/2017 EUGENIE MD FACC, ALI FACP CCDS Ot 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 DISEASE OF [place] CORONARY 01/09/2017 EUGENIE MEADE FACC, ALI FACP [...] FACC, ALI FACP CCDS Ot Z79.899 OTHER SCIENTIFIC AIDE (CURRENT) DRUG THERAPY 01/09/2017 EUGENIE MEADE FACC, ALI FACP CCDS Ot Z95.5 PRESENCE OF CORONARY ANGIOPLASTY IMPLANT 01/14/2017 EUGENIE MEADE FACC, ALI FACP CCDS Ot E78.5 HYPERLIPIDEMIA, UNSPECIFIED 01/14/2017 EUGENIE MEADE FACC, ALI FACP CCDS Ot I10 ESSENTIAL (PRIMARY) HYPERTENSION 01/14/2017 EUGENIE MEADE FACC, ALI FACP CCDS Ot 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 DISEASE OF [place] CORONARY 01/14/2017 EUGENIE MEADE FACC, ALI FACP [...] FACC, ALI FACP CCDS Ot Z79.899 OTHER SCIENTIFIC AIDE (CURRENT) DRUG THERAPY 01/14/2017 EUGENIE MEADE FACC, [...] DO Ot 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 DISEASE OF [place] CORONARY 01/18/2017 LUKE SALAZAR DO Ot I25.5 [...] LUKE S Ot Z91.19 PATIENT'S NONCOMPLIANCE W [facility] 01/18/2017 POLLYNEWTON SPAULDING LUKE Yassine [...] S Ot 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 DISEASE OF [place] CORONARY 01/19/2017 INDIRA SALAZAR DOLINE S Ot [...] S Ot 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 DISEASE OF [place] CORONARY 01/19/2017 LUKE SALAZAR DO S Ot [...] S Ot 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 DISEASE OF [place] CORONARY 01/20/2017 LUKE SALAZAR DO S Ot I25.5 ISCHEMIC CARDIOMYOPATHY 01/20/2017 LUKE SALAZAR DO S Ot I42.9 CARDIOMYOPATHY, UNSPECIFIED 01/20/2017 LUKE SALAZAR DO S Ot I48.91 UNSPECIFIED ATRIAL FIBRILLATION 01/20/2017 LUEK SALAZAR DO S Ot I50.22 CHRONIC SYSTOLIC [...] LOWER LEG, INITIAL ENC 01/20/2017 POLLYNEWTON LUKE SPAULDING Ot W19.XXXA UNSPECIFIED FALL, INITIAL ENCOUNTER 01/20/2017 LUKE SALAZAR DO Ot Z86.19 PERSONAL HISTORY OF OTHER INFECTIOUS AND 01/20/2017 AMAODU SALAZAR DOQUESAHARA Metzger Ot Z91.19 PATIENT'S NONCOMPLIANCE W [facility] 01/20/2017 POLLYNEWTON AMADOU SPAULDINGLUKE S Ot Z95.5 PRESENCE OF CORONARY ANGIOPLASTY IMPLANT 01/21/2017 LUKE SALAZAR DO Ot B96.89 [facility] THE CAUSE OF DIS 01/21/2017 [...] S Ot 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 DISEASE OF [place] CORONARY 01/21/2017 LUKE SALAZAR DO Ot I25.5 [...] HISTORY OF OTHER INFECTIOUS AND 01/21/2017 POLLYNEWTON SPAULDIGN LUKE S Ot Z91.19 PATIENT'S NONCOMPLIANCE W [facility] 01/21/2017 MARIE SPAULDING LUKE Yassine Ot Z95.5 PRESENCE OF CORONARY ANGIOPLASTY IMPLANT 01/21/2017 MARIE LUKE Ot B96.89 [facility] AG[facility] THE CAUSE OF DIS 01/21/2017 [...] DO Ot 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 DISEASE OF [place] CORONARY 01/21/2017 LUKE SALAZAR DO Ot I25.5 ISCHEMIC CARDIOMYOPATHY 01/21/2017 LUKE SALAZAR DO Ot I42.9 CARDIOMYOPATHY, UNSPECIFIED 01/21/2017 LUKE SALAZAR DO Ot I48.91 UNSPECIFIED ATRIAL FIBRILLATION 01/21/2017 LUKE SALAZAR DO Ot I50.22 CHRONIC SYSTOLIC (CONGESTIVE) HEART FAIL 01/21/2017 MARIE SPAULDING LUKE Metzger Ot I73.9 PERIPHERAL VASCULAR [...] LUKE Metzger Ot Z91.19 PATIENT'S NONCOMPLIANCE W [facility] 01/21/2017 MARIE SPAULDING LUKE Metzger [...] NEGATIVE NEGATIVE Urine buprenophrine screen NEGATIVE NEGATIVE [id number] - 07/21/16 12:20 [id number] SPECIMEN AVAILABLE NRG PT panel in platelet [...] culture - 01/16/17 01:55 Bacterial urine culture [id number] NRG COLONY COUNT >100,000/ML NRG FTX;REPORTABLE SENSITIVITY [...] Status Pt. Type Provider Facility Loc./Unit Complaint [id number] 01/16/2017 12:41:00 2016 12:30:00 DIS Inpatient LUKE SALAZAR DO S [facility] 4TH AMS;ALCOHOL INTOXICATION/ ALCOHOLISM;ATRIAL FIB; [id number] 12/13/2016 10:20:00 2016 11:37:00 DIS Outpatient MANUELA RIVERA MD [facility] CARD DISC DISORDER [id number] 11/13/2016 10:02:00 2016 11:53:00 DIS Emergency ALEM HOLLY MD [facility] ER FALL/BACK PAIN [id number] 07/21/2016 12:18:00 2015 12:15:00 DIS Inpatient LUKE SALAZAR DO S [facility] 4TH HEMATEMESIS,N/V,ALCOHOL WITHDRAWL,METABOLIC ACIDOS [id number] 05/21/2016 01:35:00 2015 03:14:00 DIS Emergency SHAYNA DO, STEPHENIE K [facility] ER PALPITATIONS,ANXIOUS [id number] 05/07/2016 15:37:00 2015 18:26:00 DIS Emergency LOS MEADE APRN [facility] ER FEVER [id number] 04/22/2016 11:29:00 2015 18:27:00 DIS Outpatient JONG MEADE, FANNY Cortes [facility] SDC T6 COMPRESSION FRACTURE [id number] 04/18/2016 15:04:00 2015 15:40:00 DIS Outpatient JONG MEADE, FANNY Cortes [facility] PREOP T6 COMPRESSION FRACTURE [id number] 02/16/2016 18:27:00 2015 23:18:00 DIS Emergency SHAYNA DO, STEPHENIE K [facility] ER SOA [id number] 12/27/2015 08:04:00 2015 10:05:00 DIS Emergency LISA MEADE, TIGRE Paul [facility] ER FALL/RIB PAIN [id number] 12/23/2015 15:00:00 2015 17:48:00 DIS Emergency GABO MEADE, RADHA Metzger [facility] ER FALL [id number] 12/14/2015 09:17:00 2015 12:56:00 DIS Emergency MILTON HERNDON MD [facility] ER VOMITING [id number] 11/28/2015 16:34:00 2015 17:41:00 DIS Emergency ALEM HOLLY MD [facility] ER FALL [id number] 09/14/2015 10:34:00 2014 12:34:00 DIS Emergency LOS MEADE APRN [facility] ER WEAKNESS/PALPITATIONS [id number] 05/16/2015 08:39:00 2014 11:10:00 DIS Emergency MILTON HERNDON MD [facility] ER FALL [id number] 04/29/2015 10:31:00 2014 10:49:00 DIS Emergency LISA MEADE, TIGRE Paul [facility] ER SUTURE REMOVAL [id number] 04/24/2015 14:12:00 2014 16:02:00 DIS Emergency LOS MEADE ENGINEER [employer] [facility] ER FALL [id number] 02/01/2015 22:35:00 2014 08:16:00 DIS Inpatient DELANO RIVERS MD [facility] SURGICAL ETOH INTOXICATION, UTI, WEAKNESS, SYNCOPE [id number] 01/26/2015 09:32:00 2014 23:59:59 CLS Outpatient DELANO RIVERS MD [facility] RAD BACK PAIN [id number] 01/24/2015 17:41:00 2014 20:07:00 DIS Emergency STEPHENIE CORRAL DO K [facility] ER CHEST WALL PAIN [id number] 11/12/2014 19:45:00 2014 10:00:00 DIS Inpatient DELANO RIVERS MD [facility] SURGICAL HEMATEMESIS;HYPOGLYCEMIA;ETOH ABUSE [id number] 10/07/2014 10:43:00 2013 14:32:00 DIS Emergency MILTON HERNDON MD [facility] ER HIP PAIN [id number] 08/25/2014 12:37:00 2013 10:12:00 DIS Inpatient DELANO RIVERS MD [facility] 4TH SWB-CONFUSION N/V ETOH INTOXICATION [id number] 08/18/2014 11:19:00 2013 11:34:00 DIS Inpatient DELANO RIVERS MD [facility] 4TH CONFUSION N/V ETOH INTOXICATION [id number] 04/26/2014 12:17:00 2013 11:57:00 DIS Inpatient DOMINICK MCDONNELL MD [facility] IRF WEAKNESS [id number] 02/21/2014 13:48:00 2013 10:30:00 DIS Inpatient DELANO RIVERS MD [facility] 4TH SWB-ANAPHYLAXIS [id number] 02/15/2014 11:30:00 2013 23:59:59 CLS Inpatient DELANO RIVERS MD [facility] 4TH ANAPHYLAXIS [id number] 01/27/2014 14:35:00 2013 23:59:59 CLS Outpatient JACOB BERUMEN MD [facility] RAD SCIATICA [id number] 12/19/2013 22:19:00 2013 02:14:00 DIS Emergency SHAYNA SPAULDING STEPHENIE K [facility] ER FALL [id number] 10/29/2013 10:09:00 2013 23:59:59 CLS Outpatient DELANO RIVERS MD [facility] RAD STEVEN,FALLS,PEREP NEUROPATHY [id number] 10/15/2013 10:42:00 2013 23:59:59 CLS Outpatient MILTON HERNDON MD [facility] RAD FALL POSS R WRIST FX THEN STILL PAIN [id number] 10/15/2013 10:07:00 2013 10:38:00 DIS Emergency MILTON HERNDON MD [facility] ER SUTURE REMOVAL [id number] 10/08/2013 09:03:00 2012 11:53:00 DIS Emergency MILTON HERNDON MD [facility] ER FALL/RIGHT HAND INJURY [id number] 09/01/2013 21:20:00 2012 14:25:00 DIS Inpatient DELANO RIVERS MD [facility] 4TH S/P FALL, COMPRESSION FRACTURES;ETOH INTOXICATION [id number] 08/28/2013 11:04:00 2012 23:59:59 CLS Outpatient DELANO RIVERS MD [facility] RAD PAIN LAT LEFT HIP [id number] 08/18/2013 10:40:00 2012 23:59:59 CLS Outpatient EUGENIE MEADE FACC, WENDY GARCIA CCDS [facility] LAB CAD,HYPERLIPADEMA [id number] 07/19/2013 10:09:00 2012 23:59:59 CLS Outpatient TITA MEADE, DELANO R [facility] LAB CIRROSIS [id number] 07/06/2013 13:41:00 2012 15:46:00 DIS Emergency LOS MEADE APRN [facility] ER COUGH/CONGESTION [id number] 07/02/2013 09:34:00 2012 12:22:00 DIS Emergency MILTON HERNDON MD [facility] ER COUGH [id number] 05/22/2013 11:31:00 2012 11:37:00 DIS Emergency STEPHENIE CORRAL DO [facility] ER STAPLE REMOVAL [id number] 05/13/2013 22:07:00 2012 00:03:00 DIS Emergency AVNI MEADE, ALEM Davila [facility] ER FALL [id number] 05/07/2013 11:13:00 2012 23:59:59 CLS Outpatient EUGENIE MEADE FACC, WENDY GARCIA CCDS [facility] LAB HTN,CAD,DYSPNEA, [id number] 04/16/2013 06:54:00 2012 14:15:00 DIS Outpatient EUGENIE MEADE FACC, WENDY GARCIA CCDS [facility] CATH CAD,HLP,HTN,SOB ISCHEMIC CARDI [id number] 02/10/2013 11:51:00 2012 13:09:00 DIS Emergency TOSHIA MARAVILLA MD [facility] ER RT ARM PAIN FROM FALL [id number] 12/03/2016 08:48:00 ACT Outpatient WENDY TRAORE MD, FACC, FACP CCDS [facility] CATH SYNCOPE,PAROXYSMAL,SVT,CAD [id number] 07/16/2016 12:15:00 ACT Outpatient TASHA ANG APRN [facility] CARD TACHYCARDIA [id number] 06/25/2016 14:54:00 ACT Outpatient LUKE SALAZAR DO [facility] LAB E87.6, E83.42 [id number] 05/28/2016 16:19:00 ACT Outpatient AFSANEH PETERSONP [facility] RAD CLAUDICATION [id number] 05/16/2016 13:31:00 ACT Outpatient CABRERAAFSANEH GARCIAP [facility] RAD CLAUDICATION [id number] 04/05/2016 11:20:00 ACT Outpatient TASHA ANG APRN [facility] RAD THORACIC SPINE PAIN [id number] 02/06/2016 10:54:00 ACT Outpatient EUGENIE MEADE FACC, ALI FACP CCDS [facility] CARD CAD,SOB,HTN,HLP [id number] 01/30/2016 14:40:00 ACT Outpatient EUGENIE MEADE FACJoshua, ALI FACP CCDS [facility] CARD CAD,SOB,HTN,HLP [id number] 01/22/2016 09:22:00 ACT Outpatient EUGENIE MEADE FACJoshua, ALI FACP CCDS [facility] CARD SOB,CAD,HTN,HLP [id number] 01/04/2016 10:02:00 ACT Outpatient LUKE SALAZAR DO [facility] CARD HYPER PARATHYROIDISM [id number] 12/21/2015 10:27:00 Document Registration [id number] 12/21/2015 09:12:00 ACT Emergency MILTON HERNDON MD [facility] ER LEGS/ARMS NUMBNESS/TINGLING [id number] 01/26/2015 09:33:00 Document Registration [id number] 01/26/2015 09:33:00 Document Registration [id number] 01/26/2015 09:33:00 Document Registration [id number] 01/21/2013 14:44:00 Document Registration [id number] 01/01/2013 11:18:00 Document Registration [id number] 12/22/2012 09:35:00 Document Registration [id number] 11/16/2012 09:09:00 Document Registration [id number] 10/13/2012 00:45:00 Document Registration [id number] 10/01/2012 14:30:00 Document Registration [id number] 09/27/2012 16:20:00 Document Registration [id number] 09/26/2012 11:31:00 Document Registration [id number] 06/22/2012 10:57:00 Document Registration [id number] 02/17/2012 15:50:00 Document Registration [id number] 10/18/2011 11:42:00 Document Registration [id number] 10/15/2011 11:35:00 Document Registration [id number] 03/26/2011 17:03:00 Document Registration [id number] 12/31/2010 08:51:00 Document Registration [id number] 11/28/2010 08:44:00 Document Registration
== END 2017-01-21 12:30 | DRG 309 ==
LOC: EDUNIT# 00:14 → ER 00:16 → UNDOADMOB 02:10 → CSD 02:10 → 4TH 11:30 → OBSVTOIN 12:41 → INTOOBSV 12:41 → ICU 15:35 → 4TH 01-19 15:15
PROVIDERS: ADMIT Family Medicine; ATTEND Family Medicine
DX: I48.91 Unspecified atrial fibrillation (principal); N39.0 Urinary tract infection, site not specified; B96.89 Other specified bacterial agents as the cause of diseases classified elsewhere; G31.2 Degeneration of nervous system due to alcohol; F10.229 Alcohol dependence with intoxication, unspecified; F10.27 Alcohol dependence with alcohol-induced persisting dementia; I11.0 Hypertensive heart disease with heart failure; I50.22 Chronic systolic (congestive) heart failure; J44.9 Chronic obstructive pulmonary disease, unspecified; I25.10 Atherosclerotic heart disease of native coronary artery without angina pectoris; I25.5 Ischemic cardiomyopathy; I42.9 Cardiomyopathy, unspecified; F17.210 Nicotine dependence, cigarettes, uncomplicated; E78.00 Pure hypercholesterolemia, unspecified; I73.9 Peripheral vascular disease, unspecified; Z86.19 Personal history of other infectious and parasitic diseases; K74.60 Unspecified cirrhosis of liver; M81.0 Age-related osteoporosis without current pathological fracture; M19.91 Primary osteoarthritis, unspecified site; F41.9 Anxiety disorder, unspecified; F32.9 Major depressive disorder, single episode, unspecified; R29.6 Repeated falls; D44.2 Neoplasm of uncertain behavior of parathyroid gland; Z95.5 Presence of coronary angioplasty implant and graft; Z91.19 Patient's noncompliance with other medical treatment and regimen; S61.431A Puncture wound without foreign body of right hand, initial encounter; S51.011A Laceration without foreign body of right elbow, initial encounter; S80.11XA Contusion of right lower leg, initial encounter; S80.12XA Contusion of left lower leg, initial encounter; W19.XXXA Unspecified fall, initial encounter
CPT/HCPCS: 36415; 70450; 71010; 72170; 80048; 80053; 80061; 80306; 80320; 81000; 82040; 82140; 83605; 83735; 83880; 84100; 84443; 84484; 85025; 85027; 85610; 85730; 87077; 87088; 87186; 93005; 93041; 93306; 93880; 94640; 94760; 96372; 96374; 96375; G0378

== ENCOUNTER 2017-03-01 08:34 | Emergency (ER) | payer MEDICARE ==
[~2017-03-01] VITALS: Ht 165.1 cm; Wt 56.7 kg
[~2017-03-01 08:34] MED LIST changes: +GUAI177L6 PO
[2017-03-01] MEDS ORDERED: SODIUM CHLORIDE (ADD-VANTAGE) 100 ML IV ONE (08:41)
[2017-03-01] MEDS ORDERED: DILTIAZEM 100 MG/VIAL (CARDIZEM) ADD-VANTAGE IV ONE (08:41)
[2017-03-01] MEDS ORDERED: DILTIAZEM 25 MG/5 ML INJ (CARDIZEM) VIAL ONE (08:42)
[2017-03-01] MEDS ORDERED: DILTIAZEM 25 MG/5 ML INJ (CARDIZEM) VIAL IVP ONE ×3 (08:45→10:30)
[2017-03-01 09:14] LABS: BASOPHILS % (AUTO) 0 % (0-10); EOSINOPHILS # (AUTO) 0.1 10^3/uL (0.0-0.3); EOSINOPHILS % (AUTO) 1 % (0-10); LYMPHOCYTES # (AUTO) 2.4 X 10^3 (1.0-4.0); LYMPHOCYTES % (AUTO) 23 % (12-44); MEAN CORPUSCULAR HEMOGLOBIN 31 PG (25-34); MEAN CORPUSCULAR HGB CONC 34 G/DL (32-36); MEAN CORPUSCULAR VOLUME 92 FL (80-99); MEAN PLATELET VOLUME 10.5 FL (7.4-10.4); MONOCYTES # (AUTO) 0.6 X 10^3 (0.0-1.0); MONOCYTES % (AUTO) 6 % (0-12); NEUTROPHILS # (AUTO) 7.3 X 10^3 (1.8-7.8); NEUTROPHILS % (AUTO) 70 % (42-75); PLATELET COUNT 291 10^3/uL (130-400); RED BLOOD COUNT 4.78 10^6/uL (4.35-5.85); RED CELL DISTRIBUTION WIDTH 13.8 % (10.0-14.5); WHITE BLOOD COUNT 10.4 10^3/uL (4.3-11.0)
[2017-03-01 09:17] LABS: PROTHROMBIN TIME PATIENT 12.4 SEC (12.2-14.7)
--- NOTE | 2017-03-01 09:20 | Diagnostic Imaging Report ---
INDICATION: Cough. TECHNIQUE: Single view chest 9:07 AM. CORRELATION STUDY: 01/19/2017 FINDINGS: Heart size is stable with coronary artery stents or calcification in the superior left heart margins. Electronic device over the left chest. Vasculature is only mildly prominent but improved and less severe from prior study. Lung morgan are hyperinflated. May be trace pleural effusions versus pleural thickening. Dense calcification, left lung base. Right posterior lateral fracture deformities are present, age-indeterminate additional rib fractures on the left lateral aspect, as well. IMPRESSION: 1. Cardiac enlargement. Mild vascular congestion, however, less severe from prior study. 2. Bilateral rib fractures, age-indeterminate. Dictated by: Dictated on workstation # [id number]
[2017-03-01 09:21] LABS: ALANINE AMINOTRANSFERASE 14 U/L (0-55); ALBUMIN 3.2 G/DL (3.2-4.5); ANION GAP 12 MMOL/L (5-14); ASPARTATE AMINO TRANSFERASE 22 U/L (5-34); BILIRUBIN,TOTAL 0.4 MG/DL (0.1-1.0); BLOOD UREA NITROGEN 7 MG/DL (7-18); BUN/CREATININE RATIO 10; CARBON DIOXIDE 22 MMOL/L (21-32); CHLORIDE 106 MMOL/L (98-107); CREATININE SERUM 0.69 MG/DL (0.60-1.30); GFR ESTIMATED > 60; GLUCOSE 107 MG/DL (70-105); MAGNESIUM 1.6 MG/DL (1.8-2.4); POTASSIUM 4.1 MMOL/L (3.6-5.0); SODIUM 140 MMOL/L (135-145)
[2017-03-01 09:27] LABS: MYOGLOBIN SERUM 23.2 NG/ML (10.0-92.0)
--- NOTE | 2017-03-01 10:22 | ED Respiratory ---
General Chief Complaint: Respiratory Problems Stated Complaint: SOB Nursing Triage Note: PT CO OF SOA, PT HR 158. STATES STARTED THIS AM Source: patient Exam Limitations: no limitations History of Present Illness Time seen by provider: 10:05 Initial Comments The patient's an 81-year-old white female well-known to me. She presents this morning with complaints of shortness of breath and anxiety. She is immediately noted to be tachycardia at a rate of about 150 with irregular conduction. She reports that she had a past history of supraventricular tachycardias and atrial fibrillation going back more than 20 years ago which was successfully ablated and she has had no troubles again until now. Timing/Duration: this morning Prior Episodes/Possible Cause: other (past history of remote ablation for SVT) Modifying Factors: Improves With Rest Associated Symptoms: shortness of breath Allergies and Home Medications Allergies Coded Allergies: procaine (Verified Allergy, Unknown, 07/21/16) Uncoded Allergies: ENVIRONMENTAL (Allergy, Mild, 12/31/10) Home Medications Alprazolam 1 Mg Tablet, 1 MG PO BID PRN for ANXIETY, (Reported) Aspirin 81 Mg Tablet.dr, 81 MG PO Q48H, (Reported) Cholecalciferol (Vitamin D3) 5,000 Unit Tablet, 5,000 UNIT PO DAILY, (Reported) Duloxetine HCl 60 Mg Capsule.dr, 60 MG PO DAILY, (Reported) Guaifenesin/Dextromethorphan 180 Ml Liquid, 20 ML PO Q4H PRN for COUGH, ( Reported) Metoprolol Succinate 25 Mg Tab.er.24h, 25 MG PO DAILY, (Reported) Pantoprazole Sodium 40 Mg Tablet.dr, 40 MG PO BID, (Reported) LAST FILLED #60 10-18-16 Constitutional: see HPI EENTM: no symptoms reported Respiratory: see HPI, cough, dyspnea on exertion, short of breath Cardiovascular: palpitations Gastrointestinal: no symptoms reported Genitourinary: no symptoms reported Musculoskeletal: no symptoms reported Skin: no symptoms reported Psychiatric/Neurological: No Symptoms Reported Hematologic/Lymphatic: No Symptoms Reported Immunological/Allergic: no symptoms reported Past Ftominn-Uapqmt-Dcrsae Hx Patient Social History Alcohol Use: Regular Use Recreational Drug Use: No (ALCOHOL,DRINKS) Smoking Status: Current Everyday Smoker Type Used: Cigarettes Recent Foreign Travel: No Contact w/Someone Who Travel: No Recent Infectious Disease Expo: No Recent Hopitalizations: No Immunizations Up To Date Tetanus Booster (TDap): Less than 5yrs PED Vaccines UTD: Yes Seasonal Allergies Seasonal Allergies: No Surgeries HX Surgeries: Yes Surgeries: Adenoidectomy, Cardiac, Coronary Stent, Eye Surgery, Gallbladder, Joint Replacement, Orthopedic, Tonsillectomy Respiratory Hx Respiratory Disorders: Yes (ACUTE RESPIRATORY FAILURE ON VENT 10/2012) Respiratory Disorders: Chronic Bronchitis, COPD Cardiovascular Hx Cardiac Disorders: Yes Cardiac Disorders: Atrial Fibrillation, Coronary Artery Disease, Heart Attack, High Cholesterol, Hypertension, Irregular Heartbeat, Palpitations, Peripheral Vascular, Syncope Neurological Hx Neurological Disorders: Yes (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) Reproductive System Hx Reproductive Disorders: No Sexually Transmitted Disease: No HIV/AIDS: No Female Reproductive Disorders: Denies MILK BOTTLER History: Menopausal Genitourinary Hx Genitourinary Disorders: Yes Genitourinary Disorders: Bladder Infection Gastrointestinal Hx Gastrointestinal Disorders: Yes Gastrointestinal Disorders: Hepatitis, Cirrhosis Musculoskeletal Hx Musculoskeletal Disorders: Yes Musculoskeletal Disorders: Degenerate Disk Disease, Osteoporosis, Arthritis, Back Injury, Chronic Back Pain, Fractures Endocrine Hx Endocrine Disorders: Yes (lump on thyroid ) HEENT HX ENT Disorders: Yes (CATARACTS SURGERY 01/20/15, BROKEN NOSE) HEENT Disorders: Cataract Hearing Impairment: Denies Cancer Hx Cancer: No Psychosocial Hx Psychiatric Problems: Yes (ALCOHOLISM) Behavioral Health Disorders: Anxiety, Depression Integumentary HX Skin/Integumentary Disorder: No Blood Transfusions Hx Blood Disorders: Yes (HEPATITIS) Adverse Reaction to a Blood Tr: No Family Medical History Significant Family History: No Pertinent Family Hx Family Medial History: Alcoholism G8 SISTER Arthritis 03 FATHER 03 MOTHER G8 SISTER Cataracts Colon cancer G8 BROTHER Congestive heart failure 03 FATHER Deafness or hearing loss 03 FATHER Dementia G8 BROTHER Diabetes mellitus G8 BROTHER Drug abuse 03 FATHER 03 MOTHER G8 SISTER G8 BROTHER Family history: Arthritis 03 FATHER (GOUT) Family history: Cardiovascular disease 03 FATHER Family history: Gastrointestinal disease 03 MOTHER Hearing loss 03 FATHER Heart disease 03 FATHER Myocardial infarction 03 FATHER Psychosocial problem G8 BROTHER Visual disorder Visual impairment 03 FATHER (WORE GLASSES) 03 MOTHER (WORE GLASSES) No Family History of: AIDS Abdominal aortic aneurysm Hamilton's disease Aphasia Asthma Cancer of mouth Cardiovascular disease Completed stroke Congenital disease Congenital heart disease Coronary thrombosis Cystic fibrosis Dysphasia Fibrocystic disease of breast Gastroenteritis Glaucoma Headache disorder Hypercholesterolemia Hypertension Infertility Kidney disease Myocardial infarction Neoplasm Not obtainable due to adoption Osteoporosis Parkinson's disease Prostate cancer Respiratory disorder Seizure disorder Severe allergy Thyroid disease Tuberculosis Physical Exam Vital Signs Vital Sign - Last 12Hours 03/01/17 08:40 Temp 98.2 Pulse 158 Resp 36 B/P (MAP) 160/112 Pulse Ox 100 O2 Delivery Nasal Cannula O2 Flow Rate 2.00 Capillary Refill : Less Than 3 Seconds General Appearance: mild distress Eyes: Bilateral Eye Normal Inspection HEENT: normal ENT inspection Neck: full range of motion Respiratory: chest non-tender, lungs clear, normal breath sounds, no respiratory distress, no accessory muscle use, respiratory distress Cardiovascular: tachycardia, irregularly irregular Gastrointestinal: normal bowel sounds, non tender, soft, no organomegaly, no pulsatile mass Extremities: normal range of motion, non-tender, normal inspection, no pedal edema, no calf tenderness, normal capillary refill, pelvis stable Neurologic/Psychiatric: electrolytic etcher II-XII nml as tested, no motor/sensory deficits, alert, normal mood/affect, oriented x 3 Skin: normal color, warm/dry, cyanosis, cool, diaphoresis, damp Lymphatic: no adenopathy Progress/Results/Core Measures Results/Orders Lab Results Laboratory Tests Test 03/01/17 08:45 Range/Units White Blood Count 10.4 4.3-11.0 10^3/uL Red Blood Count 4.78 4.35-5.85 10^6/uL Hemoglobin 14.8 11.5-16.0 G/DL Hematocrit 44 35-52 % Mean Corpuscular Volume 92 80-99 FL Mean Corpuscular Hemoglobin 31 25-34 PG Mean Corpuscular Hemoglobin Concent 34 32-36 G/DL Red Cell Distribution Width 13.8 10.0-14.5 % Platelet Count 291 130-400 10^3/uL Mean Platelet Volume 10.5 H 7.4-10.4 FL Neutrophils (%) (Auto) 70 42-75 % Lymphocytes (%) (Auto) 23 12-44 % Monocytes (%) (Auto) 6 0-12 % Eosinophils (%) (Auto) 1 0-10 % Basophils (%) (Auto) 0 0-10 % Neutrophils # (Auto) 7.3 1.8-7.8 X 10^3 Lymphocytes # (Auto) 2.4 1.0-4.0 X 10^3 Monocytes # (Auto) 0.6 0.0-1.0 X 10^3 Eosinophils # (Auto) 0.1 0.0-0.3 10^3/uL Basophils # (Auto) 0.0 0.0-0.1 10^3/uL Prothrombin Time 12.4 12.2-14.7 SEC INR Comment 1.0 0.8-1.4 Activated Partial Thromboplast Time 28 24-35 SEC Sodium Level 140 135-145 MMOL/L Potassium Level 4.1 3.6-5.0 MMOL/L Chloride Level 106 98-107 MMOL/L Carbon Dioxide Level 22 21-32 MMOL/L Anion Gap 12 5-14 MMOL/L Blood Urea Nitrogen 7 7-18 MG/DL Creatinine 0.69 0.60-1.30 MG/DL Estimat Glomerular Filtration Rate > 60 BUN/Creatinine Ratio 10 Glucose Level 107 H 70-105 MG/DL Calcium Level 9.0 8.5-10.1 MG/DL Magnesium Level 1.6 L 1.8-2.4 MG/DL Total Bilirubin 0.4 0.1-1.0 MG/DL Aspartate Amino Transf (AST/SGOT) 22 5-34 U/L Alanine Aminotransferase (ALT/SGPT) 14 0-55 U/L Alkaline Phosphatase 134 40-136 U/L Myoglobin 23.2 10.0-92.0 NG/ML Troponin I < 0.30 <0.30 NG/ML B-Type Natriuretic Peptide 181.4 H <100.0 PG/ML Total Protein 6.0 L 6.4-8.2 G/DL Albumin 3.2 3.2-4.5 G/DL My Orders Orders - MILTON HERNDON MD Diltiazem Injection (Cardizem Injection) (03/01/17 08:45) Sodium Chloride (Add-[place]) (Ns (Add-V (03/01/17 08:41) Diltiazem Drip (Cardizem Drip) (03/01/17 08:41) Diltiazem Injection (Cardizem Injection) (03/01/17 08:42) Cbc With Automated Diff (03/01/17 09:04) Magnesium (03/01/17 09:04) Chest 1 View, Ap/Pa Only (03/01/17 09:04) Ekg Tracing (03/01/17 09:04) Cardiac Profile 1 (03/01/17 09:04) Comprehensive Metabolic Panel (03/01/17 09:04) Myoglobin Serum (03/01/17 09:04) Protime With Inr (03/01/17 09:04) Partial Thromboplastin Time (03/01/17 09:04) O2 (03/01/17 09:04) Monitor-Rhythm Ecg Trace Only (03/01/17 09:04) Lipid Panel (03/02/17 06:00) Saline Lock/Iv-Start (03/01/17 09:04) BNP (03/01/17 09:04) Diltiazem Injection (Cardizem Injection) (03/01/17 10:15) Diltiazem Injection (Cardizem Injection) (03/01/17 10:30) Lorazepam Injection (Ativan Injection) (03/01/17 10:35) Medications Given in ED Current Medications Medications Dose Ordered Sig/Jorge Route Start Time Stop Time Status Last Admin Dose Admin Diltiazem HCl 10 mg ONCE ONCE IVP 03/01/17 08:45 03/01/17 08:46 DC 03/01/17 08:45 10 MG Diltiazem HCl 20 mg ONCE ONCE IVP 03/01/17 10:30 03/01/17 10:31 DC 03/01/17 10:35 20 MG Diltiazem HCl 100 mg STK-MED ONCE IV 03/01/17 08:41 03/01/17 08:46 DC 03/01/17 08:50 100 MG Lorazepam 2 mg STK-MED ONCE .ROUTE 03/01/17 10:35 03/01/17 10:39 DC 03/01/17 10:43 0.5 MG Sodium Chloride 100 ml @ ud STK-MED ONCE IV 03/01/17 08:41 03/01/17 08:46 DC 03/01/17 08:50 10 MLS/HR Vital Signs/I&O Vital Sign - Last 12Hours 03/01/17 03/01/17 08:40 08:50 Temp 98.2 98.2 Pulse 158 158 Resp 36 18 B/P (MAP) 160/112 160/112 Pulse Ox 100 99 O2 Delivery Nasal Cannula O2 Flow Rate 2.00 2.00 Blood Pressure Mean: 128 Departure Communication Progress Notes 1112 the rate has now slowed to 100 and at intervals appears to even be sinus. Accordingly the patient will be discharged to her home. She takes Toprol 25 XL and this will be increased to 50 XL. Impression Impression: Primary Impression: atrial fibrillation with RVR Disposition: HOME, SELF-CARE Condition: Improved Departure-Patient Inst. Decision time for Depature: 11:11 Referrals: LUKE SALAZAR DO (PCP/Family) Primary Care Physician Add. Discharge Instructions: All discharge instructions reviewed with patient and/or family. Voiced understanding. Increase Toprol 25 XL to 2 tablets each morning beginning today. If recurrence of symptoms return to the ER, otherwise touch base with your provider Friday for advice about dose of Toprol and potential cardiology referral MILTON HERNDON MD March 01, 2017 10:22
[2017-03-01] MEDS ORDERED: LORazepam INJ 2 MG/ML (ATIVAN) VIAL ONE (10:35)
[2017-03-01 11:28] VITALS: BP 133/80
== END 2017-03-01 11:27 | disposition home or self-care (01) ==
LOC: EDUNIT# 08:34 → ER 08:36
DX: I48.2 Chronic atrial fibrillation (principal); I10 Essential (primary) hypertension; I25.10 Atherosclerotic heart disease of native coronary artery without angina pectoris; J44.9 Chronic obstructive pulmonary disease, unspecified; Z79.82 Long term (current) use of aspirin; Z79.899 Other long term (current) drug therapy; Z95.5 Presence of coronary angioplasty implant and graft; Z87.891 Personal history of nicotine dependence
CPT/HCPCS: 36415; 71010; 80053; 83735; 83874; 83880; 84484; 85025; 85610; 85730; 93005; 93041; 96365; 96366; 96375

== ENCOUNTER 2017-03-23 20:11 | Emergency (ER) | payer MEDICARE ==
[~2017-03-23] VITALS: Ht 160 cm; Wt 59.0 kg
[2017-03-23] MEDS ORDERED: APIX2.5T (20:20)
[2017-03-23] MEDS ORDERED: DILT300C (20:20)
[2017-03-23] MEDS ORDERED: RT-ALBUTEROL SULF 2.5 MG/3 ML PRE-MIX VIAL ONE (20:23)
[2017-03-23] MEDS ORDERED: RT-ALBUTEROL SULF 2.5 MG/3 ML PRE-MIX VIAL INH STA (20:27)
[2017-03-23 20:30] LABS: BASOPHILS % (AUTO) 0 % (0-10); EOSINOPHILS # (AUTO) 0.2 10^3/uL (0.0-0.3); EOSINOPHILS % (AUTO) 1 % (0-10); LYMPHOCYTES # (AUTO) 3.3 X 10^3 (1.0-4.0); LYMPHOCYTES % (AUTO) 19 % (12-44); MEAN CORPUSCULAR HEMOGLOBIN 31 PG (25-34); MEAN CORPUSCULAR HGB CONC 34 G/DL (32-36); MEAN CORPUSCULAR VOLUME 93 FL (80-99); MEAN PLATELET VOLUME 10.2 FL (7.4-10.4); MONOCYTES # (AUTO) 1.3 X 10^3 (0.0-1.0); MONOCYTES % (AUTO) 7 % (0-12); NEUTROPHILS # (AUTO) 12.2 X 10^3 (1.8-7.8); NEUTROPHILS % (AUTO) 72 % (42-75); PLATELET COUNT 186 10^3/uL (130-400); RED BLOOD COUNT 4.65 10^6/uL (4.35-5.85); RED CELL DISTRIBUTION WIDTH 15.8 % (10.0-14.5)
[2017-03-23 20:39] LABS: PROTHROMBIN TIME PATIENT 12.8 SEC (12.2-14.7)
--- NOTE | 2017-03-23 20:40 | Diagnostic Imaging Report ---
INDICATION: Shortness of breath COMPARISON: 03/01/2017 FINDINGS: Upright portable view of the chest is obtained. Heart size is upper limits of normal. The pulmonary vessels appear unremarkable. There is no pneumothorax or mediastinal widening. There is moderate left pleural effusion with some probable left basilar atelectasis or infiltrate. There is a small right pleural effusion. The upper lungs are clear. IMPRESSION: Moderate left pleural effusion with left basilar atelectasis or infiltrate and trace right effusion. Dictated by: Dictated on workstation # [id number]
[2017-03-23 20:47] LABS: ALANINE AMINOTRANSFERASE 43 U/L (0-55); ALBUMIN 2.8 G/DL (3.2-4.5); ANION GAP 15 MMOL/L (5-14); ASPARTATE AMINO TRANSFERASE 170 U/L (5-34); BILIRUBIN,TOTAL 1.1 MG/DL (0.1-1.0); BLOOD UREA NITROGEN 8 MG/DL (7-18); BUN/CREATININE RATIO 13; CALCIUM 8.6 MG/DL (8.5-10.1); CARBON DIOXIDE 18 MMOL/L (21-32); CHLORIDE 104 MMOL/L (98-107); CREATININE SERUM 0.63 MG/DL (0.60-1.30); GFR ESTIMATED > 60; GLUCOSE 125 MG/DL (70-105); POTASSIUM 4.1 MMOL/L (3.6-5.0); SODIUM 137 MMOL/L (135-145)
[2017-03-23 20:53] LABS: TROPONIN I < 0.30 NG/ML (<0.30)
[2017-03-23 20:54] LABS: BAND NEUTROPHILS 3 %; BASOPHILS % (MANUAL) 1 %; EOSINOPHILS % (MANUAL) 2 %; LYMPHOCYTES % (MANUAL) 22 %; NEUTROPHILS % (MANUAL) 64 %
[2017-03-23 21:10] LABS: ABG BASE EXCESS -4.1 MMOL/L (-2.5-2.5); ABG HCO3 19 MMOL/L (23-27); ABG OXYGEN SATURATION 93 % (94-100); ABG PCO2 27 MMHG (35-45); ABG PH 7.47 (7.37-7.43); ABG PO2 59 MMHG (79-93); ABG TCO2 20.2 MMOL/L (21.0-31.0)
[2017-03-23 21:11] LABS: ALLENS TEST LT RAD
[2017-03-23 21:12] LABS: PATIENT TEMP 96.1
[2017-03-23] MEDS ORDERED: NS IV 1000 ML 2,000 ML IV PRN (21:30)
--- NOTE | 2017-03-23 21:33 | ED General ---
General Chief Complaint: Respiratory Problems Stated Complaint: SOA Nursing Triage Note: soa Nursing Sepsis Screen: Possible Severe Sepsis Risk Source of Information: Patient, EMS Exam Limitations: No Limitations History of Present Illness Time Seen by Provider: 20:15 Initial Comments Here by EMS with increasing shortness of air over the last 24 hours and certainly much worse tonight. On EMS arrival, she was noted to be tachypneic with oxygen saturations in the low 80s. High flow O2 initiated and DuoNeb treatment and albuterol treatment initiated. Patient arrives in respiratory distress with report of cough and shortness of air. Denies chest pain or vomiting. Timing/Duration: 24 Hours Severity: Moderate, Severe Associated Systoms: No Chest Pain, Diaphoresis, No Fever/Chills, No Nausea/ Vomiting, Shortness of Air, Weakness Allergies and Home Medications Allergies Coded Allergies: procaine (Verified Allergy, Unknown, 07/21/16) Uncoded Allergies: ENVIRONMENTAL (Allergy, Mild, 12/31/10) Home Medications Alprazolam 1 Mg Tablet, 1 MG PO BID PRN for ANXIETY, (Reported) Apixaban 2.5 Mg Tablet, #60 (Reported) Aspirin 81 Mg Tablet.dr, 81 MG PO Q48H, (Reported) Cholecalciferol (Vitamin D3) 5,000 Unit Tablet, 5,000 UNIT PO DAILY, (Reported) Diltiazem HCl 300 Mg Cap.er.24h, #30 (Reported) Duloxetine HCl 60 Mg Capsule.dr, 60 MG PO DAILY, (Reported) Guaifenesin/Dextromethorphan 180 Ml Liquid, 20 ML PO Q4H PRN for COUGH, ( Reported) Metoprolol Succinate 25 Mg Tab.er.24h, 25 MG PO DAILY, (Reported) Pantoprazole Sodium 40 Mg Tablet.dr, 40 MG PO BID, (Reported) LAST FILLED #60 10-18-16 Constitutional: see HPI, chills, diaphoresis, No fever EENTM: no symptoms reported Respiratory: see HPI, dyspnea on exertion, short of breath, wheezing Cardiovascular: No chest pain, Hx of Intervention Gastrointestinal: No abdominal pain, No nausea, No vomiting Genitourinary: no symptoms reported Musculoskeletal: no symptoms reported Skin: no symptoms reported Psychiatric/Neurological: Anxiety All Other Systems Reviewed Negative Unless Noted: Yes Past Fviezxl-Kjwfsh-Yecnen Hx Patient Social History Alcohol Use: Regular Use Recreational Drug Use: Yes (ALCOHOL,DRINKS) Smoking Status: Current Everyday Smoker Type Used: Cigarettes 2nd Hand Smoke Exposure: Yes Recent Foreign Travel: No Contact w/Someone Who Travel: No Recent Infectious Disease Expo: No Recent Hopitalizations: No Immunizations Up To Date Tetanus Booster (TDap): Less than 5yrs PED Vaccines UTD: Yes Seasonal Allergies Seasonal Allergies: No Surgeries HX Surgeries: Yes Surgeries: Adenoidectomy, Cardiac, Coronary Stent, Eye Surgery, Gallbladder, Joint Replacement, Orthopedic, Tonsillectomy Respiratory Hx Respiratory Disorders: Yes (ACUTE RESPIRATORY FAILURE ON VENT 10/2012) Respiratory Disorders: Chronic Bronchitis, COPD Cardiovascular Hx Cardiac Disorders: Yes Cardiac Disorders: Atrial Fibrillation, Coronary Artery Disease, Heart Attack, High Cholesterol, Hypertension, Irregular Heartbeat, Palpitations, Peripheral Vascular, Syncope Neurological Hx Neurological Disorders: Yes (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) Reproductive System : No Hx Reproductive Disorders: No Sexually Transmitted Disease: No HIV/AIDS: No Female Reproductive Disorders: Denies [employer] History: Menopausal Genitourinary Hx Genitourinary Disorders: Yes Genitourinary Disorders: Bladder Infection Gastrointestinal Hx Gastrointestinal Disorders: Yes Gastrointestinal Disorders: Hepatitis, Cirrhosis Musculoskeletal Hx Musculoskeletal Disorders: Yes Musculoskeletal Disorders: Degenerate Disk Disease, Osteoporosis, Arthritis, Back Injury, Chronic Back Pain, Fractures Endocrine Hx Endocrine Disorders: Yes (lump on thyroid ) HEENT HX ENT Disorders: Yes (CATARACTS SURGERY 01/20/15, BROKEN NOSE) HEENT Disorders: Cataract Hearing Impairment: Denies Cancer Hx Cancer: No Psychosocial Hx Psychiatric Problems: Yes (ALCOHOLISM) Behavioral Health Disorders: Anxiety, Depression Integumentary HX Skin/Integumentary Disorder: No Blood Transfusions Hx Blood Disorders: Yes (HEPATITIS) Adverse Reaction to a Blood Tr: No Reviewed Nursing Assessment Reviewed/Agree w Nursing PMH: Yes Family Medical History Family Medial History: Alcoholism G8 SISTER Arthritis 03 FATHER 03 MOTHER G8 SISTER Cataracts Colon cancer G8 BROTHER Congestive heart failure 03 FATHER Deafness or hearing loss 03 FATHER Dementia G8 BROTHER Diabetes mellitus G8 BROTHER Drug abuse 03 FATHER 03 MOTHER G8 SISTER G8 BROTHER Family history: Arthritis 03 FATHER (GOUT) Family history: Cardiovascular disease 03 FATHER Family history: Gastrointestinal disease 03 MOTHER Hearing loss 03 FATHER Heart disease 03 FATHER Myocardial infarction 03 FATHER Psychosocial problem G8 BROTHER Visual disorder Visual impairment 03 FATHER (WORE GLASSES) 03 MOTHER (WORE GLASSES) Physical Exam-Suspected Sepsis Physical Exam Vital Signs Vital Sign - Last 12Hours 03/23/17 03/23/17 20:20 20:25 Temp 96.5 Pulse 102 Resp 23 B/P (MAP) 105/77 Pulse Ox 95 O2 Delivery Simple Mask O2 Flow Rate 15.00 FiO2 100 Capillary Refill : Less Than 3 Seconds Blood Pressure Mean: 73 General Appearance: Anxious, Moderate Distress HEENT: PERRL/EOMI, Pharynx Normal Neck: Non Tender, Supple Respiratory: Crackles, Decreased Breath Sounds, Wheezing Cardiovascular: Irregularly Irregular, Tachycardia Gastrointestinal: Non Tender, Soft Back: Normal Inspection, No CVA Tenderness, No Vertebral Tenderness Extremity: Normal Capillary Refill, Normal Range of Motion, Non Tender Neurologic/Psychiatric: Alert, Oriented x3 Skin: normal color, warm/dry Focused Exam Lactic Acid Level Laboratory Tests Test 03/23/17 20:35 03/23/17 22:38 Lactic Acid Level 2.73 MMOL/L (0.50-2.00) *H 8.97 MMOL/L (0.50-2.00) *H Progress/Results/Core Measures Suspected Sepsis Recent Fever Within 48 Hours: No Infection Criteria Present: Suspected New Infection New/Unexplained Altered Menta: No Sepsis Screen: Possible Severe Sepsis Risk Sepsis Diagnosis: SIRS Temperature:96.9 Pulse: 119 Respiratory Rate: 24 Laboratory Tests 03/23/17 20:15: White Blood Count 17.0H Blood Pressure 96 /61 Mean: 73 Laboratory Tests 03/23/17 20:15: Creatinine 0.63, INR Comment 1.0, Platelet Count 186, Total Bilirubin 1.1H Results/Orders Lab Results Laboratory Tests Test 03/23/17 20:15 03/23/17 20:35 03/23/17 20:57 03/23/17 22:38 Range/Units White Blood Count 17.0 H 4.3-11.0 10^3/uL Red Blood Count 4.65 4.35-5.85 10^6/uL Hemoglobin 14.4 11.5-16.0 G/DL Hematocrit 43 35-52 % Mean Corpuscular Volume 93 80-99 FL Mean Corpuscular Hemoglobin 31 25-34 PG Mean Corpuscular Hemoglobin Concent 34 32-36 G/DL Red Cell Distribution Width 15.8 H 10.0-14.5 % Platelet Count 186 130-400 10^3/uL Mean Platelet Volume 10.2 7.4-10.4 FL Neutrophils (%) (Auto) 72 42-75 % Lymphocytes (%) (Auto) 19 12-44 % Monocytes (%) (Auto) 7 0-12 % Eosinophils (%) (Auto) 1 0-10 % Basophils (%) (Auto) 0 0-10 % Neutrophils # (Auto) 12.2 H 1.8-7.8 X 10^3 Lymphocytes # (Auto) 3.3 1.0-4.0 X 10^3 Monocytes # (Auto) 1.3 H 0.0-1.0 X 10^3 Eosinophils # (Auto) 0.2 0.0-0.3 10^3/uL Basophils # (Auto) 0.0 0.0-0.1 10^3/uL Neutrophils % (Manual) 64 % Lymphocytes % (Manual) 22 % Monocytes % (Manual) 8 % Eosinophils % (Manual) 2 % Basophils % (Manual) 1 % Band Neutrophils 3 % Blood Morphology Comment NORMAL Prothrombin Time 12.8 12.2-14.7 SEC INR Comment 1.0 0.8-1.4 Activated Partial Thromboplast Time 27 24-35 SEC Sodium Level 137 135-145 MMOL/L Potassium Level 4.1 3.6-5.0 MMOL/L Chloride Level 104 98-107 MMOL/L Carbon Dioxide Level 18 L 21-32 MMOL/L Anion Gap 15 H 5-14 MMOL/L Blood Urea Nitrogen 8 7-18 MG/DL Creatinine 0.63 0.60-1.30 MG/DL Estimat Glomerular Filtration Rate > 60 BUN/Creatinine Ratio 13 Glucose Level 125 H 70-105 MG/DL Calcium Level 8.6 8.5-10.1 MG/DL Total Bilirubin 1.1 H 0.1-1.0 MG/DL Aspartate Amino Transf (AST/SGOT) 170 H 5-34 U/L Alanine Aminotransferase (ALT/SGPT) 43 0-55 U/L Alkaline Phosphatase 171 H 40-136 U/L Troponin I < 0.30 <0.30 NG/ML Total Protein 6.0 L 6.4-8.2 G/DL Albumin 2.8 L 3.2-4.5 G/DL Serum Alcohol < 10 <10 MG/DL Lactic Acid Level 2.73 *H 8.97 *H 0.50-2.00 MMOL/L Blood Gas Puncture Site LT RAD Blood Gas Patient Temperature 96.1 Arterial Blood pH 7.47 H 7.37-7.43 Arterial Blood Partial Pressure CO2 27 L 35-45 MMHG Arterial Blood Partial Pressure O2 59 L 79-93 MMHG Arterial Blood HCO3 19 L 23-27 MMOL/L Arterial Blood Total CO2 20.2 L 21.0-31.0 MMOL/L Arterial Blood Oxygen Saturation 93 L 94-100 % Arterial Blood Base Excess -4.1 L -2.5-2.5 MMOL/L Jhoan Test LT RAD Blood Gas Ventilator Setting NO Blood Gas Inspired Oxygen 100% My Orders Orders - ALEM HOLLY MD Cbc With Automated Diff (03/23/17:) Comprehensive Metabolic Panel (03/23/17) Lactic Acid Analyzer (03/23/17) Blood Culture (03/23/17) Sputum Culture (03/23/17) Ua Culture If Indicated (03/23/17) Protime With Inr (03/23/17) Partial Thromboplastin Time (03/23/17) Chest 1 View, Ap/Pa Only (03/23/17:) O2 (03/23/17:) Saline Lock/Iv-Start (03/23/17:) Saline Lock/Iv-Start (03/23/17:23) Ekg Tracing (03/23/17:) Troponin I (03/23/17:) Vital Signs Adult Sepsis Patie Q1HR (03/23/17:) Remove Rings In Anticipation O (03/23/17:23) Albuterol Pre-Mix Nebs (Rt) (Proventil P (03/23/17 20:27) Svn Sm Volume Nebulizer Rt-Rfs (03/23/17:) Arterial Blood Gas (03/23/17:) Albuterol Pre-Mix Nebs (Rt) (Proventil P (03/23/17:23) Manual Differential (03/23/17 20:15) Saline Lock/Iv-Start (03/23/17 21:16) Ns Iv 1000 Ml (Sodium Chloride 0.9%) (03/23/17 21:30) Alcohol (03/23/17 21:34) Piperacillin Sodium/Tazobactam (Zosyn Vi (03/23/17 22:00) Chest 1 View, Ap/Pa Only (03/23/17 21:48) Fentanyl Injection (Sublimaze Injection (03/23/17 21:48) Lorazepam Injection (Ativan Injection) (03/23/17 21:48) Hydrocortisone Injection (Solu-Cortef In (03/23/17 21:59) Medications Given in ED Current Medications Medications Dose Ordered Sig/Jorge Route Start Time Stop Time Status Last Admin Dose Admin Sodium Chloride 2,000 ml @ 1,000 mls/hr PRN PRN IV 03/23/17 21:30 03/23/17 21:31 1,000 MLS/HR Vital Signs/I&O Vital Sign - Last 12Hours 03/23/17 03/23/17 03/23/17 03/23/17 20:20 20:25 20:34 21:07 Temp 96.5 96.9 Pulse 102 119 Resp 23 24 B/P (MAP) 105/77 96/61 Pulse Ox 95 99 95 94 O2 Delivery Simple Mask High Flow NC Vapotherm High Flow NC O2 Flow Rate 15.00 25.00 25.00 FiO2 100 100 03/23/17 21:15 O2 Delivery Vapotherm O2 Flow Rate 25.00 FiO2 100 Capillary Refill : Less Than 3 Seconds Blood Pressure Mean: 73 Progress Note : Progress Note Seen and evaluated. IV by EMS. Labs, EKG, blood cultures, lactic acid, UA, chest x-ray and albuterol neb 3 ordered. Patient increased to high flow oxygen and then VapoTherm oxygen to keep O2 sats in the low 90s. Patient tachycardic after albuterol. Concerns for sepsis. 2129: High volume fluid resuscitation ordered due to blood pressures 80s over 50s. Second IV line ordered but patient has poor vascular access. We will initiate central line. I did discuss the case with Dr. Short at 2131. She accepts patient for admission. Patient has findings of septic shock with hypotension. I attest a focused exam at this time. 2156: Patient is suffering from markedly worsening respiratory distress. She is complaining of back pain and having significant difficulty with respect to getting a breath despite high flow oxygen therapy. I did discuss with her related to aggressive therapy including intubation and CPR. Patient states that she wants everything done at this point. I did discuss about intubation with her and she agreed. Patient is rapidly declining and this would be the only option. Intubation completed at 2203 with 7.5 ET tube at 22 cm at the teeth. Sedation with succinylcholine and etomidate. Rapid placement of central line accomplished via ultrasound guidance to the right IJ. Patient received 5 mg of Versed and 100 g of fentanyl IV for sedation. High volume fluid resuscitation continues. 2218: Patient now pulseless and CPR initiated. Patient has had Levophed initiated prior and this was continued. : Patient had spontaneous return of circulation and then became pulseless again and now has return of circulation after repeat epinephrine IV. She has had a G-tube placed and Rivas catheter placed. She had scant urine output from the Rivas catheter. Levophed increased to 20 mcg/kg /m. Several family members are now here and I have discussed with him the critical nature of the patient. Dr. Short or where of ongoing efforts. 2257 : Vasopressin drip initiated at 0.04 units per minute. 2249: Patient without pulse again and CPR was resumed. Epinephrine 1 mg IV was given and spontaneous return of circulation noted. 2257: I had a long discussion with several family members here at bedside. They are all in agreement that the patient would not want continued efforts in this manner for which I agree. Her primary care physician also agreed. All efforts were stopped. Versed 2.5 mg IV was given. 2303: Patient extubated and no G-tube removed. 2304 time of . Family at bedside. [facility] called. 2317: Dr. Short here with family and Father Eloy is also here for last rights. ECG Initial ECG Impression Date: Mar 23, 2017 Initial ECG Impression Time: 20:20 Initial ECG Rate: 104 Initial ECG Rhythm: A Fib/Flutter Comment Atrial fibrillation with tachycardic rate. Normal axis. No evidence of ST elevation MS. Interpreted by me. Previous EKG shows atrial fibrillation with rapid ventricular response but otherwise similar morphology. Diagnostic Imaging Diagonstic Imaging: Xray Plain Films/CT/US/NM/MRI: chest Comments NAME: GERMANGHISLAINE Joshua [facility] REC#: [id number] PT STATUS: REG ER : 1935 PHYSICIAN: ALEM HOLLY MD ADMIT DATE: 03/23/17/ER Signed Date of Exam: 03/23/17 CHEST 1 VIEW, AP/PA ONLY INDICATION: Shortness of breath COMPARISON: 03/01/2017 FINDINGS: Upright portable view of the chest is obtained. Heart size is upper limits of normal. The pulmonary vessels appear unremarkable. There is no pneumothorax or mediastinal widening. There is moderate left pleural effusion with some probable left basilar atelectasis or infiltrate. There is a small right pleural effusion. The upper lungs are clear. IMPRESSION: Moderate left pleural effusion with left basilar atelectasis or infiltrate and trace right effusion. Dictated by: Dictated on workstation # [id number] Dict: 03/23/172035 Trans: 03/23/172111 Interpreted by: RITESH MARAVILLA DO Electronically signed by: RITESH MARAVILLA DO 03/23/172111 Departure Communication Time/Spoke to Admitting Phy: 21:30 Impression Impression: Primary Impression: Septic shock Additional Impression: Left lower lobe pneumonia Qualified Codes: J18.1 - Lobar pneumonia, unspecified organism Disposition: 20 Condition: Departure-Patient Inst. Decision time for Depature: 23:04 Referrals: LUKE SHORT DO (PCP/Family) Primary Care Physician Copy Copies To 1: LUKE SHORT TIMOTHY D MD Mar 23, 2017 21:32
[2017-03-23] MEDS ORDERED: fentaNYL INJECTION 100 MCG/2 ML AMP ONE (21:48)
[2017-03-23] MEDS ORDERED: LORazepam INJ 2 MG/ML (ATIVAN) VIAL ONE (21:48)
[2017-03-23] MEDS ORDERED: HYDROCORTISONE 100 MG/2 ML (Solu-CORTEF) VIAL ONE (21:59)
[2017-03-23] MEDS ORDERED: PIPERACILLIN SODIUM/TAZOBACTAM 4.5 GM in NS (IVPB) 100 ML IV ONE (22:00)
[2017-03-23] MEDS ORDERED: NOREPINEPHRINE 4 MG/4 ML (LEVOPHED) AMP IV ONE (22:03)
[2017-03-23] MEDS ORDERED: D5W 250 ML (IVPB) 250 ML IV ONE (22:03)
[2017-03-23] MEDS ORDERED: VASOPRESSIN INJECTION 20 UNIT/ML VIAL ONE (22:35)
[2017-03-23] MEDS ORDERED: NS (IVPB) 50 ML ONE (22:35)
[2017-03-23] MEDS ORDERED: EPINEPHrine INJECTION 1 MG/ML AMP IJ ONE (23:00)
[2017-03-23] MEDS ORDERED: MIDAZOLAM 5 MG/5 ML (VERSED) VIAL INJ ONE (23:00)
[2017-03-23] MEDS ORDERED: ETOMIDATE IV SOLN 20 MG/10 ML VIAL IV ONE (23:00)
[2017-03-23] MEDS ORDERED: CATHETER FLUSH 10 ML SYR IV ONE (23:00)
[2017-03-23] MEDS ORDERED: fentaNYL INJECTION 100 MCG/2 ML AMP INJ ONE (23:00)
[2017-03-23] MEDS ORDERED: ATROPINE INJECTION 1 MG/10 ML SYR (ABBOTT) INJ ONE (23:00)
[2017-03-23] MEDS ORDERED: EPINEPHrine 0.1 MG/ML 10 ML (HOSPIRA) SYR INJ ONE (23:00)
[2017-03-24 00:10] VITALS: BP 0/0
--- NOTE | 2017-03-24 07:36 | Diagnostic Imaging Report ---
INDICATION: Evaluate lines and tubes. COMPARISON: 03/23/2017 FINDINGS: Single frontal radiographic view of the chest was obtained and demonstrates indwelling endotracheal tube with tip at clavicular heads. Right internal jugular central venous catheter tip terminates in the SVC. There is probable layering left-sided pleural effusion with associated left basilar airspace disease. Right lung remains relatively clear. No large effusion is seen on the right. No pneumothorax is identified on either side. Cardiac silhouette and pulmonary vasculature are stable. IMPRESSION: 1. Lines and tubes as above. 2. Probable layering left-sided effusion with associated atelectasis, although underlying infiltrate cannot be excluded. Dictated by: Dictated on workstation # [id number]
== END 2017-03-24 00:11 | disposition expired ==
LOC: EDUNIT# 20:11 → ER 20:12 → ICU 22:05 → UNDOADMIN 22:05 → ER 03-24 00:11
DX: A41.9 Sepsis, unspecified organism (principal); J18.1 Lobar pneumonia, unspecified organism; J44.9 Chronic obstructive pulmonary disease, unspecified; I48.91 Unspecified atrial fibrillation; I10 Essential (primary) hypertension; E78.00 Pure hypercholesterolemia, unspecified; I25.10 Atherosclerotic heart disease of native coronary artery without angina pectoris; F41.9 Anxiety disorder, unspecified; F32.9 Major depressive disorder, single episode, unspecified; F17.210 Nicotine dependence, cigarettes, uncomplicated; Z79.01 Long term (current) use of anticoagulants; Z79.82 Long term (current) use of aspirin; Z95.5 Presence of coronary angioplasty implant and graft
CPT/HCPCS: 36415; 71010; 80053; 80320; 82805; 83605; 84484; 85007; 85027; 85610; 85730; 87040; 93005; 94640